=== PATIENT | male | born 1960 | race Hispanic/Latino ===

== ENCOUNTER 2016-07-12 05:08 | Observation (INO) | payer MEDICARE ==
[2016-07-12 05:09] VITALS: BMI 31.3
--- NOTE | 2016-07-12 05:17 | ED PDOC ---
Arrival/HPI - General Historian: Patient - History of Present Illness Time/Duration: Other (tonight) Symptom Onset: Gradual Symptom Course: Unchanged Activities at Onset: Rest, Light Context: Home <Terry Barrientos - Last Filed: 07/12/16 05:24> <Quan Quezada - Last Filed: 07/12/16 08:01> - General Chief Complaint: GI Problem Time Seen by Provider: 07/12/16 05:17 - History of Present Illness Narrative History of Present Illness (Text): 07/12/16 05:17 Marco A Fuentes is a 55 year old male, whose past medical history includes multiple episodes of diverticulitis, cholecystectomy, hypertension, hyperlipidemia, CABG, diabetes, peripheral vascular disease, and CAD, who presents to the emergency department complaining of generalized abdominal pain. Patient reports associated nausea, vomiting, and diarrhea. Patient notes decreased PO intake secondary to vomiting. Patient denies any fever, chills, chest pain, shortness of breath, urinary symptoms, back pain, neck pain, headache, dizziness, or any other complaints. (Terry Barrientos) Past Medical History - Provider Review Nursing Documentation Reviewed: Yes - Infectious Disease Hx of Infectious Diseases: None - Tetanus Immunization Tetanus Immunization: Unknown - Cardiac Hx Hypertension: Yes Hx Peripheral Vascular Disease: Yes Other/Comment: CABG CAD [place] - Pulmonary Hx Bronchitis: Yes Hx Pneumonia: Yes - Neurological Hx Neurological Disorder: No - HEENT Hx HEENT Disorder: No - Renal Hx Renal Disorder: No - Endocrine/Metabolic Hx Diabetes Mellitus Type 2: Yes - Hematological/Oncological Hx Blood Disorders: No - Integumentary Hx Dermatological Disorder: No - Musculoskeletal/Rheumatological Hx Falls: Yes Hx Unsteady Gait: Yes - Gastrointestinal Hx Gall Bladder Disease: Yes Hx Gastroesophageal Reflux: Yes - Genitourinary/Gynecological Hx Genitourinary Disorders: No - Psychiatric Hx Depression: No Hx Emotional Abuse: No Hx Physical Abuse: No Hx Substance Use: Yes - Past Surgical History Past Surgical History: Non-Contributing - Surgical History Hx Cardiac Catheterization: Yes Hx Cholecystectomy: Yes Hx Open Heart Surgery: Yes - Anesthesia Hx Anesthesia: Yes - Suicidal Assessment Feels Threatened In Home Enviroment: No <Terry Barrientos - Last Filed: 07/12/16 05:24> Family/Social History - Physician Review Nursing Documentation Reviewed: Yes Family/Social History: No Known Family HX Smoking Status: Heavy Smoker > 10 Cigarettes Daily Hx Alcohol Use: No (denies) Hx Substance Use: Yes Substance used: Percocet; Oxycontin -- off the street Hx Substance Use Treatment: No <CarrieelsyTerry - Last Filed: 07/12/16 05:24> Allergies/Home Meds <IlianaTerry - Last Filed: 07/12/16 05:24> <Quan Quezada - Last Filed: 07/12/16 08:01> Allergies/Adverse Reactions: Allergies levofloxacin [From Levaquin] Allergy (Verified 07/12/16 05:10) URTICARIA Penicillins Allergy (Verified 07/12/16 05:10) RASH Home Medications: Home Meds Medication Instructions Recorded Confirmed Aspirin [[facility]] 81 mg PO DAILY 08/06/12 07/12/16 Clopidogrel Bisulfate [Clopidogrel] 75 mg PO DAILY 08/06/12 07/12/16 Metoprolol Succinate 50 mg PO DAILY 08/06/12 07/12/16 Furosemide [Lasix] 20 mg PO DAILY 09/06/13 07/12/16 Atorvastatin Calcium 40 mg PO DAILY 04/30/16 07/12/16 Glipizide [Glipizide Xl] 10 mg PO DAILY 04/30/16 07/12/16 Lactobacillus Combo No.6 1 each PO DAILY 04/30/16 07/12/16 [Probiotic Complex] Warfarin [Coumadin] 4 mg PO DAILY 04/30/16 07/12/16 Cyclobenzaprine [Flexeril] 1 tab PO Q8H PRN 06/23/16 07/12/16 Review of Systems - Physician Review All systems were reviewed & negative as marked: Yes - Review of Systems Constitutional: Normal. absent: Fevers Eyes: Normal ENT: Normal Respiratory: Normal. absent: SOB, Cough Cardiovascular: Normal. absent: Chest Pain Gastrointestinal: Abdominal Pain, Diarrhea, Nausea. absent: Vomiting, Other Genitourinary Male: Normal. absent: Dysuria, Frequency, Hematuria, Urinary Output Changes Musculoskeletal: Normal. absent: Back Pain, Neck Pain Skin: Normal. absent: Rash Neurological: Normal. absent: Headache, Dizziness Endocrine: Normal Hemo/Lymphatic: Normal Psychiatric: Normal <IlianaTerry - Last Filed: 07/12/16 05:24> Physical Exam Vital Signs Reviewed: Yes Temperature: Afebrile Blood Pressure: Normal Pulse: Regular Respiratory Rate: Normal Appearance: Positive for: Well-Appearing, Non-Toxic, Comfortable Pain Distress: None Mental Status: Positive for: Alert and Oriented X 3 - Systems Exam Head: Present: Atraumatic, Normocephalic Pupils: Present: PERRL Extroacular Muscles: Present: EOMI Conjunctiva: Present: Normal Mouth: Present: Moist Mucous Membranes Neck: Present: Normal Range of Motion Respiratory/Chest: Present: Clear to Auscultation, Good Air Exchange. No: Respiratory Distress, Accessory Muscle Use Cardiovascular: Present: Regular Rate and Rhythm, Normal S1, S2. No: Murmurs Abdomen: Present: Normal Bowel Sounds. No: Tenderness, Distention, Peritoneal Signs Back: Present: Normal Inspection Upper Extremity: Present: Normal Inspection. No: Cyanosis, Edema Lower Extremity: Present: Normal Inspection. No: Edema Neurological: Present: GCS=15, CN II-XII Intact, Speech Normal Skin: Present: Warm, Dry, Normal Color. No: Rashes Psychiatric: Present: Alert, Oriented x 3, Normal Insight, Normal Concentration <Terry Barrientos - Last Filed: 07/12/16 05:24> Vital Signs Temp Pulse Resp BP Pulse Ox 07/12/16 06:40 94 H 18 130/89 95 07/12/16 05:18 98.2 F 77 16 175/102 H 97 Medical Decision Making - Lab Interpretations I have reviewed the lab results: Yes <Terry Barrientos - Last Filed: 07/12/16 05:24> - RAD Interpretation Miner: Radiologist <Quan Quezada - Last Filed: 07/12/16 08:01> ED Course and Treatment: 07/12/16 05:17 Impression: 55 year old male complaining of generalized abdominal pain, nausea, vomiting, and diarrhea tonight. Plan: -- Labs, lipase -- Urinalysis -- IV fluids -- Zofran -- Ativan -- Reassess and disposition Progress Notes: (Terry Barrientos) 07/12/16 07:48 pt endorsed to me pending ct abd pelvis. ct shows colitis, antibiotic ordered. vrad also reports possible concern for developing sbo. case discussed with dr carlin, accepted (Quan Quezada) - Lab Interpretations Lab Results: 07/12/16 05:25 07/12/16 05:25 Lab Results 07/12/16 05:25: WBC 13.2 H D, RBC 6.00, Hgb 17.5, Hct 50.2, MCV 83.7, MCH 29.2, MCHC 34.9, RDW 13.5, Plt Count 233, MPV 9.9, Gran % 86.9 H, Lymph % (Auto) 9.2 L , [place] % (Auto) 3.7, Eos % (Auto) 0.1 L, Baso % (Auto) 0.1, Gran # 11.47 H, Lymph # 1.2, [place] # 0.5, Eos # 0.0, Baso # 0.01, PT 18.9 H, INR 1.75 H, APTT 31.5 H, Sodium 137, Potassium 3.6, Chloride 98, Carbon Dioxide 25, Anion Gap 18 , BUN 28 H, Creatinine 1.2, Est GFR ( Amer) > 60, Est GFR (Non-Af Amer) > 60, Random Glucose 298 H, Calcium 9.6, Total Bilirubin 1.0, AST 44, ALT 53, Alkaline Phosphatase 145 H, Total Protein 7.6, Albumin 4.2, Globulin 3.3, Albumin/Globulin Ratio 1.3, Lipase 78 - RAD Interpretation Narrative RAD Interpretations (Text): EXAM: CT Abdomen and Pelvis Without Intravenous Contrast FINDINGS: Lower thorax: No acute findings. ABDOMEN: Liver: No acute findings. Gallbladder and bile ducts: Cholecystectomy. No ductal dilation. Pancreas: No acute findings. No ductal dilation. Spleen: No acute findings. No splenomegaly. Adrenals: There is left adrenal gland thickening. Kidneys and ureters: No acute findings. No obstructing stones. No hydronephrosis. Stomach and bowel: There is mild fluid and gaseous distention portions of small bowel in left abdomen. There is liquid stool in portions of the colon. Appendix: No findings to suggest acute appendicitis. PELVIS: Bladder: No acute findings. No stones. Reproductive: No acute findings. ABDOMEN and PELVIS: Intraperitoneal space: No acute findings. No free air. No significant fluid collection. Bones/joints: No acute fracture. No dislocation. Soft tissues: No acute findings. Vasculature: No acute findings. No abdominal aortic aneurysm. Lymph nodes: There is mild nonspecific prominence of the mesenteric lymph node. IMPRESSION: There is mild fluid and gaseous distention portions of small bowel in left abdomen. There is liquid stool in portions of the colon. Consider a degree of enterocolitis. Followup imaging may be of assistance if there is concern for developing small bowel obstruction. (Quan Quezada) Radiology Orders: 07/12/16 06:31 ABD & PELVIS W/O PO OR IV CONT [CT] Stat - Medication Orders Current Medication Orders: Sodium Chloride (Sodium Chloride 0.9%) 1,000 mls @ 80 mls/hr IV .[id number] NINO Last Admin: 07/12/16 05:35 Dose: 80 MLS/HR eMAR Start Stop Document 07/12/16 05:35 SB (Rec: 07/12/16 05:35 SB [id number]) Intravenous Solution Start Date 07/12/16 Start Time 05:35 End Date 07/12/16 Aztreonam (Azactam 1 Gm) 100 mls @ 100 mls/hr IVPB STAT STA PRN Reason: Protocol Stop: 07/12/16 08:41 Metronidazole (Flagyl) 100 mls @ 100 mls/hr IVPB STAT STA PRN Reason: Protocol Stop: 07/12/16 08:41 Discontinued Medications Ketorolac Tromethamine (Toradol) 30 mg IVP STAT STA Stop: 07/12/16 07:38 Lorazepam (Ativan) 1 mg IVP ONCE ONE PRN Reason: Protocol Stop: 07/12/16 05:23 Last Admin: 07/12/16 05:35 Dose: 1 MG Behavioural Document 07/12/16 05:35 SB (Rec: 07/12/16 05:35 SB [id number]) Maintenance Maintenance Dose No Nonmedicinal Nonmedicinal Interventions Redirect Therapeutic Communication Behavior Behavior for Medication: Anxiety IVP Administration Document 07/12/16 05:35 SB (Rec: 07/12/16 05:35 SB [id number]) Charges for Administration # of IVP Administrations 1 Ondansetron HCl (Zofran Inj) 4 mg IVP STAT STA Stop: 07/12/16 05:18 Last Admin: 07/12/16 05:35 Dose: 4 MG IVP Administration Document 07/12/16 05:35 SB (Rec: 07/12/16 05:35 SB [id number]) Charges for Administration # of IVP Administrations 1 - Scribe Statement The provider has reviewed the documentation as recorded by the Scribe <Terry Barrientos - Last Filed: 07/12/16 05:24> <Quan Quezada - Last Filed: 07/12/16 08:01> - Scribe Statement Keiry Steel All medical record entries made by the Scribe were at my direction and personally dictated by me. I have reviewed the chart and agree that the record accurately reflects my personal performance of the history, physical exam, medical decision making, and the department course for this patient. I have also personally directed, reviewed, and agree with the discharge instructions and disposition. (Terry Barrientos) Disposition/Present on Arrival - Present on Arrival History of DVT/PE: No History of Uncontrolled Diabetes: No Urinary Catheter: No History of Decub. Ulcer: No History Surgical Site Infection Following: None <Terry Barrientos - Last Filed: 07/12/16 05:24> - Present on Arrival Any Indicators Present on Arrival: No - Disposition Have Diagnosis and Disposition been Completed?: Yes Disposition Time: 08:00 <Quan Quezada - Last Filed: 07/12/16 08:01> - Disposition Diagnosis: Colitis Disposition: HOSPITALIZED Patient Problems: Current Active Problems Problem Status Diagnosed Colitis Acute Condition: STABLE
[2016-07-12] MEDS ORDERED: Sodium Chloride 0.9% 1,000 ML IV SCH ×2 (05:30→08:30)
[2016-07-12 05:50] LABS: ADD MANUAL DIFF? NO
[2016-07-12 05:57] LABS: BASO # 0.01 K/mm3 (0.0-2.0); BASO % 0.1 % (0.0-3.0); EOS % 0.1 % (1.5-5.0); GRAN # 11.47 (1.4-6.5); GRAN % 86.9 % (50.0-68.0); HEMATOCRIT 50.2 % (42.0-52.0); LYMPH # 1.2 (1.2-3.4); LYMPH % 9.2 % (22.0-35.0); MEAN CELL VOLUME 83.7 fL (80.0-105.0); MEAN CORPUSCULAR HEMOGLOBIN 29.2 pg (25.0-35.0); MEAN CORPUSCULAR HGB CONC 34.9 g/dl (31.0-37.0); MEAN PLATELET VOLUME 9.9 fl (7.0-11.0); MONO # 0.5 (0.1-0.6); MONO % 3.7 % (1.0-6.0); PLATELET COUNT 233 10^3/uL (120.0-450.0); RED CELL DISTRIBUTION WIDTH 13.5 % (11.5-14.5); WHITE BLOOD COUNT 13.2 10^3/ul (4.5-11.0)
[2016-07-12 06:03] LABS: ALB/GLOB RATIO 1.3 (1.1-1.8); ALKALINE PHOSPHATASE 145 U/L (38-133); ALT/SGPT 53 U/L (7-56); AST/SGOT 44 U/L (15-59); BLOOD UREA NITROGEN 28 mg/dL (7-21); CALCIUM 9.6 mg/dL (8.4-10.5); CARBON DIOXIDE 25 mmol/L (21-33); CHLORIDE 98 mmol/L (98-107); GFR AFRICAN-AMERICAN > 60; GLUCOSE,RANDOM 298 mg/dL (70-110); INR 1.75 (0.93-1.08); LIPASE 78 U/L (23-300); PARTIAL THROMBOPLASTIN TIME 31.5 Seconds (23.7-30.8); POTASSIUM 3.6 mmol/L (3.6-5.0); SODIUM 137 mmol/L (132-148); TOTAL PROTEIN 7.6 g/dL (5.8-8.3)
[2016-07-12 06:40] VITALS: RESP 18
[2016-07-12] MEDS ORDERED: Aztreonam 1 Gm in NS 100mL 100 ML IVPB STA (07:42)
[2016-07-12] MEDS ORDERED: metroNIDAZOLE IV 500 mg/100 ml 100 ML IVPB STA (07:42)
[2016-07-12 09:23] VITALS: BP 179/102; PULSE 81; O2SAT 98
[2016-07-12] MEDS ORDERED: Non Formulary Medication (Warfarin [Coumadin] 4 MG) PO SCH (10:00)
[2016-07-12] MEDS ORDERED: Metoprolol Succinate 50 mg XL Tab PO SCH (10:00)
--- NOTE | 2016-07-12 10:00 | CT ---
PROCEDURE: CT Abdomen and Pelvis without intravenous contrast HISTORY: abd pain COMPARISON: 06/22/2016. TECHNIQUE: Technique. Contrast Dose: This CT exam was performed using one or more of the following dose reduction techniques: Automated exposure control, adjustment of the mA and/or kV according to patient size, and/or use of iterative reconstruction technique. Helical scan is obtained from the diaphragm dome to the pubic symphysis without intravenous contrast. Sagittal and coronal reconstructions were obtained. Radiation dose: Total exam DLP = 834 mGy-cm. FINDINGS: LOWER THORAX: Unremarkable. LIVER: Unremarkable. No gross lesion or ductal dilatation. GALLBLADDER AND BILE DUCTS: Cholecystectomy. PANCREAS: Unremarkable. No gross lesion or ductal dilatation. SPLEEN: Unremarkable. ADRENALS: Left adrenal gland thickening. KIDNEYS AND URETERS: 2 cm right renal cyst.. No hydronephrosis. No solid mass. VASCULATURE: Unremarkable. No aortic aneurysm. BOWEL: Unremarkable. No obstruction. No gross mural thickening. APPENDIX: Unremarkable. Normal appendix. PERITONEUM: Unremarkable. No free fluid. No free air. LYMPH NODES: Unremarkable. No enlarged lymph nodes. BLADDER: Unremarkable. REPRODUCTIVE: Unremarkable. BONES: No acute fracture. OTHER FINDINGS: None. IMPRESSION: No acute pathology.
[2016-07-12 11:50] VITALS: TEMP 98
[2016-07-12] MEDS: Insulin Lispro (humaLOG) LOW Coverage SC SCH ×2 (11:57→17:40)
--- NOTE | 2016-07-12 15:38 | CON ---
DATE: 07/12/2016 REQUESTING PHYSICIAN: Dr. Garcia REASON FOR CONSULTATION: I have been asked to see this 55-year-old male with chronic abdominal pain, opiate addiction, frequent [facility] hospitalizations for abdominal pain, diverticuliti s, colitis, coronary artery disease, diabetes mellitus, peripheral vascular disease, who comes to the hospital with generalized abdominal pain, nausea, vomiting and diarrhea. The patient is lying in be d, complaining of abdominal pain, stating that no one will give him "pain medications". The patient states that he has been buying opiates "on the street" because he cannot find a physician to give him pain medications. CT scan of the abdomen and pelvis performed in the Emergency Room shows no acute findings. There is a moderate amount of stool in the rectum. The patient was last hospitalized abou a week ago. He also had a colonoscopy several weeks ago, which revealed benign polyps and divertic ulosis. SOCIAL HISTORY: The patient smokes up to a half pack of cigarettes per day. He denies alcohol use. The patient is addicted to opiates including Percocet, OxyContin, which he buys "on the street". REVIEW OF SYSTEMS: A 14-point is positive for nausea, vomiting, diarrhea, abdominal pain. PHYSICAL EXAMINATION: GENERAL: Well-developed male, lying in bed, complaining of abdominal pain. VITAL SIGNS: Reveal temperature of 98.2, blood pressure 179/102, heart rate of 81. HEENT: Reveal sclerae to be white, conjunctivae pink. NECK: Supple. CHEST: Reveals lungs to be clear. HEART: Reveals a regular rate and rhythm. ABDOMEN: Soft, mild diffuse tenderness. There is no guarding. There is no rebound. EXTREMITIES: Show no edema. LABORATORY DATA: Reveal hemoglobin 17.5, white blood cell count 13.2. Chemistries reveal BUN 28, cr eatinine 1.2. IMPRESSION: A 55-year-old male with multiple complaints of nausea, vomiting, abdominal pain, diarrhe a with frequent [facility] admissions with an opiate addiction. The patient is asking fo r pain meds and is very angry that he is not receiving opiate pain medications in the hospital. He i s receiving Toradol. Some of patient's symptoms may be related to opiate withdrawal. RECOMMENDATIONS: 1. Continue IV fluid hydration. 2. Check stool for culture and sensitivity, ova and parasite, Clostridium difficile. 3. Continue antiemetics. 4. Continue PPI for stress ulcer prophylaxis. Terry Coates MD cc: [phone] TT: 07/12/2016 15:37:17 Confirmation # [id number] Dictation # [id number]
--- NOTE | 2016-07-12 17:13 | CP.PCM.HP ---
<Vlad Gallardo - Last Filed: 07/12/16 17:07> History of Present Illness - History of Present Illness History of Present Illness: 55 y/o M with PMH of CAD s/p CABG, paroxysmal a-fib, HLD, DM, lumbosacral radiculopathy, and chronic opioid dependence presents with lower abdominal pain over the last several days. Pt states he has chronically had abdominal pain for the past few months. Pt normally treats his pain with Percocet and oxycontin which he gets on the street. Today, pt states he has run out of pain meds and has not been able to tolerate the pain so he came to the ED. Pain is located in the lower quadrants and is nonradiating. Pain is described as cramping. Pt states pain is constant and is a 10/10. Pt states he has had several episodes of vomiting at home, nonbloody and nonbilious. Pt denies diarrhea at this time. Pt was admitted for a similar episode 3 weeks ago and left AMA. Pt denies CP, SOB, fever, dysuria, headaches, diarrhea, recent sick contacts. PMH: As above Surgical Hx: Cholecystectomy, Right inguinal hernia repair, CABG, Cardiac stent placement Social Hx: Tobacco 1 ppd x 30 years. Alcohol socially, abuses pain medication Allergies: Levofloxacin, penicillin Medication: See MAR Present on Admission - Present on Admission Any Indicators Present on Admission: No Review of Systems - Constitutional Constitutional: Fatigue. absent: Increased Appetite, Lethargy - EENT Eyes: absent: Blurred Vision, Change in Vision - Cardiovascular Cardiovascular: absent: Chest Pain, Irregular Heart Rhythm - Respiratory Respiratory: absent: Cough, Dyspnea - Gastrointestinal Gastrointestinal: Abdominal Pain, Vomiting. absent: Diarrhea - Genitourinary Genitourinary: absent: Dysuria, Hematuria - Musculoskeletal Musculoskeletal: Back Pain. absent: Muscle Weakness - Integumentary Integumentary: absent: New Lesions, Rash - Neurological Neurological: absent: Syncope, Tingling, Tremor - Psychiatric Psychiatric: absent: Anxiety, Depression Past Patient History - Infectious Disease Hx of Infectious Diseases: None - Tetanus Immunizations Tetanus Immunization: Unknown - Past Social History Smoking Status: Heavy Smoker > 10 Cigarettes Daily - CARDIAC Hx Hypertension: Yes Hx Peripheral Vascular Disease: Yes Other/Comment: CABG CAD [place] - PULMONARY Hx Bronchitis: Yes Hx Pneumonia: Yes - NEUROLOGICAL Hx Neurological Disorder: No - HEENT Hx HEENT Problems: No - RENAL Hx Chronic Kidney Disease: No - ENDOCRINE/METABOLIC Hx Diabetes Mellitus Type 2: Yes - HEMATOLOGICAL/ONCOLOGICAL Hx Blood Disorders: No - INTEGUMENTARY Hx Dermatological Problems: No - MUSCULOSKELETAL/RHEUMATOLOGICAL Hx Falls: Yes - GASTROINTESTINAL Hx Gall Bladder Disease: Yes Hx Gastroesophageal Reflux: Yes - GENITOURINARY/GYNECOLOGICAL Hx Genitourinary Disorders: No - PSYCHIATRIC Hx Depression: No Hx Emotional Abuse: No Hx Physical Abuse: No - SURGICAL HISTORY Hx Cardiac Catheterization: Yes Hx Cholecystectomy: Yes Hx Open Heart Surgery: Yes - ANESTHESIA Hx Anesthesia: Yes Meds Allergies/Adverse Reactions: Allergies Allergy/AdvReac Type Severity Reaction Status Date / Time levofloxacin [From Levaquin] Allergy URTICARIA Verified 07/12/16 05:10 Penicillins Allergy RASH Verified 07/12/16 05:10 Physical Exam - Constitutional Appears: Non-toxic, No Acute Distress - Head Exam Head Exam: ATRAUMATIC, NORMAL INSPECTION, NORMOCEPHALIC - Eye Exam Eye Exam: EOMI, Normal appearance, PERRL - ENT Exam ENT Exam: Mucous Membranes Moist, Normal Exam - Neck Exam Neck exam: Positive for: Normal Inspection. Negative for: Lymphadenopathy - Respiratory Exam Respiratory Exam: Clear to Auscultation Bilateral, NORMAL BREATHING PATTERN. absent: Rhonchi, Wheezes - Cardiovascular Exam Cardiovascular Exam: RRR, +S1, +S2 - GI/Abdominal Exam GI & Abdominal Exam: Normal Bowel Sounds, Soft, Tenderness (tenderness to palpation along lower abdominal quadrants). absent: Distended, Firm, Guarding - Extremities Exam Extremities exam: Positive for: normal inspection. Negative for: calf tenderness, pedal edema - Neurological Exam Neurological exam: Alert, CN II-XII Intact, Oriented x3 - Psychiatric Exam Psychiatric exam: Normal Affect, Normal Mood - Skin Skin Exam: Intact, Normal Color, Warm Results - Vital Signs Recent Vital Signs: Last Vital Signs Temp 98 F 07/12/16 11:46 Pulse 81 07/12/16 11:46 Resp 18 07/12/16 11:46 BP 179/102 H 07/12/16 11:46 Pulse Ox 98 07/12/16 09:16 - Labs Result Diagrams: 07/12/16 05:25 07/12/16 05:25 Labs: Laboratory Results - last 24 hr 07/12/16 11:50 Troponin I < 0.01 Assessment & Plan - Assessment and Plan (Free Text) Plan: 55 y/o M with PMH of CAD s/p CABG, paroxysmal a-fib, HLD, DM, lumbosacral radiculopathy, and chronic opioid dependence presents with lower abdominal pain. Pt received CT scan of ab/pelvis which showed no acute pathology. Pt was seen by Dr. Coates GI, who recommends IV hydration and IV GI prophylaxis. Pt will have abx stopped at this time. Pt will continue with IV hydration and have diet advanced as tolerated. 1. Abdominal pain - Tordol for pain - IVF - Zofran for nausea - No abx at this time - GI recommends conservative therapy 2. Hx of CABG - Continue ASA, lipitor, plavix, metoprolol. - Monitor for chest pain 3. Hx of a-fib - Continue warfarin 4. PPX - Zofran - Protonix Seen, reviewed, and discussed with attending. Sami, PGY-1 <Robin Garcia - Last Filed: 07/14/16 13:23> Results - Vital Signs Recent Vital Signs: Last Vital Signs Temp 98 F 07/12/16 11:46 Pulse 81 07/12/16 11:46 Resp 18 07/12/16 11:46 BP 179/102 H 07/12/16 11:46 Pulse Ox 98 07/12/16 09:16 - Labs Result Diagrams: 07/12/16 05:25 07/12/16 05:25 Attending/Attestation - Attestation I have personally seen and examined this patient.: Yes I have fully participated in the care of the patient.: Yes I have reviewed all pertinent clinical information: Yes Notes (Text): 07/12/16 55 year old male with past medical history of CAD s/p CABG, paroxysmal afib, diabetes, dyslipidemia and chronic opioid dependence who presented with lower abdominal pain with intractable nausea and vomiting. CT abd/pelvis was negative. Labs were unremarkable. He was seen by GI who recommended iv fluids hydration and diet advancement as tolerated. Later in the evening patient reported his symptoms were better. He was seen by the resident who explained to him the risks of signing out against medical advice. Patient signed out AMA. Robin Garcia MD Hospitalist.
== END 2016-07-12 17:55 | disposition left against medical advice (07) ==
LOC: ED 05:08 → ERH 07:51 → 5RNO 09:53
PROVIDERS: ADMIT Internal Medicine; ATTEND Internal Medicine
DX: K52.9 Noninfective gastroenteritis and colitis, unspecified (principal); I48.0 Paroxysmal atrial fibrillation; M54.17 Radiculopathy, lumbosacral region; I25.10 Atherosclerotic heart disease of native coronary artery without angina pectoris; E78.5 Hyperlipidemia, unspecified; E11.51 Type 2 diabetes mellitus with diabetic peripheral angiopathy without gangrene; F17.210 Nicotine dependence, cigarettes, uncomplicated; F11.20 Opioid dependence, uncomplicated; R10.30 Lower abdominal pain, unspecified; R11.2 Nausea with vomiting, unspecified; Z79.82 Long term (current) use of aspirin; Z95.5 Presence of coronary angioplasty implant and graft; Z79.84 Long term (current) use of oral hypoglycemic drugs; Z95.1 Presence of aortocoronary bypass graft; Z88.0 Allergy status to penicillin
CPT/HCPCS: 74176; 80053; 83690; 84484; 85025; 85610; 85730; 87040; 96374; 96375; 96376; 99284; C9113; G0378; J1885; J2060; J2405; J7040

== ENCOUNTER 2016-09-17 06:48 | Day surgery (SDC) | payer MEDICARE ==
[2016-09-11 08:36] VITALS: BMI 31.3
[2016-09-17] MEDS ORDERED: Lidocaine 1% Inj (20ml) ONE (07:12)
[2016-09-17] MEDS ORDERED: Bupivacaine 0.5% Inj(30mL) ONE ×2 (07:12→08:18)
[2016-09-17 07:23] LABS: ADD MANUAL DIFF? NO
[2016-09-17 07:25] LABS: BASO # 0.02 K/mm3 (0.0-2.0); BASO % 0.2 % (0.0-3.0); EOS # 0.1 (0.0-0.7); EOS % 1.1 % (1.5-5.0); GRAN # 6.45 (1.4-6.5); GRAN % 73.7 % (50.0-68.0); LYMPH # 1.5 (1.2-3.4); LYMPH % 16.6 % (22.0-35.0); MEAN CELL VOLUME 83.5 fL (80.0-105.0); MEAN CORPUSCULAR HEMOGLOBIN 27.5 pg (25.0-35.0); MEAN CORPUSCULAR HGB CONC 32.9 g/dl (31.0-37.0); MEAN PLATELET VOLUME 9.7 fl (7.0-11.0); MONO # 0.7 (0.1-0.6); MONO % 8.4 % (1.0-6.0); PLATELET COUNT 189 10^3/uL (120.0-450.0); RED CELL DISTRIBUTION WIDTH 14.5 % (11.5-14.5); WHITE BLOOD COUNT 8.8 10^3/ul (4.5-11.0)
[2016-09-17 07:33] LABS: BLOOD UREA NITROGEN 25 mg/dL (7-21); CALCIUM 9.2 mg/dL (8.4-10.5); CARBON DIOXIDE 27 mmol/L (21-33); CHLORIDE 107 mmol/L (98-107); GFR AFRICAN-AMERICAN > 60; GLUCOSE,RANDOM 141 mg/dL (70-110); POTASSIUM 4.2 mmol/L (3.6-5.0); SODIUM 139 mmol/L (132-148)
[2016-09-17 07:36] LABS: INR 0.98 (0.93-1.08); PARTIAL THROMBOPLASTIN TIME 29.9 Seconds (23.7-30.8)
[2016-09-17] MEDS ORDERED: Midazolam 2 MG/2 ML VIAL ONE (07:48)
[2016-09-17] MEDS ORDERED: Propofol 10 mg/ml Inj (20 ML) ONE (07:48)
[2016-09-17] MEDS ORDERED: Rocuronium 10 mg/ml (5 ml) ONE (07:49)
[2016-09-17] MEDS ORDERED: Phenylephrine 10 mg/ml Inj ONE (07:49)
[2016-09-17] MEDS ORDERED: ePHEDrine 50 mg/ml Inj ONE (07:49)
[2016-09-17] MEDS ORDERED: Ciprofloxacin 400mg/200ml D5W 0 MG/0 ML BAG IVPB ONE (07:54)
[2016-09-17] MEDS ORDERED: Desflurane Inhalation Anesthetic Liq (240 ml) ONE (08:08)
[2016-09-17] MEDS ORDERED: Labetalol 5 mg/ml Inj 20ML ONE (08:12)
[2016-09-17] MEDS ORDERED: Vancomycin 1 g Inj ONE (08:15)
[2016-09-17] MEDS ORDERED: Morphine 4 mg/ml ISec ONE (08:20)
[2016-09-17] MEDS ORDERED: HYDROmorphone 0.5 mg/0.5 ml ISec IVP PRN (09:42)
[2016-09-17] MEDS ORDERED: Neostigmine Methylsulfate 3mg/3ml Syringe IV ONE (09:50)
--- NOTE | 2016-09-17 09:55 | PCM.SURG1 ---
Surgeon's Initial Post Op Note - Surgeon's Notes Surgeon: Dr. Santa [employer] Incident Handler: Radha Ye PGY1 Pre-Operative Diagnosis: Left inguinal hernia Operative Findings: Left indirect inguinal hernia Post-Operative Diagnosis: Left indirect inguinal hernia Operation Performed: Left inguinal hernia repair with mesh Specimen/Specimens Removed: hernia sac Estimated Blood Loss: EBL {In ML}: 5 Date of Surgery/Procedure: 09/17/16 Time of Surgery/Procedure: 08:00
--- NOTE | 2016-09-17 10:51 | OP ---
PROCEDURE DATE: 09/17/2016 PREOPERATIVE DIAGNOSIS: Left inguinal hernia. POSTOPERATIVE DIAGNOSIS: Left inguinal hernia. PROCEDURE PERFORMED: Left inguinal hernia repair with PHS hernia patch. SURGEON: Dr. Santa. DITCH DIGGER: Dr. Ye. ANESTHESIOLOGIST: Dr. Krishna. ANESTHESIA: General endotracheal anesthesia. ESTIMATED BLOOD LOSS: Minimal. SPECIMEN: Hernia sac and cord lipoma. INDICATION: The patient is a 56-year-old male with history of right inguinal hernia repair in the [facility] who currently developed left inguinal hernia, was complaining of pain and discomfort and was sched uled for the repair of left inguinal hernia. A standard timeout procedure took place with everybody in the room agreed as to patient's identity, d iagnosis and procedure to be performed. DESCRIPTION OF PROCEDURE: The patient was brought to the operating room and placed on the operating table in supine position. The patient was connected to EKG, blood pressure and pulse oximeter monito rs. The patient then underwent general endotracheal anesthesia, was prepped and draped in usual ster ile fashion. Using lidocaine mixed with Marcaine, the line of incision was infiltrated and an incision was made us ing #15 blade. Carefully, the incision was carried through subcutaneous fat and the fascia, down to the external oblique aponeurosis. This was incised along its fibers and elevated and from the underlying tissues. The spermatic cord was then carefully dissected out and elevated on a Penros e drain. The ilioinguinal nerve, which was identified prior to that, was pushed aside in order to av oid injury. Once the cord was skeletonized, the hernia sac was identified and pulled up and ligated at its base and amputated and so was the cord lipoma. The preperitoneal space was now carefully acce ssed through the internal ring of the inguinal canal and the double layer mesh was used where the pos terior layer was placed into the preperitoneal space which was earlier created and then the external portion had a keyhole cut out for the cord exit site and was placed flatly on the floor of the inguin al canal, going around the exit site of the spermatic cord. This was sutured to the edges of the tra nsversalis fascia and inguinal ligament. A 0 Vicryl stitch was used. The cord was now placed back i n its original position and so was the ilioinguinal nerve and external oblique aponeurosis was suture d on top of it. The area was infiltrated with lidocaine mixed with Marcaine and Toradol. The wound was then copiously irrigated. There was excellent hemostasis. The irrigation was suctioned out and the Myla's fascia and subcutaneous tissues were closed using 3-0 Vicryl. Skin was closed using 4-0 Monocryl. Thomas Santa MD cc: [id number] TT: 09/17/2016 10:50:31 quintin
[2016-09-17 10:58] VITALS: RESP 18; TEMP 97.3; O2SAT 99
[2016-09-17 12:11] VITALS: BP 164/90; PULSE 84
== END 2016-09-17 12:25 | disposition home or self-care (01) ==
LOC: SDS 06:48
PROVIDERS: ATTEND General Practice
DX: I10 Essential (primary) hypertension (principal); I25.10 Atherosclerotic heart disease of native coronary artery without angina pectoris; I25.2 Old myocardial infarction; E11.8 Type 2 diabetes mellitus with unspecified complications; Z79.84 Long term (current) use of oral hypoglycemic drugs; K40.90 Unilateral inguinal hernia, without obstruction or gangrene, not specified as recurrent
CPT/HCPCS: 36415; 49505; 80048; 82948; 85025; 85610; 85730; 88302; C1781; J1170; J1885 ×2; J2250; J2270; J2370; J2405; J2704; J2710; J2765; J3010; J7120

== ENCOUNTER 2016-10-28 06:57 | Day surgery (SDC) | payer MEDICARE ==
[2016-09-11 08:36] VITALS: BMI 31.3
[2016-10-28 07:59] LABS: BASO # 0.02 K/mm3 (0.0-2.0); BASO % 0.2 % (0.0-3.0); EOS # 0.2 (0.0-0.7); EOS % 1.5 % (1.5-5.0); GRAN # 7.58 (1.4-6.5); GRAN % 75.1 % (50.0-68.0); HEMOGLOBIN 13.7 gm/dL (14.0-18.0); LYMPH # 1.6 (1.2-3.4); LYMPH % 15.9 % (22.0-35.0); MEAN CORPUSCULAR HEMOGLOBIN 26.2 pg (25.0-35.0); MEAN CORPUSCULAR HGB CONC 31.6 g/dl (31.0-37.0); MEAN PLATELET VOLUME 10.1 fl (7.0-11.0); MONO # 0.7 (0.1-0.6); MONO % 7.3 % (1.0-6.0); PLATELET COUNT 260 10^3/uL (120.0-450.0); RBC 5.22 10^6/uL (3.5-6.1); RED CELL DISTRIBUTION WIDTH 14.8 % (11.5-14.5); WHITE BLOOD COUNT 10.1 10^3/ul (4.5-11.0)
[2016-10-28 08:11] LABS: INR 1.02 (0.93-1.08); PARTIAL THROMBOPLASTIN TIME 29.4 Seconds (23.7-30.8)
[2016-10-28 08:13] LABS: BLOOD UREA NITROGEN 26 mg/dL (7-21); CALCIUM 9.2 mg/dL (8.4-10.5); GFR AFRICAN-AMERICAN > 60; GFR NON-AFRICAN AMERICAN 57
[2016-10-28] MEDS ORDERED: Bupivacaine 0.5% Inj(30mL) ONE (09:28)
[2016-10-28] MEDS ORDERED: Lidocaine 1% Inj (20ml) ONE (09:28)
[2016-10-28] MEDS ORDERED: Propofol 10 mg/ml Inj (20 ML) ONE ×2 (09:54→10:09)
[2016-10-28] MEDS ORDERED: Midazolam 2 MG/2 ML VIAL ONE (09:54)
[2016-10-28] MEDS ORDERED: Lactated Ringer's 1,000 ML IV SCH (10:48)
--- NOTE | 2016-10-28 10:51 | PCM.SURG1 ---
Surgeon's Initial Post Op Note - Surgeon's Notes Surgeon: Dr. Santa Unit Educator: Dr. Estrada PGY1, Mikal Neville OMS3 Type of Anesthesia: IV Sedation, Local Pre-Operative Diagnosis: Posterior Neck Mass Operative Findings: 4.2 x 2 cm fibrous neck mass Post-Operative Diagnosis: same Operation Performed: excision of fibrous neck mass Specimen/Specimens Removed: 4.2 x 2cm neck mass Estimated Blood Loss: EBL {In ML}: 5 Drains Used: No Drains Date of Surgery/Procedure: 10/28/16 Time of Surgery/Procedure: 10:30
[2016-10-28 11:15] VITALS: O2SAT 99
[2016-10-28 11:58] VITALS: BP 131/80; PULSE 65; RESP 20; TEMP 97.7
--- NOTE | 2016-10-28 23:25 | OP ---
PROCEDURE DATE: 10/28/2016 PREOPERATIVE DIAGNOSIS: Posterior neck mass. POSTOPERATIVE DIAGNOSIS: Posterior neck mass. PROCEDURE: Excision of a 4.2 x 2 cm posterior neck intramuscular mass. SURGEON: Dr. Santa. CORRECTIONS CASEWORKER: Dr. Scott. TYPE OF ANESTHESIA: MAC and local anesthesia. ANESTHESIOLOGIST: Dr. Shaw. ESTIMATED BLOOD LOSS: Minimal. SPECIMEN: Posterior neck intramuscular mass. INDICATIONS: The patient is a 56-year-old male who is complaining of painful mass in the posterior neck associated with tenderness and discomfort to touch. The patient was seen in the office and was scheduled for excision of this mass. DESCRIPTION OF PROCEDURE: The patient was brought to the operating room and placed on the operating table in a prone position. The patient was connected to the EKG, blood pressure, and pulse oximetry monitor. The patient then underwent MAC anesthesia. First a standard time-out procedure took place, when everybody in the room agreed as to the patient's identify, diagnoses, and procedure to be performed. Using lidocaine with some Marcaine, the area of the incision was infiltrated and the incision was made through skin into the subcutaneous fat. Careful palpation revealed *------* mass which was slightly above the muscle fascia and appeared to be a rubbery hard nodule. This appeared to be piercing through the muscle fascia and into the underlying neck muscle. The mass itself was carefully dissected out of the edges of the fascia and the subfascial extension of this mass into the muscle was also carefully dissected out and removed. The wound was then copiously irrigated. All of the bleeding points were cauterized and the wound was closed in layers using 3-0 Vicryl for the fascia, 3-0 Vicryl for the deep dermal layer and 4-0 Monocryl for the skin. A sterile Dermabond dressing was applied to the wound. The patient was awaken and transferred to the recovery room for further observation. Thomas Santa MD
== END 2016-10-28 12:35 | disposition home or self-care (01) ==
LOC: SDS 06:57
PROVIDERS: ATTEND General Practice
DX: D17.9 Benign lipomatous neoplasm, unspecified (principal); I10 Essential (primary) hypertension; I25.10 Atherosclerotic heart disease of native coronary artery without angina pectoris; E11.9 Type 2 diabetes mellitus without complications; E66.9 Obesity, unspecified; Z68.31 Body mass index [BMI] 31.0-31.9, adult; Z79.84 Long term (current) use of oral hypoglycemic drugs; Z95.1 Presence of aortocoronary bypass graft
CPT/HCPCS: 21552; 36415; 80048; 85025; 85610; 85730; 88307; J2250; J2405; J2704; J7120 ×2

== ENCOUNTER 2017-01-17 11:20 | Inpatient (IN) | payer MEDICARE ==
[2017-01-17 11:32] VITALS: BMI 29.5
[2017-01-17] MEDS ORDERED: Aspirin 325 mg EC Tablets PO STA (11:37)
--- NOTE | 2017-01-17 11:48 | ED PDOC ---
Arrival/HPI - General Chief Complaint: Chest Pain Time Seen by Provider: 01/17/17 11:30 Historian: Patient - Critical Care Critical Care Minutes: 30 minutes - History of Present Illness Narrative History of Present Illness (Text): 01/17/17 11:46 A 56 year old male heavy smoker, whose past medical history includes renal failure and an inguinal hernia, presents to the emergency department for chronic chest pain and shortness of breath, which began 2 days ago. The patient reports he was seeking pain management for his chronic chest pain, but was dismissed. The patient admits to buying oxycodone off the streets, but states he no longer has enough money to buy them and he feels as if he is going through withdrawal. The patient denies any fever, abdominal pain, nausea, or any other complaints at this time. Time/Duration: < week (x2 days) Symptom Onset: Gradual Symptom Course: Unchanged Activities at Onset: Light Context: Home Associated Symptoms (Text): 01/17/17 12:30 2 day history of chest pain and shortness of breath. Patient reports that he has chronic chest pain. This pain began 2 days ago when he ran out of his narcotic pain medication. He had been seeing a ship painter helper but has been dismissed. He has been buying his OxyContin and oxycodone from the street. He does not have enough money to buy them any longer and has not taken them in 3 days. He believes that this pain is because he is no longer on his narcotic pain medication. He feels as if he is going through withdrawal. Past Medical History - Provider Review Nursing Documentation Reviewed: Yes - Infectious Disease Hx of Infectious Diseases: None - Tetanus Immunization Tetanus Immunization: Unknown - Cardiac Hx Pacemaker: No Other/Comment: CABG and Cardiac Stent - Pulmonary Hx Chronic Obstructive Pulmonary Disease (COPD): Yes - Neurological Hx Paralysis: No - HEENT Hx HEENT Disorder: No - Renal Hx Renal Disorder: No - Endocrine/Metabolic Hx Diabetes Mellitus Type 2: Yes - Hematological/Oncological Hx Blood Transfusions: No Hx Blood Transfusion Reaction: No - Integumentary Hx Dermatological Disorder: No - Musculoskeletal/Rheumatological Hx Musculoskeletal Disorders: No - Gastrointestinal Hx Gall Bladder Disease: Yes Hx Gastroesophageal Reflux: Yes - Genitourinary/Gynecological Hx Genitourinary Disorders: No - Psychiatric Hx Emotional Abuse: No Hx Physical Abuse: No Hx Substance Use: Yes (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") - Past Surgical History Past Surgical History: Non-Contributing - Surgical History Hx Coronary Artery Bypass Graft: Yes (quadruple) - Anesthesia Hx Anesthesia Reactions: Yes (WAKES UP ANGRY) Hx Malignant Hyperthermia: No - Suicidal Assessment Feels Threatened In Home Enviroment: No Family/Social History - Physician Review Nursing Documentation Reviewed: Yes Family/Social History: Unknown Family HX Smoking Status: Heavy Smoker > 10 Cigarettes Daily Hx Alcohol Use: No Hx Substance Use: Yes (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") Substance used: Percocet; Oxycontin -- off the street Hx Substance Use Treatment: No Allergies/Home Meds Allergies/Adverse Reactions: Allergies levofloxacin [From Levaquin] Allergy (Severe, Verified 09/11/16 08:36) URTICARIA Penicillins Allergy (Severe, Verified 09/11/16 08:36) RASH Home Medications: Home Meds Medication Instructions Recorded Confirmed Aspirin [[facility]] 81 mg PO DAILY 08/06/12 01/17/17 Clopidogrel Bisulfate [Clopidogrel] 75 mg PO DAILY 08/06/12 01/17/17 Metoprolol Succinate 50 mg PO DAILY 08/06/12 01/17/17 Furosemide [Lasix] 20 mg PO DAILY 09/06/13 01/17/17 Atorvastatin Calcium 40 mg PO DAILY 04/30/16 01/17/17 Glipizide [Glipizide Xl] 10 mg PO DAILY 04/30/16 01/17/17 Lactobacillus Combo No.6 1 each PO DAILY 04/30/16 01/17/17 [Probiotic Complex] Warfarin [Coumadin] 4 mg PO DAILY 04/30/16 01/17/17 Review of Systems - Physician Review All systems were reviewed & negative as marked: Yes - Review of Systems Constitutional: Fatigue. absent: Fevers Respiratory: SOB. absent: Cough Cardiovascular: Chest Pain. absent: Palpitations, Syncope Gastrointestinal: absent: Abdominal Pain, Nausea, Vomiting Neurological: Dizziness. absent: Headache, Focal Weakness, Gait Changes Physical Exam Vital Signs Reviewed: Yes Vital Signs Temp Pulse Resp BP Pulse Ox 01/17/17 12:48 98.8 F 86 18 98/58 L 100 01/17/17 11:42 98.5 F 95 H 18 123/63 100 01/17/17 11:23 99 H 20 123/63 100 Temperature: Afebrile Blood Pressure: Normal Pulse: Regular Respiratory Rate: Normal Appearance: Positive for: Non-Toxic, Uncomfortable, Other (Pale) Pain Distress: None Mental Status: Positive for: Alert and Oriented X 3 - Systems Exam Head: Present: Atraumatic, Normocephalic Pupils: Present: PERRL Extroacular Muscles: Present: EOMI Conjunctiva: Present: Normal Mouth: Present: Moist Mucous Membranes Pharnyx: No: ERYTHEMA, EXUDATE, TONSILS ENLARGED Neck: Present: Normal Range of Motion Respiratory/Chest: Present: Decreased Breath Sounds (diminished breath sounds), Tender to Palpation (chest is tender to palpation) Cardiovascular: Present: Regular Rate and Rhythm, Normal S1, S2. No: Murmurs Abdomen: Present: Normal Bowel Sounds. No: Tenderness, Distention, Peritoneal Signs Upper Extremity: Present: Normal Inspection. No: Cyanosis, Edema Lower Extremity: Present: Normal Inspection. No: Edema Neurological: Present: GCS=15, CN II-XII Intact, Speech Normal, Motor Func Grossly Intact Skin: Present: Warm, Dry, Normal Color. No: Rashes Psychiatric: Present: Alert, Oriented x 3, Normal Insight, Normal Concentration Medical Decision Making ED Course and Treatment: 01/17/17 11:49 Impression: A 56 year old male with chest pain. Differential Diagnosis included but are not limited to: Plan: -- EKG -- Chest X-ray -- Labs -- Aspirin, Nitroglycerin -- Reassess and disposition Prior Visits: Progress Notes: 01/17/17 12:32 CABG and stents in the past. His last cardiac catheterization was 06/06/2012. He had an ejection fraction of 50% at that time and no disease. 01/17/17 12:33 EKG shows normal sinus rhythm rate approximately 95 with Q waves inferiorly and no acute ST or T-wave changes 01/17/17 12:38 After the patient's hemoglobin returned 4.8, I went back and did a rectal exam on the patient. His rectal exam is black guaiac positive. Packed red blood cells have been ordered. Consultation was obtained with PMD Dr.A Busch and patient will be admitted. Consultation with the tufter hand for ICU admission. Consultation with Dr. Molina and Dr Coates have been called. 01/17/17 13:[address] Coates. - Lab Interpretations Lab Results: 01/17/17 11:50 01/17/17 11:50 Lab Results 01/17/17 12:21: Blood Type Pending, Antibody Screen Pending, Crossmatch See Detail, BBK History Checked Patient has bt 01/17/17 11:50: Sodium 139, Potassium 3.8, Chloride 104, Carbon Dioxide 23, Anion Gap 16, BUN 24 H, Creatinine 1.4, Est GFR ( Amer) > 60, Est GFR ( Non-Af Amer) 52, Random Glucose 283 H, Calcium 8.0 L, Total Bilirubin 0.3, AST 22, ALT 46, Alkaline Phosphatase 95, Lactate Dehydrogenase 316 L, Total Creatine Kinase 43, Troponin I < 0.01, NT-Pro-B Natriuret Pep 1070 H, Total Protein 5.2 L, Albumin 2.9 L, Globulin 2.2, Albumin/Globulin Ratio 1.3 01/17/17 11:50: PT 29.1 H, INR 2.69 H, APTT 38.3 H, D-Dimer, Quantitative 0.19 01/17/17 11:50: WBC 12.6 H D, RBC 1.92 L, Hgb 4.8 L*, Hct 15.6 L*, MCV 81.3, MCH 25.0, MCHC 30.8 L, RDW 17.1 H, Plt Count 223, MPV 9.0, Gran % 86.2 H, Lymph % (Auto) 7.0 L, Trego % (Auto) 6.5 H, Eos % (Auto) 0.2 L, Baso % (Auto) 0.1, Gran # 10.83 H, Lymph # 0.9 L, Trego # 0.8 H, Eos # 0.0, Baso # 0.01 - RAD Interpretation Radiology Orders: 01/17/17 11:37 CHEST PORTABLE [RAD] Stat - Medication Orders Current Medication Orders: Discontinued Medications Aspirin (Ecotrin) 325 mg PO STAT STA Stop: 01/17/17 11:38 Last Admin: 01/17/17 12:11 Dose: 325 mg Nitroglycerin (Nitrostat Sl Tab) 0.4 mg SL STAT STA Stop: 01/17/17 11:38 Last Admin: 01/17/17 12:11 Dose: 0.4 mg Phytonadione (Vitamin K Tab) 10 mg PO ONCE ONE Stop: 01/17/17 12:29 Last Admin: 01/17/17 12:39 Dose: 10 mg - Scribe Statement The provider has reviewed the documentation as recorded by the Rena Batres Provider Scribe Attestation: All medical record entries made by the Gustaboibe were at my direction and personally dictated by me. I have reviewed the chart and agree that the record accurately reflects my personal performance of the history, physical exam, medical decision making, and the department course for this patient. I have also personally directed, reviewed, and agree with the discharge instructions and disposition. Disposition/Present on Arrival - Present on Arrival Any Indicators Present on Arrival: No History of DVT/PE: No History of Uncontrolled Diabetes: No Urinary Catheter: No History of Decub. Ulcer: No History Surgical Site Infection Following: None - Disposition Have Diagnosis and Disposition been Completed?: Yes Diagnosis: Gastrointestinal hemorrhage, Anemia, Chest pain, Dyspnea Disposition: HOSPITALIZED Disposition Time: 12:41 Patient Plan: ICU Patient Problems: Current Active Problems Problem Status Onset Anemia Acute Chest pain Acute Dyspnea Acute Gastrointestinal hemorrhage Acute Condition: CRITICAL
[2017-01-17 12:01] LABS: BASO # 0.01 K/mm3 (0.0-2.0); BASO % 0.1 % (0.0-3.0); EOS % 0.2 % (1.5-5.0); GRAN # 10.83 (1.4-6.5); GRAN % 86.2 % (50.0-68.0); LYMPH # 0.9 (1.2-3.4); MEAN CELL VOLUME 81.3 fl (80.0-105.0); MEAN CORPUSCULAR HGB CONC 30.8 g/dl (31.0-37.0); MONO # 0.8 (0.1-0.6); MONO % 6.5 % (1.0-6.0); RED CELL DISTRIBUTION WIDTH 17.1 % (11.5-14.5); WHITE BLOOD COUNT 12.6 10^3/ul (4.5-11.0)
[2017-01-17 12:10] LABS: ALB/GLOB RATIO 1.3 (1.1-1.8); ALKALINE PHOSPHATASE 95 U/L (38-126); ALT/SGPT 46 U/L (7-56); AST/SGOT 22 U/L (17-59); BILIRUBIN,TOTAL 0.3 mg/dL (0.2-1.3); BLOOD UREA NITROGEN 24 mg/dL (7-21); CARBON DIOXIDE 23 mmol/L (21-33); CHLORIDE 104 mmol/L (98-107); GFR AFRICAN-AMERICAN > 60; GLUCOSE,RANDOM 283 mg/dL (70-110); HEMATOCRIT 15.6 % (42.0-52.0); POTASSIUM 3.8 mmol/L (3.6-5.0); SODIUM 139 mmol/L (132-148); TOTAL PROTEIN 5.2 g/dL (5.8-8.3)
[2017-01-17 12:19] LABS: D DIMER 0.19 mg/L FEU (0-0.50); INR 2.69 (0.93-1.08); PARTIAL THROMBOPLASTIN TIME 38.3 Seconds (23.7-30.8)
[2017-01-17 12:26] LABS: TROPONIN I < 0.01 ng/mL
--- NOTE | 2017-01-17 12:31 | RAD ---
HISTORY: Chest pain. Technique: Single view portable semi erect @ 12:06. COMPARISON: 05/25/2016 FINDINGS: LUNGS: No active pulmonary disease. PLEURA: No significant pleural effusion identified, no pneumothorax apparent. CARDIOVASCULAR: No radiographic findings to suggest acute or significant cardiovascular disease. Incidental Finding(s): Postoperative changes related to sternotomy. OSSEOUS STRUCTURES: No significant abnormalities. VISUALIZED UPPER ABDOMEN: Normal. OTHER FINDINGS: None. IMPRESSION: No active disease. No significant interval change compared to the prior examination(s). Please note: No preliminary report/ innterpretation of this examination provided by emergency department personnel.
[2017-01-17] MEDS: Insulin Lispro (humaLOG) LOW Coverage SC SCH ×2 (17:30→22:18)
[2017-01-17] MEDS: Oxycodone/Acetaminophen 5/325 mg Tab PO PRN (17:55)
--- NOTE | 2017-01-17 19:23 | CARD ---
APPROVED REPORT EKG Measurement Heart [id number] CO 130P13 [id number] <Conclusion> Normal sinus rhythm Inferior infarct, age undetermined Prolonged QT Abnormal ECG
[2017-01-17] MEDS ORDERED: Morphine 2 mg/ml ISec IVP ONE (20:50)
[2017-01-17] MEDS ORDERED: Morphine 4 mg/ml ISec IVP STA (21:03)
[2017-01-17 21:24] LABS: BASO # 0.01 K/mm3 (0.0-2.0); BASO % 0.1 % (0.0-3.0); EOS % 0.2 % (1.5-5.0); GRAN # 14.43 (1.4-6.5); GRAN % 87.6 % (50.0-68.0); HEMATOCRIT 25.4 % (42.0-52.0); LYMPH # 1.1 (1.2-3.4); LYMPH % 6.8 % (22.0-35.0); MEAN CELL VOLUME 81.7 fl (80.0-105.0); MEAN CORPUSCULAR HEMOGLOBIN 26.7 pg (25.0-35.0); MEAN CORPUSCULAR HGB CONC 32.7 g/dl (31.0-37.0); MEAN PLATELET VOLUME 9.3 fl (7.0-11.0); MONO # 0.9 (0.1-0.6); MONO % 5.3 % (1.0-6.0); RED CELL DISTRIBUTION WIDTH 16.1 % (11.5-14.5); WHITE BLOOD COUNT 16.5 10^3/ul (4.5-11.0)
--- NOTE | 2017-01-17 22:56 | CP.PCM.PN ---
Subjective - Date & Time of Evaluation Date of Evaluation: 01/17/17 Time of Evaluation: 22:55 - Subjective Subjective: Nurse called and told that he had vomited about 100 ml bilious secretion. Had no other complaints. Had received morphine 2 mg IV for pain. Medical record was reviewed. This 56 year old white male was admitted with chronic chest pain, sob,GI hemorrhage, severe anemia, elevated BNP, leukocytosis. Has PMH of CAD, DM II, GERD, COPD, atrial fibrillation, renal failure, inguinal hernia , CABG, cholecystectomy, coronary stent placement,heavy smoker, opioid dependent. Objective - Vital Signs/Intake and Output Vital Signs (last 24 hours): Temp Pulse Resp BP Pulse Ox 99.1 F 74 19 119/65 97 01/17/17 19:52 01/17/17 19:52 01/17/17 19:52 01/17/17 21:00 01/17/17 21:00 Intake and Output: 01/17/17 01/18/17 18:59 06:59 Intake Total 1675 325 Output Total 1250 Balance 425 325 - Medications Medications: Current Medications Acetaminophen (Tylenol 325mg Tab) 650 mg PO Q4H PRN PRN Reason: Fever >100.4 F Atorvastatin Calcium (Lipitor) 40 mg PO DAILY [facility] Insulin Human Lispro (Humalog Low) 0 units SC ACHS [facility] PRN Reason: Protocol Last Admin: 01/17/17 22:18 Dose: Not Given Oxycodone/Acetaminophen (Percocet 5/325 Mg Tab) 1 tab PO BID PRN PRN Reason: Pain, severe (8-10) Stop: 01/20/17 15:28 Last Admin: 01/17/17 17:55 Dose: 1 tab Pantoprazole Sodium (Protonix Inj) 40 mg IVP Q12 NINO - Labs Labs: 01/17/17 21:00 PT 29.1 Seconds (9.9-11.8) H 01/17/17 11:50 INR 2.69 (0.93-1.08) H 01/17/17 11:50 APTT 38.3 Seconds (23.7-30.8) H 01/17/17 11:50 - Constitutional Appears: Well, No Acute Distress - Head Exam Head Exam: ATRAUMATIC, NORMAL INSPECTION, NORMOCEPHALIC - Eye Exam Additional comments: Pale. - ENT Exam ENT Exam: Normal External Ear Exam - Neck Exam Neck Exam: Normal Inspection - Respiratory Exam Respiratory Exam: NORMAL BREATHING PATTERN - GI/Abdominal Exam GI & Abdominal Exam: absent: Distended - Rectal Exam Rectal Exam: Deferred - Exam Additional comments: Deferred. - Extremities Exam Extremities Exam: Normal Inspection - Back Exam Back Exam: NORMAL INSPECTION - Neurological Exam Neurological Exam: Alert, Awake - Psychiatric Exam Psychiatric exam: Agitated - Skin Skin Exam: Normal Color Assessment and Plan - Assessment and Plan (Free Text) Assessment: Vomited 2* to morphine? Agitation . Chest pain. Dyspnea. GI hemorrhage. CAD. HTN. DM II. COPD. S/P CABG. Anemia. Plan: Zofran 4 mg IV x 1. Continue present management.
[2017-01-18] MEDS: Oxycodone/Acetaminophen 5/325 mg Tab PO PRN (02:29)
[2017-01-18 06:16] LABS: INR 1.64 (0.93-1.08); PARTIAL THROMBOPLASTIN TIME 34.4 Seconds (23.7-30.8)
[2017-01-18 06:22] LABS: BASO # 0.01 K/mm3 (0.0-2.0); BASO % 0.1 % (0.0-3.0); GRAN # 15.08 (1.4-6.5); GRAN % 86.2 % (50.0-68.0); LYMPH % 5.4 % (22.0-35.0); MEAN CELL VOLUME 80.8 fl (80.0-105.0); MEAN CORPUSCULAR HEMOGLOBIN 26.6 pg (25.0-35.0); MEAN CORPUSCULAR HGB CONC 32.9 g/dl (31.0-37.0); MEAN PLATELET VOLUME 9.4 fl (7.0-11.0); MONO # 1.5 (0.1-0.6); MONO % 8.3 % (1.0-6.0); WHITE BLOOD COUNT 17.5 10^3/ul (4.5-11.0)
[2017-01-18 06:41] LABS: ALB/GLOB RATIO 1.2 (1.1-1.8); BILIRUBIN,TOTAL 0.7 mg/dL (0.2-1.3); CALCIUM 8.1 mg/dL (8.4-10.5); MAGNESIUM 1.7 mg/dL (1.7-2.2); PHOSPHOROUS 4.5 mg/dL (2.5-4.5); POTASSIUM 3.7 mmol/L (3.6-5.0); TOTAL PROTEIN 5.1 g/dL (5.8-8.3)
--- NOTE | 2017-01-18 07:50 | CP.PCM.PCO ---
Physician Communication Note - Physician Communication Note Physician Communication Note: Stable vitals; Approp response to transfusion; Thus, will transfer to tele
--- NOTE | 2017-01-18 08:22 | CON ---
DATE: 01/17/2017 SYSTEMS DEVELOPER NOTE REQUESTING PHYSICIAN: Dr. Busch. CHIEF COMPLAINT: The patient presented with chronic chest pain and shortness of breath on exertion. HISTORY OF PRESENT ILLNESS: Mr. Beckford is a 56-year-old male with a history of diabetes, COPD, CABG, coronary artery disease with stent. He is an abuser of OxyContin and Percocet. He is a drug abuser and has chronic pleuritic chest pain. The patient states that he has had black stools for sometimes with no bright red blood and presents with shortness of breath on exertion and chest discomfort. It is noted in the ER that his hemoglobin is 4.8. The patient has GI bleed. He has a history of inguinal hernia repair. PAST MEDICAL HISTORY: Noted as above. ALLERGIES: HE HAS ALLERGIES TO LEVAQUIN. FAMILY HISTORY: Noncontributory. SOCIAL HISTORY: He is drug abuser with OxyContin and Percocet. Says that he buys them on the street and he is a smoker, but no alcohol abuse. REVIEW OF SYSTEMS: CONSTITUTIONAL: The patient does have some fatigue, but no fever or chills. HEENT: Within normal limits. RESPIRATORY: Has shortness of breath with exertion. CARDIOVASCULAR: Complains of chest pain, but it is pleuritic in nature. GASTROINTESTINAL: No abdominal pain, no nausea or vomiting, but he does have black tarry stools. NEUROPSYCHIATRIC: Does complain of dizziness at times. ENDOCRINOLOGY: All negative. HEMATOLOGICAL: All negative. IMMUNOLOGICAL: All negative. INTEGUMENTARY: All negative. PHYSICAL EXAMINATION: VITAL SIGNS: His temperature is 98.8, his pulse is 85, respirations 18, blood pressure 126/63, and O2 saturation is 100%. HEENT: Head is atraumatic and normocephalic. Eyes, reactive to light. Ears, nose, and throat seemed to be within normal limits. NECK: Supple. No JVD. No thyroid enlargement. No lymph nodes. HEART: Regular rate and rhythm. Normal S1 and S2. LUNGS: Reveal good breath sounds bilaterally. ABDOMEN: Soft and nontender. Decreased bowel sounds. GENITALIA: Deferred. RECTAL: Deferred. MUSCULOSKELETAL: No joint deformities. EXTREMITIES: Reveal trace lower extremity edema. NEUROLOGIC: He seems to be grossly intact. LABORATORY DATA: As far as his laboratories are concerned, his white count is 12.6, hemoglobin is 4.8, hematocrit 15.6 with platelets of 223,000. His sodium is 139, potassium is 3.8, chloride 104, CO2 of 23 with a BUN of 24, creatinine of 1.4, and glucose of 283. IMPRESSION: This patient has acute gastrointestinal bleed and symptomatic anemia. He has pleuritic chest pain, history of chronic obstructive pulmonary disease, diabetes, coronary artery bypass grafting, as well as coronary artery disease and stents. PLAN: We will hold all anticoagulants and the patient will get Xanax, as well as, we will get some mild pain medications for his pleuritic chest pain. He will get Lipitor and we will follow his blood sugars and correct as needed. The patient will get transfused packed red blood cells and we will follow his hemoglobin and asked him scheduled to get Lasix for appropriate diuresis. We will monitor closely and treat aggressively along with the other consultants and the primary care doctor. Prakash Bennett MD
[2017-01-18] MEDS: Insulin Lispro (humaLOG) LOW Coverage SC SCH ×4 (08:39→21:33)
--- NOTE | 2017-01-18 09:45 | CON ---
DATE: REASON FOR CONSULTATION: Chest pain. HISTORY OF PRESENT ILLNESS: The patient is a 66 years old male, who has history of coronary artery disease, status post coronary artery bypass surgery few years ago at [facility]. The patient is on opiates, a pain killer which he was given in the street. He presented because of what he describes as chest pain, sharp in nature, and he had been out of his Percocet. The patient did report black stool a few days ago. The patient has no prior history of anemia, never required blood transfusion in the past. MEDICATIONS: The home medications include aspirin 81 mg once daily, Lopressor 50 mg once daily, Plavix 75 mg once daily, Coumadin 4 mg once a day, Lasix 20 mg once a day, Lipitor 40 mg once a day, glipizide 10 mg once a day. REVIEW OF SYSTEMS: No hematemesis. No fever or chills. No productive cough. PHYSICAL EXAMINATION GENERAL: The patient is a middle-aged male who does not appear to be in acute distress. VITAL SIGNS: Blood pressure 104/55, heart rate 88, temperature 98.8, respirations 17. HEENT: Pale conjunctivae. CHEST: Clear. HEART: S1 and S2 regular. ABDOMEN: Soft. EXTREMITIES: No edema. LABORATORY DATA: Hemoglobin and hematocrit 4.8 and 15.6, white count 12.6, platelet count 233,000. SMA-7: Sodium 139, potassium 3.8, chloride 104, CO2 of 23, glucose 283, BUN 24, creatinine 1.5, pro-BNP is 1070. INR is 2.69 and PTT is 38.3. D-dimer was within normal limits. EKG revealed normal sinus rhythm. Chest x-ray was unremarkable. Echocardiography study performed in August of this year revealed LVH with good LV systolic function, dilated left atrium and right atrium, no pulmonary hypertension. SPECT Myoview study in August of this year was reported as probably normal study. ASSESSMENT: 1. Severe anemia most likely secondary to gastrointestinal bleeding. 2. Atypical chest pain. 3. Coronary artery disease, status post coronary artery bypass surgery few years ago at [facility]. 4. Opiate abuse. RECOMMENDATIONS: The patient has already received vitamin K 10 mg orally as a single dose as well as sublingual nitroglycerin 1 tablet. The patient will be typed and cross matched and transfused with packed RBC transfusion. Monitor for signs of volume overload and administer Lasix 40 mg IV push after 8 units of packed RBC transfusion. Obtain urine for drug screen and I recommend subcutaneous vitamin K in addition to oral vitamin K. No place for either antiplatelet or anticoagulation therapy at this time. Colton Hdz MD
[2017-01-18] MEDS: Pantoprazole 40mg/100ml IVPB 40 MG/100 ML BAG IVPB SCH ×3 (10:03→19:45)
[2017-01-18] MEDS: Morphine 2 mg/ml ISec IVP PRN ×3 (10:03→21:28)
--- NOTE | 2017-01-18 10:41 | HP ---
HISTORY OF PRESENT ILLNESS: The patient is a 56-year-old man with a past medical history of CAD s/p PCI with stent placement s/p CABG, paroxysmal atrial fibrillation, hyperlipidemia, type 2 diabetes mellitus, lumbosacral radiculopathy and chronic opioid dependence who presented to [facility] ED with a several day history of fatigue, malaise and decreased exercise tolerance and who was initially admitted to the ICU for management of severe symptomatic anemia with a hemoglobin of 4.8. The patient reports that for the past couple of weeks he has noted dark tarry stools. The patient subsequently developed dyspnea with exertion associated with significant fatigue. Given the increasing severity of the symptoms he opted for evaluation in the ED. Upon arrival to the ED he was noted to be afebrile and mildly hypotensive with a blood pressure of 98/58. Physical examination was largely unremarkable with the exception of a rectal exam which was noted to be positive for occult blood. The patient's laboratory studies confirmed profound anemia with a hemoglobin of 4.8 and he was evaluated by the ICU team before being admitted to the ICU for continued management of profound symptomatic anemia. Upon being admitted to the ICU the patient was transfused 3 units of PRBCs with subsequent improvement in his hemoglobin to 7.9. The patient was subsequently transferred to the telemetry santizo for continued management of presumed upper GI bleed and symptomatic anemia. PAST MEDICAL HISTORY: As per HPI. PAST SURGICAL HISTORY: As per HPI. ALLERGIES: LEVAQUIN AND PENICILLIN. MEDICATIONS: Plavix 75 mg p.o. daily, aspirin 81 mg p.o. daily, Coumadin 4 mg p.o. daily, Lipitor 40 mg p.o. daily, Toprol XL 50 mg p.o. daily, glipizide 10 mg p.o. daily, Pepcid 20 mg p.o. daily, and oxycodone 20 mg p.o. b.i.d. FAMILY HISTORY: Noncontributory. SOCIAL HISTORY: The patient reports an active 35 pack year smoking history and social alcohol use. He also reports active illicit drug abuse stating he obtains opioid medications from the streets. The patient also has a former history of crack cocaine and heroine abuse. REVIEW OF SYSTEMS: The 14-point review of systems is negative except as per HPI. PHYSICAL EXAMINATION: VITAL SIGNS: Temperature 98.1, pulse 86, blood pressure 118/75, respiratory rate 20, oxygen saturation 99% on room air. GENERAL: No apparent distress. HEENT: PERRL. EOMI. No scleral icterus. Mild conjunctival pallor is noted. NECK: No JVD. No bruits. LUNGS: Clear to auscultation. CARDIOVASCULAR: Regular rate and rhythm. Normal S1 and S2. Midline sternotomy scar is noted. ABDOMEN: Normoactive bowel sounds. Soft. Mild tenderness to palpation to epigastrium and voluntary guarding. No rigidity, no tympany. EXTREMITIES: No edema. NEUROLOGIC: Awake, alert and oriented x3. No focal motor deficit. LABORATORY DATA: WBC 17.5 with 86% neutrophils, hemoglobin 7.9, hematocrit 24 and platelets 240. Sodium 140, potassium 3.7, chloride 104, bicarb 26, BUN 27, creatinine 1.6, glucose 200, INR 1.6. IMAGING STUDIES: Chest x-ray demonstrates no active disease. ASSESSMENT: The patient is a 56-year-old man with multiple medical comorbidities including CAD s/p CABG, paroxysmal AFib, T2DM, hyperlipidemia and lumbosacral radiculopathy with chronic opioid dependence who presented for evaluation of a several day history of fatigue and malaise and who was initially admitted to the ICU for management of severe symptomatic anemia with a hemoglobin of 4.8 presumed secondary to an upper GI bleed who is now status post transfer to the telemetry santizo. PLAN: 1. Severe symptomatic anemia, etiology unclear but consider secondary upper GI bleed. The patient is status post transfusion of 3 units of packed red blood cells with an appropriate response in hemoglobin. Morning labs demonstrated an hemoglobin of 7.9. The patient remains on Protonix 40 mg IV q. 12 hours. However, in the setting of presumed upper GI bleed, we will start the patient on Protonix strip pending GI evaluation. We will hold aspirin, Plavix, and Coumadin in the setting of a presumed upper GI bleed. Evaluation from Dr. Coates is ordered and pending. We will monitor CBC daily. 2. CAD s/p CABG. As above, we will hold aspirin and Plavix. We will resume Lipitor 40 mg p.o. daily. We will hold the patient's Toprol given his tenuous hemodynamics in the setting of an upper GI bleed. 3. Paroxysmal atrial fibrillation, the patient presently remains rate controlled. As above we will hold aspirin, Plavix, and Coumadin. 4. Type 2 diabetes mellitus. Continue with medium dose insulin sliding scale. We will hold oral glycemic agents as the patient is n.p.o. pending GI evaluation. 5. Hyperlipidemia. Continue with Lipitor 40 mg p.o. daily. 6. Lumbosacral radiculopathy. Continue with morphine 2 mg IV q. 6 hours p.r.n. pain. 7. Opioid dependence. The patient was extensively counseled regarding the adverse health effects of his chronic opioid use. The patient reports that multiple times in the past he has tried to seek help for his opioid addiction and is seeking a pain specialist for management of his chronic pain. He was advised that in the interim we will place him on morphine for pain control and so as to avoid the possibility of opioid withdrawal symptoms. 7. Prophylaxis. Continue Protonix. Deep venous thrombosis prophylaxis is not indicated as the patient is ambulatory and furthermore, we will defer anticoagulation in the setting of presumed upper GI bleed. Code Status: Full Code. Hany Busch MD [facility]ECHARIA[facility]
[2017-01-18] MEDS ORDERED: Etomidate 20 mg/10ml Inj IV ONE (11:13)
[2017-01-18] MEDS ORDERED: Lidocaine 2% Inj (20ml) ONE (11:13)
[2017-01-18] MEDS ORDERED: Propofol 10 mg/ml Inj (20 ML) ONE ×3 (11:13→11:35)
--- NOTE | 2017-01-18 12:13 | CON ---
CARDIOLOGY CONSULTATION DATE: 01/18/2017 HISTORY The patient is a 55-year-old male, who presents with malaise as well as a marked anemia. He was found to have a lower GI bleed. PAST MEDICAL HISTORY: The patient's past medical history includes history of coronary bypass surgery. A stress test performed earlier this year revealed no ischemia with an ejection fraction of 50%. Past medical history also includes GI workup in the past. He suffers from hypercholesterolemia and diabetes mellitus and hypertension. MEDICATIONS: He is currently taking oxycodone for chronic pain and he is complaining of withdrawal symptoms from been off oxycodone. SOCIAL HISTORY Denies smoking. REVIEW OF SYSTEMS: A 14-point review of systems reviewed in detail. No cardiac symptomatology is noted. PHYSICAL EXAMINATION: VITAL SIGNS: The heart rate is in the 80s. Blood pressure 118/75. NECK: Negative JVD. LUNGS: Without rales. HEART: With S1, S2. EXTREMITIES: Without edema. DIAGNOSTIC DATA: EKG shows no acute changes, in normal sinus rhythm, BUN and creatinine 27 and 1.6. his hemoglobin is going to from 4.8 to 7.9 after transfusions. IMPRESSION 1. Lower gastrointestinal bleed. 2. Stable angina. 3. Coronary artery disease. 4. History of coronary bypass surgery. 5. Marked anemia. 6. Diabetes mellitus. 7. Hypercholesterolemia. PLAN: Given these findings, given these findings, we will need to hold his Coumadin and Plavix. Awaiting GI input. Will follow up hemoglobin. Sky Molina MD
[2017-01-18 12:41] VITALS: O2SAT 98
[2017-01-18] MEDS: Sodium Chloride 0.9% 1,000 ML IV SCH ×2 (14:34→21:35)
[2017-01-18] MEDS: Sucralfate 1 gm/10 ml Oral Susp UD PO SCH ×2 (18:04→21:28)
--- NOTE | 2017-01-18 18:09 | CON ---
DATE OF CONSULTATION: 01/18/2017 REQUESTING PHYSICIAN: Dr. Hany Busch. REASON FOR CONSULTATION/HISTORY OF PRESENT ILLNESS: I have been asked to see this 56-year-old male with multiple medical problems including coronary artery disease, status post PCI with stent placement, paroxysmal atrial fibrillation, type 2 diabetes mellitus, chronic low back pain, chronic opioid dependence, chronic abdominal pain with history of diverticulitis, who comes to the hospital with 2 months of intermittent dark tarry stools. He denies any abdominal pain, nausea, or vomiting. Over the last several weeks, the patient developed increasing shortness of breath with minimal exertion and severe fatigue. He came to the emergency room for further evaluation. In the emergency room, his hemoglobin was noted to be 4.8. The patient was transfused 3 units of packed red blood cells and this morning, his hemoglobin was 8.3. The patient was on Coumadin for his paroxysmal atrial fibrillation. PAST MEDICAL HISTORY: As above. Again, he has a history of coronary artery disease, status post coronary artery stent placement, paroxysmal atrial fibrillation, on warfarin, diabetes mellitus type 2, chronic low back pain, chronic abdominal pain, diverticulitis, colitis. PAST SURGICAL HISTORY: Notable for coronary artery bypass surgery as well as left colon resection. SOCIAL HISTORY: The patient has smoked between 1 and 2 packs of cigarettes for over 30 years. He consumes alcohol on a social basis. He uses opiate medications on a chronic basis and has purchased these opioid medications off the streets. He also has a history of crack cocaine and heroin use. FAMILY HISTORY: Noncontributory. REVIEW OF SYSTEMS: Fourteen-point review of systems is positive for melena, weakness, and shortness of breath. No chest pain or palpitations. PHYSICAL EXAMINATION: GENERAL: Well-developed male, appearing pale, lying on the stretcher, in no acute distress. VITAL SIGNS: Reveal temperature of 98.5, blood pressure 130/78, heart rate of 70. HEENT: Reveals sclerae to be white. Conjunctivae pale. NECK: Supple. CHEST: Reveals lungs to be clear. HEART: Exam reveals an irregular rate. ABDOMEN: Soft, nontender. No mass. EXTREMITIES: Show no edema. MEDICATIONS: His medications at home include Lasix, Plavix, aspirin, metoprolol, lactobacillus, atorvastatin, glipizide, warfarin, and ibuprofen. LABORATORY DATA: Reveals BUN 27, creatinine 1.6, blood sugar 200. Coags reveal PT of 17.7, PTT of 34.4, INR of 1.6. CBC reveals hemoglobin down to 7.9 after being increased to 8.3 with 3 units of packed red blood cells, white blood cell count 17.5, platelet count 240,000. IMPRESSION: This is a 56-year-old male with multiple comorbidities including coronary artery disease, paroxysmal atrial fibrillation, on warfarin, aspirin, and nonsteroidal's with melena for 2 months and severe anemia. RECOMMENDATIONS: 1. Continue Protonix drip. 2. I will schedule the patient for an upper endoscopy. Terry Coates MD
[2017-01-19] MEDS: Pantoprazole 40mg/100ml IVPB 40 MG/100 ML BAG IVPB SCH ×3 (01:26→17:40)
[2017-01-19] MEDS: Morphine 2 mg/ml ISec IVP PRN ×4 (03:24→21:59)
[2017-01-19 07:48] LABS: BASO # 0.01 K/mm3 (0.0-2.0); BASO % 0.1 % (0.0-3.0); EOS # 0.1 (0.0-0.7); EOS % 0.6 % (1.5-5.0); GRAN # 8.7 (1.4-6.5); GRAN % 78.8 % (50.0-68.0); HEMATOCRIT 25.1 % (42.0-52.0); LYMPH # 1.5 (1.2-3.4); LYMPH % 13.4 % (22.0-35.0); MEAN CELL VOLUME 81.2 fl (80.0-105.0); MEAN CORPUSCULAR HEMOGLOBIN 25.9 pg (25.0-35.0); MEAN CORPUSCULAR HGB CONC 31.9 g/dl (31.0-37.0); MEAN PLATELET VOLUME 9.6 fl (7.0-11.0); MONO # 0.8 (0.1-0.6); MONO % 7.1 % (1.0-6.0); RED CELL DISTRIBUTION WIDTH 16.2 % (11.5-14.5)
[2017-01-19 07:54] LABS: INR 1.19 (0.93-1.08); PARTIAL THROMBOPLASTIN TIME 32.4 Seconds (23.7-30.8)
[2017-01-19 07:56] LABS: ALB/GLOB RATIO 1.3 (1.1-1.8); ALKALINE PHOSPHATASE 93 U/L (38-126); ALT/SGPT 46 U/L (7-56); AST/SGOT 27 U/L (17-59); BILIRUBIN,TOTAL 0.8 mg/dL (0.2-1.3); BLOOD UREA NITROGEN 30 mg/dL (7-21); CALCIUM 8.5 mg/dL (8.4-10.5); CARBON DIOXIDE 25 mmol/L (21-33); CHLORIDE 106 mmol/L (95-110); GFR AFRICAN-AMERICAN > 60; GLUCOSE,RANDOM 124 mg/dL (70-110); POTASSIUM 3.5 mmol/L (3.6-5.0); SODIUM 142 mmol/L (132-148); TOTAL PROTEIN 5.2 g/dL (5.8-8.3)
[2017-01-19] MEDS: Sucralfate 1 gm/10 ml Oral Susp UD PO SCH ×4 (08:00→21:10)
[2017-01-19] MEDS: Insulin Lispro (humaLOG) LOW Coverage SC SCH ×4 (08:00→21:55)
--- NOTE | 2017-01-19 09:39 | PN ---
SUBJECTIVE: The patient was seen and examined at bedside on the telemetry santizo. No acute events overnight. He remains afebrile and hemodynamically stable. The patient is s/p EGD with Dr. Coates which demonstrated a bleeding duodenal ulcer. The patient is s/p placement of endoscopic clip secondary to the bleeding duodenal ulcer. Given his EGD finding he must refrain from NSAIDS and antiplatelet or anticoagulation therapy for 2 weeks. This morning the patient states he feels okay and denies any further blood per rectum and his sole complaint is that of being hungry. OBJECTIVE: VITAL SIGNS: Temperature 98.8, pulse 72, blood pressure 144/76, respiratory rate 20, and oxygen saturation 99% on room air. GENERAL: No apparent distress. HEENT: PERRL. EOMI. No scleral icterus. Mild conjunctival pallor is noted. NECK: No JVD. No bruits. LUNGS: Clear to auscultation. CARDIOVASCULAR: Regular rate and rhythm. Normal S1 and S2. Midline sternotomy scar is noted. ABDOMEN: Normoactive bowel sounds. Soft. Mild tenderness to palpation to epigastrium with voluntary guarding. No rigidity. No tympany. EXTREMITIES: No edema. NEUROLOGIC: Awake, alert, and oriented x3. No focal motor deficits. LABORATORY DATA: WBC 11 with 79% neutrophils, hemoglobin 8, hematocrit 25, and platelets 252. Chemistry pending. ASSESSMENT: The patient is a 56-year-old man with multiple medical comorbidities including CAD s/p CABG, paroxysmal AFib, T2DM, hyperlipidemia and lumbosacral radiculopathy with chronic opioid dependence who presented with a several day history of fatigue and malaise and was initially admitted to the ICU for management of severe symptomatic anemia with a hemoglobin of 4.8 who is now s/p EGD which demonstrated a bleeding duodenal ulcer s/p endoscopic placement of clip who is demonstrating slow clinical improvement. PLAN: 1. Severe symptomatic anemia secondary to upper GI bleed s/p multiple transfusion of PRBCs s/p EGD with clip placement. Input from Dr. Coates noted and appreciated. The patient remains on a Protonix drip. Continue with Carafate. Advance diet as per Dr. Coates. The patient must refarin from NSAIDs and antiplatelet/anticoagulation therapy for at least 2 weeks. 2. CAD s/p CABG. Continue with Lipitor 40 mg p.o. daily. As above, we will hold the patient's aspirin and Plavix given his recent GI bleed. 3. Paroxysmal AFib. The patient remains rate controlled. As above, we will hold aspirin, Plavix, and Coumadin given his recent upper GI bleed. 4. Type 2 diabetes mellitus. Continue with medium dose insulin sliding scale. We will hold oral glycemic agents as the patient remains n.p.o. We will advance diet as per Dr. Coates. 5. Hyperlipidemia. Continue with Lipitor 40 mg p.o. daily. 6. Lumbosacral radiculopathy. Continue morphine 2 mg IV q.6 hours p.r.n. pain. 7. Opioid dependence. The patient remains on morphine for his underlying lumbosacral radiculopathy and this will mitigate withdrawal symptoms. He was again encouraged to seek outpatient pain management and help for his opioid addiction. 8. Prophylaxis: The patient remains on Protonix for his underlying upper GI bleed. DVT prophylaxis not indicated as the patient is ambulatory and further more contraindicated given his recent upper GI bleed. CODE STATUS: Full code. Hany Busch MD MTDD
--- NOTE | 2017-01-19 11:20 | PN ---
CARDIOLOGY FOLLOWUP DATE: 01/19/2017 SUBJECTIVE: The patient is chest pain free. PHYSICAL EXAMINATION: VITAL SIGNS: Blood pressure 155/73, heart rate in the 70s. NECK: Negative JVD. LUNGS: Without rales. HEART: Reveals S1 and S2. EXTREMITIES: Without edema. LABORATORY DATA: The hemoglobin is 8. Chemistries; BUN and creatinine is 30 and 1.3. IMPRESSION: 1. Status post gastrointestinal bleed. 2. Documented bleeding ulcer, on endoscopy. 3. Stable angina. 4. Coronary artery disease. 5. History of coronary artery bypass surgery. 6. Opiate dependency. PLAN: Given these findings, we will follow the hemoglobin. We will maintain on telemetry for 24 hours. Sky Molina MD
--- NOTE | 2017-01-19 13:43 | PN ---
DATE: 01/19/2017 SUBJECTIVE: The patient is lying in bed. He had an episode of melena at this morning. He denies any abdominal pain, nausea, or vomiting. PHYSICAL EXAMINATION: VITAL SIGNS: Reveal temperature of 98.7, blood pressure 144/82, heart rate 76. HEENT: Reveal sclerae to be white. Conjunctivae pale. NECK: Supple. CHEST: Reveal lungs to be clear. HEART: Reveals regular rate and rhythm. ABDOMEN: Soft. There is a well-healed left-sided abdominal scar. There is no rebound and no guarding. EXTREMITIES: Show no edema. LABORATORY DATA: Reveal white blood cell count of 11, hemoglobin 8.0, platelet count 252,000. BUN 30, creatinine 1.3, blood sugar 124, potassium 3.5. IMPRESSION: This is a 48-year-old male with multiple comorbidities, including coronary artery disease status post coronary artery stent placement many years ago. History of atrial fibrillation, on warfarin with severe anemia secondary to upper gastrointestinal bleed from a large bleeding duodenal ulcer. The patient underwent an upper endoscopy with placement of two hemoclips yesterday. Despite multiple transfusions, his blood count remains low with hemoglobin of 8. RECOMMENDATIONS: 1. We will transfuse 2 more units of packed red blood cells. 2. Continue Protonix drip. 3. Continue Carafate suspension. 4. Clear liquid diet with slow diet advancement as long as the patient is not clinically bleeding. Terry Coates MD
[2017-01-19] MEDS: Benzocaine/Menthol (Cepacol) Lozenge MT PRN (21:58)
[2017-01-20] MEDS: Benzocaine/Menthol (Cepacol) Lozenge MT PRN (00:24)
[2017-01-20] MEDS: Sodium Chloride 0.9% 1,000 ML IV SCH ×2 (00:58→05:00)
[2017-01-20] MEDS: Pantoprazole 40mg/100ml IVPB 40 MG/100 ML BAG IVPB SCH ×3 (00:59→11:10)
[2017-01-20] MEDS: Morphine 2 mg/ml ISec IVP PRN ×2 (04:00→11:05)
[2017-01-20 06:38] LABS: BASO # 0.01 K/mm3 (0.0-2.0); BASO % 0.1 % (0.0-3.0); EOS # 0.1 (0.0-0.7); EOS % 1.1 % (1.5-5.0); GRAN # 7.35 (1.4-6.5); GRAN % 77.3 % (50.0-68.0); HEMATOCRIT 28.4 % (42.0-52.0); LYMPH # 1.4 (1.2-3.4); LYMPH % 14.4 % (22.0-35.0); MEAN CELL VOLUME 81.4 fl (80.0-105.0); MEAN CORPUSCULAR HEMOGLOBIN 26.6 pg (25.0-35.0); MEAN CORPUSCULAR HGB CONC 32.7 g/dl (31.0-37.0); MEAN PLATELET VOLUME 9.4 fl (7.0-11.0); MONO # 0.7 (0.1-0.6); MONO % 7.1 % (1.0-6.0); RED CELL DISTRIBUTION WIDTH 15.8 % (11.5-14.5); WHITE BLOOD COUNT 9.5 10^3/ul (4.5-11.0)
[2017-01-20 06:43] LABS: INR 1.19 (0.93-1.08); PARTIAL THROMBOPLASTIN TIME 29.2 Seconds (23.7-30.8)
[2017-01-20 06:45] LABS: ALB/GLOB RATIO 1.2 (1.1-1.8); ALKALINE PHOSPHATASE 86 U/L (38-126); ALT/SGPT 33 U/L (7-56); AST/SGOT 20 U/L (17-59); BLOOD UREA NITROGEN 15 mg/dL (7-21); CALCIUM 8.3 mg/dL (8.4-10.5); CARBON DIOXIDE 24 mmol/L (21-33); CHLORIDE 109 mmol/L (98-107); GFR AFRICAN-AMERICAN > 60; GLUCOSE,RANDOM 111 mg/dL (70-110); POTASSIUM 3.5 mmol/L (3.6-5.0); SODIUM 141 mmol/L (132-148)
[2017-01-20] MEDS: Insulin Lispro (humaLOG) LOW Coverage SC SCH ×2 (08:32→12:22)
[2017-01-20] MEDS: Sucralfate 1 gm/10 ml Oral Susp UD PO SCH ×2 (08:35→12:21)
--- NOTE | 2017-01-20 08:51 | PN ---
CARDIOLOGY FOLLOWUP DATE: 01/20/2017 SUBJECTIVE: The patient is comfortable without issues. PHYSICAL EXAMINATION: VITAL SIGNS: Blood pressure 143/83, the heart rate in the 70s. NECK: Negative JVD. LUNGS: Without rales. HEART: S1, S2. EXTREMITIES: Without edema. LABORATORY DATA: Hemoglobin is 9.3. Chemistries essentially unchanged. IMPRESSION: 1. Status post gastrointestinal bleed. 2. Coronary artery disease. 3. History of coronary bypass surgery. 4. Stable angina. 5. Opiate dependency. Given these findings, we will keep the patient off his antiplatelet, anticoagulation until GI bleed resolved. The patient remains hemodynamically stable. We will discontinue telemetry today. Sky Molina MD
--- NOTE | 2017-01-20 10:11 | PN ---
SUBJECTIVE: The patient was seen and examined at bedside on the telemetry santizo. No acute events overnight. The patient is s/p transfusion of an additional 2 units of PRBCs for a hemoglobin of 8 on yesterday's labs. The patient denies any further melena or dark tarry stools. This morning he states he feels stronger and his sole complaint is that of being hungry and he is requesting his diet be advanced. OBJECTIVE: VITAL SIGNS: Temperature 98.9, pulse 73, blood pressure 143/83, respiratory rate 20, and oxygen saturation 98% on room air. GENERAL: No apparent distress. HEENT: PERRL. EOMI. No scleral icterus. Mild conjunctival pallor is noted. NECK: No JVD. No bruits. LUNGS: Clear to auscultation. CARDIOVASCULAR: Regular rate and rhythm. Normal S1 and S2. Midline sternotomy scar is noted. ABDOMEN: Normoactive bowel sounds. Soft. Mild tenderness to palpation to epigastrium with voluntary guarding. No rigidity. No tympany. EXTREMITIES: No edema. NEUROLOGIC: Awake, alert, and oriented x3. No focal motor deficits. LABORATORY DATA: WBC 9.5 with 77% neutrophils, hemoglobin 9.3, hematocrit 28, platelets 253. Chemistry noted ASSESSMENT: The patient is a 56-year-old man with multiple medical comorbidities including CAD s/p CABG, paroxysmal AFib, T2DM, hyperlipidemia and lumbosacral radiculopathy with chronic opioid dependence who presented with a several day history of fatigue and malaise and was initially admitted to the ICU for management of severe symptomatic anemia with a hemoglobin of 4.8 who is now s/p EGD which demonstrated a bleeding duodenal ulcer s/p endoscopic placement of hemoclips and who is demonstrating slow clinical improvement. PLAN: 1. Severe symptomatic anemia secondary to upper GI bleed s/p multiple transfusions of PRBC's s/p EGD with placement of hemoclip. Input from Dr. Coates noted and greatly appreciated. The patient remains on a Protonix drip and Carafate. Advance diet as per Dr. Coates. Continue to monitor CBC daily. The patient must refrain from NSAIDs and antiplatelet/anticoagulation therapy for at least 2 weeks. 2. CAD s/p CABG. Continue with Lipitor 40 mg p.o. daily. As above, we will hold the patient's aspirin and Plavix given his recent GI bleed. 3. Paroxysmal AFib. The patient remains rate controlled. Hold aspirin, Plavix , and Coumadin given his recent upper GI bleed. 4. Type 2 diabetes mellitus. Continue with medium dose ISS. We will resume oral glycemic agents as needed while diet advances 5. Hyperlipidemia. Continue with Lipitor 40 mg p.o. daily. 6. Lumbosacral radiculopathy. Continue morphine 2 mg IV q.6 hours p.r.n. pain. 7. Opioid dependence. The patient remains on morphine for his underlying lumbosacral radiculopathy and this will mitigate withdrawal symptoms. He was advised to seek outpatient pain management and help for his chronic opioid use. 8. Prophylaxis. The patient remains on Protonix for his underlying upper GI bleed. DVT prophylaxis contraindicated given his recent upper GI bleed. CODE STATUS: Full Code. Hany Busch MD MTDD
[2017-01-20 12:33] VITALS: BP 169/93; PULSE 57; RESP 19; TEMP 98.7
[2017-01-20] MEDS ORDERED: Influenza Vaccine 60 mcg/0.5 mL SYR (4YR UP) IM ONE (13:27)
--- NOTE | 2017-01-20 13:49 | PN ---
DATE: 01/20/2017 SUBJECTIVE: The patient is sitting in chair. He states he is hungry and would like to have some solid food and wants to go home. He states that his stools are getting therapeutic recreation specialist in [place]. He denies any diarrhea, chest pain, shortness of breath, or abdominal pain. OBJECTIVE: VITAL SIGNS: Reveal temperature of 98.9, blood pressure 143/83, and heart rate 73. HEENT: Reveal sclerae to be white. Conjunctivae pale. NECK: Supple. CHEST: Reveal lungs to be clear. HEART: Reveals a regular rate and rhythm. ABDOMEN: Soft and nontender with well-healed left-sided abdominal scar. EXTREMITIES: Show no edema. LABORATORY DATA: Reveal hemoglobin up to 9.3 after transfusion of 2 units of packed red blood cells. Chemistries reveal potassium 3.5. AST, ALT, and alk phos were all normal. White blood cell count 9.5 and platelet count 253,000. IMPRESSION: A 56-year-old male with a history of atrial fibrillation and coronary artery disease, on warfarin and aspirin, admitted to the hospital with melena for several weeks associated with profound anemia with a hemoglobin of 4 g range. Upper endoscopy was performed and showed a large bleeding duodenal ulcer. Two hemoclips were placed across bleeding points. The patient appears to have stopped bleeding. He has received multiple units of packed red blood cells with his last hemoglobin being acceptable at 9.3. RECOMMENDATIONS: 1. We will advance to a soft diet. 2. If tolerated, he can be discharged home on pantoprazole 40 mg twice a day and Carafate suspension 1 g 4 times a day. He will need to hold his aspirin and Coumadin for at least 4 weeks to allow the ulcer to completely healed. There is a risk for a cardiovascular event including stroke; however, the risk of bleeding outweighs these other cardiovascular risks. Terry Coates MD
== END 2017-01-20 13:52 | disposition home or self-care (01) | DRG 378 ==
LOC: ED 11:20 → ERH 12:40 → CCU 14:03 → 2RNO 01-18 00:49
PROVIDERS: ADMIT Student in an Organized Health Care Education/Training Program; ATTEND Student in an Organized Health Care Education/Training Program
PROC: 30233N1 Transfusion of Nonautologous Red Blood Cells into Peripheral Vein, Percutaneous Approach (ICD-10-PCS; 2017-01-17)
PROC: 0W3P8ZZ Control Bleeding in Gastrointestinal Tract, Via Natural or Artificial Opening Endoscopic (ICD-10-PCS; principal; 2017-01-18 10:00)
PROC: 0DB68ZX Excision of Stomach, Via Natural or Artificial Opening Endoscopic, Diagnostic (ICD-10-PCS; 2017-01-18 10:00)
PROC: 3E0G8GC Introduction of Other Therapeutic Substance into Upper GI, Via Natural or Artificial Opening Endoscopic (ICD-10-PCS; 2017-01-18 10:00)
DX: K26.4 Chronic or unspecified duodenal ulcer with hemorrhage (principal); D62 Acute posthemorrhagic anemia; F11.20 Opioid dependence, uncomplicated; I10 Essential (primary) hypertension; I48.0 Paroxysmal atrial fibrillation; M54.17 Radiculopathy, lumbosacral region; I25.118 Atherosclerotic heart disease of native coronary artery with other forms of angina pectoris; E11.9 Type 2 diabetes mellitus without complications; J44.9 Chronic obstructive pulmonary disease, unspecified; F14.90 Cocaine use, unspecified, uncomplicated; E78.00 Pure hypercholesterolemia, unspecified; F17.200 Nicotine dependence, unspecified, uncomplicated; K21.9 Gastro-esophageal reflux disease without esophagitis; Z79.01 Long term (current) use of anticoagulants; Z79.84 Long term (current) use of oral hypoglycemic drugs; Z95.1 Presence of aortocoronary bypass graft; Z95.5 Presence of coronary angioplasty implant and graft

== ENCOUNTER 2017-04-01 00:19 | Emergency (ER) | payer MEDICARE ==
[2017-04-01 00:31] VITALS: BMI 31.3
[2017-04-01 00:44] VITALS: TEMP 98.6
[2017-04-01] MEDS ORDERED: Sodium Chloride 0.9% 1,000 ML IV STA (00:49)
[2017-04-01] MEDS ORDERED: Morphine 4 mg/ml ISec IVP STA (00:49)
--- NOTE | 2017-04-01 00:55 | ED PDOC ---
Arrival/HPI - General Chief Complaint: GI Problem Time Seen by Provider: 04/01/17 00:49 - History of Present Illness Narrative History of Present Illness (Text): 04/01/17 00:45 Marco A Fuentes is a 56 year old male, whose past medical history includes multiple episodes of diverticulitis, cholecystectomy, hypertension, hyperlipidemia, CABG, diabetes, peripheral vascular disease, and CAD, who presents to the emergency department complaining of LLQ abdominal pain for the past few days. Patient states he is currently being treated outpatient for diverticulitis by his PMD. Patient denies any fever, chills, chest pain, shortness of breath, nausea, vomiting, diarrhea, urinary symptoms, back pain, neck pain, headache, dizziness, or any other complaints. PMD: Dr. Busch Time/Duration: < week (few days) Symptom Onset: Gradual Symptom Course: Unchanged Activities at Onset: Light Context: Home Past Medical History - Provider Review Nursing Documentation Reviewed: Yes - Infectious Disease Hx of Infectious Diseases: None - Tetanus Immunization Tetanus Immunization: Unknown - Cardiac Hx Pacemaker: No Other/Comment: CABG and Cardiac Stent - Pulmonary Hx Chronic Obstructive Pulmonary Disease (COPD): Yes - Neurological Hx Neurological Disorder: No - HEENT Hx HEENT Disorder: No - Renal Hx Renal Disorder: No - Endocrine/Metabolic Hx Diabetes Mellitus Type 2: Yes - Hematological/Oncological Hx Blood Transfusions: No (01/17/17) Hx Blood Transfusion Reaction: No - Integumentary Hx Dermatological Disorder: No - Musculoskeletal/Rheumatological Hx Falls: No - Gastrointestinal Hx Gall Bladder Disease: Yes Hx Gastroesophageal Reflux: Yes - Genitourinary/Gynecological Hx Genitourinary Disorders: No - Psychiatric Hx Emotional Abuse: No Hx Physical Abuse: No Hx Substance Use: Yes (opiate dependent) - Past Surgical History Past Surgical History: Non-Contributing - Surgical History Hx Coronary Artery Bypass Graft: Yes (quadruple) - Anesthesia Hx Anesthesia Reactions: Yes (WAKES UP ANGRY) Hx Malignant Hyperthermia: No - Suicidal Assessment Feels Threatened In Home Enviroment: No Family/Social History - Physician Review Nursing Documentation Reviewed: Yes Family/Social History: Unknown Family HX Smoking Status: Heavy Smoker > 10 Cigarettes Daily Hx Alcohol Use: No Hx Substance Use: Yes (opiate dependent) Substance used: Percocet; Oxycontin -- off the street Hx Substance Use Treatment: No Allergies/Home Meds Allergies/Adverse Reactions: Allergies levofloxacin [From Levaquin] Allergy (Severe, Verified 09/11/16 08:36) URTICARIA Penicillins Allergy (Severe, Verified 09/11/16 08:36) RASH Home Medications: Home Meds Medication Instructions Recorded Confirmed Aspirin [[facility]] 81 mg PO DAILY 08/06/12 04/01/17 Clopidogrel Bisulfate [Clopidogrel] 75 mg PO DAILY 08/06/12 04/01/17 Metoprolol Succinate 50 mg PO DAILY 08/06/12 04/01/17 Furosemide [Lasix] 20 mg PO DAILY 09/06/13 04/01/17 Atorvastatin Calcium 40 mg PO DAILY 04/30/16 04/01/17 Glipizide [Glipizide Xl] 10 mg PO DAILY 04/30/16 04/01/17 Lactobacillus Combo No.6 1 each PO DAILY 04/30/16 04/01/17 [Probiotic Complex] Warfarin [Coumadin] 4 mg PO DAILY 04/30/16 04/01/17 Ciprofloxacin 500 mg PO BID 04/01/17 04/01/17 Ondansetron [Zofran Tab] 4 mg PO QID 04/01/17 04/01/17 metroNIDAZOLE [Flagyl] 500 mg PO DAILY 04/01/17 04/01/17 Review of Systems - Physician Review All systems were reviewed & negative as marked: Yes - Review of Systems Constitutional: Normal. absent: Fevers Eyes: Normal ENT: Normal Respiratory: Normal. absent: SOB, Cough Cardiovascular: Normal. absent: Chest Pain Gastrointestinal: Abdominal Pain. absent: Diarrhea, Nausea, Vomiting Genitourinary Male: Normal. absent: Dysuria, Frequency, Hematuria, Urinary Output Changes Musculoskeletal: Normal. absent: Back Pain, Neck Pain Skin: Normal Neurological: Normal Endocrine: Normal Hemo/Lymphatic: Normal Psychiatric: Normal Physical Exam Vital Signs Reviewed: Yes Vital Signs Temp Pulse Resp BP Pulse Ox 04/01/17 06:20 95 H 18 152/77 H 100 04/01/17 00:41 98.6 F 69 16 158/88 H 97 04/01/17 00:40 98.2 F 96 H 12 99 Temperature: Afebrile Blood Pressure: Normal Pulse: Regular Respiratory Rate: Normal Appearance: Positive for: Well-Appearing, Non-Toxic, Comfortable Pain Distress: None Mental Status: Positive for: Alert and Oriented X 3 - Systems Exam Head: Present: Atraumatic, Normocephalic Pupils: Present: PERRL Extroacular Muscles: Present: EOMI Conjunctiva: Present: Normal Mouth: Present: Moist Mucous Membranes Neck: Present: Normal Range of Motion Respiratory/Chest: Present: Clear to Auscultation, Good Air Exchange. No: Respiratory Distress, Accessory Muscle Use Cardiovascular: Present: Regular Rate and Rhythm, Normal S1, S2. No: Murmurs Abdomen: Present: Tenderness (LLQ tenderness), Normal Bowel Sounds. No: Distention, Peritoneal Signs Back: Present: Normal Inspection Upper Extremity: Present: Normal Inspection. No: Cyanosis, Edema Lower Extremity: Present: Normal Inspection. No: Edema Neurological: Present: GCS=15, CN II-XII Intact, Speech Normal Skin: Present: Warm, Dry, Normal Color. No: Rashes Psychiatric: Present: Alert, Oriented x 3, Normal Insight, Normal Concentration Medical Decision Making ED Course and Treatment: 04/01/17 00:45 Impression: 56 year old male complaining of LLQ abdominal pain for past few days. Differential Diagnosis included but are not limited to: diverticular disease vs. colitis vs. enteritis Plan: -- CT Abdomen and Pelvis w/o contrast -- EKG -- Labs, cardiac enzymes, amylase, lipase, blood cultures -- Urinalysis -- IV fluids -- Zofran -- Morphine -- Reassess and disposition Progress Notes: 04/01/17 03:14 Reviewed radiology, CT Abdomen and Pelvis shows: Lower thorax: There is minimal bibasilar atelectasis. ABDOMEN: Liver: There is a small cyst near the right dome of the liver. Gallbladder and bile ducts: There has been a cholecystectomy. No ductal dilation. Pancreas: Pancreas is slightly atrophic and slightly fatty replaced. No ductal dilation. Spleen: Spleen is enlarged measuring 14.3 CM anteroposterior. Adrenals: There is nonspecific thickening of both adrenals. This may represent hyperplasia. There is a left adrenal adenoma measuring 1.6 CM. Kidneys and ureters: There is a 1.1 CM cyst of the right renal upper pole. 2.3 CM cyst of the left renal upper pole. There is no evidence of hydronephrosis. Stomach and bowel: There are diffuse, fluid-filled loops of small bowel which are top normal in caliber. This is most compatible with ileus/enteritis. No convincing evidence for small bowel obstruction. The stomach is normal. Mild diverticulosis is present in the sigmoid and descending colon. There is no evidence of diverticulitis. Appendix: No findings to suggest acute appendicitis. PELVIS: Bladder: Bladder is predominantly decompressed. No stones. Reproductive: The prostate gland and seminal vesicles are normal. ABDOMEN and PELVIS: Intraperitoneal space: There is no evidence of free intraperitoneal fluid. There is no free intraperitoneal air. Bones/joints: There are sternal wires consistent with previous sternotomy incision. There are mildto-moderate degenerative spine changes. There is mild diffuse osteopenia. No acute fracture. No dislocation. Soft tissues: There are changes of prior right inguinal hernia repair. There is small bilateral fat containing inguinal hernias. Vasculature: The aorta demonstrates moderate atherosclerotic calcification. No abdominal aortic aneurysm. Lymph nodes: There are some borderline retroperitoneal nodes without andi adenopathy. IMPRESSION: 1. There are diffuse, fluid-filled loops of small bowel which are top normal in caliber. This is most compatible with ileus/enteritis. No convincing evidence for small bowel obstruction. 2. Additional incidental and/or chronic findings as described. 04/01/17 06:14 On re-evaluation, patient feels better and is in no acute distress. I have discussed the results and plan with the patient, who expresses understanding. Patient in agreement with plan to be discharged home. Patient is stable for discharge. Patient was instructed to follow up with physician or return if symptoms worsen or new concerning symptoms arise. Reassessment Condition: Re-examined, Improved - Lab Interpretations Microbiology Results: Microbiology Results 04/01/17 01:20 Blood-Venous Blood Culture - Preliminary NO GROWTH AFTER 3 DAYS 04/01/17 00:50 Blood-Venous Blood Culture - Preliminary NO GROWTH AFTER 3 DAYS Lab Results: 04/01/17 00:50 04/01/17 00:50 Lab Results 04/01/17 00:50: Sodium 137, Potassium 3.1 L, Chloride 92 L, Carbon Dioxide 34 H , Anion Gap 15, BUN 29 H, Creatinine 1.3, Est GFR ( Amer) > 60, Est GFR ( Non-Af Amer) 57, Random Glucose 255 H, Calcium 8.8, Total Bilirubin 0.5, AST 61 H D, ALT 123 H, Alkaline Phosphatase 289 H D, Lactate Dehydrogenase 513, Total Creatine Kinase 61, Troponin I < 0.01, Total Protein 6.3, Albumin 3.6, Globulin 2.8, Albumin/Globulin Ratio 1.3, Amylase 61, Lipase 48 04/01/17 00:50: PT 43.6 H, INR 3.89 H*, APTT 42.0 H 04/01/17 00:50: WBC 9.0, RBC 6.22 H, Hgb 12.9 L D, Hct 42.6, MCV 68.5 L D, MCH 20.7 L, MCHC 30.3 L, RDW 18.1 H, Plt Count 262, MPV 9.7, Gran % 79.7 H, Lymph % (Auto) 9.9 L, Davie % (Auto) 10.3 H, Eos % (Auto) 0.0 L, Baso % (Auto) 0.1, Gran # 7.13 H, Lymph # 0.9 L, Davie # 0.9 H, Eos # 0.0, Baso # 0.01 I have reviewed the lab results: Yes - RAD Interpretation Radiology Orders: 04/01/17 00:49 ABD & PELVIS W/O PO OR IV CONT [CT] Stat Slot Machine Key Person: Radiologist - Medication Orders Current Medication Orders: Discontinued Medications Belladonna/Phenobarbital ( Elixir) 5 ml PO STAT STA Stop: 04/01/17 04:17 Last Admin: 04/01/17 04:30 Dose: 5 ml Sodium Chloride (Sodium Chloride 0.9%) 1,000 mls @ 100 mls/hr IV .Q10H STA Stop: 04/01/17 10:48 Last Admin: 04/01/17 01:03 Dose: 100 mls/hr eMAR Start Stop Document 04/01/17 01:03 RD (Rec: 04/01/17 01:03 RD [id number]) Intravenous Solution Start Date 04/01/17 Start Time 01:03 Potassium Chloride (Potassium Chloride 10 Meq/100 Ml) 10 meq in 100 mls @ 50 mls/hr IVPB Q2H NINO Stop: 04/01/17 05:29 Last Admin: 04/01/17 04:30 Dose: 50 mls/hr eMAR Start Stop Document 04/01/17 04:30 AD (Rec: 04/01/17 04:59 AD [id number]) Intravenous Solution Start Date 04/01/17 Start Time 04:30 Morphine Sulfate (Morphine) 4 mg IVP STAT STA Stop: 04/01/17 00:50 Last Admin: 04/01/17 01:06 Dose: 4 mg MAR Pain Assessment Document 04/01/17 01:06 RD (Rec: 04/01/17 01:06 RD [id number]) Pain Reassessment Is this a pain reassessment? No Sleep Is patient sleeping during reassessment? No Presence of Pain Presence of Pain Yes IVP Administration Document 04/01/17 01:06 RD (Rec: 04/01/17 01:06 RD [id number]) Charges for Administration # of IVP Administrations 1 Morphine Sulfate (Morphine) 2 mg IVP STAT STA Stop: 04/01/17 02:29 Last Admin: 04/01/17 02:52 Dose: 2 mg MAR Pain Assessment Document 04/01/17 02:52 RD (Rec: 04/01/17 02:52 RD [id number]) Pain Reassessment Is this a pain reassessment? Yes Sleep Is patient sleeping during reassessment? No Presence of Pain Presence of Pain Yes IVP Administration Document 04/01/17 02:52 RD (Rec: 04/01/17 02:52 RD [id number]) Charges for Administration # of IVP Administrations 1 Ondansetron HCl (Zofran Inj) 4 mg IVP STAT STA Stop: 04/01/17 00:50 Last Admin: 04/01/17 01:03 Dose: 4 mg IVP Administration Document 04/01/17 01:03 RD (Rec: 04/01/17 01:03 RD [id number]) Charges for Administration # of IVP Administrations 1 - Scribe Statement Keiry Steel Provider Scribe Attestation: All medical record entries made by the Scribe were at my direction and personally dictated by me. I have reviewed the chart and agree that the record accurately reflects my personal performance of the history, physical exam, medical decision making, and the department course for this patient. I have also personally directed, reviewed, and agree with the discharge instructions and disposition. Disposition/Present on Arrival - Present on Arrival Any Indicators Present on Arrival: No History of DVT/PE: No History of Uncontrolled Diabetes: No Urinary Catheter: No History of Decub. Ulcer: No History Surgical Site Infection Following: None - Disposition Have Diagnosis and Disposition been Completed?: Yes Diagnosis: Enteritis Disposition: HOME/ ROUTINE Disposition Time: 06:14 Condition: IMPROVED Discharge Instructions (ExitCare): Enteritis (ED) Additional Instructions: continue current medication drink plenty of fluids Referrals: Narayan MARTIN,Hany Baltazar MD [Primary Care Provider] - Follow up with primary Forms: [employer] (Yak[employer])
[2017-04-01 01:19] LABS: BASO # 0.01 K/mm3 (0.0-2.0); BASO % 0.1 % (0.0-3.0); GRAN # 7.13 (1.4-6.5); GRAN % 79.7 % (50.0-68.0); HEMATOCRIT 42.6 % (42.0-52.0); LYMPH # 0.9 (1.2-3.4); LYMPH % 9.9 % (22.0-35.0); MEAN CORPUSCULAR HEMOGLOBIN 20.7 pg (25.0-35.0); MEAN CORPUSCULAR HGB CONC 30.3 g/dl (31.0-37.0); MEAN PLATELET VOLUME 9.7 fl (7.0-11.0); MONO # 0.9 (0.1-0.6); MONO % 10.3 % (1.0-6.0); RED CELL DISTRIBUTION WIDTH 18.1 % (11.5-14.5)
[2017-04-01 01:21] LABS: ALB/GLOB RATIO 1.3 (1.1-1.8); ALKALINE PHOSPHATASE 289 U/L (38-126); ALT/SGPT 123 U/L (7-56); AMYLASE 61 U/L (35-125); AST/SGOT 61 U/L (17-59); BILIRUBIN,TOTAL 0.5 mg/dL (0.2-1.3); BLOOD UREA NITROGEN 29 mg/dL (7-21); CALCIUM 8.8 mg/dL (8.4-10.5); CARBON DIOXIDE 34 mmol/L (21-33); CHLORIDE 92 mmol/L (98-107); GFR AFRICAN-AMERICAN > 60; GLUCOSE,RANDOM 255 mg/dL (70-110); LIPASE 48 U/L (23-300); POTASSIUM 3.1 mmol/L (3.6-5.0); SODIUM 137 mmol/L (132-148); TOTAL PROTEIN 6.3 g/dL (5.8-8.3)
[2017-04-01 01:31] LABS: INR 3.89 (0.93-1.08)
[2017-04-01 01:32] LABS: TROPONIN I < 0.01 ng/mL
[2017-04-01 02:02] LABS: MEAN CELL VOLUME 68.5 fl (80.0-105.0)
[2017-04-01] MEDS ORDERED: Morphine 2 mg/ml ISec IVP STA (02:28)
--- NOTE | 2017-04-01 03:07 | CT ---
EXAM: CT Abdomen and Pelvis Without Intravenous Contrast CLINICAL HISTORY: 56 years old, male; Pain; Abdominal pain; Generalized; Additional info: Abd pain TECHNIQUE: Axial computed tomography images of the abdomen and pelvis without intravenous contrast. All CT scans at this facility use one or more dose reduction techniques, viz.: automated exposure control; ma/kV adjustment per patient size (including targeted exams where dose is matched to indication; i.e. head); or iterative reconstruction technique. Coronal and sagittal reformatted images were created and reviewed. COMPARISON: CT - ABD PELVIS W/O PO OR IV CONT 2016-07-12 06:56 FINDINGS: Lower thorax: There is minimal bibasilar atelectasis. ABDOMEN: Liver: There is a small cyst near the right dome of the liver. Gallbladder and bile ducts: There has been a cholecystectomy. No ductal dilation. Pancreas: Pancreas is slightly atrophic and slightly fatty replaced. No ductal dilation. Spleen: Spleen is enlarged measuring 14.3 CM anteroposterior. Adrenals: There is nonspecific thickening of both adrenals. This may represent hyperplasia. There is a left adrenal adenoma measuring 1.6 CM. Kidneys and ureters: There is a 1.1 CM cyst of the right renal upper pole. 2.3 CM cyst of the left renal upper pole. There is no evidence of hydronephrosis. Stomach and bowel: There are diffuse, fluid-filled loops of small bowel which are top normal in caliber. This is most compatible with ileus/enteritis. No convincing evidence for small bowel obstruction. The stomach is normal. Mild diverticulosis is present in the sigmoid and descending colon. There is no evidence of diverticulitis. Appendix: No findings to suggest acute appendicitis. PELVIS: Bladder: Bladder is predominantly decompressed. No stones. Reproductive: The prostate gland and seminal vesicles are normal. ABDOMEN and PELVIS: Intraperitoneal space: There is no evidence of free intraperitoneal fluid. There is no free intraperitoneal air. Bones/joints: There are sternal wires consistent with previous sternotomy incision. There are [id number] degenerative spine changes. There is mild diffuse osteopenia. No acute fracture. No dislocation. Soft tissues: There are changes of prior right inguinal hernia repair. There is small bilateral fat containing inguinal hernias. Vasculature: The aorta demonstrates moderate atherosclerotic calcification. No abdominal aortic aneurysm. Lymph nodes: There are some borderline retroperitoneal nodes without andi adenopathy. IMPRESSION: 1. There are diffuse, fluid-filled loops of small bowel which are top normal in caliber. This is most compatible with ileus/enteritis. No convincing evidence for small bowel obstruction. 2. Additional incidental and/or chronic findings as described.
[2017-04-01] MEDS ORDERED: Atrop/Hyosc/Scopal/PB Elixir (120 ml) PO STA (04:16)
[2017-04-01 06:55] VITALS: BP 152/77; PULSE 95; RESP 18; O2SAT 100
--- NOTE | 2017-04-02 09:29 | CARD ---
APPROVED REPORT EKG Measurement Heart [id number] ME 118P19 [id number] <Conclusion> Normal sinus rhythm Possible Left atrial enlargement Inferior infarct, age undetermined STTW changes V 4 obscured by artifact.
== END 2017-04-01 06:57 | disposition home or self-care (01) ==
LOC: ED 00:19
DX: K52.9 Noninfective gastroenteritis and colitis, unspecified (principal); I10 Essential (primary) hypertension; E11.9 Type 2 diabetes mellitus without complications; E78.5 Hyperlipidemia, unspecified; J44.9 Chronic obstructive pulmonary disease, unspecified; I25.10 Atherosclerotic heart disease of native coronary artery without angina pectoris; F17.210 Nicotine dependence, cigarettes, uncomplicated
CPT/HCPCS: 74176; 80053; 82150; 82550; 83615; 83690; 84484; 85025; 85610; 85730; 87040; 93005; 96374; 96375; 96376; 99284; J2270; J2405; J3480; J7040

== ENCOUNTER 2017-04-01 16:45 | Inpatient (IN) | payer MEDICARE ==
[2017-04-01 16:45] VITALS: BMI 31.3
[2017-04-01] MEDS ORDERED: Morphine 4 mg/ml ISec IVP STA ×2 (17:00→22:32)
[2017-04-01] MEDS ORDERED: Pantoprazole 40 MG in Sodium Chloride 0.9% 100 ML IV STA (17:00)
--- NOTE | 2017-04-01 17:22 | ED PDOC ---
Arrival/HPI - General Chief Complaint: Abdominal Pain Time Seen by Provider: 04/01/17 16:52 Historian: Patient - History of Present Illness Narrative History of Present Illness (Text): 04/01/17 17:39 A 56 year old male, whose past medical history includes diverticulitis, cholecystectomy, hypertension, hyperlipidemia, s/p CABG, diabetes and peripheral vascular disease, presents to the emergency department complaining of left lower abdominal pain for the past several days. Patient was placed on antibiotics by PMD and reported to the emergency department last night for similar pain. Patient was seen last night and had CAT scan, which was consistent with ileus enteritis, no evidence of small bowel obstruction; diverticulosis seen at that time, but no diverticulitis. Patient was discharged on antibiotics. Patient states his pain is worsening and "i want to be admitted ". Denies any other complaints at this time. PMD: Dr. Busch Time/Duration: > week Symptom Onset: Sudden Symptom Course: Unchanged Activities at Onset: Rest Context: Home Past Medical History - Provider Review Nursing Documentation Reviewed: Yes - Infectious Disease Hx of Infectious Diseases: None - Tetanus Immunization Tetanus Immunization: Unknown - Cardiac Hx Pacemaker: No Other/Comment: CABG and Cardiac Stent - Pulmonary Hx Chronic Obstructive Pulmonary Disease (COPD): Yes - Neurological Hx Neurological Disorder: No - HEENT Hx HEENT Disorder: No - Renal Hx Renal Disorder: No - Endocrine/Metabolic Hx Diabetes Mellitus Type 2: Yes - Hematological/Oncological Hx Blood Transfusions: No (01/17/17) Hx Blood Transfusion Reaction: No - Integumentary Hx Dermatological Disorder: No - Musculoskeletal/Rheumatological Hx Falls: No - Gastrointestinal Hx Gall Bladder Disease: Yes Hx Gastroesophageal Reflux: Yes - Genitourinary/Gynecological Hx Genitourinary Disorders: No - Psychiatric Hx Emotional Abuse: No Hx Physical Abuse: No Hx Substance Use: Yes (opiate dependent) - Past Surgical History Past Surgical History: Non-Contributing - Surgical History Hx Coronary Artery Bypass Graft: Yes (quadruple) - Anesthesia Hx Anesthesia Reactions: Yes (WAKES UP ANGRY) Hx Malignant Hyperthermia: No - Suicidal Assessment Feels Threatened In Home Enviroment: No Family/Social History - Physician Review Nursing Documentation Reviewed: Yes Family/Social History: No Known Family HX Smoking Status: Heavy Smoker > 10 Cigarettes Daily Hx Alcohol Use: No Hx Substance Use: Yes (opiate dependent) Substance used: Percocet; Oxycontin -- off the street Hx Substance Use Treatment: No Allergies/Home Meds Allergies/Adverse Reactions: Allergies levofloxacin [From Levaquin] Allergy (Severe, Verified 09/11/16 08:36) URTICARIA Penicillins Allergy (Severe, Verified 09/11/16 08:36) RASH Home Medications: Home Meds Medication Instructions Recorded Confirmed Aspirin [[facility]] 81 mg PO DAILY 08/06/12 04/01/17 Clopidogrel Bisulfate [Clopidogrel] 75 mg PO DAILY 08/06/12 04/01/17 Metoprolol Succinate 50 mg PO DAILY 08/06/12 04/01/17 Furosemide [Lasix] 20 mg PO DAILY 09/06/13 04/01/17 Atorvastatin Calcium 40 mg PO DAILY 04/30/16 04/01/17 Glipizide [Glipizide Xl] 10 mg PO DAILY 04/30/16 04/01/17 Lactobacillus Combo No.6 1 each PO DAILY 04/30/16 04/01/17 [Probiotic Complex] Warfarin [Coumadin] 4 mg PO DAILY 04/30/16 04/01/17 Ciprofloxacin 500 mg PO BID 04/01/17 04/01/17 Ondansetron [Zofran Tab] 4 mg PO QID 04/01/17 04/01/17 metroNIDAZOLE [Flagyl] 500 mg PO DAILY 04/01/17 04/01/17 Review of Systems - Physician Review All systems were reviewed & negative as marked: Yes - Review of Systems Constitutional: absent: Fevers Gastrointestinal: Abdominal Pain (LLQ) Physical Exam Vital Signs Reviewed: Yes Vital Signs Temp Pulse Resp BP Pulse Ox 04/01/17 17:11 98.2 F 77 18 155/75 H 99 Temperature: Afebrile Blood Pressure: Hypertensive Pulse: Regular Respiratory Rate: Normal Appearance: Positive for: Comfortable, Other (poor general hygiene) Pain Distress: Other (complaining of diffuse abdominal pain) Mental Status: Positive for: Alert and Oriented X 3 - Systems Exam Head: Present: Atraumatic, Normocephalic Pupils: Present: PERRL Extroacular Muscles: Present: EOMI Conjunctiva: Present: Normal Mouth: Present: Moist Mucous Membranes Neck: Present: Normal Range of Motion Respiratory/Chest: Present: Clear to Auscultation, Good Air Exchange, Other ( cough and clutches chest with each cough; mediasternotomy scar; sternum mobile when cough, "wires broken"). No: Respiratory Distress, Accessory Muscle Use Cardiovascular: Present: Regular Rate and Rhythm, Normal S1, S2. No: Murmurs Abdomen: Present: Tenderness (diffuse in lower quadrant, worse on left than right), Normal Bowel Sounds, Guarding (LLQ). No: Distention, Peritoneal Signs, Rebound Back: Present: Normal Inspection Upper Extremity: Present: Normal Inspection. No: Cyanosis, Edema Lower Extremity: Present: Normal Inspection. No: Edema Neurological: Present: GCS=15, CN II-XII Intact, Speech Normal Skin: Present: Warm, Dry, Normal Color. No: Rashes Psychiatric: Present: Alert, Oriented x 3, Normal Insight, Normal Concentration Medical Decision Making ED Course and Treatment: 04/01/17 17:30 Impression: A 56 year old male with left lower quadrant abdominal pain. Differential Diagnosis included but are not limited to: abdominal pain r/o diverticulitis r/o obstruction Plan: -- EKG -- chest xray -- labs -- Urinalysis -- Morphine, IV fluids, Protonix -- Reassess and disposition Prior Visits: Notes and results from previous visits were reviewed. Patient was last seen in the emergency department on 04/01/17 for evaluation of left lower abdominal pain. Progress Notes: If lab work numbers worsen from yesterday, will repeat imaging. - Lab Interpretations Lab Results: 04/01/17 17:23 04/01/17 17:23 Lab Results 04/01/17 17:23: Sodium 139, Potassium 3.0 L, Chloride 99, Carbon Dioxide 31, Anion Gap 12, BUN 25 H, Creatinine 1.2, Est GFR ( Amer) > 60, Est GFR ( Non-Af Amer) > 60, Random Glucose 120 H, Calcium 8.4, Total Bilirubin 0.3, AST 38, ALT 83 H, Alkaline Phosphatase 202 H D, Lactate Dehydrogenase 470, Total Creatine Kinase 67, Troponin I 0.02 D, Total Protein 5.8, Albumin 3.2, Globulin 2.6, Albumin/Globulin Ratio 1.2, Amylase 53, Lipase 57 04/01/17 17:23: PT 55.6 H, INR 4.94 H*, APTT 43.5 H 04/01/17 17:23: WBC 10.3, RBC 5.97, Hgb 12.1 L, Hct 41.0 L, MCV 68.7 L, MCH 20.3 L, MCHC 29.5 L, RDW 18.0 H, Plt Count 268, MPV 9.7, Gran % 81.1 H, Lymph % (Auto) 8.7 L, Mcnairy % (Auto) 10.1 H, Eos % (Auto) 0.0 L, Baso % (Auto) 0.1, Gran # 8.34 H, Lymph # 0.9 L, Mcnairy # 1.0 H, Eos # 0.0, Baso # 0.01 I have reviewed the lab results: Yes - RAD Interpretation Radiology Orders: 04/01/17 17:01 CHEST PORTABLE [RAD] Stat - EKG Interpretation Interpreted by ED Physician: Yes Type: 12 lead EKG - Medication Orders Current Medication Orders: Discontinued Medications Sodium Chloride 1,000 ml/ IV (SUPPLIES) 1,000 mls @ 5,443.08 mls/hr IV ONCE ONE PRN Reason: 60 ML/KG/HR Stop: 04/01/17 17:03 Last Admin: 04/01/17 17:41 Dose: 5,443.08 mls/hr eMAR Start Stop Document 04/01/17 17:41 OCS (Rec: 04/01/17 17:41 OCS [id number]) Intravenous Solution Start Date 04/01/17 Start Time 17:41 End Date 04/01/17 End time 18:11 Total Infusion Time 30 Morphine Sulfate (Morphine) 4 mg IVP STAT STA Stop: 04/01/17 17:01 Last Admin: 04/01/17 17:40 Dose: 4 mg MAR Pain Assessment Document 04/01/17 17:40 OCS (Rec: 04/01/17 17:41 OCS [id number]) Pain Reassessment Is this a pain reassessment? Yes Sleep Is patient sleeping during reassessment? No Presence of Pain Presence of Pain Yes Pain Scale Used Pain Scale Used Numeric Location Upper or Lower Lower Pain Location Body Site Abdomen Description Description Constant Intensity of Pain at present 10 Pain Behavior Moaning Irritability Aggravating Factors ADL's IVP Administration Document 04/01/17 17:40 OCS (Rec: 04/01/17 17:41 OCS [id number]) Charges for Administration # of IVP Administrations 1 Pantoprazole Sodium (Protonix Inj) 40 mg IVP STAT STA Stop: 04/01/17 17:06 Last Admin: 04/01/17 17:41 Dose: 40 mg IVP Administration Document 04/01/17 17:41 OCS (Rec: 04/01/17 17:42 OCS [id number]) Charges for Administration # of IVP Administrations 1 - Scribe Statement The provider has reviewed the documentation as recorded by the Rena Villanueva Provider Scribe Attestation: All medical record entries made by the Gustaboibnoy were at my direction and personally dictated by me. I have reviewed the chart and agree that the record accurately reflects my personal performance of the history, physical exam, medical decision making, and the department course for this patient. I have also personally directed, reviewed, and agree with the discharge instructions and disposition. Disposition/Present on Arrival - Present on Arrival Any Indicators Present on Arrival: No History of DVT/PE: No History of Uncontrolled Diabetes: No Urinary Catheter: No History of Decub. Ulcer: No History Surgical Site Infection Following: None - Disposition Have Diagnosis and Disposition been Completed?: Yes Diagnosis: Abdominal pain Disposition: HOSPITALIZED Disposition Time: 18:57 Patient Plan: Admission Condition: FAIR
[2017-04-01 17:42] LABS: BASO # 0.01 K/mm3 (0.0-2.0); BASO % 0.1 % (0.0-3.0); GRAN # 8.34 (1.4-6.5); GRAN % 81.1 % (50.0-68.0); LYMPH # 0.9 (1.2-3.4); LYMPH % 8.7 % (22.0-35.0); MEAN CELL VOLUME 68.7 fl (80.0-105.0); MEAN CORPUSCULAR HEMOGLOBIN 20.3 pg (25.0-35.0); MEAN CORPUSCULAR HGB CONC 29.5 g/dl (31.0-37.0); MEAN PLATELET VOLUME 9.7 fl (7.0-11.0); MONO % 10.1 % (1.0-6.0); WHITE BLOOD COUNT 10.3 10^3/ul (4.5-11.0)
[2017-04-01 17:56] LABS: ALB/GLOB RATIO 1.2 (1.1-1.8); ALKALINE PHOSPHATASE 202 U/L (38-126); ALT/SGPT 83 U/L (7-56); AMYLASE 53 U/L (35-125); AST/SGOT 38 U/L (17-59); BILIRUBIN,TOTAL 0.3 mg/dL (0.2-1.3); BLOOD UREA NITROGEN 25 mg/dL (7-21); CALCIUM 8.4 mg/dL (8.4-10.5); CARBON DIOXIDE 31 mmol/L (21-33); CHLORIDE 99 mmol/L (98-107); GFR AFRICAN-AMERICAN > 60; GLUCOSE,RANDOM 120 mg/dL (70-110); LIPASE 57 U/L (23-300); SODIUM 139 mmol/L (132-148); TOTAL PROTEIN 5.8 g/dL (5.8-8.3)
[2017-04-01 18:00] LABS: TROPONIN I 0.02 ng/mL
[2017-04-01 18:01] LABS: PARTIAL THROMBOPLASTIN TIME 43.5 Seconds (25.1-36.5)
[2017-04-01 18:06] LABS: INR 4.94 (0.93-1.08)
[2017-04-01] MEDS ORDERED: HYDROmorphone 2 mg/ml ISec IVP STA (19:51)
[2017-04-01] MEDS ORDERED: Potassium Chloride 20 mEq ER Tab PO STA (20:35)
[2017-04-01] MEDS ORDERED: Phytonadione 10 MG in Sodium Chloride 0.9% 50 ML IV ONE (21:13)
[2017-04-01] MEDS ORDERED: Sodium Chloride 0.9% 1,000 ML IV SCH (21:15)
[2017-04-01] MEDS: metroNIDAZOLE IV 500 mg/100 ml 500 MG/100 ML BAG IVPB SCH (21:49)
[2017-04-01] MEDS ORDERED: Famotidine 20mg/50ml 20 MG/50 ML BAG IVPB SCH (22:00)
[2017-04-01] MEDS ORDERED: Morphine 30 mg SR Tab PO SCH (22:30)
--- NOTE | 2017-04-01 22:42 | CP.PCM.HP ---
<Maggie Arguelles - Last Filed: 04/02/17 03:32> History of Present Illness - History of Present Illness History of Present Illness: 56 year old male with a past medical history of CAD s/p PCI with stent placement s/p CABG, atrial fibrillation, DM II, dyslipidemia, and s/p bleeding duodenal ulcer treated with hemoclip (01/2017) placement who presents with 3.5 days on nausea, vomiting, diarrhea, and diffuse abdominal pain. He saw his PMD who prescribed him empiric antibiotics for a diverticulitis flair and antiemetics. His symptoms persisted and now he [place] [facility] [place] further evaluation and management along with an additional complaint of his stools being black in color for the past two days. Important to note, the patient has resumed his aspirin, plavix, and Coumadin. His INR was supratherapeutic on admission. He was also considerably dehydrated on admission. PMD: Yaya PMH: CABG, atrial fibrillation, DM II, duodenal ulcer bleed, alcoholism, opiod depedence. PSH: coronary stents, CABG Allergies: Levofloxacin, Penicillin Social: Retired, 40 pack year history of smoking, denies recent alcohol use, admits to smoking marijuana Present on Admission - Present on Admission Any Indicators Present on Admission: No Review of Systems - Constitutional Constitutional: absent: Chills, Headache, Sleep Apnea - EENT Eyes: absent: Blurred Vision, Diplopia, Itchy Eyes Ears: absent: Decreased Hearing, Ear Discharge, Disequilibrium Nose/Mouth/Throat: absent: Nose Pain, Halitosis - Cardiovascular Cardiovascular: Chest Pain. absent: Acrocyanosis, Chest Pain at Rest, Dyspnea - Respiratory Respiratory: absent: Dyspnea, Dyspnea on Exertion, Chest Congestion - Gastrointestinal Gastrointestinal: Diarrhea, Melena, Nausea, Vomiting - Genitourinary Genitourinary: absent: Change in Urinary Stream, Difficulty Urinating - Musculoskeletal Musculoskeletal: absent: Abnormal Gait, Joint Swelling, Muscle Weakness - Integumentary Integumentary: absent: Alopecia, Change in Pigmentation, Hirsutism - Neurological Neurological: absent: Abnormal Hearing, Burning Sensations, Lack of Coordination - Psychiatric Psychiatric: absent: Change in Libido, Hopelessness, Panic Attacks - Endocrine Endocrine: absent: Deepening of Voice, Excessive Sweating, Increase in Ring/Shoe /Hat Size Past Patient History - Infectious Disease Hx of Infectious Diseases: None - Tetanus Immunizations Tetanus Immunization: Unknown - Past Social History Smoking Status: Heavy Smoker > 10 Cigarettes Daily - CARDIAC Hx Pacemaker: No Other/Comment: CABG and Cardiac Stent - PULMONARY Hx Chronic Obstructive Pulmonary Disease (COPD): Yes - NEUROLOGICAL Hx Neurological Disorder: No - HEENT Hx HEENT Problems: No - RENAL Hx Chronic Kidney Disease: No - ENDOCRINE/METABOLIC Hx Diabetes Mellitus Type 2: Yes - HEMATOLOGICAL/ONCOLOGICAL Hx Blood Transfusions: No (01/17/17) Hx Blood Transfusion Reaction: No - INTEGUMENTARY Hx Dermatological Problems: No - MUSCULOSKELETAL/RHEUMATOLOGICAL Hx Falls: No - GASTROINTESTINAL Hx Gall Bladder Disease: Yes Hx Gastroesophageal Reflux: Yes - GENITOURINARY/GYNECOLOGICAL Hx Genitourinary Disorders: No - PSYCHIATRIC Hx Emotional Abuse: No Hx Physical Abuse: No Hx Substance Use: Yes (opiate dependent) - SURGICAL HISTORY Hx Coronary Artery Bypass Graft: Yes (quadruple) - ANESTHESIA Hx Anesthesia Reactions: Yes (WAKES UP ANGRY) Hx Malignant Hyperthermia: No Meds Allergies/Adverse Reactions: Allergies Allergy/AdvReac Type Severity Reaction Status Date / Time levofloxacin [From Levaquin] Allergy Severe URTICARIA Verified 09/11/16 08:36 Penicillins Allergy Severe RASH Verified 09/11/16 08:36 Physical Exam - Constitutional Appears: Well, Non-toxic - Head Exam Head Exam: ATRAUMATIC, NORMOCEPHALIC - Eye Exam Eye Exam: EOMI, Normal appearance Pupil Exam: NORMAL ACCOMODATION - ENT Exam ENT Exam: Mucous Membranes Dry, Normal Oropharynx - Neck Exam Neck exam: Positive for: Normal Inspection - Respiratory Exam Respiratory Exam: Clear to Auscultation Bilateral. absent: Rales, Wheezes - Cardiovascular Exam Cardiovascular Exam: RRR, +S1, +S2 - GI/Abdominal Exam GI & Abdominal Exam: Hyperactive Bowel Sounds, Tenderness (diffusely, not severe though). absent: Guarding, Rebound - Extremities Exam Extremities exam: Positive for: calf tenderness, normal inspection - Back Exam Back exam: NORMAL INSPECTION. absent: CVA tenderness (L), CVA tenderness (R) - Neurological Exam Neurological exam: Alert, CN II-XII Intact, Normal Gait, Oriented x3 - Psychiatric Exam Psychiatric exam: Normal Affect, Normal Mood - Skin Skin Exam: Dry, Intact, Normal Color, Warm Results - Vital Signs Recent Vital Signs: Last Vital Signs Temp 98.0 F 04/01/17 20:25 Pulse 78 04/01/17 20:25 Resp 17 04/01/17 20:25 BP 125/71 04/01/17 20:25 Pulse Ox 98 04/01/17 20:25 - Labs Result Diagrams: 04/01/17 17:23 04/01/17 17:23 - EKG Data EKG Interpreted by: Myself - EKG Data When Compared to Previous EKG: No Significant Change Assessment & Plan - Assessment and Plan (Free Text) Assessment: 56 year old male with CABG, right popliteal-femoral stent, DM II, atrial fibrillation on anticoagulation, antiplatelet who presents with enteritis, supratherapeutic INR. 1) Abdominal pain secondary to enteritis - CT of the abdomen and pelvis reads as "There are diffuse, fluid-filled loops of small bowel which are top normal in caliber. This is most compatible with ileus/enteritis. No convincing evidence for small bowel obstruction." - GI consulted - Liquid diet - Flagyl empirically - Consider adding another antibiotic such as Ceftriaxone, but do consider that patient is allergic to penicillin 2) Possible UGI bleed given reported dark color stools - Held plavix, warfarin, and aspirin 3) Chest pain, r/o ACS - EKG showed no acute ST-T wave changes, repeat EKG ordered - Initial troponin, follow up in AM 4) DM II - Humulin ISS (low) 5) Dyslipidemia - Lipitor 5) GI/DVT prophylaxis - protonix 40 IVP q12h - SCD - Date & Time Date: 04/02/17 Time: 03:24 <Quinton Ruiz - Last Filed: 04/02/17 03:42> Results - Vital Signs Recent Vital Signs: Last Vital Signs Temp 98.7 F 04/01/17 23:49 Pulse 72 04/01/17 23:49 Resp 20 04/01/17 23:49 BP 157/100 H 04/01/17 23:49 Pulse Ox 98 04/01/17 20:25 - Labs Result Diagrams: 04/01/17 17:23 04/01/17 17:23 Attending/Attestation - Attestation I have personally seen and examined this patient.: Yes I have fully participated in the care of the patient.: Yes I have reviewed all pertinent clinical information: Yes Notes (Text): 04/02/17 03:41 Patient was seen when he was in ER. Agree with history , physical examination, assessment and plan.
[2017-04-01] MEDS ORDERED: Potassium Chloride 20 mEq ER Tab PO ONE (23:59)
[2017-04-02 01:49] VITALS: RESP 20
[2017-04-02] MEDS ORDERED: Pneumococcal 23-Valent Vaccine IM ONE (02:05)
[2017-04-02] MEDS ORDERED: Influenza Vaccine 60 mcg/0.5 mL SYR (4YR UP) IM ONE (02:05)
[2017-04-02] MEDS ORDERED: Benzocaine/Menthol (Cepacol) Lozenge MT ONE (02:07)
[2017-04-02] MEDS ORDERED: Morphine 4 mg/ml ISec IVP ONE (02:07)
[2017-04-02] MEDS: metroNIDAZOLE IV 500 mg/100 ml 500 MG/100 ML BAG IVPB SCH ×2 (05:17→15:05)
[2017-04-02] MEDS: Albuterol-Ipratrop 3 mg / 0.5 (3 ml) UD IH PRN ×2 (06:52→13:12)
[2017-04-02 07:20] LABS: TROPONIN I 0.02 ng/mL
[2017-04-02 07:26] LABS: INR 5.2 (0.93-1.08)
[2017-04-02 07:43] LABS: ALB/GLOB RATIO 1.1 (1.1-1.8); ALKALINE PHOSPHATASE 146 U/L (38-126); ALT/SGPT 69 U/L (7-56); AST/SGOT 35 U/L (17-59); BILIRUBIN,TOTAL 0.2 mg/dL (0.2-1.3); BLOOD UREA NITROGEN 17 mg/dL (7-21); CALCIUM 8.2 mg/dL (8.4-10.5); CARBON DIOXIDE 27 mmol/L (21-33); CHLORIDE 105 mmol/L (98-107); GFR AFRICAN-AMERICAN > 60; GLUCOSE,RANDOM 70 mg/dL (70-110); POTASSIUM 3.2 mmol/L (3.6-5.0); SODIUM 140 mmol/L (132-148); TOTAL PROTEIN 4.9 g/dL (5.8-8.3)
[2017-04-02] MEDS ORDERED: Morphine 2 mg/ml ISec IVP STA (07:46)
[2017-04-02 08:14] LABS: BASO # 0.01 K/mm3 (0.0-2.0); BASO % 0.1 % (0.0-3.0); EOS % 0.1 % (1.5-5.0); GRAN # 7.62 (1.4-6.5); GRAN % 80.9 % (50.0-68.0); HEMATOCRIT 35.3 % (42.0-52.0); LYMPH # 1.2 (1.2-3.4); LYMPH % 12.2 % (22.0-35.0); MEAN CELL VOLUME 68.9 fl (80.0-105.0); MEAN CORPUSCULAR HEMOGLOBIN 20.5 pg (25.0-35.0); MEAN CORPUSCULAR HGB CONC 29.7 g/dl (31.0-37.0); MONO # 0.6 (0.1-0.6); MONO % 6.7 % (1.0-6.0); RED CELL DISTRIBUTION WIDTH 17.7 % (11.5-14.5); WHITE BLOOD COUNT 9.4 10^3/ul (4.5-11.0)
[2017-04-02] MEDS: Insulin Reg-LOW-Coverage SC SCH ×3 (08:42→17:20)
--- NOTE | 2017-04-02 09:21 | RAD ---
HISTORY: chest pain COMPARISON: Chest radiograph dated 01/17/2017 FINDINGS: LUNGS: No active pulmonary disease. PLEURA: No significant pleural effusion identified, no pneumothorax apparent. CARDIOVASCULAR: Postoperative changes related to prior sternotomy redemonstrated. Cardiomediastinal silhouette stably enlarged. OSSEOUS STRUCTURES: Unchanged. VISUALIZED UPPER ABDOMEN: Normal. OTHER FINDINGS: None. IMPRESSION: No active disease.
[2017-04-02] MEDS ORDERED: Potassium Chloride 20 mEq ER Tab PO STA (09:36)
[2017-04-02] MEDS ORDERED: LACTOBACILLUS COMBO NO 6 PO SCH (10:00)
[2017-04-02] MEDS ORDERED: Metoprolol Succinate 50 mg XL Tab PO SCH (10:00)
--- NOTE | 2017-04-02 10:17 | CARD ---
APPROVED REPORT EKG Measurement Heart [id number] IA 122P7 [id number] <Conclusion> Normal sinus rhythm Possible Left atrial enlargement Inferior infarct, age undetermined T wave abnormality, consider lateral ischemia
[2017-04-02 10:44] VITALS: BP 153/82; PULSE 63; TEMP 99; O2SAT 100
[2017-04-02] MEDS ORDERED: Morphine 2 mg/ml ISec IVP ONE (13:27)
[2017-04-02] MEDS ORDERED: Sodium Chloride 0.9% 1,000 ML IV SCH (13:45)
--- NOTE | 2017-04-02 15:25 | CP.PCM.PN ---
Subjective - Date & Time of Evaluation Date of Evaluation: 04/02/17 Time of Evaluation: 15:21 - Subjective Subjective: Medicine Progress Note Patient seen and examined at bedside. No acute overnight events. Pt states that lower abdominal pain is somewhat improved. But is able to tolerate some food now. Pt denied CP, SOB, fever, chills, WATTS, or fatigue. Objective - Vital Signs/Intake and Output Vital Signs (last 24 hours): Temp Pulse Resp BP Pulse Ox 99 F 63 20 153/82 H 100 04/02/17 10:44 04/02/17 10:44 04/02/17 10:44 04/02/17 10:44 04/02/17 10:44 Intake and Output: 04/02/17 04/02/17 06:59 18:59 Intake Total 240 Balance 240 - Medications Medications: Current Medications Albuterol/Ipratropium (Duoneb 3 Mg/0.5 Mg (3 Ml) Ud) 3 ml IH [id number] PRN PRN Reason: Shortness of Breath Last Admin: 04/02/17 13:12 Dose: 3 ml Atorvastatin Calcium (Lipitor) 40 mg PO DAILY NINO Last Admin: 04/02/17 09:48 Dose: 40 mg Furosemide (Lasix) 20 mg PO DAILY NINO Last Admin: 04/02/17 09:51 Dose: 20 mg Metronidazole (Flagyl) 500 mg in 100 mls @ 100 mls/hr IVPB Q8 NINO PRN Reason: Protocol Last Admin: 04/02/17 15:05 Dose: 100 mls/hr Sodium Chloride (Sodium Chloride 0.9%) 1,000 mls @ 40 mls/hr IV .Q24H NINO Stop: 04/03/17 00:01 Last Admin: 04/02/17 15:06 Dose: 40 mls/hr Insulin Human Regular (Humulin R Low) 0 units SC ACHS NINO PRN Reason: Protocol Last Admin: 04/02/17 13:01 Dose: Not Given Metoclopramide HCl (Reglan) 10 mg IVP ACHS NINO Last Admin: 04/02/17 13:01 Dose: 10 mg Metoprolol Succinate (Toprol Xl) 50 mg PO DAILY NINO Last Admin: 04/02/17 09:51 Dose: 50 mg Non-Formulary Medication (Lactobacillus Combo No.6 [Probiotic Complex]) 1 each PO DAILY NINO Last Admin: 12/22/17 11:00 Dose: Not Given Ondansetron HCl (Zofran Inj) 4 mg IVP Q4H PRN PRN Reason: Nausea/Vomiting Pantoprazole Sodium (Protonix Inj) 40 mg IVP Q12 [facility] Last Admin: 04/02/17 09:49 Dose: 40 mg - Labs Labs: 04/02/17 06:20 04/02/17 06:20 PT 59.2 SECONDS (9.4-12.5) H 04/02/17 06:20 INR 5.20 (0.93-1.08) H* 04/02/17 06:20 APTT 43.5 Seconds (25.1-36.5) H 04/01/17 17:23 - Constitutional Appears: No Acute Distress - Head Exam Head Exam: NORMAL INSPECTION - Eye Exam Eye Exam: Normal appearance - ENT Exam ENT Exam: Normal Exam - Neck Exam Neck Exam: Normal Inspection - Respiratory Exam Respiratory Exam: Clear to Ausculation Bilateral. absent: Rales, Rhonchi, Wheezes - Cardiovascular Exam Cardiovascular Exam: RRR, +S1, +S2. absent: Gallop, Rubs, Murmur - GI/Abdominal Exam GI & Abdominal Exam: Guarding, Soft, Tenderness (lower abdomen). absent: Distended, Rebound - Extremities Exam Extremities Exam: Normal Inspection - Neurological Exam Neurological Exam: Alert, Awake, Oriented x3 - Psychiatric Exam Psychiatric exam: Normal Affect, Normal Mood - Skin Skin Exam: Dry, Intact, Normal Color, Warm Assessment and Plan - Assessment and Plan (Free Text) Assessment: 56 year old male with PMH of CABG, right fem-pop stent, DM II, atrial fibrillation on anticoagulation, antiplatelet admitted for intractable nausea vomiting 2/2 enteritis and supratherapeutic INR. Plan: 1. Abdominal pain 2/2 enteritis - CT abdomen/pelvis showed diffuse, fluid-filled loops of small bowel which are top normal in caliber. This is most compatible with ileus/enteritis. No convincing evidence for small bowel obstruction. - GI consulted - Advanced diet to soft - Cont flagyl, protonix, reglan - F/u stool culture, c. diff, and ova/parasite 2. Possible UGIB - H/o of UGIB treated with hemoclip presents with melena - H/H stable, active UGIB unlikely - Held plavix, warfarin, and aspirin Would advise patient to be on only 2 of the above 3. Chest pain, ACS ruled out - EKG showed no acute ST-T wave changes - Troponin negative x3 4. Supratherapeutic INR - INR 5.2 - Hold coumadin 4. DM II - Humulin ISS (low) 5. Dyslipidemia - Lipitor GI/DVT prophylaxis - Protonix - SCD Pt seen and discussed in detail with Dr. Walker. Duglas Roman, PGY1
== END 2017-04-02 18:43 | disposition left against medical advice (07) | DRG 392 ==
LOC: ED 16:45 → ERH 18:28 → 5RNO 20:48
PROVIDERS: ADMIT Internal Medicine; ATTEND Internal Medicine
DX: K52.9 Noninfective gastroenteritis and colitis, unspecified (principal); E86.0 Dehydration; E11.51 Type 2 diabetes mellitus with diabetic peripheral angiopathy without gangrene; I48.91 Unspecified atrial fibrillation; I25.10 Atherosclerotic heart disease of native coronary artery without angina pectoris; E78.5 Hyperlipidemia, unspecified; R11.2 Nausea with vomiting, unspecified; Z95.1 Presence of aortocoronary bypass graft; Z87.11 Personal history of peptic ulcer disease; Z95.5 Presence of coronary angioplasty implant and graft; Z88.0 Allergy status to penicillin; Z79.82 Long term (current) use of aspirin; Z79.01 Long term (current) use of anticoagulants; Z79.84 Long term (current) use of oral hypoglycemic drugs; Z87.891 Personal history of nicotine dependence

== ENCOUNTER 2017-06-24 18:47 | Inpatient (IN) | payer MEDICARE ==
[2017-06-24 18:47] VITALS: BMI 31.3
[2017-06-24] MEDS ORDERED: Sodium Chloride 0.9% 1,000 ML IV STA ×2 (19:22→20:47)
--- NOTE | 2017-06-24 19:46 | ED PDOC ---
Arrival/HPI - General Chief Complaint: GI Problem Time Seen by Provider: 06/24/17 19:13 Historian: Patient - History of Present Illness Narrative History of Present Illness (Text): 06/24/17 19:40 A 56 year old male presents to the emergency department complaining of abdominal pain with nausea, non-bilious non-bloody vomiting and diarrhea for 3- 4 days. Patient notes feeling near-syncopal, which caused his to call EMS. Patient reports a history of a bleeding abdominal ulcer 4 months ago, where he was hospitalized and under went multiple surgeries. Patient denies any fever, chills, urinary symptoms, rectal bleeding, chest pain, shortness of breath or any other complaints. 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 Patient reports he was recently seen by pain management doctor, who increased his fentanyl patch and placed him on oxycotone pills. Time/Duration: Other (3-4 days) Symptom Course: Unchanged Quality: Other Context: Home Past Medical History - Provider Review Nursing Documentation Reviewed: Yes - Infectious Disease Hx of Infectious Diseases: None - Tetanus Immunization Tetanus Immunization: Unknown - Cardiac Hx Cardiac Disorders: Yes Hx Hypertension: Yes Hx Pacemaker: No Other/Comment: CABG and Cardiac Stent - Pulmonary Hx Respiratory Disorders: Yes Hx Chronic Obstructive Pulmonary Disease (COPD): Yes - Neurological Hx Neurological Disorder: No - HEENT Hx HEENT Disorder: No - Renal Hx Renal Disorder: No - Endocrine/Metabolic Hx Endocrine Disorders: Yes Hx Diabetes Mellitus Type 2: Yes - Hematological/Oncological Hx Blood Transfusions: No (01/17/17) Hx Blood Transfusion Reaction: No - Integumentary Hx Dermatological Disorder: No - Musculoskeletal/Rheumatological Hx Falls: No - Gastrointestinal Hx Gall Bladder Disease: Yes Hx Gastroesophageal Reflux: Yes Hx Gastrointestinal Ulcer: Yes - Genitourinary/Gynecological Hx Genitourinary Disorders: No - Psychiatric Hx Emotional Abuse: No Hx Physical Abuse: No Hx Substance Use: Yes (opiate dependent) - Past Surgical History Past Surgical History: Non-Contributing - Surgical History Hx Cardiac Catheterization: Yes Hx Coronary Artery Bypass Graft: Yes (quadruple) Hx Coronary Stent: Yes - Anesthesia Hx Anesthesia Reactions: Yes (WAKES UP ANGRY) Hx Malignant Hyperthermia: No - Suicidal Assessment Feels Threatened In Home Enviroment: No Family/Social History - Physician Review Nursing Documentation Reviewed: Yes Family/Social History: No Known Family HX Smoking Status: Heavy Smoker > 10 Cigarettes Daily Hx Alcohol Use: No Hx Substance Use: Yes (opiate dependent) Substance used: Percocet; Oxycontin -- off the street Hx Substance Use Treatment: No Allergies/Home Meds Allergies/Adverse Reactions: Allergies levofloxacin [From Levaquin] Allergy (Severe, Verified 06/24/17 19:11) URTICARIA Penicillins Allergy (Severe, Verified 06/24/17 19:11) RASH Home Medications: Home Meds Medication Instructions Recorded Confirmed Aspirin [[facility]] 81 mg PO DAILY 08/06/12 04/01/17 Clopidogrel Bisulfate [Clopidogrel] 75 mg PO DAILY 08/06/12 04/01/17 Metoprolol Succinate 50 mg PO DAILY 08/06/12 04/01/17 Furosemide [Lasix] 20 mg PO DAILY 09/06/13 04/01/17 Atorvastatin Calcium 40 mg PO DAILY 04/30/16 04/01/17 Glipizide [Glipizide Xl] 10 mg PO DAILY 04/30/16 04/01/17 Lactobacillus Combo No.6 1 each PO DAILY 04/30/16 04/01/17 [Probiotic Complex] Warfarin [Coumadin] 4 mg PO DAILY 04/30/16 04/01/17 Ciprofloxacin 500 mg PO BID 04/01/17 04/01/17 Ondansetron [Zofran Tab] 4 mg PO QID 04/01/17 04/01/17 metroNIDAZOLE [Flagyl] 500 mg PO DAILY 04/01/17 04/01/17 Review of Systems - Physician Review All systems were reviewed & negative as marked: Yes - Review of Systems Constitutional: absent: Fevers, Night Sweats Respiratory: absent: SOB Cardiovascular: absent: Chest Pain Gastrointestinal: Abdominal Pain, Diarrhea, Nausea, Vomiting. absent: Hematochezia, Hematemesis Genitourinary Male: absent: Dysuria, Frequency, Hematuria Physical Exam Vital Signs Reviewed: Yes Vital Signs Temp 06/24/17 19:16 97.8 F Temperature: Afebrile Appearance: Positive for: Well-Appearing, Non-Toxic, Comfortable Pain Distress: None Mental Status: Positive for: Alert and Oriented X 3 - Systems Exam Head: Present: Atraumatic, Normocephalic Pupils: Present: PERRL Extroacular Muscles: Present: EOMI Conjunctiva: Present: Normal Mouth: Present: Dry Respiratory/Chest: Present: Clear to Auscultation, Good Air Exchange. No: Respiratory Distress, Accessory Muscle Use Cardiovascular: Present: Regular Rate and Rhythm, Normal S1, S2. No: Murmurs Abdomen: Present: Normal Bowel Sounds, Hernias (ventral hernias to abdominal wall). No: Tenderness, Distention, Peritoneal Signs Upper Extremity: Present: Normal Inspection. No: Cyanosis, Edema Lower Extremity: Present: Normal Inspection. No: Edema Neurological: Present: GCS=15, CN II-XII Intact, Speech Normal Skin: Present: Warm, Dry, Normal Color. No: Rashes Psychiatric: Present: Alert, Oriented x 3, Normal Insight, Normal Concentration Medical Decision Making ED Course and Treatment: 06/24/17 19:40 Impression: A 56 year old cheng with abdominal pain, nausea, vomiting and diarrhea Plan: -- Chest xray -- EKG -- Labs -- Pepcid, Zofran and IV fluids -- Reassess and disposition Progress Notes: EKG: Ordered, reviewed, and independently interpreted the EKG. Rate : 100 BPM Rhythm : NSR with short KS Comparison : Much improve since EKG on 04/01/17. T-wave inversions in lateral leads have now normalized. 06/24/17 22:09: Discussed case with Dr. Busch. He states that he has told the patient multiple times that he is no longer his physician and no longer wants to be involved in his care at all. - Lab Interpretations Lab Results: 06/24/17 20:06 Lab Results 06/24/17 21:45: pO2 59 H, VBG pH 7.37, VBG pCO2 54.0, VBG HCO3 31.2 H, VBG Total CO2 32.9 H, VBG O2 Sat (Calc) 93.4 H, VBG Base Excess 4.5 H, VBG Potassium 5.4 H, Glucose 303 H, Lactate 2.0, FiO2 21.0, Sodium 126.0 L, Chloride 95.0 L, Venous Blood Potassium 5.4 H 06/24/17 20:13: NT-Pro-B Natriuret Pep 765 H 06/24/17 20:06: Alcohol, Quantitative < 10 06/24/17 20:06: Sodium 130 L, Potassium 5.8 H* D, Chloride 88 L, Carbon Dioxide 30, Anion Gap 17, BUN 69 H, Creatinine 2.2 H, Est GFR ( Amer) 37, Est GFR (Non-Af Amer) 31, Random Glucose 335 H* D, Calcium 9.0, Total Bilirubin 0.4 , AST 23, ALT 32, Alkaline Phosphatase 126, Lactate Dehydrogenase 323 L, Total Creatine Kinase 44, Troponin I 0.04 D, Total Protein 5.8, Albumin 3.4, Globulin 2.4, Albumin/Globulin Ratio 1.4, Lipase 157 06/24/17 20:06: PT 59.6 H, INR 5.06 H* 06/24/17 20:06: WBC 17.6 H D, RBC 5.56, Hgb 11.2 L, Hct 37.8 L, MCV 68.0 L, MCH 20.1 L, MCHC 29.6 L, RDW 18.5 H, Plt Count 408, MPV 9.6, Gran % 82.0 H, Lymph % (Auto) 9.7 L, [place] % (Auto) 8.1 H, Eos % (Auto) 0.1 L, Baso % (Auto) 0.1, Gran # 14.39 H, Lymph # (Auto) 1.7, [place] # (Auto) 1.4 H, Eos # (Auto) 0.0, Baso # ( Auto) 0.02 I have reviewed the lab results: Yes - RAD Interpretation Radiology Orders: 06/24/17 19:21 CHEST PORTABLE [RAD] Stat - Medication Orders Current Medication Orders: Dextrose (Dextrose 50% Inj) 50 ml IVP STAT STA Stop: 06/24/17 23:01 Calcium Gluconate 1,000 mg/ (Sodium Chloride) 110 mls @ 110 mls/hr IVPB ONCE ONE Stop: 06/25/17 00:01 Insulin Human Regular (Humulin R) 10 units IV ONCE ONE Stop: 06/24/17 23:02 Sodium Bicarbonate (Sodium Bicarbonate 8.4% (50 Meq) Syringe) 50 meq IVP ONCE ONE Stop: 06/24/17 23:01 Discontinued Medications Famotidine (Pepcid) 20 mg IVP STAT STA Stop: 06/24/17 19:22 Last Admin: 06/24/17 20:22 Dose: 20 mg IVP Administration Document 06/24/17 20:22 SS (Rec: 06/24/17 20:22 SS [id number]) Charges for Administration # of IVP Administrations 1 Sodium Chloride (Sodium Chloride 0.9%) 1,000 mls @ 999 mls/hr IV .Q1H1M STA Stop: 06/24/17 20:22 Last Admin: 06/24/17 20:22 Dose: 999 mls/hr eMAR Start Stop Document 06/24/17 20:22 SS (Rec: 06/24/17 20:22 SS [id number]) Intravenous Solution Start Date 06/24/17 Start Time 20:22 End Date 06/24/17 End time 21:22 Total Infusion Time 60 Sodium Chloride (Sodium Chloride 0.9%) 1,000 mls @ 999 mls/hr IV .Q1H1M STA Stop: 06/24/17 21:47 Last Admin: 06/24/17 21:53 Dose: 999 mls/hr eMAR Start Stop Document 06/24/17 21:53 SS (Rec: 06/24/17 21:53 SS [id number]) Intravenous Solution Start Date 06/24/17 Start Time 21:53 Morphine Sulfate (Morphine) 4 mg IVP STAT STA Stop: 06/24/17 20:48 Last Admin: 06/24/17 21:52 Dose: 4 mg MAR Pain Assessment Document 06/24/17 21:52 SS (Rec: 06/24/17 21:53 SS [id number]) Pain Reassessment Is this a pain reassessment? Yes Sleep Is patient sleeping during reassessment? No Presence of Pain Presence of Pain Yes Pain Scale Used Pain Scale Used Numeric Location Pain Location Body Site Back Description Description Constant Intensity of Pain at present 10 IVP Administration Document 06/24/17 21:52 SS (Rec: 06/24/17 21:53 SS [id number]) Charges for Administration # of IVP Administrations 1 Ondansetron HCl (Zofran Inj) 8 mg IVP STAT STA Stop: 06/24/17 19:22 Last Admin: 06/24/17 20:22 Dose: 8 mg IVP Administration Document 06/24/17 20:22 SS (Rec: 06/24/17 20:22 SS [id number]) Charges for Administration # of IVP Administrations 1 - PA / MEDICAL SCRIBE / Resident Statement /DO has reviewed & agrees with the documentation as recorded. Disposition/Present on Arrival - Present on Arrival Any Indicators Present on Arrival: No History of DVT/PE: No History of Uncontrolled Diabetes: No Urinary Catheter: No History of Decub. Ulcer: No History Surgical Site Infection Following: None - Disposition Have Diagnosis and Disposition been Completed?: Yes Diagnosis: Dehydration, Acute kidney injury, Syncope, near, Hyperkalemia Disposition: HOSPITALIZED Disposition Time: 23:04 Patient Plan: Admission Condition: GOOD Referrals: Noah Busch MD [Primary Care Provider] - Follow up with primary Forms: [employer] [place] ([place])
[2017-06-24 20:18] LABS: BASO # 0.02 K/mm3 (0.0-2.0); BASO % 0.1 % (0.0-3.0); EOS % 0.1 % (1.5-5.0); GRAN # 14.39 (1.4-6.5); HEMOGLOBIN 11.2 g/dL (14.0-18.0); LYMPH # 1.7 (1.2-3.4); LYMPH % 9.7 % (22.0-35.0); MEAN CORPUSCULAR HEMOGLOBIN 20.1 pg (25.0-35.0); MEAN CORPUSCULAR HGB CONC 29.6 g/dl (31.0-37.0); MEAN PLATELET VOLUME 9.6 fl (7.0-11.0); MONO # 1.4 (0.1-0.6); MONO % 8.1 % (1.0-6.0); RBC 5.56 10^6/uL (3.5-6.1); RED CELL DISTRIBUTION WIDTH 18.5 % (11.5-14.5); WHITE BLOOD COUNT 17.6 10^3/ul (4.5-11.0)
[2017-06-24 20:33] LABS: PROTHROMBIN TIME 59.6 SECONDS (9.4-12.5)
[2017-06-24 20:35] LABS: INR 5.06 (0.93-1.08)
[2017-06-24 20:43] LABS: ALB/GLOB RATIO 1.4 (1.1-1.8); ALBUMIN 3.4 g/dL (3.0-4.8); TROPONIN I 0.04 ng/mL
[2017-06-24] MEDS ORDERED: Morphine 4 mg/ml ISec IVP STA (20:47)
[2017-06-24 21:58] LABS: VENOUS BLOOD GAS BASE EXCESS 4.5 mmol/L (0.0-2.0); VENOUS BLOOD GAS PO2 59 mm/Hg (30-55); VENOUS BLOOD PH 7.37 (7.32-7.43)
[2017-06-24] MEDS ORDERED: Dextrose 50% SYRINGE Inj (50 ml) IVP STA (23:00)
[2017-06-24] MEDS ORDERED: Sodium Bicarbonate (8.4%) 50 Meq Syringe IVP ONE (23:00)
[2017-06-24] MEDS ORDERED: Insulin Regular 1 UNITS/0.01 ML ML IV ONE (23:01)
[2017-06-24] MEDS ORDERED: Ciprofloxacin 400mg/200ml D5W 400 MG/200 ML BAG IVPB SCH (23:45)
[2017-06-24] MEDS ORDERED: Multivitamin (MVI) 10 ML, Thiamine 100 MG, Folic Acid 1 MG in Sodium Chloride 0.9% 1,00... IV ONE (23:52)
--- NOTE | 2017-06-25 00:13 | CP.PCM.HP ---
History of Present Illness - History of Present Illness History of Present Illness: Umer Carter PGY1 H&P Note for Hospitalist Service cc: nausea/vomiting and dark stools Mr. Fuentes is a 56 y/o M with PMH of bleeding duodenal ulcer s/p hemoclip w/ Dr. Coates (01/2017), CAD s/p CABG, PAD s/p R SFA stent, HLD, DM2, lumbosacral radiculopathy, tobacco use and chronic opioid dependence presents with non- bloody and non-bilious nausea/vomiting x3 days and 2 dark bowel movements earlier today. The patient also states that he was in the bathroom bearing down when had a syncopal episode for a few seconds but his caught him and he denies head trauma. He states that he has not been able to keep any food down, but yesterday felt improvement prior to feeling fevers/chills then having the melena and syncopal episodes today. He states that he recently started seeing a new pain doctor who increased his oxycontin dose. He also states that he still takes Coumadin, Plavix and ASA for his femoral stent. denies any other bleeding , new chest pain, abdominal pain, weakness, numbness/tingling, headaches or changes in vision/hearing. 12-point ROS was reviewed and is otherwise unremarkable. PMD: states Dr. Busch, however, ER contacted him and according to their note "He states that he has told the patient multiple times that he is no longer his physician and no longer wants to be involved in his care at all." Pain MD: Jessica Reyez Pharmacy: [email or web address] PMH: As above Surgical Hx: R SFA stent, cholecystectomy, Left inguinal hernia repair, CABG Social Hx: Tobacco 1 ppd x 40 years. Alcohol socially, dependent on pain medication, admits to marijuana use Allergies: Levofloxacin, penicillin Medication: See MAR, states he takes ASA, Plavix and Coumadin Present on Admission - Present on Admission Any Indicators Present on Admission: No Review of Systems - Review of Systems All systems: reviewed and no additional remarkable complaints except (as per HPI ) Past Patient History - Infectious Disease Hx of Infectious Diseases: None - Tetanus Immunizations Tetanus Immunization: Unknown - Past Social History Smoking Status: Heavy Smoker > 10 Cigarettes Daily Alcohol: None Drugs: Prescription medications Home Situation {Lives}: With Family - CARDIAC Hx Cardiac Disorders: Yes Hx Hypercholesterolemia: Yes Hx Hypertension: Yes Hx Pacemaker: No Other/Comment: CABG and Cardiac Stent - PULMONARY Hx Respiratory Disorders: Yes Hx Chronic Obstructive Pulmonary Disease (COPD): Yes - NEUROLOGICAL Hx Neurological Disorder: No - HEENT Hx HEENT Problems: No - RENAL Hx Chronic Kidney Disease: No - ENDOCRINE/METABOLIC Hx Endocrine Disorders: Yes Hx Diabetes Mellitus Type 2: Yes - HEMATOLOGICAL/ONCOLOGICAL Hx Blood Transfusions: Yes (01/17/17) Hx Blood Transfusion Reaction: No - INTEGUMENTARY Hx Dermatological Problems: No - MUSCULOSKELETAL/RHEUMATOLOGICAL Hx Falls: No - GASTROINTESTINAL Hx Gall Bladder Disease: Yes Hx Gastroesophageal Reflux: Yes Hx Ulcer: Yes - GENITOURINARY/GYNECOLOGICAL Hx Genitourinary Disorders: No - PSYCHIATRIC Hx Emotional Abuse: No Hx Physical Abuse: No Hx Substance Use: Yes (opiate dependent) - SURGICAL HISTORY Hx Cardiac Catheterization: Yes Hx Cholecystectomy: Yes Hx Coronary Artery Bypass Graft: Yes (quadruple) Hx Coronary Stent: Yes Hx Herniorrhaphy: Yes - ANESTHESIA Hx Anesthesia Reactions: Yes (WAKES UP ANGRY) Hx Malignant Hyperthermia: No Meds Allergies/Adverse Reactions: Allergies Allergy/AdvReac Type Severity Reaction Status Date / Time levofloxacin [From Levaquin] Allergy Severe URTICARIA Verified 06/24/17 19:11 Penicillins Allergy Severe RASH Verified 06/24/17 19:11 Physical Exam - Constitutional Appears: Well, Non-toxic, No Acute Distress - Head Exam Head Exam: ATRAUMATIC, NORMAL INSPECTION - Eye Exam Eye Exam: EOMI, Normal appearance - ENT Exam ENT Exam: Mucous Membranes Moist - Neck Exam Neck exam: Positive for: Normal Inspection - Respiratory Exam Respiratory Exam: NORMAL BREATHING PATTERN. absent: Rales, Rhonchi, Wheezes, Respiratory Distress - Cardiovascular Exam Cardiovascular Exam: RRR, +S1, +S2 - GI/Abdominal Exam GI & Abdominal Exam: Hyperactive Bowel Sounds, Soft. absent: Distended, Tenderness - Extremities Exam Extremities exam: Positive for: full ROM, normal inspection. Negative for: pedal edema - Back Exam Back exam: NORMAL INSPECTION - Neurological Exam Neurological exam: Alert, Oriented x3 - Psychiatric Exam Psychiatric exam: Normal Affect, Normal Mood - Skin Skin Exam: Normal Color, Warm Results - Vital Signs Recent Vital Signs: Last Vital Signs Temp 97.8 F 06/24/17 19:16 Pulse Resp BP Pulse Ox - Labs Result Diagrams: 06/24/17 20:06 06/24/17 20:06 Labs: Laboratory Results - last 24 hr 06/24/17 06/24/17 06/24/17 20:06 20:06 20:06 WBC 17.6 H D RBC 5.56 Hgb 11.2 L Hct 37.8 L MCV 68.0 L MCH 20.1 L MCHC 29.6 L RDW 18.5 H Plt Count 408 MPV 9.6 Gran % 82.0 H Lymph % (Auto) 9.7 L [place] % (Auto) 8.1 H Eos % (Auto) 0.1 L Baso % (Auto) 0.1 Gran # 14.39 H Lymph # (Auto) 1.7 [place] # (Auto) 1.4 H Eos # (Auto) 0.0 Baso # (Auto) 0.02 PT 59.6 H INR 5.06 H* pO2 VBG pH VBG pCO2 VBG HCO3 VBG Total CO2 VBG O2 Sat (Calc) VBG Base Excess VBG Potassium Glucose Lactate FiO2 Sodium 130 L Potassium 5.8 H* D Chloride 88 L Carbon Dioxide 30 Anion Gap 17 BUN 69 H Creatinine 2.2 H Est GFR ( Amer) 37 Est GFR (Non-Af Amer) 31 POC Glucose (mg/dL) Random Glucose 335 H* D Calcium 9.0 Total Bilirubin 0.4 AST 23 ALT 32 Alkaline Phosphatase 126 Lactate Dehydrogenase 323 L Total Creatine Kinase 44 Troponin I 0.04 D NT-Pro-B Natriuret Pep Total Protein 5.8 Albumin 3.4 Globulin 2.4 Albumin/Globulin Ratio 1.4 Lipase 157 Venous Blood Potassium Alcohol, Quantitative 06/24/17 06/24/17 06/24/17 20:06 20:13 21:45 WBC RBC Hgb Hct MCV MCH MCHC RDW Plt Count MPV Gran % Lymph % (Auto) [place] % (Auto) Eos % (Auto) Baso % (Auto) Gran # Lymph # (Auto) [place] # (Auto) Eos # (Auto) Baso # (Auto) PT INR pO2 59 H VBG pH 7.37 VBG pCO2 54.0 VBG HCO3 31.2 H VBG Total CO2 32.9 H VBG O2 Sat (Calc) 93.4 H VBG Base Excess 4.5 H VBG Potassium 5.4 H Glucose 303 H Lactate 2.0 FiO2 21.0 Sodium 126.0 L Potassium Chloride 95.0 L Carbon Dioxide Anion Gap BUN Creatinine Est GFR ( Amer) Est GFR (Non-Af Amer) POC Glucose (mg/dL) Random Glucose Calcium Total Bilirubin AST ALT Alkaline Phosphatase Lactate Dehydrogenase Total Creatine Kinase Troponin I NT-Pro-B Natriuret Pep 765 H Total Protein Albumin Globulin Albumin/Globulin Ratio Lipase Venous Blood Potassium 5.4 H Alcohol, Quantitative < 10 06/24/17 23:53 WBC RBC Hgb Hct MCV MCH MCHC RDW Plt Count MPV Gran % Lymph % (Auto) [place] % (Auto) Eos % (Auto) Baso % (Auto) Gran # Lymph # (Auto) [place] # (Auto) Eos # (Auto) Baso # (Auto) PT INR pO2 VBG pH VBG pCO2 VBG HCO3 VBG Total CO2 VBG O2 Sat (Calc) VBG Base Excess VBG Potassium Glucose Lactate FiO2 Sodium Potassium Chloride Carbon Dioxide Anion Gap BUN Creatinine Est GFR ( Amer) Est GFR (Non-Af Amer) POC Glucose (mg/dL) 244 H Random Glucose Calcium Total Bilirubin AST ALT Alkaline Phosphatase Lactate Dehydrogenase Total Creatine Kinase Troponin I NT-Pro-B Natriuret Pep Total Protein Albumin Globulin Albumin/Globulin Ratio Lipase Venous Blood Potassium Alcohol, Quantitative Assessment & Plan - Assessment and Plan (Free Text) Assessment: 56 y/o M with PMH of bleeding duodenal ulcer s/p hemoclip w/ Dr. Coates (01/2017) , CAD s/p CABG, PAD s/p R SFA stent, HLD, DM2, lumbosacral radiculopathy, tobacco use and chronic opioid dependence presents with non-bloody and non- bilious nausea/vomiting x3 days and 2 dark bowel movements earlier today. H/H is stable and vitals are stable. Patient is noted to be anemic but is similar to prior visits. INR is supratherapeutic. BUN/Cr ratio elevated and hints toward possible UGIB. Hyperkalemia is also noted. Plan: 1. n/v w/ melena - r/o UGI bleed given elevated BUN - NPO - no longer vomiting and is hemodynamically stable - PTX IVP 40mg Q12 - GI consulted, recs appreciated - zofran prn - NS 2L given, cont @ 125 - given hx of anemia, will order anemia workup - stool cdiff and cultures ordered - started on cipro and flagyl empirically - Orthostatics ordered for near syncope 2. Supratherapeutic INR - hold coumadin and other anticoagulants - monitor for further bleeding or drops in H/H 3. DIEUDONNE w/ hyperkalemia - EKG showed sinus rhythm w/ short DE @ 100 bpm - ca gluconate given - insulin 10u regular given - urine lytes ordered to calculate FeNa and FeUrea - monitor UOP 4. Hx CAD and PAD - cont metoprolol 5. Hx DM2 - ISS - Accuchecks - NPO 6. Hx tobacco use - nicotine patch 7. Hx opioid dependency - monitor for signs of withdrawal - call pharmacy to confirm meds Patient was seen, examined and discussed with attending, Dr. Olga Carter PGY1
[2017-06-25 00:32] LABS: % IRON SATURATION 10 % (20-55); IRON 34 ug/dL (45-180); TOTAL IRON BINDING CAPACITY 356 ug/dL (261-462)
[2017-06-25] MEDS: Insulin Lispro (humaLOG) MEDIUM Coverage SC SCH ×4 (00:43→19:30)
[2017-06-25] MEDS ORDERED: Sodium Chloride 0.9% 1,000 ML IV SCH (01:15)
[2017-06-25] MEDS: metroNIDAZOLE IV 500 mg/100 ml 500 MG/100 ML BAG IVPB SCH ×2 (01:16→08:44)
[2017-06-25] MEDS ORDERED: Morphine 2 mg/ml ISec IVP STA (03:26)
[2017-06-25] MEDS ORDERED: Phytonadione 10 MG in Sodium Chloride 0.9% 50 ML IV ONE (03:32)
--- NOTE | 2017-06-25 03:57 | CP.PCM.CON ---
<Umer Carter - Last Filed: 06/25/17 03:52> History of Present Illness - History of Present Illness History of Present Illness: Umer Carter PGY1 ICU Consult Mr. Fuentes is a 56 y/o M with PMH of bleeding duodenal ulcer s/p hemoclip w/ Dr. Coates (01/2017), CAD s/p CABG, PAD s/p R SFA stent, HLD, DM2, lumbosacral radiculopathy, tobacco use and chronic opioid dependence presents with non- bloody and non-bilious nausea/vomiting x3 days and 2 dark bowel movements earlier on day of admission. The patient also states that he was in the bathroom bearing down when had a syncopal episode for a few seconds but his caught him and he denies head trauma. He states that he has not been able to keep any food down, but yesterday felt improvement prior to feeling fevers/ chills then having the melena and syncopal episodes today. He states that he recently started seeing a new pain doctor who increased his oxycontin dose. He also states that he still takes Coumadin, Plavix and ASA for his femoral stent. denies any other bleeding, new chest pain, abdominal pain, weakness, numbness/ tingling, headaches or changes in vision/hearing. While in ED, patient had a large bowel movement, and per ED nurse, it was + occult blood. ICU was consulted. On arrival, the patient is noticeably pale, and is hypotensive in 80's/50's after 2L NS boluses that were given in ED. Fluids are opened wide and labs are ordered STAT. Patient is consented for blood transfusions. CBC, PT/PTT, INR, type and cross are all ordered STAT. Patient is not experiencing n/v. He has not made any urine while in ED, and bladder scan is ordered. ICU was consulted. PMH: As above Surgical Hx: R SFA stent, cholecystectomy, Left inguinal hernia repair, CABG Social Hx: Tobacco 1 ppd x 40 years. Alcohol socially, dependent on pain medication, admits to marijuana use Allergies: Levofloxacin, penicillin Medication: See MAR, states he takes ASA, Plavix and Coumadin Review of Systems - Review of Systems All systems: reviewed and no additional remarkable complaints except (as per HPI ) Past Patient History - Infectious Disease Hx of Infectious Diseases: None - Tetanus Immunizations Tetanus Immunization: Unknown - Past Social History Smoking Status: Heavy Smoker > 10 Cigarettes Daily Alcohol: None Drugs: Prescription medications Home Situation {Lives}: With Family - CARDIAC Hx Cardiac Disorders: Yes Hx Hypercholesterolemia: Yes Hx Hypertension: Yes Hx Pacemaker: No Other/Comment: CABG and Cardiac Stent - PULMONARY Hx Respiratory Disorders: Yes Hx Chronic Obstructive Pulmonary Disease (COPD): Yes - NEUROLOGICAL Hx Neurological Disorder: No - HEENT Hx HEENT Problems: No - RENAL Hx Chronic Kidney Disease: No - ENDOCRINE/METABOLIC Hx Endocrine Disorders: Yes Hx Diabetes Mellitus Type 2: Yes - HEMATOLOGICAL/ONCOLOGICAL Hx Blood Transfusions: Yes (01/17/17) Hx Blood Transfusion Reaction: No - INTEGUMENTARY Hx Dermatological Problems: No - MUSCULOSKELETAL/RHEUMATOLOGICAL Hx Falls: No - GASTROINTESTINAL Hx Gall Bladder Disease: Yes Hx Gastroesophageal Reflux: Yes Hx Ulcer: Yes - GENITOURINARY/GYNECOLOGICAL Hx Genitourinary Disorders: No - PSYCHIATRIC Hx Emotional Abuse: No Hx Physical Abuse: No Hx Substance Use: Yes (opiate dependent) - SURGICAL HISTORY Hx Cardiac Catheterization: Yes Hx Cholecystectomy: Yes Hx Coronary Artery Bypass Graft: Yes (quadruple) Hx Coronary Stent: Yes Hx Herniorrhaphy: Yes - ANESTHESIA Hx Anesthesia Reactions: Yes (WAKES UP ANGRY) Hx Malignant Hyperthermia: No Meds Allergies/Adverse Reactions: Allergies Allergy/AdvReac Type Severity Reaction Status Date / Time levofloxacin [From Levaquin] Allergy Severe URTICARIA Verified 06/24/17 19:11 Penicillins Allergy Severe RASH Verified 06/24/17 19:11 - Medications Medications: Current Medications Hydralazine HCl (Apresoline) 10 mg IVP Q6 PRN PRN Reason: Systolic Blood Pressure > 165 Metronidazole (Flagyl) 500 mg in 100 mls @ 100 mls/hr IVPB Q8 NINO PRN Reason: Protocol Last Admin: 06/25/17 01:16 Dose: 100 mls/hr Sodium Chloride (Sodium Chloride 0.9%) 1,000 mls @ 125 mls/hr IV .Q8H [facility] Phytonadione 10 mg/ Sodium (Chloride) 51 mls @ 100 mls/hr IV ONCE ONE Stop: 06/25/17 04:02 Pantoprazole Sodium (Protonix 40mg Ivpb) 40 mg in 100 mls @ 20 mls/hr IVPB .Q5H [facility] Insulin Human Lispro (Humalog Med) 0 units SC Q6 NINO PRN Reason: Protocol Last Admin: 06/25/17 00:43 Dose: Not Given Nicotine (Nicoderm Cq) 1 patch TD DAILY [facility] Ondansetron HCl (Zofran Inj) 4 mg IVP Q4H PRN PRN Reason: Nausea/Vomiting Physical Exam - Constitutional Appears: Non-toxic, No Acute Distress - Head Exam Head Exam: ATRAUMATIC, NORMAL INSPECTION - Eye Exam Eye Exam: EOMI, Normal appearance, PERRL Additional comments: pale conjunctiva - ENT Exam ENT Exam: Mucous Membranes Dry - Neck Exam Neck exam: Positive for: Normal Inspection - Respiratory Exam Respiratory Exam: Clear to Auscultation Bilateral, NORMAL BREATHING PATTERN. absent: Rales, Rhonchi, Wheezes - Cardiovascular Exam Cardiovascular Exam: Tachycardia (100-115), +S1, +S2 - GI/Abdominal Exam GI & Abdominal Exam: Soft. absent: Distended, Tenderness - Extremities Exam Extremities exam: Positive for: normal inspection. Negative for: pedal edema - Back Exam Back exam: NORMAL INSPECTION - Neurological Exam Neurological exam: Alert, Oriented x3 - Psychiatric Exam Psychiatric exam: Normal Affect, Normal Mood - Skin Skin Exam: Pallor, Warm Results - Vital Signs Recent Vital Signs: Last Vital Signs Temp 97.8 F 06/24/17 19:16 Pulse Resp BP Pulse Ox - Labs Result Diagrams: 06/24/17 20:06 06/24/17 20:06 Labs: Laboratory Results - last 24 hr 06/24/17 23:53 POC Glucose (mg/dL) 244 H Assessment & Plan - Assessment and Plan (Free Text) Assessment: 56 y/o M with PMH of bleeding duodenal ulcer s/p hemoclip w/ Dr. Coates (01/2017) , CAD s/p CABG, PAD s/p R SFA stent, HLD, DM2, lumbosacral radiculopathy, tobacco use and chronic opioid dependence presents with non-bloody and non- bilious nausea/vomiting x3 days and 2 dark bowel movements earlier today. H/H is stable and vitals are stable. Patient is noted to be anemic but is similar to prior visits. INR is supratherapeutic. BUN/Cr ratio elevated and hints toward possible UGIB. Hyperkalemia is also noted. Plan: Neuro currently at baseline AAOx3 monitor for mental status changes neurochecks will be transferred to ICU for continued management Cardio hypotensive - complete 3L NS boluses then cont NS @ 150 - monitor BP changes - maintain MAP > 65 - hold home PO meds - hydralazine Q6 PRN SBP > 165 EKG showed sinus rhythm w/ short CO @ 100 bpm Pulm CTA b/l CXR done, shows chest wires monitor for signs of fluid overload head of bed elevated > 30 O2 PRN maintain SaO2 > 90% GI Likely active upper GI bleed - PTX 80mg IVP then gtt - GI consulted, recs appreciated - NPO - monitor n/v - zofran prn - given hx of anemia, will order anemia workup - stool cdiff and cultures ordered - started on cipro and flagyl empirically - Orthostatics ordered for near syncope - cont hydration and stabilize BP Heme Active GI bleeding w/ supratherapeutic INR - hold coumadin and other home anticoagulants - type and cross ordered - 2u FFP to be given now - Vit K x1 ordered - monitor for further bleeding or drops in H/H Anemia - transfusion consent signed - type and cross ordered - 2u pRBC on standby - goal H/H >9 - CBC, PT/PTT, INR ordered stat - f/u morning labs - anemia workup ordered - monitor for continued signs of bleeding Renal DIEUDONNE noted - monitor UOP - bladder scan prn - straight cath prn - urine lytes ordered to determine FeNa and FeUrea Hyperkalemia - ca gluconate, insulin and bicarb were given - f/u morning CMP Hyponatremia - serum and urine osm ordered - cont NS hydration ID leukocytosis noted started on cipro and flagyl empirically maintain normothermia cdiff and stool cultures ordered Endo hypergylcemia was noted - ISS - Accuchecks - NPO - Hgb A1C ordered Patient was seen, examined and discussed with attending, DR. Karlene Carter PGY1 <Karlene MARTIN,Jonah - Last Filed: 06/25/17 07:59> Meds - Medications Medications: Current Medications Hydralazine HCl (Apresoline) 10 mg IVP Q6 PRN PRN Reason: Systolic Blood Pressure > 165 Metronidazole (Flagyl) 500 mg in 100 mls @ 100 mls/hr IVPB Q8 NINO PRN Reason: Protocol Last Admin: 06/25/17 01:16 Dose: 100 mls/hr Pantoprazole Sodium (Protonix 40mg Ivpb) 40 mg in 100 mls @ 20 mls/hr IVPB .Q5H [facility] Last Admin: 06/25/17 04:54 Dose: 20 mls/hr Sodium Chloride (Sodium Chloride 0.9%) 1,000 mls @ 75 mls/hr IV .[id number] [facility] Last Admin: 06/25/17 05:12 Dose: 75 mls/hr Insulin Human Lispro (Humalog Med) 0 units SC Q6 NINO PRN Reason: Protocol Last Admin: 06/25/17 00:43 Dose: Not Given Nicotine (Nicoderm Cq) 1 patch TD DAILY [facility] Ondansetron HCl (Zofran Inj) 4 mg IVP Q4H PRN PRN Reason: Nausea/Vomiting Results - Vital Signs Recent Vital Signs: Last Vital Signs Temp 97.3 F L 06/25/17 04:58 Pulse 113 H 06/25/17 04:58 Resp 13 06/25/17 04:58 BP 120/92 H 06/25/17 04:58 Pulse Ox 93 L 06/25/17 04:58 - Labs Result Diagrams: 06/24/17 20:06 06/24/17 20:06 Labs: Laboratory Results - last 24 hr 06/24/17 06/25/17 06/25/17 23:53 00:44 04:00 POC Glucose (mg/dL) 244 H 177 H Urine Color Yellow Urine Appearance Clear Urine pH 6.0 Ur Specific [place] 1.020 Urine Protein Negative Urine Glucose (UA) Negative Urine Ketones Negative Urine Blood Negative Urine Nitrate Negative Urine Bilirubin Negative Urine Urobilinogen 0.2 Ur Leukocyte Esterase Negative Influenza Typ A,B (EIA) 06/25/17 06/25/17 06:50 07:50 POC Glucose (mg/dL) 208 H Urine Color Urine Appearance Urine pH Ur Specific [place] Urine Protein Urine Glucose (UA) Urine Ketones Urine Blood Urine Nitrate Urine Bilirubin Urine Urobilinogen Ur Leukocyte Esterase Influenza Typ A,B (EIA) Negative for flu a/b Attending/Attestation - Attestation I have personally seen and examined this patient.: Yes I have fully participated in the care of the patient.: Yes I have reviewed all pertinent clinical information: Yes Notes (Text): -I agree with the above ICU consult note completed by the resident physician with the following additions and/or changes: -The patient is a 56 year old man with a history of bleeding duodenal ulcer (s/ p hemoclip placement in 2017), CAD (s/p CABG), PAD (s/p Rt SFA stent), paroxysmal atrial fibrillation (on Coumadin), HLD, NIDDM, chronic tobacco smoker , chronic low back pain and chronic opioid dependence, who presented with melena and was initially admitted to the telemetry santizo early this morning. However, soon after arrival to tele santizo, he passed two large melanic bowel movements, became tachycardic (105-110) and developed low-normal SBPs (85-95). In addition, he was found to have a supratherapeutic INR of 5.20 and an elevated BUN/Cr ratio (69/2.2). Consequently, given his recent history of PUD, acutely worsening symptoms and vitals, and elevated INR, he will be upgraded to the ICU this morning for closer monitoring. He will be started on Protonix drip , kept NPO and given 2units FFPs and 1 dose of IV Vitamin K. GI has been consulted. Serial CBCs will be monitored Q6hrs. Given the a patient's extensive cardiac history, the threshold for transfusion of PRBC's will be Hgb > 9-10. Critical Care Time Spent: 90-120 minutes
[2017-06-25] MEDS ORDERED: Albuterol-Ipratrop 3 mg / 0.5 (3 ml) UD IH PRN (04:32)
[2017-06-25 04:37] LABS: URINE BILIRUBIN NEGATIVE (NEGATIVE); URINE BLOOD NEGATIVE (NEGATIVE); URINE GLUCOSE (UA) NEGATIVE (NEGATIVE); URINE LEUKOCYTE ESTERASE NEGATIVE Leu/uL (NEGATIVE); URINE PROTEIN NEGATIVE mg/dL (<30 mg/dL); URINE UROBILINOGEN 0.2 E.U./dL (<1 E.U./dL)
[2017-06-25 04:40] LABS: URINE APPEARANCE CLEAR (CLEAR); URINE COLOR YELLOW (YELLOW)
[2017-06-25] MEDS: Pantoprazole 40mg/100mL NS 40 MG/100 ML BAG IVPB SCH ×4 (04:54→21:00)
[2017-06-25] MEDS: Sodium Chloride 0.9% 1,000 ML IV SCH ×2 (05:12→20:30)
[2017-06-25 07:06] LABS: ARTERIAL BLOOD GAS HCO3 16.6 mmol/L (21-28); ARTERIAL BLOOD GAS O2 SAT 99.9 % (95-98); ARTERIAL BLOOD GAS PCO2 25 mm/Hg (35-45); ARTERIAL BLOOD GAS PH 7.43 (7.35-7.45); ARTERIAL BLOOD GAS TCO2 17.4 mmol.L (22-28)
[2017-06-25] MEDS ORDERED: HYDROmorphone 0.5 mg/0.5 ml ISec IVP STA ×5 (07:10→22:35)
[2017-06-25 07:56] LABS: MEAN CELL VOLUME 67.3 fl (80.0-105.0); MEAN CORPUSCULAR HEMOGLOBIN 20.4 pg (25.0-35.0); MEAN CORPUSCULAR HGB CONC 30.4 g/dl (31.0-37.0); MEAN PLATELET VOLUME 9.3 fl (7.0-11.0); RBC 3.18 10^6/uL (3.5-6.1); RED CELL DISTRIBUTION WIDTH 18.3 % (11.5-14.5); WHITE BLOOD COUNT 23.1 10^3/ul (4.5-11.0)
[2017-06-25 08:01] LABS: VENOUS BLOOD GAS BASE EXCESS -8.8 mmol/L (0.0-2.0); VENOUS BLOOD GAS PO2 159 mm/Hg (30-55)
[2017-06-25 08:09] LABS: ALB/GLOB RATIO 1.2 (1.1-1.8); ALBUMIN 2.4 g/dL (3.0-4.8); CALCIUM 8.4 mg/dL (8.4-10.5)
[2017-06-25 08:21] LABS: HEMOGLOBIN 6.5 g/dL (14.0-18.0)
--- NOTE | 2017-06-25 08:25 | PCM.PROC ---
Procedures Attestation:: I certify that I have explained the specified Operation(s) or Procedure(s), risks, benefits and reasonable alternatives to the Patient and/or other person responsible. The opportunity was given to ask questions and all questions answered - Central Line Placement Left Femoral Aseptic technique was employed throughout the procedure: Hand Hygiene done prior to procedure, Full sterile barriers (mask, hair cover, sterile gown, sterile gloves), Full body sterile drape, Chloraprep Antiseptic: 2 minute prep for Femoral Central Line Prep: Chlorhexidine-Alcohol Combination Local Anesthesia Used: Lidocaine 1% Ultrasound Used for Placement: Yes Central Line Lumen Inserted: triple Central Line Length: 20 cm Post Procedure: Sutured in Place, Good Blood Return, All Ports Aspirated, Flushed, Capped, Sterile Dressing Applied Secured by: Suture Post procedure dressing: Gauze Patient Tolerated Procedure: Well, No Complications Immediate Complications: None
[2017-06-25 08:26] LABS: PARTIAL THROMBOPLASTIN TIME 30.5 Seconds (25.1-36.5); PROTHROMBIN TIME 81.1 SECONDS (9.4-12.5)
[2017-06-25 08:28] LABS: INR 6.78 (0.93-1.08)
--- NOTE | 2017-06-25 09:28 | RAD ---
HISTORY: Near Syncope COMPARISON: 06/02/2016 FINDINGS: LUNGS: No active pulmonary disease. PLEURA: No significant pleural effusion identified, no pneumothorax apparent. CARDIOVASCULAR: Mild vascular congestion. OSSEOUS STRUCTURES: Multiple broken sternal wires VISUALIZED UPPER ABDOMEN: Normal. OTHER FINDINGS: None. IMPRESSION: Mild vascular congestion
[2017-06-25] MEDS ORDERED: Metoprolol Succinate 50 mg XL Tab PO SCH (10:00)
--- NOTE | 2017-06-25 10:18 | CP.CCUPN ---
<Hugo Krishna - Last Filed: 06/25/17 10:37> CCU Subjective - Physician Review Subjective (Free Text): Patient seen and examined bedside in the ICU. Patient states he is feeling cold and a little short of breath, aware he will be transfused blood products. Denies any chest pain, nausea, vomiting or any other complaints at this time. 06/25/17 10:38 CCU Objective - Vital Signs / Intake & Output Vital Signs (Last 4 hours): Vital Signs Pulse Resp BP Pulse Ox 06/25/17 09:40 99 H 24 100 06/25/17 09:30 86 12 166/93 H 100 06/25/17 09:20 87 19 100 06/25/17 09:15 90 24 157/77 H 100 06/25/17 09:10 91 H 100 06/25/17 09:02 90 15 144/96 H 100 06/25/17 09:00 88 14 170/89 H 100 06/25/17 08:50 86 17 100 06/25/17 08:45 83 15 162/75 H 99 06/25/17 08:40 84 16 98 06/25/17 08:31 98 H 147/60 91 L 06/25/17 08:30 88 22 98 06/25/17 08:29 92 H 19 155/67 H 95 06/25/17 08:20 88 17 100 06/25/17 08:17 134/86 06/25/17 08:16 98 H 21 96 06/25/17 08:10 89 15 85 L 06/25/17 08:00 97 H 15 141/75 77 L 06/25/17 07:54 96 H 11 L 06/25/17 07:53 147/78 06/25/17 07:52 98 H 12 06/25/17 07:51 98 H 16 06/25/17 07:50 104 H 16 06/25/17 07:49 103 H 18 06/25/17 07:48 105 H 32 H 06/25/17 07:47 97 H 12 06/25/17 07:46 106 H 26 H 06/25/17 07:45 109 H 06/25/17 07:42 108 H 29 H 06/25/17 07:41 100 H 12 06/25/17 07:40 100 H 11 L 06/25/17 07:39 105 H 10 L 06/25/17 07:38 106 H 11 L 06/25/17 07:37 105 H 11 L 06/25/17 07:36 104 H 11 L 06/25/17 07:35 105 H 10 L 06/25/17 07:34 109 H 10 L 06/25/17 07:30 108 H 11 L 98 06/25/17 07:21 96 H 10 L 06/25/17 07:20 101 H 14 06/25/17 07:19 101 H 13 06/25/17 07:18 103 H 20 06/25/17 07:17 99 H 17 06/25/17 07:16 102 H 14 06/25/17 07:15 101 H 14 06/25/17 07:14 104 H 13 06/25/17 07:12 108 H 13 06/25/17 07:11 107 H 11 L Intake and Output (Last 8hrs): Intake & Output 06/24/17 06/25/17 06/25/17 22:59 06:59 14:59 Output Total 300 Balance -300 Output: Urine 300 - Physical Exam Head: Positive for: Atraumatic, Normocephalic Pupils: Positive for: PERRL Extroacular Muscles: Positive for: EOMI Conjunctiva: Positive for: Normal Mouth: Positive for: Dry Respiratory/Chest: Positive for: Clear to Auscultation, Good Air Exchange. Negative for: Respiratory Distress, Accessory Muscle Use Cardiovascular: Positive for: Regular Rate and Rhythm, Normal S1, S2. Negative for: Murmurs Abdomen: Positive for: Normal Bowel Sounds. Negative for: Tenderness, Distention, Peritoneal Signs Upper Extremity: Positive for: Normal Inspection. Negative for: Cyanosis, Edema Lower Extremity: Positive for: Normal Inspection. Negative for: Edema Neurological: Positive for: GCS=15, CN II-XII Intact, Speech Normal Skin: Positive for: Warm, Dry, Pale. Negative for: Rashes Psychiatric: Positive for: Alert, Oriented x 3, Normal Insight, Normal Concentration - Medications Active Medications: Active Medications Generic Name Dose Route Start Last Admin Trade Name Freq PRN Reason Stop Dose Admin Hydralazine HCl 10 mg 06/25/17 03:32 Apresoline IVP Q6 PRN Systolic Blood Pressure > 165 Metronidazole 500 mg in 100 mls @ 100 mls/hr 06/24/17 23:45 06/25/17 08:44 Flagyl IVPB 100 mls/hr Q8 NINO Administration Protocol Pantoprazole Sodium 40 mg in 100 mls @ 20 mls/hr 06/25/17 03:45 06/25/17 08: 00 Protonix 40mg Ivpb IVPB 20 mls/hr .Q5H NINO Administration Sodium Chloride 1,000 mls @ 75 mls/hr 06/25/17 04:35 06/25/17 05:12 Sodium Chloride 0.9% IV 75 mls/hr .[id number] NINO Administration Insulin Human Lispro 0 units 06/25/17 00:00 06/25/17 07:30 Humalog Med SC Not Given Q6 NINO Protocol Nicotine 1 patch 06/25/17 10:00 Nicoderm Cq TD DAILY NINO Ondansetron HCl 4 mg 06/24/17 23:46 Zofran Inj IVP Q4H PRN Nausea/Vomiting - Patient Studies Lab Studies: Lab Studies 06/25/17 06/25/17 06/25/17 Range/Units 07:50 07:35 07:35 WBC (4.5-11.0) 10^3/ul RBC (3.5-6.1) 10^6/uL Hgb (14.0-18.0) g/dL Hct (42.0-52.0) % MCV (80.0-105.0) fl MCH (25.0-35.0) pg MCHC (31.0-37.0) g/dl RDW (11.5-14.5) % Plt Count (120.0-450.0) 10^3/uL MPV (7.0-11.0) fl PT (9.4-12.5) SECONDS INR (0.93-1.08) APTT (25.1-36.5) Seconds pCO2 (35-45) mm/Hg pO2 159 H (80-100) mm/Hg HCO3 (21-28) mmol/L ABG pH (7.35-7.45) ABG Total CO2 (22-28) mmol.L ABG O2 Saturation (95-98) % ABG Base Excess (-2.0-3.0) mmol/L ABG Potassium (3.6-5.2) mmol/L VBG pH 7.30 L (7.32-7.43) VBG pCO2 34.0 L (40-60) VBG HCO3 16.7 L (21-28) mmol/l VBG Total CO2 17.7 L (22-28) mmol.L VBG O2 Sat (Calc) 99.3 H (40-65) % VBG Base Excess -8.8 L (0.0-2.0) mmol/L VBG Potassium 5.7 H (3.6-5.2) mmol/L Sodium 129.0 L (132-148) mmol/L Chloride 99.0 (98-107) mmol/L Glucose 229 H (75-110) mg/dl Lactate 10.9 H* (0.7-2.1) mmol/L FiO2 21.0 % Potassium (3.6-5.0) mmol/L Carbon Dioxide (21-33) mmol/L Anion Gap (10-20) BUN (7-21) mg/dL Creatinine (0.8-1.5) mg/dl Est GFR ( Amer) Est GFR (Non-Af Amer) POC Glucose (mg/dL) 208 H (65-110) mg/dL Random Glucose (70-110) mg/dL Calcium (8.4-10.5) mg/dL Total Bilirubin (0.2-1.3) mg/dL AST (17-59) U/L ALT (7-56) U/L Alkaline Phosphatase (38-126) U/L Total Protein (5.8-8.3) g/dL Albumin (3.0-4.8) g/dL Globulin gm/dL Albumin/Globulin Ratio (1.1-1.8) Arterial Blood Potassium (3.6-5.2) mmol/L Venous Blood Potassium 5.7 H (3.6-5.2) mmol/L Urine Color (YELLOW) Urine Appearance (CLEAR) Urine pH (4.7-8.0) Ur Specific [place] (1.005-1.035) Urine Protein (<30 mg/dL) mg/dL Urine Glucose (UA) (NEGATIVE) mg/dL Urine Ketones (NEGATIVE) mg/dL Urine Blood (NEGATIVE) Urine Nitrate (NEGATIVE) Urine Bilirubin (NEGATIVE) Urine Urobilinogen (<1 E.U./dL) E.U./dL Ur Leukocyte Esterase (NEGATIVE) Sayda/uL Influenza Typ A,B (EIA) (NEGATIVE) Blood Type A POSITIVE Antibody Screen Negative Crossmatch See Detail BBK History Checked Patient has bt 06/25/17 06/25/17 06/25/17 Range/Units 07:35 07:35 07:35 WBC 23.1 H D (4.5-11.0) 10^3/ul RBC 3.18 L (3.5-6.1) 10^6/uL Hgb 6.5 L* D (14.0-18.0) g/dL Hct 21.4 L (42.0-52.0) % MCV 67.3 L (80.0-105.0) fl MCH 20.4 L (25.0-35.0) pg MCHC 30.4 L (31.0-37.0) g/dl RDW 18.3 H (11.5-14.5) % Plt Count 409 (120.0-450.0) 10^3/uL MPV 9.3 (7.0-11.0) fl PT 81.1 H (9.4-12.5) SECONDS INR 6.78 H* (0.93-1.08) APTT 30.5 (25.1-36.5) Seconds pCO2 (35-45) mm/Hg pO2 (80-100) mm/Hg HCO3 (21-28) mmol/L ABG pH (7.35-7.45) ABG Total CO2 (22-28) mmol.L ABG O2 Saturation (95-98) % ABG Base Excess (-2.0-3.0) mmol/L ABG Potassium (3.6-5.2) mmol/L VBG pH (7.32-7.43) VBG pCO2 (40-60) VBG HCO3 (21-28) mmol/l VBG Total CO2 (22-28) mmol.L VBG O2 Sat (Calc) (40-65) % VBG Base Excess (0.0-2.0) mmol/L VBG Potassium (3.6-5.2) mmol/L Sodium 130 L (132-148) mmol/L Chloride 97 L (98-107) mmol/L Glucose (75-110) mg/dl Lactate (0.7-2.1) mmol/L FiO2 % Potassium 5.5 H (3.6-5.0) mmol/L Carbon Dioxide 15 L (21-33) mmol/L Anion Gap 23 H (10-20) BUN 72 H (7-21) mg/dL Creatinine 2.9 H (0.8-1.5) mg/dl Est GFR ( Amer) 27 Est GFR (Non-Af Amer) 22 POC Glucose (mg/dL) (65-110) mg/dL Random Glucose 211 H (70-110) mg/dL Calcium 8.4 (8.4-10.5) mg/dL Total Bilirubin 0.4 (0.2-1.3) mg/dL AST 110 H D (17-59) U/L ALT 146 H (7-56) U/L Alkaline Phosphatase 89 (38-126) U/L Total Protein 4.3 L (5.8-8.3) g/dL Albumin 2.4 L (3.0-4.8) g/dL Globulin 1.9 gm/dL Albumin/Globulin Ratio 1.2 (1.1-1.8) Arterial Blood Potassium (3.6-5.2) mmol/L Venous Blood Potassium (3.6-5.2) mmol/L Urine Color (YELLOW) Urine Appearance (CLEAR) Urine pH (4.7-8.0) Ur Specific [place] (1.005-1.035) Urine Protein (<30 mg/dL) mg/dL Urine Glucose (UA) (NEGATIVE) mg/dL Urine Ketones (NEGATIVE) mg/dL Urine Blood (NEGATIVE) Urine Nitrate (NEGATIVE) Urine Bilirubin (NEGATIVE) Urine Urobilinogen (<1 E.U./dL) E.U./dL Ur Leukocyte Esterase (NEGATIVE) Sayda/uL Influenza Typ A,B (EIA) (NEGATIVE) Blood Type Antibody Screen Crossmatch BBK History Checked 06/25/17 06/25/17 06/25/17 Range/Units 07:00 06:50 04:00 WBC (4.5-11.0) 10^3/ul RBC (3.5-6.1) 10^6/uL Hgb (14.0-18.0) g/dL Hct (42.0-52.0) % MCV (80.0-105.0) fl MCH (25.0-35.0) pg MCHC (31.0-37.0) g/dl RDW (11.5-14.5) % Plt Count (120.0-450.0) 10^3/uL MPV (7.0-11.0) fl PT (9.4-12.5) SECONDS INR (0.93-1.08) APTT (25.1-36.5) Seconds pCO2 25 L (35-45) mm/Hg pO2 272.0 H (80-100) mm/Hg HCO3 16.6 L (21-28) mmol/L ABG pH 7.43 (7.35-7.45) ABG Total CO2 17.4 L (22-28) mmol.L ABG O2 Saturation 99.9 H (95-98) % ABG Base Excess -6.0 L (-2.0-3.0) mmol/L ABG Potassium 5.2 (3.6-5.2) mmol/L VBG pH (7.32-7.43) VBG pCO2 (40-60) VBG HCO3 (21-28) mmol/l VBG Total CO2 (22-28) mmol.L VBG O2 Sat (Calc) (40-65) % VBG Base Excess (0.0-2.0) mmol/L VBG Potassium (3.6-5.2) mmol/L Sodium 129.0 L (132-148) mmol/L Chloride 101.0 (98-107) mmol/L Glucose 230 H (75-110) mg/dl Lactate 9.3 H* (0.7-2.1) mmol/L FiO2 100.0 % Potassium (3.6-5.0) mmol/L Carbon Dioxide (21-33) mmol/L Anion Gap (10-20) BUN (7-21) mg/dL Creatinine (0.8-1.5) mg/dl Est GFR ( Amer) Est GFR (Non-Af Amer) POC Glucose (mg/dL) (65-110) mg/dL Random Glucose (70-110) mg/dL Calcium (8.4-10.5) mg/dL Total Bilirubin (0.2-1.3) mg/dL AST (17-59) U/L ALT (7-56) U/L Alkaline Phosphatase (38-126) U/L Total Protein (5.8-8.3) g/dL Albumin (3.0-4.8) g/dL Globulin gm/dL Albumin/Globulin Ratio (1.1-1.8) Arterial Blood Potassium 5.2 (3.6-5.2) mmol/L Venous Blood Potassium (3.6-5.2) mmol/L Urine Color Yellow (YELLOW) Urine Appearance Clear (CLEAR) Urine pH 6.0 (4.7-8.0) Ur Specific [place] 1.020 (1.005-1.035) Urine Protein Negative (<30 mg/dL) mg/dL Urine Glucose (UA) Negative (NEGATIVE) mg/dL Urine Ketones Negative (NEGATIVE) mg/dL Urine Blood Negative (NEGATIVE) Urine Nitrate Negative (NEGATIVE) Urine Bilirubin Negative (NEGATIVE) Urine Urobilinogen 0.2 (<1 E.U./dL) E.U./dL Ur Leukocyte Esterase Negative (NEGATIVE) Sayda/uL Influenza Typ A,B (EIA) Negative for flu a/b (NEGATIVE) Blood Type Antibody Screen Crossmatch BBK History Checked 06/25/17 06/24/17 Range/Units 00:44 23:53 WBC (4.5-11.0) 10^3/ul RBC (3.5-6.1) 10^6/uL Hgb (14.0-18.0) g/dL Hct (42.0-52.0) % MCV (80.0-105.0) fl MCH (25.0-35.0) pg MCHC (31.0-37.0) g/dl RDW (11.5-14.5) % Plt Count (120.0-450.0) 10^3/uL MPV (7.0-11.0) fl PT (9.4-12.5) SECONDS INR (0.93-1.08) APTT (25.1-36.5) Seconds pCO2 (35-45) mm/Hg pO2 (80-100) mm/Hg HCO3 (21-28) mmol/L ABG pH (7.35-7.45) ABG Total CO2 (22-28) mmol.L ABG O2 Saturation (95-98) % ABG Base Excess (-2.0-3.0) mmol/L ABG Potassium (3.6-5.2) mmol/L VBG pH (7.32-7.43) VBG pCO2 (40-60) VBG HCO3 (21-28) mmol/l VBG Total CO2 (22-28) mmol.L VBG O2 Sat (Calc) (40-65) % VBG Base Excess (0.0-2.0) mmol/L VBG Potassium (3.6-5.2) mmol/L Sodium (132-148) mmol/L Chloride (98-107) mmol/L Glucose (75-110) mg/dl Lactate (0.7-2.1) mmol/L FiO2 % Potassium (3.6-5.0) mmol/L Carbon Dioxide (21-33) mmol/L Anion Gap (10-20) BUN (7-21) mg/dL Creatinine (0.8-1.5) mg/dl Est GFR ( Amer) Est GFR (Non-Af Amer) POC Glucose (mg/dL) 177 H 244 H (65-110) mg/dL Random Glucose (70-110) mg/dL Calcium (8.4-10.5) mg/dL Total Bilirubin (0.2-1.3) mg/dL AST (17-59) U/L ALT (7-56) U/L Alkaline Phosphatase (38-126) U/L Total Protein (5.8-8.3) g/dL Albumin (3.0-4.8) g/dL Globulin gm/dL Albumin/Globulin Ratio (1.1-1.8) Arterial Blood Potassium (3.6-5.2) mmol/L Venous Blood Potassium (3.6-5.2) mmol/L Urine Color (YELLOW) Urine Appearance (CLEAR) Urine pH (4.7-8.0) Ur Specific [place] (1.005-1.035) Urine Protein (<30 mg/dL) mg/dL Urine Glucose (UA) (NEGATIVE) mg/dL Urine Ketones (NEGATIVE) mg/dL Urine Blood (NEGATIVE) Urine Nitrate (NEGATIVE) Urine Bilirubin (NEGATIVE) Urine Urobilinogen (<1 E.U./dL) E.U./dL Ur Leukocyte Esterase (NEGATIVE) Sayda/uL Influenza Typ A,B (EIA) (NEGATIVE) Blood Type Antibody Screen Crossmatch BBK History Checked Laboratory Results - last 24 hr 06/24/17 06/25/17 06/25/17 23:53 00:44 04:00 WBC RBC Hgb Hct MCV MCH MCHC RDW Plt Count MPV PT INR APTT pCO2 pO2 HCO3 ABG pH ABG Total CO2 ABG O2 Saturation ABG Base Excess ABG Potassium VBG pH VBG pCO2 VBG HCO3 VBG Total CO2 VBG O2 Sat (Calc) VBG Base Excess VBG Potassium Sodium Chloride Glucose Lactate FiO2 Potassium Carbon Dioxide Anion Gap BUN Creatinine Est GFR ( Amer) Est GFR (Non-Af Amer) POC Glucose (mg/dL) 244 H 177 H Random Glucose Calcium Total Bilirubin AST ALT Alkaline Phosphatase Total Protein Albumin Globulin Albumin/Globulin Ratio Arterial Blood Potassium Venous Blood Potassium Urine Color Yellow Urine Appearance Clear Urine pH 6.0 Ur Specific [place] 1.020 Urine Protein Negative Urine Glucose (UA) Negative Urine Ketones Negative Urine Blood Negative Urine Nitrate Negative Urine Bilirubin Negative Urine Urobilinogen 0.2 Ur Leukocyte Esterase Negative Influenza Typ A,B (EIA) Blood Type Antibody Screen Crossmatch BBK History Checked 06/25/17 06/25/17 06/25/17 06:50 07:00 07:35 WBC RBC Hgb Hct MCV MCH MCHC RDW Plt Count MPV PT 81.1 H INR 6.78 H* APTT 30.5 pCO2 25 L pO2 272.0 H HCO3 16.6 L ABG pH 7.43 ABG Total CO2 17.4 L ABG O2 Saturation 99.9 H ABG Base Excess -6.0 L ABG Potassium 5.2 VBG pH VBG pCO2 VBG HCO3 VBG Total CO2 VBG O2 Sat (Calc) VBG Base Excess VBG Potassium Sodium 129.0 L Chloride 101.0 Glucose 230 H Lactate 9.3 H* FiO2 100.0 Potassium Carbon Dioxide Anion Gap BUN Creatinine Est GFR ( Amer) Est GFR (Non-Af Amer) POC Glucose (mg/dL) Random Glucose Calcium Total Bilirubin AST ALT Alkaline Phosphatase Total Protein Albumin Globulin Albumin/Globulin Ratio Arterial Blood Potassium 5.2 Venous Blood Potassium Urine Color Urine Appearance Urine pH Ur Specific [place] Urine Protein Urine Glucose (UA) Urine Ketones Urine Blood Urine Nitrate Urine Bilirubin Urine Urobilinogen Ur Leukocyte Esterase Influenza Typ A,B (EIA) Negative for flu a/b Blood Type Antibody Screen Crossmatch BBK History Checked 06/25/17 06/25/17 06/25/17 07:35 07:35 07:35 WBC 23.1 H D RBC 3.18 L Hgb 6.5 L* D Hct 21.4 L MCV 67.3 L MCH 20.4 L MCHC 30.4 L RDW 18.3 H Plt Count 409 MPV 9.3 PT INR APTT pCO2 pO2 159 H HCO3 ABG pH ABG Total CO2 ABG O2 Saturation ABG Base Excess ABG Potassium VBG pH 7.30 L VBG pCO2 34.0 L VBG HCO3 16.7 L VBG Total CO2 17.7 L VBG O2 Sat (Calc) 99.3 H VBG Base Excess -8.8 L VBG Potassium 5.7 H Sodium 130 L 129.0 L Chloride 97 L 99.0 Glucose 229 H Lactate 10.9 H* FiO2 21.0 Potassium 5.5 H Carbon Dioxide 15 L Anion Gap 23 H BUN 72 H Creatinine 2.9 H Est GFR ( Amer) 27 Est GFR (Non-Af Amer) 22 POC Glucose (mg/dL) Random Glucose 211 H Calcium 8.4 Total Bilirubin 0.4 AST 110 H D ALT 146 H Alkaline Phosphatase 89 Total Protein 4.3 L Albumin 2.4 L Globulin 1.9 Albumin/Globulin Ratio 1.2 Arterial Blood Potassium Venous Blood Potassium 5.7 H Urine Color Urine Appearance Urine pH Ur Specific [place] Urine Protein Urine Glucose (UA) Urine Ketones Urine Blood Urine Nitrate Urine Bilirubin Urine Urobilinogen Ur Leukocyte Esterase Influenza Typ A,B (EIA) Blood Type Antibody Screen Crossmatch BBK History Checked 06/25/17 06/25/17 07:35 07:50 WBC RBC Hgb Hct MCV MCH MCHC RDW Plt Count MPV PT INR APTT pCO2 pO2 HCO3 ABG pH ABG Total CO2 ABG O2 Saturation ABG Base Excess ABG Potassium VBG pH VBG pCO2 VBG HCO3 VBG Total CO2 VBG O2 Sat (Calc) VBG Base Excess VBG Potassium Sodium Chloride Glucose Lactate FiO2 Potassium Carbon Dioxide Anion Gap BUN Creatinine Est GFR ( Amer) Est GFR (Non-Af Amer) POC Glucose (mg/dL) 208 H Random Glucose Calcium Total Bilirubin AST ALT Alkaline Phosphatase Total Protein Albumin Globulin Albumin/Globulin Ratio Arterial Blood Potassium Venous Blood Potassium Urine Color Urine Appearance Urine pH Ur Specific [place] Urine Protein Urine Glucose (UA) Urine Ketones Urine Blood Urine Nitrate Urine Bilirubin Urine Urobilinogen Ur Leukocyte Esterase Influenza Typ A,B (EIA) Blood Type A POSITIVE Antibody Screen Negative Crossmatch See Detail BBK History Checked Patient has bt EKG/Cardiology Studies: Cardiology / EKG Studies 06/24/17 19:01 ELECTROCARDIOGRAM Stat Comment: Reason For Exam: ABDOMINAL/BACK PAIN Fingerstick Blood Sugar Results: 177 Review of Systems - EENT Eyes: absent: Blurred Vision, Change in Vision Nose/Mouth/Throat: absent: Nasal Congestion, Nasal Discharge - Cardiovascular Cardiovascular: Dyspnea. absent: Chest Pain, Lightheadedness - Respiratory Respiratory: Dyspnea - Gastrointestinal Gastrointestinal: Melena - Genitourinary Genitourinary: absent: Dysuria - Musculoskeletal Musculoskeletal: Arthralgias - Neurological Neurological: Dizziness - Endocrine Endocrine: Cold Intolorance Assessment/Plan - Assessment and Plan (Free Text) Assessment: 56 y/o M with PMH of bleeding duodenal ulcer s/p hemoclip w/ Dr. Coates (01/2017) , CAD s/p CABG, PAD s/p R SFA stent, HLD, DM2, lumbosacral radiculopathy, tobacco use and chronic opioid dependence presents with non-bloody and non- bilious nausea/vomiting x3 days and 2 dark bowel movements earlier today. Patient has supertherputic INR and low Hgb. He will transfused 4 units of PRBC and 4 units of FFP. Plan: Neuro - currently at baseline - AAOx3 - monitor for mental status changes - neurochecks Cardio - maintain MAP > 65 - hold home PO meds Pulm - monitor for signs of fluid overload - head of bed elevated > 30 - O2 PRN - maintain SaO2 > 90% GI Likely active upper GI bleed - GI consulted, Aminata, follow recs - NPO - monitor n/v - zofran prn - will be receiving 4 units PRBC and 4 units FFP Heme - anemia with supratherapeutic INR, likely from GI bleed - hold coumadin and other home anticoagulants - transfuse 4 units of prbc and 4 units of ffp - monitor for further bleeding or drops in H/H - will order repeat BMP and CBC post transfusion Renal DIEUDONNE hyperkalemia Hyponatremia continue to monitor continue fluids ID leukocytosis noted maintain normothermia cdiff and stool cultures ordered Endo ISS Accuchecks NPO <Takhalov,Calin - Last Filed: 06/25/17 12:10> CCU Objective - Vital Signs / Intake & Output Vital Signs (Last 4 hours): Vital Signs Pulse Resp BP Pulse Ox 06/25/17 09:40 99 H 24 100 06/25/17 09:30 86 12 166/93 H 100 06/25/17 09:20 87 19 100 06/25/17 09:15 90 24 157/77 H 100 06/25/17 09:10 91 H 100 06/25/17 09:02 90 15 144/96 H 100 06/25/17 09:00 88 14 170/89 H 100 06/25/17 08:50 86 17 100 06/25/17 08:45 83 15 162/75 H 99 06/25/17 08:40 84 16 98 06/25/17 08:31 98 H 147/60 91 L 06/25/17 08:30 88 22 98 06/25/17 08:29 92 H 19 155/67 H 95 06/25/17 08:20 88 17 100 06/25/17 08:17 134/86 06/25/17 08:16 98 H 21 96 06/25/17 08:10 89 15 85 L Intake and Output (Last 8hrs): Intake & Output 06/24/17 06/25/17 06/25/17 22:59 06:59 14:59 Output Total 300 Balance -300 Output: Urine 300 - Medications Active Medications: Active Medications Generic Name Dose Route Start Last Admin Trade Name Freq PRN Reason Stop Dose Admin Hydralazine HCl 10 mg 06/25/17 03:32 Apresoline IVP Q6 PRN Systolic Blood Pressure > 165 Metronidazole 500 mg in 100 mls @ 100 mls/hr 06/24/17 23:45 06/25/17 08:44 Flagyl IVPB 100 mls/hr Q8 NINO Administration Protocol Pantoprazole Sodium 40 mg in 100 mls @ 20 mls/hr 06/25/17 03:45 06/25/17 08: 00 Protonix 40mg Ivpb IVPB 20 mls/hr .Q5H NINO Administration Sodium Chloride 1,000 mls @ 75 mls/hr 06/25/17 04:35 06/25/17 05:12 Sodium Chloride 0.9% IV 75 mls/hr .[id number] NINO Administration Insulin Human Lispro 0 units 06/25/17 00:00 06/25/17 07:30 Humalog Med SC Not Given Q6 [facility] Protocol Morphine Sulfate 2 mg 06/25/17 11:11 06/25/17 11:50 Morphine IVP 2 mg Q6H PRN Administration Pain, severe (8-10) Nicotine 1 patch 06/25/17 10:00 Nicoderm Cq TD DAILY [facility] Ondansetron HCl 4 mg 06/24/17 23:46 Zofran Inj IVP Q4H PRN Nausea/Vomiting - Patient Studies Lab Studies: Lab Studies 06/25/17 06/25/17 06/25/17 Range/Units 11:03 11:03 07:50 WBC 15.6 H D (4.5-11.0) 10^3/ul RBC 2.90 L (3.5-6.1) 10^6/uL Hgb 6.8 L* (14.0-18.0) g/dL Hct 21.1 L (42.0-52.0) % MCV 72.8 L D (80.0-105.0) fl MCH 23.4 L (25.0-35.0) pg MCHC 32.2 (31.0-37.0) g/dl RDW 22.3 H (11.5-14.5) % Plt Count 186 (120.0-450.0) 10^3/uL MPV 8.9 (7.0-11.0) fl Gran % 83.9 H (50.0-68.0) % Lymph % (Auto) 6.8 L (22.0-35.0) % Dent % (Auto) 9.2 H (1.0-6.0) % Eos % (Auto) 0.0 L (1.5-5.0) % Baso % (Auto) 0.1 (0.0-3.0) % Gran # 13.05 H (1.4-6.5) Lymph # (Auto) 1.1 L (1.2-3.4) Dent # (Auto) 1.4 H (0.1-0.6) Eos # (Auto) 0.0 (0.0-0.7) Baso # (Auto) 0.01 (0.0-2.0) K/mm3 PT (9.4-12.5) SECONDS INR (0.93-1.08) APTT (25.1-36.5) Seconds pCO2 (35-45) mm/Hg pO2 203 H (80-100) mm/Hg HCO3 (21-28) mmol/L ABG pH (7.35-7.45) ABG Total CO2 (22-28) mmol.L ABG O2 Saturation (95-98) % ABG Base Excess (-2.0-3.0) mmol/L ABG Potassium (3.6-5.2) mmol/L VBG pH 7.40 (7.32-7.43) VBG pCO2 41.0 (40-60) VBG HCO3 25.4 (21-28) mmol/l VBG Total CO2 26.7 (22-28) mmol.L VBG O2 Sat (Calc) 99.8 H (40-65) % VBG Base Excess 0.5 (0.0-2.0) mmol/L VBG Potassium 5.3 H (3.6-5.2) mmol/L Sodium 132.0 (132-148) mmol/L Chloride 102.0 (98-107) mmol/L Glucose 264 H (75-110) mg/dl Lactate 3.5 H (0.7-2.1) mmol/L FiO2 21.0 % Potassium (3.6-5.0) mmol/L Carbon Dioxide (21-33) mmol/L Anion Gap (10-20) BUN (7-21) mg/dL Creatinine (0.8-1.5) mg/dl Est GFR ( Amer) Est GFR (Non-Af Amer) POC Glucose (mg/dL) 208 H (65-110) mg/dL Random Glucose (70-110) mg/dL Calcium (8.4-10.5) mg/dL Total Bilirubin (0.2-1.3) mg/dL AST (17-59) U/L ALT (7-56) U/L Alkaline Phosphatase (38-126) U/L Total Protein (5.8-8.3) g/dL Albumin (3.0-4.8) g/dL Globulin gm/dL Albumin/Globulin Ratio (1.1-1.8) Arterial Blood Potassium (3.6-5.2) mmol/L Venous Blood Potassium 5.3 H (3.6-5.2) mmol/L Urine Color (YELLOW) Urine Appearance (CLEAR) Urine pH (4.7-8.0) Ur Specific [place] (1.005-1.035) Urine Protein (<30 mg/dL) mg/dL Urine Glucose (UA) (NEGATIVE) mg/dL Urine Ketones (NEGATIVE) mg/dL Urine Blood (NEGATIVE) Urine Nitrate (NEGATIVE) Urine Bilirubin (NEGATIVE) Urine Urobilinogen (<1 E.U./dL) E.U./dL Ur Leukocyte Esterase (NEGATIVE) Sayda/uL Influenza Typ A,B (EIA) (NEGATIVE) Blood Type Antibody Screen Crossmatch BBK History Checked 06/25/17 06/25/17 06/25/17 Range/Units 07:35 07:35 07:35 WBC 23.1 H D (4.5-11.0) 10^3/ul RBC 3.18 L (3.5-6.1) 10^6/uL Hgb 6.5 L* D (14.0-18.0) g/dL Hct 21.4 L (42.0-52.0) % MCV 67.3 L (80.0-105.0) fl MCH 20.4 L (25.0-35.0) pg MCHC 30.4 L (31.0-37.0) g/dl RDW 18.3 H (11.5-14.5) % Plt Count 409 (120.0-450.0) 10^3/uL MPV 9.3 (7.0-11.0) fl Gran % (50.0-68.0) % Lymph % (Auto) (22.0-35.0) % Dent % (Auto) (1.0-6.0) % Eos % (Auto) (1.5-5.0) % Baso % (Auto) (0.0-3.0) % Gran # (1.4-6.5) Lymph # (Auto) (1.2-3.4) Dent # (Auto) (0.1-0.6) Eos # (Auto) (0.0-0.7) Baso # (Auto) (0.0-2.0) K/mm3 PT (9.4-12.5) SECONDS INR (0.93-1.08) APTT (25.1-36.5) Seconds pCO2 (35-45) mm/Hg pO2 159 H (80-100) mm/Hg HCO3 (21-28) mmol/L ABG pH (7.35-7.45) ABG Total CO2 (22-28) mmol.L ABG O2 Saturation (95-98) % ABG Base Excess (-2.0-3.0) mmol/L ABG Potassium (3.6-5.2) mmol/L VBG pH 7.30 L (7.32-7.43) VBG pCO2 34.0 L (40-60) VBG HCO3 16.7 L (21-28) mmol/l VBG Total CO2 17.7 L (22-28) mmol.L VBG O2 Sat (Calc) 99.3 H (40-65) % VBG Base Excess -8.8 L (0.0-2.0) mmol/L VBG Potassium 5.7 H (3.6-5.2) mmol/L Sodium 129.0 L (132-148) mmol/L Chloride 99.0 (98-107) mmol/L Glucose 229 H (75-110) mg/dl Lactate 10.9 H* (0.7-2.1) mmol/L FiO2 21.0 % Potassium (3.6-5.0) mmol/L Carbon Dioxide (21-33) mmol/L Anion Gap (10-20) BUN (7-21) mg/dL Creatinine (0.8-1.5) mg/dl Est GFR ( Amer) Est GFR (Non-Af Amer) POC Glucose (mg/dL) (65-110) mg/dL Random Glucose (70-110) mg/dL Calcium (8.4-10.5) mg/dL Total Bilirubin (0.2-1.3) mg/dL AST (17-59) U/L ALT (7-56) U/L Alkaline Phosphatase (38-126) U/L Total Protein (5.8-8.3) g/dL Albumin (3.0-4.8) g/dL Globulin gm/dL Albumin/Globulin Ratio (1.1-1.8) Arterial Blood Potassium (3.6-5.2) mmol/L Venous Blood Potassium 5.7 H (3.6-5.2) mmol/L Urine Color (YELLOW) Urine Appearance (CLEAR) Urine pH (4.7-8.0) Ur Specific [place] (1.005-1.035) Urine Protein (<30 mg/dL) mg/dL Urine Glucose (UA) (NEGATIVE) mg/dL Urine Ketones (NEGATIVE) mg/dL Urine Blood (NEGATIVE) Urine Nitrate (NEGATIVE) Urine Bilirubin (NEGATIVE) Urine Urobilinogen (<1 E.U./dL) E.U./dL Ur Leukocyte Esterase (NEGATIVE) Sayda/uL Influenza Typ A,B (EIA) (NEGATIVE) Blood Type A POSITIVE Antibody Screen Negative Crossmatch See Detail BBK History Checked Patient has bt 06/25/17 06/25/17 06/25/17 Range/Units 07:35 07:35 07:00 WBC (4.5-11.0) 10^3/ul RBC (3.5-6.1) 10^6/uL Hgb (14.0-18.0) g/dL Hct (42.0-52.0) % MCV (80.0-105.0) fl MCH (25.0-35.0) pg MCHC (31.0-37.0) g/dl RDW (11.5-14.5) % Plt Count (120.0-450.0) 10^3/uL MPV (7.0-11.0) fl Gran % (50.0-68.0) % Lymph % (Auto) (22.0-35.0) % Dent % (Auto) (1.0-6.0) % Eos % (Auto) (1.5-5.0) % Baso % (Auto) (0.0-3.0) % Gran # (1.4-6.5) Lymph # (Auto) (1.2-3.4) Dent # (Auto) (0.1-0.6) Eos # (Auto) (0.0-0.7) Baso # (Auto) (0.0-2.0) K/mm3 PT 81.1 H (9.4-12.5) SECONDS INR 6.78 H* (0.93-1.08) APTT 30.5 (25.1-36.5) Seconds pCO2 25 L (35-45) mm/Hg pO2 272.0 H (80-100) mm/Hg HCO3 16.6 L (21-28) mmol/L ABG pH 7.43 (7.35-7.45) ABG Total CO2 17.4 L (22-28) mmol.L ABG O2 Saturation 99.9 H (95-98) % ABG Base Excess -6.0 L (-2.0-3.0) mmol/L ABG Potassium 5.2 (3.6-5.2) mmol/L VBG pH (7.32-7.43) VBG pCO2 (40-60) VBG HCO3 (21-28) mmol/l VBG Total CO2 (22-28) mmol.L VBG O2 Sat (Calc) (40-65) % VBG Base Excess (0.0-2.0) mmol/L VBG Potassium (3.6-5.2) mmol/L Sodium 130 L 129.0 L (132-148) mmol/L Chloride 97 L 101.0 (98-107) mmol/L Glucose 230 H (75-110) mg/dl Lactate 9.3 H* (0.7-2.1) mmol/L FiO2 100.0 % Potassium 5.5 H (3.6-5.0) mmol/L Carbon Dioxide 15 L (21-33) mmol/L Anion Gap 23 H (10-20) BUN 72 H (7-21) mg/dL Creatinine 2.9 H (0.8-1.5) mg/dl Est GFR ( Amer) 27 Est GFR (Non-Af Amer) 22 POC Glucose (mg/dL) (65-110) mg/dL Random Glucose 211 H (70-110) mg/dL Calcium 8.4 (8.4-10.5) mg/dL Total Bilirubin 0.4 (0.2-1.3) mg/dL AST 110 H D (17-59) U/L ALT 146 H (7-56) U/L Alkaline Phosphatase 89 (38-126) U/L Total Protein 4.3 L (5.8-8.3) g/dL Albumin 2.4 L (3.0-4.8) g/dL Globulin 1.9 gm/dL Albumin/Globulin Ratio 1.2 (1.1-1.8) Arterial Blood Potassium 5.2 (3.6-5.2) mmol/L Venous Blood Potassium (3.6-5.2) mmol/L Urine Color (YELLOW) Urine Appearance (CLEAR) Urine pH (4.7-8.0) Ur Specific [place] (1.005-1.035) Urine Protein (<30 mg/dL) mg/dL Urine Glucose (UA) (NEGATIVE) mg/dL Urine Ketones (NEGATIVE) mg/dL Urine Blood (NEGATIVE) Urine Nitrate (NEGATIVE) Urine Bilirubin (NEGATIVE) Urine Urobilinogen (<1 E.U./dL) E.U./dL Ur Leukocyte Esterase (NEGATIVE) Sayda/uL Influenza Typ A,B (EIA) (NEGATIVE) Blood Type Antibody Screen Crossmatch BBK History Checked 06/25/17 06/25/17 06/25/17 Range/Units 06:50 04:00 00:44 WBC (4.5-11.0) 10^3/ul RBC (3.5-6.1) 10^6/uL Hgb (14.0-18.0) g/dL Hct (42.0-52.0) % MCV (80.0-105.0) fl MCH (25.0-35.0) pg MCHC (31.0-37.0) g/dl RDW (11.5-14.5) % Plt Count (120.0-450.0) 10^3/uL MPV (7.0-11.0) fl Gran % (50.0-68.0) % Lymph % (Auto) (22.0-35.0) % Dent % (Auto) (1.0-6.0) % Eos % (Auto) (1.5-5.0) % Baso % (Auto) (0.0-3.0) % Gran # (1.4-6.5) Lymph # (Auto) (1.2-3.4) Dent # (Auto) (0.1-0.6) Eos # (Auto) (0.0-0.7) Baso # (Auto) (0.0-2.0) K/mm3 PT (9.4-12.5) SECONDS INR (0.93-1.08) APTT (25.1-36.5) Seconds pCO2 (35-45) mm/Hg pO2 (80-100) mm/Hg HCO3 (21-28) mmol/L ABG pH (7.35-7.45) ABG Total CO2 (22-28) mmol.L ABG O2 Saturation (95-98) % ABG Base Excess (-2.0-3.0) mmol/L ABG Potassium (3.6-5.2) mmol/L VBG pH (7.32-7.43) VBG pCO2 (40-60) VBG HCO3 (21-28) mmol/l VBG Total CO2 (22-28) mmol.L VBG O2 Sat (Calc) (40-65) % VBG Base Excess (0.0-2.0) mmol/L VBG Potassium (3.6-5.2) mmol/L Sodium (132-148) mmol/L Chloride (98-107) mmol/L Glucose (75-110) mg/dl Lactate (0.7-2.1) mmol/L FiO2 % Potassium (3.6-5.0) mmol/L Carbon Dioxide (21-33) mmol/L Anion Gap (10-20) BUN (7-21) mg/dL Creatinine (0.8-1.5) mg/dl Est GFR ( Amer) Est GFR (Non-Af Amer) POC Glucose (mg/dL) 177 H (65-110) mg/dL Random Glucose (70-110) mg/dL Calcium (8.4-10.5) mg/dL Total Bilirubin (0.2-1.3) mg/dL AST (17-59) U/L ALT (7-56) U/L Alkaline Phosphatase (38-126) U/L Total Protein (5.8-8.3) g/dL Albumin (3.0-4.8) g/dL Globulin gm/dL Albumin/Globulin Ratio (1.1-1.8) Arterial Blood Potassium (3.6-5.2) mmol/L Venous Blood Potassium (3.6-5.2) mmol/L Urine Color Yellow (YELLOW) Urine Appearance Clear (CLEAR) Urine pH 6.0 (4.7-8.0) Ur Specific [place] 1.020 (1.005-1.035) Urine Protein Negative (<30 mg/dL) mg/dL Urine Glucose (UA) Negative (NEGATIVE) mg/dL Urine Ketones Negative (NEGATIVE) mg/dL Urine Blood Negative (NEGATIVE) Urine Nitrate Negative (NEGATIVE) Urine Bilirubin Negative (NEGATIVE) Urine Urobilinogen 0.2 (<1 E.U./dL) E.U./dL Ur Leukocyte Esterase Negative (NEGATIVE) Sayda/uL Influenza Typ A,B (EIA) Negative for flu a/b (NEGATIVE) Blood Type Antibody Screen Crossmatch BBK History Checked 06/24/17 Range/Units 23:53 WBC (4.5-11.0) 10^3/ul RBC (3.5-6.1) 10^6/uL Hgb (14.0-18.0) g/dL Hct (42.0-52.0) % MCV (80.0-105.0) fl MCH (25.0-35.0) pg MCHC (31.0-37.0) g/dl RDW (11.5-14.5) % Plt Count (120.0-450.0) 10^3/uL MPV (7.0-11.0) fl Gran % (50.0-68.0) % Lymph % (Auto) (22.0-35.0) % Dent % (Auto) (1.0-6.0) % Eos % (Auto) (1.5-5.0) % Baso % (Auto) (0.0-3.0) % Gran # (1.4-6.5) Lymph # (Auto) (1.2-3.4) Dent # (Auto) (0.1-0.6) Eos # (Auto) (0.0-0.7) Baso # (Auto) (0.0-2.0) K/mm3 PT (9.4-12.5) SECONDS INR (0.93-1.08) APTT (25.1-36.5) Seconds pCO2 (35-45) mm/Hg pO2 (80-100) mm/Hg HCO3 (21-28) mmol/L ABG pH (7.35-7.45) ABG Total CO2 (22-28) mmol.L ABG O2 Saturation (95-98) % ABG Base Excess (-2.0-3.0) mmol/L ABG Potassium (3.6-5.2) mmol/L VBG pH (7.32-7.43) VBG pCO2 (40-60) VBG HCO3 (21-28) mmol/l VBG Total CO2 (22-28) mmol.L VBG O2 Sat (Calc) (40-65) % VBG Base Excess (0.0-2.0) mmol/L VBG Potassium (3.6-5.2) mmol/L Sodium (132-148) mmol/L Chloride (98-107) mmol/L Glucose (75-110) mg/dl Lactate (0.7-2.1) mmol/L FiO2 % Potassium (3.6-5.0) mmol/L Carbon Dioxide (21-33) mmol/L Anion Gap (10-20) BUN (7-21) mg/dL Creatinine (0.8-1.5) mg/dl Est GFR ( Amer) Est GFR (Non-Af Amer) POC Glucose (mg/dL) 244 H (65-110) mg/dL Random Glucose (70-110) mg/dL Calcium (8.4-10.5) mg/dL Total Bilirubin (0.2-1.3) mg/dL AST (17-59) U/L ALT (7-56) U/L Alkaline Phosphatase (38-126) U/L Total Protein (5.8-8.3) g/dL Albumin (3.0-4.8) g/dL Globulin gm/dL Albumin/Globulin Ratio (1.1-1.8) Arterial Blood Potassium (3.6-5.2) mmol/L Venous Blood Potassium (3.6-5.2) mmol/L Urine Color (YELLOW) Urine Appearance (CLEAR) Urine pH (4.7-8.0) Ur Specific [place] (1.005-1.035) Urine Protein (<30 mg/dL) mg/dL Urine Glucose (UA) (NEGATIVE) mg/dL Urine Ketones (NEGATIVE) mg/dL Urine Blood (NEGATIVE) Urine Nitrate (NEGATIVE) Urine Bilirubin (NEGATIVE) Urine Urobilinogen (<1 E.U./dL) E.U./dL Ur Leukocyte Esterase (NEGATIVE) Sayda/uL Influenza Typ A,B (EIA) (NEGATIVE) Blood Type Antibody Screen Crossmatch BBK History Checked Laboratory Results - last 24 hr 06/24/17 06/25/17 06/25/17 23:53 00:44 04:00 WBC RBC Hgb Hct MCV MCH MCHC RDW Plt Count MPV Gran % Lymph % (Auto) Dent % (Auto) Eos % (Auto) Baso % (Auto) Gran # Lymph # (Auto) Dent # (Auto) Eos # (Auto) Baso # (Auto) PT INR APTT pCO2 pO2 HCO3 ABG pH ABG Total CO2 ABG O2 Saturation ABG Base Excess ABG Potassium VBG pH VBG pCO2 VBG HCO3 VBG Total CO2 VBG O2 Sat (Calc) VBG Base Excess VBG Potassium Sodium Chloride Glucose Lactate FiO2 Potassium Carbon Dioxide Anion Gap BUN Creatinine Est GFR ( Amer) Est GFR (Non-Af Amer) POC Glucose (mg/dL) 244 H 177 H Random Glucose Calcium Total Bilirubin AST ALT Alkaline Phosphatase Total Protein Albumin Globulin Albumin/Globulin Ratio Arterial Blood Potassium Venous Blood Potassium Urine Color Yellow Urine Appearance Clear Urine pH 6.0 Ur Specific [place] 1.020 Urine Protein Negative Urine Glucose (UA) Negative Urine Ketones Negative Urine Blood Negative Urine Nitrate Negative Urine Bilirubin Negative Urine Urobilinogen 0.2 Ur Leukocyte Esterase Negative Influenza Typ A,B (EIA) Blood Type Antibody Screen Crossmatch BBK History Checked 06/25/17 06/25/17 06/25/17 06:50 07:00 07:35 WBC RBC Hgb Hct MCV MCH MCHC RDW Plt Count MPV Gran % Lymph % (Auto) Dent % (Auto) Eos % (Auto) Baso % (Auto) Gran # Lymph # (Auto) Dent # (Auto) Eos # (Auto) Baso # (Auto) PT 81.1 H INR 6.78 H* APTT 30.5 pCO2 25 L pO2 272.0 H HCO3 16.6 L ABG pH 7.43 ABG Total CO2 17.4 L ABG O2 Saturation 99.9 H ABG Base Excess -6.0 L ABG Potassium 5.2 VBG pH VBG pCO2 VBG HCO3 VBG Total CO2 VBG O2 Sat (Calc) VBG Base Excess VBG Potassium Sodium 129.0 L Chloride 101.0 Glucose 230 H Lactate 9.3 H* FiO2 100.0 Potassium Carbon Dioxide Anion Gap BUN Creatinine Est GFR ( Amer) Est GFR (Non-Af Amer) POC Glucose (mg/dL) Random Glucose Calcium Total Bilirubin AST ALT Alkaline Phosphatase Total Protein Albumin Globulin Albumin/Globulin Ratio Arterial Blood Potassium 5.2 Venous Blood Potassium Urine Color Urine Appearance Urine pH Ur Specific [place] Urine Protein Urine Glucose (UA) Urine Ketones Urine Blood Urine Nitrate Urine Bilirubin Urine Urobilinogen Ur Leukocyte Esterase Influenza Typ A,B (EIA) Negative for flu a/b Blood Type Antibody Screen Crossmatch BBK History Checked 06/25/17 06/25/17 06/25/17 07:35 07:35 07:35 WBC 23.1 H D RBC 3.18 L Hgb 6.5 L* D Hct 21.4 L MCV 67.3 L MCH 20.4 L MCHC 30.4 L RDW 18.3 H Plt Count 409 MPV 9.3 Gran % Lymph % (Auto) Dent % (Auto) Eos % (Auto) Baso % (Auto) Gran # Lymph # (Auto) Dent # (Auto) Eos # (Auto) Baso # (Auto) PT INR APTT pCO2 pO2 159 H HCO3 ABG pH ABG Total CO2 ABG O2 Saturation ABG Base Excess ABG Potassium VBG pH 7.30 L VBG pCO2 34.0 L VBG HCO3 16.7 L VBG Total CO2 17.7 L VBG O2 Sat (Calc) 99.3 H VBG Base Excess -8.8 L VBG Potassium 5.7 H Sodium 130 L 129.0 L Chloride 97 L 99.0 Glucose 229 H Lactate 10.9 H* FiO2 21.0 Potassium 5.5 H Carbon Dioxide 15 L Anion Gap 23 H BUN 72 H Creatinine 2.9 H Est GFR ( Amer) 27 Est GFR (Non-Af Amer) 22 POC Glucose (mg/dL) Random Glucose 211 H Calcium 8.4 Total Bilirubin 0.4 AST 110 H D ALT 146 H Alkaline Phosphatase 89 Total Protein 4.3 L Albumin 2.4 L Globulin 1.9 Albumin/Globulin Ratio 1.2 Arterial Blood Potassium Venous Blood Potassium 5.7 H Urine Color Urine Appearance Urine pH Ur Specific [place] Urine Protein Urine Glucose (UA) Urine Ketones Urine Blood Urine Nitrate Urine Bilirubin Urine Urobilinogen Ur Leukocyte Esterase Influenza Typ A,B (EIA) Blood Type Antibody Screen Crossmatch BBK History Checked 06/25/17 06/25/17 06/25/17 07:35 07:50 11:03 WBC 15.6 H D RBC 2.90 L Hgb 6.8 L* Hct 21.1 L MCV 72.8 L D MCH 23.4 L MCHC 32.2 RDW 22.3 H Plt Count 186 MPV 8.9 Gran % 83.9 H Lymph % (Auto) 6.8 L Dent % (Auto) 9.2 H Eos % (Auto) 0.0 L Baso % (Auto) 0.1 Gran # 13.05 H Lymph # (Auto) 1.1 L Dent # (Auto) 1.4 H Eos # (Auto) 0.0 Baso # (Auto) 0.01 PT INR APTT pCO2 pO2 HCO3 ABG pH ABG Total CO2 ABG O2 Saturation ABG Base Excess ABG Potassium VBG pH VBG pCO2 VBG HCO3 VBG Total CO2 VBG O2 Sat (Calc) VBG Base Excess VBG Potassium Sodium Chloride Glucose Lactate FiO2 Potassium Carbon Dioxide Anion Gap BUN Creatinine Est GFR ( Amer) Est GFR (Non-Af Amer) POC Glucose (mg/dL) 208 H Random Glucose Calcium Total Bilirubin AST ALT Alkaline Phosphatase Total Protein Albumin Globulin Albumin/Globulin Ratio Arterial Blood Potassium Venous Blood Potassium Urine Color Urine Appearance Urine pH Ur Specific [place] Urine Protein Urine Glucose (UA) Urine Ketones Urine Blood Urine Nitrate Urine Bilirubin Urine Urobilinogen Ur Leukocyte Esterase Influenza Typ A,B (EIA) Blood Type A POSITIVE Antibody Screen Negative Crossmatch See Detail BBK History Checked Patient has bt 06/25/17 11:03 WBC RBC Hgb Hct MCV MCH MCHC RDW Plt Count MPV Gran % Lymph % (Auto) Dent % (Auto) Eos % (Auto) Baso % (Auto) Gran # Lymph # (Auto) Dent # (Auto) Eos # (Auto) Baso # (Auto) PT INR APTT pCO2 pO2 203 H HCO3 ABG pH ABG Total CO2 ABG O2 Saturation ABG Base Excess ABG Potassium VBG pH 7.40 VBG pCO2 41.0 VBG HCO3 25.4 VBG Total CO2 26.7 VBG O2 Sat (Calc) 99.8 H VBG Base Excess 0.5 VBG Potassium 5.3 H Sodium 132.0 Chloride 102.0 Glucose 264 H Lactate 3.5 H FiO2 21.0 Potassium Carbon Dioxide Anion Gap BUN Creatinine Est GFR ( Amer) Est GFR (Non-Af Amer) POC Glucose (mg/dL) Random Glucose Calcium Total Bilirubin AST ALT Alkaline Phosphatase Total Protein Albumin Globulin Albumin/Globulin Ratio Arterial Blood Potassium Venous Blood Potassium 5.3 H Urine Color Urine Appearance Urine pH Ur Specific [place] Urine Protein Urine Glucose (UA) Urine Ketones Urine Blood Urine Nitrate Urine Bilirubin Urine Urobilinogen Ur Leukocyte Esterase Influenza Typ A,B (EIA) Blood Type Antibody Screen Crossmatch BBK History Checked EKG/Cardiology Studies: Cardiology / EKG Studies 06/24/17 19:01 ELECTROCARDIOGRAM Stat Comment: Reason For Exam: ABDOMINAL/BACK PAIN Assessment/Plan - Assessment and Plan (Free Text) Plan: Patient seen and examined on rounds with resident, agree with note with following additions/exceptions: Patient is 56 y/o M with PMH of bleeding duodenal ulcer s/p hemoclip w/ Dr. Coates (01/2017), CAD s/p CABG, PAD s/p R SFA stent, HLD, DM2, lumbosacral radiculopathy, tobacco use and chronic opioid dependence admitted with melena, and acute GIB. Earlier this morning, patient was HD stable, but HH dropped from 11 to 6.5, lactate 10.9, STAT 4u PRBC and 4U FFP ordered, L emergent femoral TLC placed, lactate improved 10.9-->3.5. Patient is currently afebrile, HD stable, comfortable in NAD, SBP 160s. GI has seen the patient, Dr Marinelli. Benign abdominal exam on exam. Acute GIB Hemorrhagic Shock CAD CAD s/p CABG PAD s/p SFA stent ARF DM Recommend: - supp o2 as needed - panculture, UCx, BCx, procal - IVF hydration - check Ulytes, Uosm, TSH - 4u PRBC, 4U FFP, 1u Platelets - repeat INR, CBC, Lactate after transfusion have been completed - q6hr CBC - maintain TLC, 2 large bore PIVs - follow up GI - NPO - PPI drip - Hold ASA, Plavix, coumadin - GI ppx - DVT ppx, SCDs - Monitor in MICU Patient at high risk for morbidity and mortality Critical care time 55 minutes
[2017-06-25] MEDS ORDERED: oxyCODONE 5 mg Immediate Release Tab PO PRN (11:08)
[2017-06-25] MEDS ORDERED: Morphine 2 mg/ml ISec IVP PRN (11:11)
[2017-06-25 11:14] LABS: BASO # 0.01 K/mm3 (0.0-2.0); BASO % 0.1 % (0.0-3.0); GRAN # 13.05 (1.4-6.5); GRAN % 83.9 % (50.0-68.0); LYMPH # 1.1 (1.2-3.4); LYMPH % 6.8 % (22.0-35.0); MEAN CELL VOLUME 72.8 fl (80.0-105.0); MEAN CORPUSCULAR HEMOGLOBIN 23.4 pg (25.0-35.0); MEAN CORPUSCULAR HGB CONC 32.2 g/dl (31.0-37.0); MEAN PLATELET VOLUME 8.9 fl (7.0-11.0); MONO # 1.4 (0.1-0.6); MONO % 9.2 % (1.0-6.0); RBC 2.9 10^6/uL (3.5-6.1); RED CELL DISTRIBUTION WIDTH 22.3 % (11.5-14.5); WHITE BLOOD COUNT 15.6 10^3/ul (4.5-11.0)
[2017-06-25 11:17] LABS: VENOUS BLOOD GAS BASE EXCESS 0.5 mmol/L (0.0-2.0); VENOUS BLOOD GAS PO2 203 mm/Hg (30-55)
[2017-06-25 11:23] LABS: HEMOGLOBIN 6.8 g/dL (14.0-18.0)
[2017-06-25 11:50] LABS: TRANSFERRIN 324.36 mg/dL (206-381)
[2017-06-25 12:22] LABS: FERRITIN 10.8 ng/mL
[2017-06-25 12:52] LABS: FOLATE 15.8 ng/mL
--- NOTE | 2017-06-25 13:34 | CON ---
DATE: 06/25/2017 CONSULTATION GASTROENTEROLOGY REASON FOR CONSULT: I have been asked to see this 56-year-old male with a history of chronic back pain, opioid dependence, who comes to the hospital with 2 episodes of dark bowel movement. This was described as having the appearance of melena. The patient also had several episodes of nonbloody nausea and vomiting. The patient had a near-syncopal episode when he was bearing down to have a bowel movement in the bathroom. The patient had 2 more melanotic bowel movements in the hospital. The patient is on Coumadin, Plavix and aspirin. He is known to have severe peripheral arterial disease and coronary artery disease. Routine blood work in the hospital shows the patient to have a severe coagulopathy with PT/INR of 59.6 and 5.06. Repeat at 07:30 this morning shows the PT to be 81.1 with an INR of 6.78. He is currently asking for pain medications. The patient denies any chest pain, abdominal pain, diarrhea or shortness of breath. PAST MEDICAL HISTORY: As above. Again, he has a history of peripheral arterial disease, status post right superior femoral artery stent placement; coronary artery disease; type 2 diabetes mellitus; lumbosacral radiculopathy; opioid dependence; hyperlipidemia; bleeding duodenal ulcer. He had an upper endoscopy with a hemoclip of a bleeding duodenal ulcer in January 2017. PAST SURGICAL HISTORY: Notable for coronary artery bypass surgery and right superior femoral artery stent placement, cholecystectomy, left inguinal hernia repair. SOCIAL HISTORY: The patient has smoked 1 to 2 packs of cigarettes for 40 years. Consumes alcohol socially. He is opioid dependent and has gone to numerous pain management doctors. ALLERGIES: HE IS ALLERGIC TO PENICILLIN AND LEVAQUIN. MEDICATIONS: His medications currently include Coumadin 4 mg once a day, metoprolol 50 mg once a day, probiotics daily, glipizide XL 10 mg daily, Lasix 20 mg once a day, clopidogrel 75 mg once a day, atorvastatin 40 mg daily, Jeffrey aspirin 81 mg once a day. PHYSICAL EXAMINATION: GENERAL: Middle-aged male, lying in bed, asking for pain medications. VITAL SIGNS: Reveal he is afebrile. Vital signs reveal blood pressure 162/75, heart rate 83. HEENT: Reveals sclerae to be white. Conjunctivae pale. NECK: Supple. CHEST: Reveals lungs to be clear. HEART: Reveals regular rate and rhythm. ABDOMEN: Soft, nontender. No mass. EXTREMITIES: Show no edema. LABORATORY DATA: From this morning revealed PT of 81.1, INR of 6.78. Chemistries reveal sodium 130, potassium 5.5, BUN 72, creatinine 2.9, blood sugar 211, albumin of 2.4. CBC reveals hemoglobin down to 6.5 from 11.2, white blood cell count up to 23.1. IMPRESSION: 1. Gastrointestinal bleeding exacerbated by severe coagulopathy. 2. History of bleeding duodenal ulcer. 3. Chronic back pain with opioid dependence. 4. Acute kidney injury with hyperkalemia. 5. Vasculopathy with known coronary artery disease and peripheral arterial disease. 6. Diabetes mellitus. His prognosis is extremely guarded. RECOMMENDATIONS: 1. We will transfuse 4 units of packed red blood cells. 2. Continue Protonix drip. 3. Transfuse 2 units of fresh frozen plasma. 4. Follow serial hematocrits and PT/INR. 5. Keep n.p.o. Terry Coates MD
[2017-06-25 15:05] LABS: VENOUS BLOOD GAS PO2 138 mm/Hg (30-55)
[2017-06-25 15:10] LABS: HEMOGLOBIN 8.5 g/dL (14.0-18.0); MEAN CELL VOLUME 75.1 fl (80.0-105.0); MEAN CORPUSCULAR HEMOGLOBIN 24.9 pg (25.0-35.0); MEAN CORPUSCULAR HGB CONC 33.1 g/dl (31.0-37.0); RBC 3.42 10^6/uL (3.5-6.1); RED CELL DISTRIBUTION WIDTH 21.2 % (11.5-14.5); WHITE BLOOD COUNT 14.8 10^3/ul (4.5-11.0)
[2017-06-25 15:21] LABS: INR 1.52 (0.93-1.08); PROTHROMBIN TIME 17.5 SECONDS (9.4-12.5)
[2017-06-25] MEDS ORDERED: HYDROmorphone 1 mg/ml ISec IVP STA (15:28)
[2017-06-25 20:46] LABS: MEAN CELL VOLUME 74.4 fl (80.0-105.0); MEAN CORPUSCULAR HEMOGLOBIN 24.7 pg (25.0-35.0); MEAN CORPUSCULAR HGB CONC 33.2 g/dl (31.0-37.0); MEAN PLATELET VOLUME 9.2 fl (7.0-11.0); RBC 3.24 10^6/uL (3.5-6.1); RED CELL DISTRIBUTION WIDTH 20.7 % (11.5-14.5); WHITE BLOOD COUNT 11.8 10^3/ul (4.5-11.0)
[2017-06-25] MEDS ORDERED: DiphenhydrAMINE 50 mg/ml Inj IVP ONE (22:44)
[2017-06-25] MEDS ORDERED: HYDROmorphone 2 mg/ml ISec IVP ONE ×2 (23:00→23:19)
[2017-06-25] MEDS: HYDROmorphone 1 mg/ml ISec IVP ONE (23:15)
[2017-06-26] MEDS: HYDROmorphone 1 mg/ml ISec IVP ONE (00:23)
[2017-06-26] MEDS: Pantoprazole 40mg/100mL NS 40 MG/100 ML BAG IVPB SCH ×4 (01:58→14:22)
[2017-06-26 06:32] LABS: HEMOGLOBIN 8.8 g/dL (14.0-18.0); MEAN CELL VOLUME 75.9 fl (80.0-105.0); MEAN CORPUSCULAR HEMOGLOBIN 25.3 pg (25.0-35.0); MEAN CORPUSCULAR HGB CONC 33.3 g/dl (31.0-37.0); MEAN PLATELET VOLUME 9.2 fl (7.0-11.0); RBC 3.48 10^6/uL (3.5-6.1); RED CELL DISTRIBUTION WIDTH 20.2 % (11.5-14.5); WHITE BLOOD COUNT 10.3 10^3/ul (4.5-11.0)
[2017-06-26 06:59] LABS: INR 1.32 (0.93-1.08); PROTHROMBIN TIME 15.3 SECONDS (9.4-12.5)
[2017-06-26 07:16] LABS: ALB/GLOB RATIO 1.2 (1.1-1.8); ALBUMIN 2.8 g/dL (3.0-4.8)
[2017-06-26] MEDS: Morphine 2 mg/ml ISec IVP PRN ×3 (07:18→15:31)
[2017-06-26] MEDS: Insulin Lispro (humaLOG) MEDIUM Coverage SC SCH ×4 (07:40→18:04)
[2017-06-26] MEDS: Sodium Chloride 0.9% 1,000 ML IV SCH (10:21)
--- NOTE | 2017-06-26 10:56 | CARD ---
APPROVED REPORT EKG Measurement Heart [id number] <Conclusion> Sinus rhythm with short AR Inferior infarct, old PRWP NSSTW changes improved c/w ECG 04/01/17
--- NOTE | 2017-06-26 12:09 | CP.CCUPN ---
<Vlad Gallardo - Last Filed: 06/26/17 12:11> CCU Subjective - Physician Review Subjective (Free Text): Patient seen and examined at bedside. Patient complaining of generalized pain this morning. Patient admits to small amount of dark colored stool. Denies chest pain, shortness of breath, nausea, vomiting, diarrhea, fever, chills. 06/26/17 12:05 CCU Objective - Vital Signs / Intake & Output Vital Signs (Last 4 hours): Vital Signs Pulse Resp Pulse Ox 06/26/17 08:20 83 17 100 06/26/17 08:10 81 16 99 Intake and Output (Last 8hrs): Intake & Output 06/25/17 06/26/17 06/26/17 22:59 06:59 14:59 Intake Total 2561 Output Total 950 Balance 1611 Intake: IV 2045 NSALINE IVF 1825 PROTONIX 220 Blood Product 516 Output: Urine 950 Urine, Voided 950 Other: # Bowel Movements 3 - Physical Exam Head: Positive for: Atraumatic, Normocephalic Pupils: Positive for: PERRL Extroacular Muscles: Positive for: EOMI Conjunctiva: Positive for: Normal Mouth: Positive for: Moist Mucous Membranes Respiratory/Chest: Positive for: Clear to Auscultation, Good Air Exchange. Negative for: Respiratory Distress, Accessory Muscle Use Cardiovascular: Positive for: Regular Rate and Rhythm, Normal S1, S2. Negative for: Murmurs Abdomen: Positive for: Normal Bowel Sounds. Negative for: Tenderness, Distention, Peritoneal Signs Upper Extremity: Positive for: Normal Inspection. Negative for: Cyanosis, Edema Lower Extremity: Positive for: Normal Inspection. Negative for: Edema Neurological: Positive for: GCS=15, CN II-XII Intact, Speech Normal Skin: Positive for: Warm, Dry, Pale. Negative for: Rashes Psychiatric: Positive for: Alert, Oriented x 3, Normal Insight, Normal Concentration - Medications Active Medications: Active Medications Generic Name Dose Route Start Last Admin Trade Name Freq PRN Reason Stop Dose Admin Hydralazine HCl 10 mg 06/25/17 03:32 Apresoline IVP Q6 PRN Systolic Blood Pressure > 165 Metronidazole 500 mg in 100 mls @ 100 mls/hr 06/24/17 23:45 06/25/17 08:44 Flagyl IVPB 100 mls/hr Q8 NINO Administration Protocol Pantoprazole Sodium 40 mg in 100 mls @ 20 mls/hr 06/25/17 03:45 06/26/17 08: 28 Protonix 40mg Ivpb IVPB 20 mls/hr .Q5H NINO Administration Sodium Chloride 1,000 mls @ 100 mls/hr 06/26/17 09:45 06/26/17 10:21 Sodium Chloride 0.9% IV 100 mls/hr .Q10H NINO Administration Insulin Human Lispro 0 units 06/25/17 00:00 06/26/17 07:42 Humalog Med SC Not Given Q6 NINO Protocol Morphine Sulfate 2 mg 06/26/17 07:10 06/26/17 07:18 Morphine IVP 2 mg Q4 PRN Administration Pain, severe (8-10) Nicotine 1 patch 06/26/17 10:00 06/26/17 10:23 Nicoderm Cq TD 1 patch DAILY NINO Administration Ondansetron HCl 4 mg 06/24/17 23:46 Zofran Inj IVP Q4H PRN Nausea/Vomiting - Patient Studies Lab Studies: Microbiology Studies 06/25/17 04:00 Urine Culture - Final Urine,Clean Catch No Growth (<1,000 CFU/ML) Lab Studies 06/26/17 06/26/17 06/26/17 Range/Units 06:00 06:00 06:00 WBC 10.3 (4.5-11.0) 10^3/ul RBC 3.48 L (3.5-6.1) 10^6/uL Hgb 8.8 L (14.0-18.0) g/dL Hct 26.4 L (42.0-52.0) % MCV 75.9 L (80.0-105.0) fl MCH 25.3 (25.0-35.0) pg MCHC 33.3 (31.0-37.0) g/dl RDW 20.2 H (11.5-14.5) % Plt Count 157 (120.0-450.0) 10^3/uL MPV 9.2 (7.0-11.0) fl PT 15.3 H (9.4-12.5) SECONDS INR 1.32 H (0.93-1.08) APTT (25.1-36.5) Seconds pO2 (30-55) mm/Hg VBG pH (7.32-7.43) VBG pCO2 (40-60) VBG HCO3 (21-28) mmol/l VBG Total CO2 (22-28) mmol.L VBG O2 Sat (Calc) (40-65) % VBG Base Excess (0.0-2.0) mmol/L VBG Potassium (3.6-5.2) mmol/L Sodium 139 (132-148) mmol/L Chloride 103 (98-107) mmol/L Glucose (75-110) mg/dl Lactate (0.7-2.1) mmol/L FiO2 % Potassium 4.1 (3.6-5.0) mmol/L Carbon Dioxide 30 (21-33) mmol/L Anion Gap 9 L (10-20) BUN 55 H (7-21) mg/dL Creatinine 1.8 H (0.8-1.5) mg/dl Est GFR ( Amer) 47 Est GFR (Non-Af Amer) 39 POC Glucose (mg/dL) (65-110) mg/dL Random Glucose 93 (70-110) mg/dL Calcium 9.0 (8.4-10.5) mg/dL Total Bilirubin 0.7 (0.2-1.3) mg/dL AST 571 H D (17-59) U/L ALT 701 H (7-56) U/L Alkaline Phosphatase 87 (38-126) U/L Total Protein 5.1 L (5.8-8.3) g/dL Albumin 2.8 L (3.0-4.8) g/dL Globulin 2.3 gm/dL Albumin/Globulin Ratio 1.2 (1.1-1.8) Venous Blood Potassium (3.6-5.2) mmol/L Blood Type Antibody Screen Crossmatch BBK History Checked 06/26/17 06/25/17 06/25/17 Range/Units 01:11 20:40 17:51 WBC 11.8 H D (4.5-11.0) 10^3/ul RBC 3.24 L (3.5-6.1) 10^6/uL Hgb 8.0 L (14.0-18.0) g/dL Hct 24.1 L (42.0-52.0) % MCV 74.4 L (80.0-105.0) fl MCH 24.7 L (25.0-35.0) pg MCHC 33.2 (31.0-37.0) g/dl RDW 20.7 H (11.5-14.5) % Plt Count 161 (120.0-450.0) 10^3/uL MPV 9.2 (7.0-11.0) fl PT (9.4-12.5) SECONDS INR (0.93-1.08) APTT (25.1-36.5) Seconds pO2 (30-55) mm/Hg VBG pH (7.32-7.43) VBG pCO2 (40-60) VBG HCO3 (21-28) mmol/l VBG Total CO2 (22-28) mmol.L VBG O2 Sat (Calc) (40-65) % VBG Base Excess (0.0-2.0) mmol/L VBG Potassium (3.6-5.2) mmol/L Sodium (132-148) mmol/L Chloride (98-107) mmol/L Glucose (75-110) mg/dl Lactate (0.7-2.1) mmol/L FiO2 % Potassium (3.6-5.0) mmol/L Carbon Dioxide (21-33) mmol/L Anion Gap (10-20) BUN (7-21) mg/dL Creatinine (0.8-1.5) mg/dl Est GFR ( Amer) Est GFR (Non-Af Amer) POC Glucose (mg/dL) 109 127 H (65-110) mg/dL Random Glucose (70-110) mg/dL Calcium (8.4-10.5) mg/dL Total Bilirubin (0.2-1.3) mg/dL AST (17-59) U/L ALT (7-56) U/L Alkaline Phosphatase (38-126) U/L Total Protein (5.8-8.3) g/dL Albumin (3.0-4.8) g/dL Globulin gm/dL Albumin/Globulin Ratio (1.1-1.8) Venous Blood Potassium (3.6-5.2) mmol/L Blood Type Antibody Screen Crossmatch BBK History Checked 06/25/17 06/25/17 06/25/17 Range/Units 15:00 15:00 15:00 WBC 14.8 H (4.5-11.0) 10^3/ul RBC 3.42 L (3.5-6.1) 10^6/uL Hgb 8.5 L (14.0-18.0) g/dL Hct 25.7 L (42.0-52.0) % MCV 75.1 L (80.0-105.0) fl MCH 24.9 L (25.0-35.0) pg MCHC 33.1 (31.0-37.0) g/dl RDW 21.2 H (11.5-14.5) % Plt Count 175 (120.0-450.0) 10^3/uL MPV 9.0 (7.0-11.0) fl PT 17.5 H (9.4-12.5) SECONDS INR 1.52 H (0.93-1.08) APTT 25.0 L (25.1-36.5) Seconds pO2 138 H (30-55) mm/Hg VBG pH 7.40 (7.32-7.43) VBG pCO2 44.0 (40-60) VBG HCO3 27.3 (21-28) mmol/l VBG Total CO2 28.7 H (22-28) mmol.L VBG O2 Sat (Calc) 99.4 H (40-65) % VBG Base Excess 2.0 (0.0-2.0) mmol/L VBG Potassium 4.5 (3.6-5.2) mmol/L Sodium 134.0 (132-148) mmol/L Chloride 104.0 (98-107) mmol/L Glucose 205 H (75-110) mg/dl Lactate 2.6 H (0.7-2.1) mmol/L FiO2 21.0 % Potassium (3.6-5.0) mmol/L Carbon Dioxide (21-33) mmol/L Anion Gap (10-20) BUN (7-21) mg/dL Creatinine (0.8-1.5) mg/dl Est GFR ( Amer) Est GFR (Non-Af Amer) POC Glucose (mg/dL) (65-110) mg/dL Random Glucose (70-110) mg/dL Calcium (8.4-10.5) mg/dL Total Bilirubin (0.2-1.3) mg/dL AST (17-59) U/L ALT (7-56) U/L Alkaline Phosphatase (38-126) U/L Total Protein (5.8-8.3) g/dL Albumin (3.0-4.8) g/dL Globulin gm/dL Albumin/Globulin Ratio (1.1-1.8) Venous Blood Potassium 4.5 (3.6-5.2) mmol/L Blood Type Antibody Screen Crossmatch BBK History Checked 06/25/17 06/25/17 Range/Units 11:47 07:35 WBC (4.5-11.0) 10^3/ul RBC (3.5-6.1) 10^6/uL Hgb (14.0-18.0) g/dL Hct (42.0-52.0) % MCV (80.0-105.0) fl MCH (25.0-35.0) pg MCHC (31.0-37.0) g/dl RDW (11.5-14.5) % Plt Count (120.0-450.0) 10^3/uL MPV (7.0-11.0) fl PT (9.4-12.5) SECONDS INR (0.93-1.08) APTT (25.1-36.5) Seconds pO2 (30-55) mm/Hg VBG pH (7.32-7.43) VBG pCO2 (40-60) VBG HCO3 (21-28) mmol/l VBG Total CO2 (22-28) mmol.L VBG O2 Sat (Calc) (40-65) % VBG Base Excess (0.0-2.0) mmol/L VBG Potassium (3.6-5.2) mmol/L Sodium (132-148) mmol/L Chloride (98-107) mmol/L Glucose (75-110) mg/dl Lactate (0.7-2.1) mmol/L FiO2 % Potassium (3.6-5.0) mmol/L Carbon Dioxide (21-33) mmol/L Anion Gap (10-20) BUN (7-21) mg/dL Creatinine (0.8-1.5) mg/dl Est GFR ( Amer) Est GFR (Non-Af Amer) POC Glucose (mg/dL) 248 H (65-110) mg/dL Random Glucose (70-110) mg/dL Calcium (8.4-10.5) mg/dL Total Bilirubin (0.2-1.3) mg/dL AST (17-59) U/L ALT (7-56) U/L Alkaline Phosphatase (38-126) U/L Total Protein (5.8-8.3) g/dL Albumin (3.0-4.8) g/dL Globulin gm/dL Albumin/Globulin Ratio (1.1-1.8) Venous Blood Potassium (3.6-5.2) mmol/L Blood Type A POSITIVE Antibody Screen Negative Crossmatch See Detail BBK History Checked Patient has bt Laboratory Results - last 24 hr 06/25/17 06/25/17 06/25/17 07:35 11:47 15:00 WBC RBC Hgb Hct MCV MCH MCHC RDW Plt Count MPV PT INR APTT pO2 138 H VBG pH 7.40 VBG pCO2 44.0 VBG HCO3 27.3 VBG Total CO2 28.7 H VBG O2 Sat (Calc) 99.4 H VBG Base Excess 2.0 VBG Potassium 4.5 Sodium 134.0 Chloride 104.0 Glucose 205 H Lactate 2.6 H FiO2 21.0 Potassium Carbon Dioxide Anion Gap BUN Creatinine Est GFR ( Amer) Est GFR (Non-Af Amer) POC Glucose (mg/dL) 248 H Random Glucose Calcium Total Bilirubin AST ALT Alkaline Phosphatase Total Protein Albumin Globulin Albumin/Globulin Ratio Venous Blood Potassium 4.5 Blood Type A POSITIVE Antibody Screen Negative Crossmatch See Detail BBK History Checked Patient has bt 06/25/17 06/25/17 06/25/17 15:00 15:00 17:51 WBC 14.8 H RBC 3.42 L Hgb 8.5 L Hct 25.7 L MCV 75.1 L MCH 24.9 L MCHC 33.1 RDW 21.2 H Plt Count 175 MPV 9.0 PT 17.5 H INR 1.52 H APTT 25.0 L pO2 VBG pH VBG pCO2 VBG HCO3 VBG Total CO2 VBG O2 Sat (Calc) VBG Base Excess VBG Potassium Sodium Chloride Glucose Lactate FiO2 Potassium Carbon Dioxide Anion Gap BUN Creatinine Est GFR ( Amer) Est GFR (Non-Af Amer) POC Glucose (mg/dL) 127 H Random Glucose Calcium Total Bilirubin AST ALT Alkaline Phosphatase Total Protein Albumin Globulin Albumin/Globulin Ratio Venous Blood Potassium Blood Type Antibody Screen Crossmatch BBK History Checked 06/25/17 06/26/17 06/26/17 20:40 01:11 06:00 WBC 11.8 H D 10.3 RBC 3.24 L 3.48 L Hgb 8.0 L 8.8 L Hct 24.1 L 26.4 L MCV 74.4 L 75.9 L MCH 24.7 L 25.3 MCHC 33.2 33.3 RDW 20.7 H 20.2 H Plt Count 161 157 MPV 9.2 9.2 PT INR APTT pO2 VBG pH VBG pCO2 VBG HCO3 VBG Total CO2 VBG O2 Sat (Calc) VBG Base Excess VBG Potassium Sodium Chloride Glucose Lactate FiO2 Potassium Carbon Dioxide Anion Gap BUN Creatinine Est GFR ( Amer) Est GFR (Non-Af Amer) POC Glucose (mg/dL) 109 Random Glucose Calcium Total Bilirubin AST ALT Alkaline Phosphatase Total Protein Albumin Globulin Albumin/Globulin Ratio Venous Blood Potassium Blood Type Antibody Screen Crossmatch BBK History Checked 06/26/17 06/26/17 06:00 06:00 WBC RBC Hgb Hct MCV MCH MCHC RDW Plt Count MPV PT 15.3 H INR 1.32 H APTT pO2 VBG pH VBG pCO2 VBG HCO3 VBG Total CO2 VBG O2 Sat (Calc) VBG Base Excess VBG Potassium Sodium 139 Chloride 103 Glucose Lactate FiO2 Potassium 4.1 Carbon Dioxide 30 Anion Gap 9 L BUN 55 H Creatinine 1.8 H Est GFR ( Amer) 47 Est GFR (Non-Af Amer) 39 POC Glucose (mg/dL) Random Glucose 93 Calcium 9.0 Total Bilirubin 0.7 AST 571 H D ALT 701 H Alkaline Phosphatase 87 Total Protein 5.1 L Albumin 2.8 L Globulin 2.3 Albumin/Globulin Ratio 1.2 Venous Blood Potassium Blood Type Antibody Screen Crossmatch BBK History Checked Fingerstick Blood Sugar Results: 109 Critical Care Progress Note - Nutrition Nutrition: Nutrition Category Date Time Status Liquid Diet [DIET] Diets 06/26/17 Breakfast Ordered Assessment/Plan - Assessment and Plan (Free Text) Plan: 56 y/o M with PMH of bleeding duodenal ulcer s/p hemoclip, CAD s/p CABG, PAD s/ p R SFA stent, HLD, DM2, lumbosacral radiculopathy, tobacco use and chronic opioid dependence presents with upper GI bleed. Patient is s/p 5 units PRBCs, 4 units of FFP, and 1 unit of platelets. Patient is currently is alert and oriented along with being hemodynamically stable with no plans for acute intervention at this time. Patient will be transferred to telemetry for further monitoring. Neuro AAOx3 Cardio Hemodynamically stable Hg 8.8 Continue normal saline Maintain MAP >65 Pulm maintain SaO2 > 90% GI IV protonix Hg stable No acute intervention as per GI Acute transaminitis likely secondary to shock Trend LFTs Zofran Continue Flagyl GI consulted Heme/ID Hg stable Afebrile, no leukocytosis Follow cultures Continue Flagyl Maintain normothermia Nephro DIEUDONNE improving Continue IVF Monitor electrolytes, replenish as needed Maintain euvolemia Endo ISS Maintain euglycemia Sami PGY-2 <Calin Mcnamara - Last Filed: 06/26/17 12:59> CCU Objective - Vital Signs / Intake & Output Intake and Output (Last 8hrs): Intake & Output 06/25/17 06/26/17 06/26/17 22:59 06:59 14:59 Intake Total 2561 Output Total 950 Balance 1611 Intake: IV 2045 NSALINE IVF 1825 PROTONIX 220 Blood Product 516 Output: Urine 950 Urine, Voided 950 Other: # Bowel Movements 3 - Medications Active Medications: Active Medications Generic Name Dose Route Start Last Admin Trade Name Freq PRN Reason Stop Dose Admin Hydralazine HCl 10 mg 06/25/17 03:32 Apresoline IVP Q6 PRN Systolic Blood Pressure > 165 Metronidazole 500 mg in 100 mls @ 100 mls/hr 06/24/17 23:45 06/25/17 08:44 Flagyl IVPB 100 mls/hr Q8 NINO Administration Protocol Pantoprazole Sodium 40 mg in 100 mls @ 20 mls/hr 06/25/17 03:45 06/26/17 08: 28 Protonix 40mg Ivpb IVPB 20 mls/hr .Q5H NINO Administration Sodium Chloride 1,000 mls @ 100 mls/hr 06/26/17 09:45 06/26/17 10:21 Sodium Chloride 0.9% IV 100 mls/hr .Q10H NINO Administration Insulin Human Lispro 0 units 06/25/17 00:00 06/26/17 12:54 Humalog Med SC Not Given Q6 [facility] Protocol Morphine Sulfate 2 mg 06/26/17 07:10 06/26/17 12:12 Morphine IVP 2 mg Q4 PRN Administration Pain, severe (8-10) Nicotine 1 patch 06/26/17 10:00 06/26/17 10:23 Nicoderm Cq TD 1 patch DAILY NINO Administration Ondansetron HCl 4 mg 06/24/17 23:46 Zofran Inj IVP Q4H PRN Nausea/Vomiting - Patient Studies Lab Studies: Microbiology Studies 06/25/17 04:00 Urine Culture - Final Urine,Clean Catch No Growth (<1,000 CFU/ML) Lab Studies 06/26/17 06/26/17 06/26/17 Range/Units 06:00 06:00 06:00 WBC 10.3 (4.5-11.0) 10^3/ul RBC 3.48 L (3.5-6.1) 10^6/uL Hgb 8.8 L (14.0-18.0) g/dL Hct 26.4 L (42.0-52.0) % MCV 75.9 L (80.0-105.0) fl MCH 25.3 (25.0-35.0) pg MCHC 33.3 (31.0-37.0) g/dl RDW 20.2 H (11.5-14.5) % Plt Count 157 (120.0-450.0) 10^3/uL MPV 9.2 (7.0-11.0) fl PT 15.3 H (9.4-12.5) SECONDS INR 1.32 H (0.93-1.08) APTT (25.1-36.5) Seconds pO2 (30-55) mm/Hg VBG pH (7.32-7.43) VBG pCO2 (40-60) VBG HCO3 (21-28) mmol/l VBG Total CO2 (22-28) mmol.L VBG O2 Sat (Calc) (40-65) % VBG Base Excess (0.0-2.0) mmol/L VBG Potassium (3.6-5.2) mmol/L Sodium 139 (132-148) mmol/L Chloride 103 (98-107) mmol/L Glucose (75-110) mg/dl Lactate (0.7-2.1) mmol/L FiO2 % Potassium 4.1 (3.6-5.0) mmol/L Carbon Dioxide 30 (21-33) mmol/L Anion Gap 9 L (10-20) BUN 55 H (7-21) mg/dL Creatinine 1.8 H (0.8-1.5) mg/dl Est GFR ( Amer) 47 Est GFR (Non-Af Amer) 39 POC Glucose (mg/dL) (65-110) mg/dL Random Glucose 93 (70-110) mg/dL Calcium 9.0 (8.4-10.5) mg/dL Total Bilirubin 0.7 (0.2-1.3) mg/dL AST 571 H D (17-59) U/L ALT 701 H (7-56) U/L Alkaline Phosphatase 87 (38-126) U/L Total Protein 5.1 L (5.8-8.3) g/dL Albumin 2.8 L (3.0-4.8) g/dL Globulin 2.3 gm/dL Albumin/Globulin Ratio 1.2 (1.1-1.8) Venous Blood Potassium (3.6-5.2) mmol/L Blood Type Antibody Screen Crossmatch BBK History Checked 06/26/17 06/25/17 06/25/17 Range/Units 01:11 20:40 17:51 WBC 11.8 H D (4.5-11.0) 10^3/ul RBC 3.24 L (3.5-6.1) 10^6/uL Hgb 8.0 L (14.0-18.0) g/dL Hct 24.1 L (42.0-52.0) % MCV 74.4 L (80.0-105.0) fl MCH 24.7 L (25.0-35.0) pg MCHC 33.2 (31.0-37.0) g/dl RDW 20.7 H (11.5-14.5) % Plt Count 161 (120.0-450.0) 10^3/uL MPV 9.2 (7.0-11.0) fl PT (9.4-12.5) SECONDS INR (0.93-1.08) APTT (25.1-36.5) Seconds pO2 (30-55) mm/Hg VBG pH (7.32-7.43) VBG pCO2 (40-60) VBG HCO3 (21-28) mmol/l VBG Total CO2 (22-28) mmol.L VBG O2 Sat (Calc) (40-65) % VBG Base Excess (0.0-2.0) mmol/L VBG Potassium (3.6-5.2) mmol/L Sodium (132-148) mmol/L Chloride (98-107) mmol/L Glucose (75-110) mg/dl Lactate (0.7-2.1) mmol/L FiO2 % Potassium (3.6-5.0) mmol/L Carbon Dioxide (21-33) mmol/L Anion Gap (10-20) BUN (7-21) mg/dL Creatinine (0.8-1.5) mg/dl Est GFR ( Amer) Est GFR (Non-Af Amer) POC Glucose (mg/dL) 109 127 H (65-110) mg/dL Random Glucose (70-110) mg/dL Calcium (8.4-10.5) mg/dL Total Bilirubin (0.2-1.3) mg/dL AST (17-59) U/L ALT (7-56) U/L Alkaline Phosphatase (38-126) U/L Total Protein (5.8-8.3) g/dL Albumin (3.0-4.8) g/dL Globulin gm/dL Albumin/Globulin Ratio (1.1-1.8) Venous Blood Potassium (3.6-5.2) mmol/L Blood Type Antibody Screen Crossmatch BBK History Checked 06/25/17 06/25/17 06/25/17 Range/Units 15:00 15:00 15:00 WBC 14.8 H (4.5-11.0) 10^3/ul RBC 3.42 L (3.5-6.1) 10^6/uL Hgb 8.5 L (14.0-18.0) g/dL Hct 25.7 L (42.0-52.0) % MCV 75.1 L (80.0-105.0) fl MCH 24.9 L (25.0-35.0) pg MCHC 33.1 (31.0-37.0) g/dl RDW 21.2 H (11.5-14.5) % Plt Count 175 (120.0-450.0) 10^3/uL MPV 9.0 (7.0-11.0) fl PT 17.5 H (9.4-12.5) SECONDS INR 1.52 H (0.93-1.08) APTT 25.0 L (25.1-36.5) Seconds pO2 138 H (30-55) mm/Hg VBG pH 7.40 (7.32-7.43) VBG pCO2 44.0 (40-60) VBG HCO3 27.3 (21-28) mmol/l VBG Total CO2 28.7 H (22-28) mmol.L VBG O2 Sat (Calc) 99.4 H (40-65) % VBG Base Excess 2.0 (0.0-2.0) mmol/L VBG Potassium 4.5 (3.6-5.2) mmol/L Sodium 134.0 (132-148) mmol/L Chloride 104.0 (98-107) mmol/L Glucose 205 H (75-110) mg/dl Lactate 2.6 H (0.7-2.1) mmol/L FiO2 21.0 % Potassium (3.6-5.0) mmol/L Carbon Dioxide (21-33) mmol/L Anion Gap (10-20) BUN (7-21) mg/dL Creatinine (0.8-1.5) mg/dl Est GFR ( Amer) Est GFR (Non-Af Amer) POC Glucose (mg/dL) (65-110) mg/dL Random Glucose (70-110) mg/dL Calcium (8.4-10.5) mg/dL Total Bilirubin (0.2-1.3) mg/dL AST (17-59) U/L ALT (7-56) U/L Alkaline Phosphatase (38-126) U/L Total Protein (5.8-8.3) g/dL Albumin (3.0-4.8) g/dL Globulin gm/dL Albumin/Globulin Ratio (1.1-1.8) Venous Blood Potassium 4.5 (3.6-5.2) mmol/L Blood Type Antibody Screen Crossmatch BBK History Checked 06/25/17 Range/Units 07:35 WBC (4.5-11.0) 10^3/ul RBC (3.5-6.1) 10^6/uL Hgb (14.0-18.0) g/dL Hct (42.0-52.0) % MCV (80.0-105.0) fl MCH (25.0-35.0) pg MCHC (31.0-37.0) g/dl RDW (11.5-14.5) % Plt Count (120.0-450.0) 10^3/uL MPV (7.0-11.0) fl PT (9.4-12.5) SECONDS INR (0.93-1.08) APTT (25.1-36.5) Seconds pO2 (30-55) mm/Hg VBG pH (7.32-7.43) VBG pCO2 (40-60) VBG HCO3 (21-28) mmol/l VBG Total CO2 (22-28) mmol.L VBG O2 Sat (Calc) (40-65) % VBG Base Excess (0.0-2.0) mmol/L VBG Potassium (3.6-5.2) mmol/L Sodium (132-148) mmol/L Chloride (98-107) mmol/L Glucose (75-110) mg/dl Lactate (0.7-2.1) mmol/L FiO2 % Potassium (3.6-5.0) mmol/L Carbon Dioxide (21-33) mmol/L Anion Gap (10-20) BUN (7-21) mg/dL Creatinine (0.8-1.5) mg/dl Est GFR ( Amer) Est GFR (Non-Af Amer) POC Glucose (mg/dL) (65-110) mg/dL Random Glucose (70-110) mg/dL Calcium (8.4-10.5) mg/dL Total Bilirubin (0.2-1.3) mg/dL AST (17-59) U/L ALT (7-56) U/L Alkaline Phosphatase (38-126) U/L Total Protein (5.8-8.3) g/dL Albumin (3.0-4.8) g/dL Globulin gm/dL Albumin/Globulin Ratio (1.1-1.8) Venous Blood Potassium (3.6-5.2) mmol/L Blood Type A POSITIVE Antibody Screen Negative Crossmatch See Detail BBK History Checked Patient has bt Laboratory Results - last 24 hr 06/25/17 06/25/17 06/25/17 07:35 15:00 15:00 WBC 14.8 H RBC 3.42 L Hgb 8.5 L Hct 25.7 L MCV 75.1 L MCH 24.9 L MCHC 33.1 RDW 21.2 H Plt Count 175 MPV 9.0 PT INR APTT pO2 138 H VBG pH 7.40 VBG pCO2 44.0 VBG HCO3 27.3 VBG Total CO2 28.7 H VBG O2 Sat (Calc) 99.4 H VBG Base Excess 2.0 VBG Potassium 4.5 Sodium 134.0 Chloride 104.0 Glucose 205 H Lactate 2.6 H FiO2 21.0 Potassium Carbon Dioxide Anion Gap BUN Creatinine Est GFR ( Amer) Est GFR (Non-Af Amer) POC Glucose (mg/dL) Random Glucose Calcium Total Bilirubin AST ALT Alkaline Phosphatase Total Protein Albumin Globulin Albumin/Globulin Ratio Venous Blood Potassium 4.5 Blood Type A POSITIVE Antibody Screen Negative Crossmatch See Detail BBK History Checked Patient has bt 06/25/17 06/25/17 06/25/17 15:00 17:51 20:40 WBC 11.8 H D RBC 3.24 L Hgb 8.0 L Hct 24.1 L MCV 74.4 L MCH 24.7 L MCHC 33.2 RDW 20.7 H Plt Count 161 MPV 9.2 PT 17.5 H INR 1.52 H APTT 25.0 L pO2 VBG pH VBG pCO2 VBG HCO3 VBG Total CO2 VBG O2 Sat (Calc) VBG Base Excess VBG Potassium Sodium Chloride Glucose Lactate FiO2 Potassium Carbon Dioxide Anion Gap BUN Creatinine Est GFR ( Amer) Est GFR (Non-Af Amer) POC Glucose (mg/dL) 127 H Random Glucose Calcium Total Bilirubin AST ALT Alkaline Phosphatase Total Protein Albumin Globulin Albumin/Globulin Ratio Venous Blood Potassium Blood Type Antibody Screen Crossmatch BBK History Checked 06/26/17 06/26/17 06/26/17 01:11 06:00 06:00 WBC 10.3 RBC 3.48 L Hgb 8.8 L Hct 26.4 L MCV 75.9 L MCH 25.3 MCHC 33.3 RDW 20.2 H Plt Count 157 MPV 9.2 PT 15.3 H INR 1.32 H APTT pO2 VBG pH VBG pCO2 VBG HCO3 VBG Total CO2 VBG O2 Sat (Calc) VBG Base Excess VBG Potassium Sodium Chloride Glucose Lactate FiO2 Potassium Carbon Dioxide Anion Gap BUN Creatinine Est GFR ( Amer) Est GFR (Non-Af Amer) POC Glucose (mg/dL) 109 Random Glucose Calcium Total Bilirubin AST ALT Alkaline Phosphatase Total Protein Albumin Globulin Albumin/Globulin Ratio Venous Blood Potassium Blood Type Antibody Screen Crossmatch BBK History Checked 06/26/17 06:00 WBC RBC Hgb Hct MCV MCH MCHC RDW Plt Count MPV PT INR APTT pO2 VBG pH VBG pCO2 VBG HCO3 VBG Total CO2 VBG O2 Sat (Calc) VBG Base Excess VBG Potassium Sodium 139 Chloride 103 Glucose Lactate FiO2 Potassium 4.1 Carbon Dioxide 30 Anion Gap 9 L BUN 55 H Creatinine 1.8 H Est GFR ( Amer) 47 Est GFR (Non-Af Amer) 39 POC Glucose (mg/dL) Random Glucose 93 Calcium 9.0 Total Bilirubin 0.7 AST 571 H D ALT 701 H Alkaline Phosphatase 87 Total Protein 5.1 L Albumin 2.8 L Globulin 2.3 Albumin/Globulin Ratio 1.2 Venous Blood Potassium Blood Type Antibody Screen Crossmatch BBK History Checked Critical Care Progress Note - Nutrition Nutrition: Nutrition Category Date Time Status Liquid Diet [DIET] Diets 06/26/17 Breakfast Ordered Assessment/Plan - Assessment and Plan (Free Text) Plan: Patient seen and examined on rounds with resident, agree with note with following additions/exceptions: Patient is 56 y/o M with PMH of bleeding duodenal ulcer s/p hemoclip w/ Dr. Coates (01/2017), CAD s/p CABG, PAD s/p R SFA stent, HLD, DM2, lumbosacral radiculopathy, tobacco use and chronic opioid dependence admitted with melena, and acute GIB. Pt is s/p 5u PRBC, 4u FFP, 1u Platelets transfusion yesterday, HH has been stable, HH 8.8, INR<2, no evidence of overt clinical bleeding, GI following. Lactate <3, stable. Renal function improving. Acute GIB CAD CAD s/p CABG PAD s/p SFA stent ARF DM Recommend: - supp o2 as needed - panculture, UCx, BCx, procal - IVF hydration - check Ulytes, Uosm, TSH - q12hr CBC - maintain TLC, 2 large bore PIVs - follow up GI - clear liquid diet - PPI drip - Hold ASA, Plavix, coumadin - GI ppx - DVT ppx, SCDs - stable, transfer to telemetry
--- NOTE | 2017-06-26 12:59 | CT ---
PROCEDURE: CT Abdomen and Pelvis without intravenous contrast HISTORY: Melena, symptomatic anemia, N/V, abdominal pain COMPARISON: Comparison is made to the previous study dated 2016 TECHNIQUE: Axial and reformatted coronal and sagittal CT images of the abdomen and pelvis were obtained without oral or IV contrast administration. .. Contrast Dose: 0 Radiation dose: Total exam DLP = 1015.89 mGy-cm. This CT exam was performed using one or more of the following dose reduction techniques: Automated exposure control, adjustment of the mA and/or kV according to patient size, and/or use of iterative reconstruction technique. FINDINGS: LOWER THORAX: Mild atelectasis at the right lung base is noted. LIVER: No significant interval change in the liver noted since the previous exam. The assessment of the liver and upper abdomen solid organs is limited due to streak artifact from the patient's arm and due to lack of IV contrast administration. GALLBLADDER AND BILE DUCTS: Status post cholecystectomy. PANCREAS: Unremarkable. No gross lesion or ductal dilatation. SPLEEN: Unremarkable. ADRENALS: Nodular enlargement of the adrenal glands left more than right is again noted. KIDNEYS AND URETERS: Again seen is low-attenuation cyst at the mid to upper pole left kidney measures 1.7 centimeter. . No hydronephrosis. No solid mass. VASCULATURE: Unremarkable. No aortic aneurysm. BOWEL: No evidence of bowel obstruction. No evidence of obstructing mass lesion in the visualized portion of the large bowel. There is a questionable focal thickening at the proximal sigmoid colon versus incomplete distention. There is focal wall thickening seen in the rectum image 156 series 3 at the right aspect of the rectum measures 3 centimeter in the AP diameter and 1.5 centimeter in the transverse diameter suspicious for malignant neoplasm. APPENDIX: No evidence of appendicitis. PERITONEUM: Unremarkable. No free fluid. No free air. LYMPH NODES: Unremarkable. No enlarged lymph nodes. BLADDER: Unremarkable. REPRODUCTIVE: Mildly enlarged prostate is again noted. BONES: No acute fracture. OTHER FINDINGS: None. IMPRESSION: Focal wall thickening at the right aspect of the mid to distal rectum in measures 3 x 1.5 centimeters suspicious for malignant neoplasm. Further assessment is suggested. Questionable focal thickening versus incomplete distention in the proximal sigmoid colon. No evidence of acute pathology in the abdomen and pelvis.
--- NOTE | 2017-06-26 15:27 | CP.PCM.PN ---
Subjective - Date & Time of Evaluation Date of Evaluation: 06/26/17 Time of Evaluation: 15:26 - Subjective Subjective: Medicine progress note for Dr. Meena Kline Patient seen and examined at bedside, patient is extremely agitated and is acting disruptive with staff. Patient denies any complaints right now. Objective - Vital Signs/Intake and Output Vital Signs (last 24 hours): Temp Pulse Resp BP Pulse Ox 97.6 F 88 18 125/67 96 06/25/17 16:22 06/26/17 14:20 06/26/17 14:20 06/26/17 14:00 06/26/17 10:20 Intake and Output: 06/26/17 06/26/17 06:59 18:59 Intake Total 2561 Output Total 950 Balance 1611 - Medications Medications: Current Medications Haloperidol (Haldol) 2 mg PO Q6 PRN; Protocol PRN Reason: Agitation Last Admin: 06/26/17 14:42 Dose: 2 mg Hydralazine HCl (Apresoline) 10 mg IVP Q6 PRN PRN Reason: Systolic Blood Pressure > 165 Metronidazole (Flagyl) 500 mg in 100 mls @ 100 mls/hr IVPB Q8 NINO PRN Reason: Protocol Last Admin: 06/25/17 08:44 Dose: 100 mls/hr Pantoprazole Sodium (Protonix 40mg Ivpb) 40 mg in 100 mls @ 20 mls/hr IVPB .Q5H [facility] Last Admin: 06/26/17 14:22 Dose: 20 mls/hr Sodium Chloride (Sodium Chloride 0.9%) 1,000 mls @ 100 mls/hr IV .Q10H [facility] Last Admin: 06/26/17 10:21 Dose: 100 mls/hr Insulin Human Lispro (Humalog Med) 0 units SC Q6 NINO PRN Reason: Protocol Last Admin: 06/26/17 12:54 Dose: Not Given Lorazepam (Ativan) 0.5 mg PO Q6 PRN; Protocol PRN Reason: Agitation Last Admin: 06/26/17 14:41 Dose: 0.5 mg Morphine Sulfate (Morphine) 2 mg IVP Q4 PRN PRN Reason: Pain, severe (8-10) Last Admin: 06/26/17 12:12 Dose: 2 mg Nicotine (Nicoderm Cq) 1 patch TD DAILY [facility] Last Admin: 06/26/17 10:23 Dose: 1 patch Ondansetron HCl (Zofran Inj) 4 mg IVP Q4H PRN PRN Reason: Nausea/Vomiting Quetiapine Fumarate (Seroquel) 25 mg PO BID NINO PRN Reason: Protocol Quetiapine Fumarate (Seroquel) 50 mg PO HS NINO PRN Reason: Protocol - Labs Labs: 06/26/17 06:00 06/26/17 06:00 PT 15.3 SECONDS (9.4-12.5) H 06/26/17 06:00 INR 1.32 (0.93-1.08) H 06/26/17 06:00 APTT 25.0 Seconds (25.1-36.5) L 06/25/17 15:00 - Constitutional Appears: Well - Head Exam Head Exam: ATRAUMATIC, NORMAL INSPECTION, NORMOCEPHALIC - Eye Exam Eye Exam: EOMI, Normal appearance, PERRL Pupil Exam: NORMAL ACCOMODATION, PERRL - ENT Exam ENT Exam: Mucous Membranes Moist, Normal Exam - Neck Exam Neck Exam: Full ROM, Normal Inspection. absent: Lymphadenopathy - Respiratory Exam Respiratory Exam: Clear to Ausculation Bilateral, NORMAL BREATHING PATTERN - Cardiovascular Exam Cardiovascular Exam: REGULAR RHYTHM, +S1, +S2. absent: Murmur - GI/Abdominal Exam GI & Abdominal Exam: Soft, Normal Bowel Sounds. absent: Tenderness - Extremities Exam Extremities Exam: Full ROM, Normal Capillary Refill, Normal Inspection. absent : Joint Swelling, Pedal Edema - Back Exam Back Exam: NORMAL INSPECTION - Neurological Exam Neurological Exam: Alert, Awake, CN II-XII Intact, Normal Gait, Oriented x3 - Psychiatric Exam Psychiatric exam: Normal Affect, Normal Mood - Skin Skin Exam: Dry, Intact, Normal Color, Warm Assessment and Plan - Assessment and Plan (Free Text) Assessment: Assessment and Plan 56 y/o M with PMH of bleeding duodenal ulcer s/p hemoclip w/ Dr. Coates (01/2017) , CAD s/p CABG, PAD s/p R SFA stent, HLD, DM2, lumbosacral radiculopathy, tobacco use and chronic opioid dependence presents with non-bloody and non- bilious nausea/vomiting x3 days and 2 dark bowel movements on day of presentation. H/H is stable and vitals are stable. Patient is noted to be anemic but is similar to prior visits. INR is supratherapeutic. BUN/Cr ratio elevated and hints toward possible UGIB. Hyperkalemia is also noted. Nausea and Vomiting with Melena - r/o UGI bleed given elevated BUN - no longer vomiting and is hemodynamically stable - PTX IVP 40mg Q12 - zofran prn - NS 2L given, cont @ 125 - given hx of anemia, will order anemia workup Iron: Low, TIBC: normal, % Sat: low - stool cdiff and cultures ordered - started on cipro and flagyl empirically - Orthostatics ordered for near syncope - GI on consult: Dr. Gupta No acute GI intervention at this time, will re-evaluate on Wednesday Supratherapeutic INR - hold coumadin and other anticoagulants - monitor INR - Dr. Molina on consult, Dr. Joseph covering, appreciate recommendations DIEUDONNE - improving - EKG showed sinus rhythm w/ short MA @ 100 bpm - urine lytes ordered to calculate FeNa and FeUrea: pending - monitor UOP: 950 mL Hyperkalemia - Resolved - Ca gluconate given on admission - Insulin 10u regular given on admission Hx CAD and PAD - cont metoprolol Hx DM2 - RISS Medium - Accuchecks - Advanced to liquid diet Hx tobacco use - nicotine patch Hx opioid dependency - monitor for signs of withdrawal
[2017-06-26 17:54] LABS: HEMOGLOBIN 8.7 g/dL (14.0-18.0); MEAN CELL VOLUME 76.5 fl (80.0-105.0); MEAN CORPUSCULAR HEMOGLOBIN 25.3 pg (25.0-35.0); MEAN CORPUSCULAR HGB CONC 33.1 g/dl (31.0-37.0); RBC 3.44 10^6/uL (3.5-6.1); RED CELL DISTRIBUTION WIDTH 20.3 % (11.5-14.5); WHITE BLOOD COUNT 10.4 10^3/ul (4.5-11.0)
[2017-06-26] MEDS ORDERED: HYDROmorphone 1 mg/ml ISec IVP STA (18:36)
[2017-06-26] MEDS ORDERED: HYDROmorphone 0.5 mg/0.5 ml ISec IVP STA ×2 (19:00→23:59)
--- NOTE | 2017-06-26 23:57 | CON ---
DATE: REASON FOR CONSULTATION: GI bleeding, history of coronary artery disease and peripheral vascular disease. HISTORY OF PRESENT ILLNESS: The patient is a 56-year-old male who has multiple medical problems including chronic back pain and opioid dependence, the patient has history of coronary artery disease, who has history of coronary artery bypass surgery, most recent cardiac catheterization was done in 2012. There are no available records of coronary intervention at [facility]. Since then patient has history of intervention on a thrombosed right superficial femoral artery in the same year and no other peripheral intervention noted at [facility] medical records. Following that, the patient, according to him, has been on aspirin and Plavix. He has a history of bleeding gastric ulcer a few months ago according to him and according to Dr. Coates, regulatory compliance manager. The patient has a history of bleeding duodenal ulcer. The patient presented because of melena. The patient's initial hemoglobin and hematocrit were 6.5 and 21.4 and did receive packed RBC infusion as well as fresh frozen plasma. The patient's INR on admission was 5.06. The patient was on aspirin, Plavix and Coumadin therapy. Apparently, Coumadin therapy was given for paroxysmal atrial fibrillation. SOCIAL HISTORY: The patient is a smoker. He has opioid dependence. He works in [employer]. MEDICATIONS: Home medications include aspirin, Lopressor, Plavix 75, Lasix, Lipitor, warfarin, glipizide, Cipro, Flagyl, and Zofran and current hospital medications are hydralazine 10 mg intravenously q. 6 hours p.r.n., Flagyl 500 mg intravenously q. 8 hours, Haldol 2 mg p.o. q. 6 hours p.r.n., morphine sulfate 2 mg intravenously q.4 hours, nicotine patch, Protonix 40 mg IV piggyback daily, Seroquel 25 mg twice a day, Zofran 4 mg intravenously q.4 hours p.r.n. PHYSICAL EXAMINATION GENERAL: The patient is a middle-aged male, who is slightly restless and angry, does not appear to be in respiratory distress. VITAL SIGNS: Blood pressure 126/64, heart rate 88, respirations 16, temperature 97.6. HEENT: Pale conjunctivae. CHEST: Clear. HEART: S1 and S2 regular. ABDOMEN: Soft. EXTREMITIES: No edema. LABORATORY DATA: Hemoglobin and hematocrit today 8.8 and 26.4. White count and platelet counts are within normal limits. SMA-7; sodium 139, potassium 4.1, chloride 103, CO2 30, glucose 93, BUN 55, and creatinine 1.8. Admitting BUN and creatinine were 69 and 2.2 and admitting potassium was 5.8. EKG revealed sinus rhythm, old inferior infarct. ASSESSMENT: 1. Coagulopathy. 2. Status post gastrointestinal bleed. 3. History of bleeding duodenal ulcer. 4. History of paroxysmal atrial fibrillation. 5. History of coronary artery disease, status post coronary artery bypass surgery and history of right superficial femoral artery stenting. RECOMMENDATIONS: Hold on any further antiplatelets or anticoagulation therapy for now unless a strong indication is needed and after definitely complete gastrointestinal and surgical clearance. Continue current IV Flagyl, p.r.n. IV Zofran and normal saline infusion. Continue IV Protonix. Colton Hdz MD
[2017-06-27] MEDS: DiphenhydrAMINE 50 mg/ml Inj IVP PRN ×2 (00:44→06:21)
[2017-06-27] MEDS: Insulin Lispro (humaLOG) MEDIUM Coverage SC SCH ×4 (00:47→20:05)
[2017-06-27] MEDS: Pantoprazole 40mg/100mL NS 40 MG/100 ML BAG IVPB SCH (01:08)
--- NOTE | 2017-06-27 02:11 | CON ---
DATE: HISTORY OF PRESENT ILLNESS: Patient is [id number] white male with a history of opioid dependency, alcohol abuse with marijuana abuse, psychiatric history, who is being treated in the ICU after presenting with complaints of nausea, vomiting for 3 days and melena. INR was noted to be supratherapeutic and labs also indicated on 06/25/2017 low hemoglobin of 6.5 and 6.8 as well as hematocrit of 21.4 and 21.1, though stayed stable at this time. Psychiatry was called to evaluate patient as patient reported that he did not feel like living any more and has been agitated while he is being treated in the ICU. Patient was noted to get increasingly hostile with staff, verbally abusive, threatening to sabotage his IV lines. He is very disruptive and required Ativan and Geodon IM. Generally difficult to redirect despite multiple reassurances and reminders by staff members. I reviewed recent notes obviously and that was with patient at bedside. Patient immediately greeted me very loudly and presents as irritable, hostile, and was difficult to have a productive interview because he was complaining about multiple issues. Patient could not initially give me the correct month, though finally realized it is June and even mentioned that it was 1917 multiple times, before I had to remind him it is 2018. Patient is aware that he was in the hospital. I am not sure he is aware if he is in the intensive care unit. The patient is loud and he swears frequently and I agree with staff members he could sound very hostile. Patient is very frustrated and upset. When I asked the patient what he knows about the circumstances of his current hospitalization, patient yells at me "I am bleeding from my balls and nobody can seem to fix it." Patient complains that he is not getting enough information from his doctors and does not even know when his medical doctors are going to visit him next. He is upset that "he can't eat, can't smoke weed, can't move" and that he has to "sit in a bedpan." Patient also reports that his pain is not adequately being addressed and entire records do indicate that patient does have history of opioid dependency. Although prior notes showed that the patient demanded to be signed out, today he is not demanding to be discharged. He appears to comprehend the severity of the symptoms and need for treatment. Patient indicates that he feel hopeless and that what is the point of living if he has multiple restrictions. I attempted to reassure patient and indicated that the current situation is temporary and patient barked at me and states "I just want more information, they are making it sound like it is not temporary and it will be forever." Patient does not appear to be acutely suicidal, although he is quite angry and appears to be withdrawn from multiple substances and probably has a source of legitimate pain. He is not hallucinating, though he can be disorganized and irrational, or just probably more likely a combination of his anger and disorientation due to medical issues. He might have some paranoia, but, however, this just fits into his paradigm of anger and it might clear off once patient calms down. Vital signs were reviewed by the provider. LABORATORY DATA: Recent labs were also reviewed by this provider. RELEVANT PSYCHIATRIC MEDICATIONS: Patient does not appear to be on any psychiatric medications at this time, though did received Geodon 10 mg IM at 1 a.m. this morning and Xanax last night around 9 p.m. 1mg and Ativan 1 mg last night as well an hour or two prior to Xanax. Patient is on morphine 2 mg IV q.4 p.r.n., however, patient reports that is not beneficial at all. IMPRESSION: Opiate use disorder, severe, marijuana use disorder, mood disorder, not otherwise specified, likely adjustment disorder with mood and anxiety, rule out cluster B personality disorder. Likely opiate withdrawal as well as marijuana withdrawal. Please note that social history and psychiatric history could not be obtained from the patient as patient refused to be interviewed by the provider due to his anger. Patient was aware that this provider could not adequately treat or help patient with his mood, anxiety symptoms if he could not give me his history or symptoms, however, the patient states that "there is nothing you could do for me." RECOMMENDATIONS: This provider will follow up with patient again in the a.m. tomorrow. In the meantime, hopefully change morphine to 2 mg IV q.4 from q.6 might help with his pain and irritability. I will also add Seroquel to also help with patient's mood and impulse control, 25 mg a.m., p.m., and 50 mg at bedtime; and Ativan 0.5 mg q.6 p.r.n. with Haldol 2 mg q.6 p.r.n. for agitation. As mentioned, Psychiatry will follow up with the patient in the a.m. on Wednesday on 06/27/2017, specifically Dr. Mcqueen will follow up with the patient. Nestor Mcqueen MD
[2017-06-27] MEDS ORDERED: Dexmedetomidine 400mcg/100mL 400 MCG/100 ML BOTTLE IV PRN (04:54)
--- NOTE | 2017-06-27 07:44 | CP.PCM.CON ---
Addendum entered and electronically signed by Kar Cesar DO 06/27/17 13:48: s/p EGD: no obvious etiology of bleeding, GE nodule (biopsied). briefly visualized a 3rd portion duodenal ulcer with no stigmata of bleeding S/P Flex sig: gross amounts of melena and blood, could not successfully lavage rectum, procedure aborted -recommend bleeding scan, if + IR guided angio recommended -consult surgery -will plan for enteroscopy and colonoscopy tomorrow Original Note: <Kar Cesar - Last Filed: 06/27/17 13:48> History of Present Illness - History of Present Illness History of Present Illness: PGY4 Initial GO Consult Reason for consultation: Anemia, melena Marco A Fuentes is a 56 y/o M with hx of bleeding duodenal ulcer s/p hemoclip w / Dr. Coates (01/2017), CAD s/p CABG, PAD s/p R SFA stent, HLD, DM2, lumbosacral radiculopathy, tobacco use and chronic opioid dependence who presented to the ER with non-bloody and non-bilious nausea/vomiting x3 days and melena. Pt was sedated in the ICU and was not arousable. All information was obtained from the chart, staff, and freight delivery driver. The patient initially stated that he was in the bathroom bearing down when had a syncopal episode for a few seconds but his caught him and he denies head trauma. He states that he has not been able to keep any food down, but yesterday felt improvement prior to feeling fevers/ chills. he then had melena and syncopal episodes. He is on chronic narcotics for his back pain. He also states that he still takes Coumadin, Plavix and ASA for his femoral stent and hx of CAD s/p CABG.In the ED, the pt was hypotensive with BP in the 80's/50's. He initially arrived to the ED with a hgb of 11, but after fluid resuscitation his hgb dropped to 6.8. His INr was >5. He received a total of 5 units PRBC, 3 units of FFP, and 1 of platelets. His was initially seen by Dr. Sexton then Dr. Trejo but pt defered their services. He apparently became very belligerent and aggressive overnight therefore was placed on 1:1 watch and given sedatives for pt safety. The RN reports no BM overnight. Denies nay melena, hematemesis, or coffee-ground emesis. PMH: As above Surgical Hx: R SFA stent, cholecystectomy, Left inguinal hernia repair, CABG Social Hx: Tobacco 1 ppd x 40 years. Alcohol socially, dependent on pain medication, admits to marijuana use Endo Hx: EGD 01/2017 large duodenal ulcer s/p hemoclip Past Patient History - Infectious Disease Hx of Infectious Diseases: None - Tetanus Immunizations Tetanus Immunization: Unknown - Past Social History Smoking Status: Heavy Smoker > 10 Cigarettes Daily - CARDIAC Hx Cardiac Disorders: Yes (cabg) Hx Peripheral Vascular Disease: Yes - PULMONARY Hx Chronic Obstructive Pulmonary Disease (COPD): Yes - NEUROLOGICAL Hx Neurological Disorder: No - HEENT Hx HEENT Problems: No - RENAL Hx Chronic Kidney Disease: No - ENDOCRINE/METABOLIC Hx Diabetes Mellitus Type 2: Yes - HEMATOLOGICAL/ONCOLOGICAL Hx Anemia: Yes - INTEGUMENTARY Hx Dermatological Problems: No - MUSCULOSKELETAL/RHEUMATOLOGICAL Hx Falls: No - GASTROINTESTINAL Hx Gall Bladder Disease: Yes - GENITOURINARY/GYNECOLOGICAL Hx Genitourinary Disorders: No - PSYCHIATRIC Hx Substance Use: Yes (Opiate dependance) - SURGICAL HISTORY Hx Cardiac Catheterization: Yes Hx Cholecystectomy: Yes Hx Coronary Stent: Yes Hx Open Heart Surgery: Yes - ANESTHESIA Hx Anesthesia Reactions: Yes (WAKES UP ANGRY) Hx Malignant Hyperthermia: No Meds Allergies/Adverse Reactions: Allergies Allergy/AdvReac Type Severity Reaction Status Date / Time levofloxacin [From Levaquin] Allergy Severe URTICARIA Verified 06/24/17 19:11 Penicillins Allergy Severe RASH Verified 06/24/17 19:11 - Medications Medications: Current Medications Diphenhydramine HCl (Benadryl) 25 mg IVP Q6 PRN PRN Reason: Allergy symptoms Last Admin: 06/27/17 06:21 Dose: 25 mg Haloperidol Lactate (Haldol) 5 mg IVP Q6 PRN; Protocol PRN Reason: Agitation Last Admin: 06/27/17 06:19 Dose: 5 mg Hydralazine HCl (Apresoline) 10 mg IVP Q6 PRN PRN Reason: Systolic Blood Pressure > 165 Last Admin: 06/26/17 22:08 Dose: 10 mg Metronidazole (Flagyl) 500 mg in 100 mls @ 100 mls/hr IVPB Q8 [facility] PRN Reason: Protocol Last Admin: 06/25/17 08:44 Dose: 100 mls/hr Pantoprazole Sodium (Protonix 40mg Ivpb) 40 mg in 100 mls @ 20 mls/hr IVPB .Q5H [facility] Last Admin: 06/27/17 01:08 Dose: 20 mls/hr Sodium Chloride (Sodium Chloride 0.9%) 1,000 mls @ 100 mls/hr IV .Q10H [facility] Last Admin: 06/26/17 10:21 Dose: 100 mls/hr Insulin Human Lispro (Humalog Med) 0 units SC Q6 [facility] PRN Reason: Protocol Last Admin: 06/27/17 06:27 Dose: Not Given Lorazepam (Ativan) 1 mg IVP Q6H PRN; Protocol PRN Reason: Anxiety Last Admin: 06/27/17 06:20 Dose: 1 mg Morphine Sulfate (Morphine) 2 mg IVP Q4 PRN PRN Reason: Pain, severe (8-10) Last Admin: 06/26/17 15:31 Dose: 2 mg Nicotine (Nicoderm Cq) 1 patch TD DAILY [facility] Last Admin: 06/26/17 10:23 Dose: 1 patch Ondansetron HCl (Zofran Inj) 4 mg IVP Q4H PRN PRN Reason: Nausea/Vomiting Quetiapine Fumarate (Seroquel) 25 mg PO BID [facility] PRN Reason: Protocol Last Admin: 06/26/17 17:19 Dose: 25 mg Quetiapine Fumarate (Seroquel) 100 mg PO HS [facility] PRN Reason: Protocol Last Admin: 06/26/17 22:05 Dose: 100 mg Physical Exam - Constitutional Appears: Well, No Acute Distress - Head Exam Head Exam: ATRAUMATIC, NORMOCEPHALIC - Eye Exam Eye Exam: Normal appearance - ENT Exam ENT Exam: Mucous Membranes Moist, Normal Exam - Neck Exam Neck exam: Positive for: Normal Inspection - Respiratory Exam Respiratory Exam: Clear to Auscultation Bilateral, NORMAL BREATHING PATTERN. absent: Rhonchi, Wheezes, Respiratory Distress - Cardiovascular Exam Cardiovascular Exam: REGULAR RHYTHM, +S1, +S2 - GI/Abdominal Exam GI & Abdominal Exam: Normal Bowel Sounds, Soft. absent: Guarding, Hernia, Rebound, Rigid, Tenderness - Extremities Exam Extremities exam: Negative for: joint swelling, pedal edema - Neurological Exam Neurological exam: Altered - Psychiatric Exam Psychiatric exam: Normal Affect, Normal Mood - Skin Skin Exam: Dry, Intact, Normal Color, Warm Results - Vital Signs Recent Vital Signs: Last Vital Signs Temp 97.6 F 06/25/17 16:22 Pulse 75 06/27/17 06:30 Resp 20 06/27/17 06:30 BP 138/77 06/27/17 05:36 Pulse Ox 100 06/27/17 06:30 - Labs Result Diagrams: 06/27/17 08:00 06/27/17 08:00 Labs: Laboratory Results - last 24 hr 06/25/17 06/26/17 06/26/17 05:00 12:27 17:42 WBC RBC Hgb Hct MCV MCH MCHC RDW Plt Count MPV POC Glucose (mg/dL) 165 H 106 RBC Folate 199106/26/17 06/27/17 17:45 00:15 WBC 10.4 RBC 3.44 L Hgb 8.7 L Hct 26.3 L MCV 76.5 L MCH 25.3 MCHC 33.1 RDW 20.3 H Plt Count 149 MPV 9.0 POC Glucose (mg/dL) 195 H RBC Folate Assessment & Plan - Assessment and Plan (Free Text) Assessment: Marco A Fuentes is a 56M w/ hx of bleeding duodenal ulcer s/p hemoclip w/ Dr. Coates (01/2017), CAD s/p CABG, PAD s/p R SFA stent, HLD, DM2, lumbosacral radiculopathy, tobacco use and chronic opioid dependence presents who presented with anemia and melena. S/P EGD POD#0 Normocytic anemia Melena Transaminemia likely 2/2 ischemic hepatitis; r/o viral and autoimmune etiology Focal wall thickening at distal rectum; reported as suspicious for malignancy sigmoid focal wall thickening Hx of narcotic use Hx of duodenal ulcer Coagulopathy Hx of PVD hx of CAD s/p CABG Plan: -continue PPI drip -NPO after midnight -will try to obtain consent from if pt is still sedated -s/p 5 units of PRBC -check INR, CBC in the AM -maintaine 2 large IV borelines -maintain a hgb >8 -continue IV fluids -will get hepatitis Viral serologies and autoimmune -pt will eventually need colonoscopy to eval rectum and sigmoid for suspicious lesion identified on CT will D/W Dr. Souza <Sunday Souza - Last Filed: 06/27/17 15:03> Meds - Medications Medications: Current Medications Diphenhydramine HCl (Benadryl) 25 mg IVP Q6 PRN PRN Reason: Allergy symptoms Last Admin: 06/27/17 06:21 Dose: 25 mg Haloperidol Lactate (Haldol) 5 mg IVP Q6 PRN; Protocol PRN Reason: Agitation Last Admin: 06/27/17 06:19 Dose: 5 mg Hydralazine HCl (Apresoline) 10 mg IVP Q6 PRN PRN Reason: Systolic Blood Pressure > 165 Last Admin: 06/26/17 22:08 Dose: 10 mg Metronidazole (Flagyl) 500 mg in 100 mls @ 100 mls/hr IVPB Q8 [facility] PRN Reason: Protocol Last Admin: 06/25/17 08:44 Dose: 100 mls/hr Pantoprazole Sodium (Protonix 40mg Ivpb) 40 mg in 100 mls @ 20 mls/hr IVPB .Q5H [facility] Last Admin: 06/27/17 01:08 Dose: 20 mls/hr Sodium Chloride (Sodium Chloride 0.9%) 1,000 mls @ 100 mls/hr IV .Q10H [facility] Last Admin: 06/26/17 10:21 Dose: 100 mls/hr Propofol (Diprivan) 1,000 mg in 100 mls @ 2.722 mls/hr IV .Q24H PRN; Protocol; 5 MCG/KG/MIN PRN Reason: TITRATE PER MD ORDER Last Admin: 06/27/17 11:21 Dose: 5 mcg/kg/min, 2.722 mls/hr Dexmedetomidine HCl (Precedex 400mcg/100ml) 400 mcg in 100 mls @ 4.536 mls/hr IV .Q22H3M PRN; Protocol; 0.2 MCG/KG/HR PRN Reason: Agitation Last Admin: 06/27/17 12:52 Dose: 0.2 mcg/kg/hr, 4.536 mls/hr Insulin Human Lispro (Humalog Med) 0 units SC Q6 [facility] PRN Reason: Protocol Last Admin: 06/27/17 06:27 Dose: Not Given Lorazepam (Ativan) 1 mg IVP Q6H PRN; Protocol PRN Reason: Anxiety Last Admin: 06/27/17 06:20 Dose: 1 mg Morphine Sulfate (Morphine) 2 mg IVP Q4 PRN PRN Reason: Pain, severe (8-10) Last Admin: 06/27/17 09:11 Dose: 2 mg Nicotine (Nicoderm Cq) 1 patch TD DAILY [facility] Last Admin: 06/26/17 10:23 Dose: 1 patch Ondansetron HCl (Zofran Inj) 4 mg IVP Q4H PRN PRN Reason: Nausea/Vomiting Quetiapine Fumarate (Seroquel) 50 mg PO BID [facility] PRN Reason: Protocol Quetiapine Fumarate (Seroquel) 150 mg PO HS [facility] PRN Reason: Protocol Results - Vital Signs Recent Vital Signs: Last Vital Signs Temp 97.9 F 06/27/17 13:39 Pulse 77 06/27/17 13:39 Resp 16 06/27/17 13:39 BP 152/73 H 06/27/17 13:39 Pulse Ox 100 06/27/17 13:30 - Labs Result Diagrams: 06/27/17 08:00 06/27/17 08:00 Labs: Laboratory Results - last 24 hr 06/25/17 06/25/17 06/26/17 05:00 07:35 17:42 WBC RBC Hgb Hct MCV MCH MCHC RDW Plt Count MPV PT INR Sodium Potassium Chloride Carbon Dioxide Anion Gap BUN Creatinine Est GFR ( Amer) Est GFR (Non-Af Amer) POC Glucose (mg/dL) 106 Random Glucose Calcium Total Bilirubin AST ALT Alkaline Phosphatase Total Protein Albumin Globulin Albumin/Globulin Ratio RBC Folate 1992 Blood Type A POSITIVE Antibody Screen Negative Crossmatch See Detail BBK History Checked Patient has bt 06/26/17 06/27/17 06/27/17 17:45 00:15 08:00 WBC 10.4 8.1 D RBC 3.44 L 3.13 L Hgb 8.7 L 7.9 L Hct 26.3 L 24.1 L MCV 76.5 L 77.0 L MCH 25.3 25.2 MCHC 33.1 32.8 RDW 20.3 H 20.8 H Plt Count 149 153 MPV 9.0 9.5 PT INR Sodium Potassium Chloride Carbon Dioxide Anion Gap BUN Creatinine Est GFR ( Amer) Est GFR (Non-Af Amer) POC Glucose (mg/dL) 195 H Random Glucose Calcium Total Bilirubin AST ALT Alkaline Phosphatase Total Protein Albumin Globulin Albumin/Globulin Ratio RBC Folate Blood Type Antibody Screen Crossmatch BBK History Checked 06/27/17 06/27/17 06/27/17 08:00 08:00 11:58 WBC RBC Hgb Hct MCV MCH MCHC RDW Plt Count MPV PT 14.1 H INR 1.22 H Sodium 143 Potassium 4.5 Chloride 110 H Carbon Dioxide 26 Anion Gap 12 BUN 36 H Creatinine 1.4 Est GFR ( Amer) > 60 Est GFR (Non-Af Amer) 52 POC Glucose (mg/dL) 95 Random Glucose 120 H Calcium 8.8 Total Bilirubin 0.6 AST 413 H D ALT 866 H Alkaline Phosphatase 83 Total Protein 5.1 L Albumin 2.7 L Globulin 2.4 Albumin/Globulin Ratio 1.1 RBC Folate Blood Type Antibody Screen Crossmatch BBK History Checked Attending/Attestation - Attestation I have personally seen and examined this patient.: Yes I have fully participated in the care of the patient.: Yes I have reviewed all pertinent clinical information: Yes Notes (Text): 06/27/17 14:47 Patient seen with GI fellow in MICU this am. [employer] Consultant called as third GI opinion for a GI bleeding and inappropriate response to PRBC. In a nutshell this is a 56 yr old M with history of bleeding duodenal ulcer s/p hemoclip w/ Dr. Coates (01/2017), CAD s/p CABG, PAD s/p R SFA stent, on ASA and coumadin HLD, DM2, lumbosacral radiculopathy, tobacco use and chronic opioid dependence presents who presented with anemia and melena and supra therapeutic INR of 5. He did not respond to 5 untis PRBC and had melana on rectal exam. In MICU patient was beligerent and agitated. Ct reviewed showed distal rectal thickening with focal sigmoid thickening. Decision to do urgent EGD was made that showed cratered ulcer in third portion of duodenum but no stigmata of bleeding. On unprepped flex sigmoidoscopy blood clots were seen with poor visualization after 2 lts of lavage. Will send patient for nuclear scan and a potential CTA with embolization for active lower GI bleeding. If nuclear scan negative will start prep through [facility] for colonoscopy in am - Keep intubated if patient needs more blood products -NPO -Nuclear scan with CTA and iR embolization if positive -Keep Hct above 27 due to history of CAD -check INR, CBC in the AM - hold anti platelet and anti coagulation - Trend daily Hct and INR - Maintain 2 large IV borelines -will get hepatitis Viral serologies and autoimmune for transminemia - PPI IV bid - Discussed in detail with freight delivery driver - Consider surgical consult 06/27/17 15:03
[2017-06-27 08:23] LABS: HEMOGLOBIN 7.9 g/dL (14.0-18.0); MEAN CORPUSCULAR HEMOGLOBIN 25.2 pg (25.0-35.0); MEAN CORPUSCULAR HGB CONC 32.8 g/dl (31.0-37.0); MEAN PLATELET VOLUME 9.5 fl (7.0-11.0); RBC 3.13 10^6/uL (3.5-6.1); RED CELL DISTRIBUTION WIDTH 20.8 % (11.5-14.5); WHITE BLOOD COUNT 8.1 10^3/ul (4.5-11.0)
[2017-06-27 08:29] LABS: INR 1.22 (0.93-1.08); PROTHROMBIN TIME 14.1 SECONDS (9.4-12.5)
[2017-06-27 08:49] LABS: ALB/GLOB RATIO 1.1 (1.1-1.8); ALBUMIN 2.7 g/dL (3.0-4.8); ALT/SGPT 866 U/L (7-56); AST/SGOT 413 U/L (17-59); BLOOD UREA NITROGEN 36 mg/dL (7-21); CALCIUM 8.8 mg/dL (8.4-10.5); GFR AFRICAN-AMERICAN > 60; GFR NON-AFRICAN AMERICAN 52
[2017-06-27] MEDS: Morphine 2 mg/ml ISec IVP PRN (09:11)
[2017-06-27] MEDS ORDERED: Propofol 10 mg/ml Inj (20 ML) IVP ONE (09:31)
[2017-06-27] MEDS ORDERED: Propofol 10 mg/ml Inj (20 ML) ONE ×3 (09:40→12:17)
[2017-06-27] MEDS ORDERED: Succinylcholine 200 mg/10 ml Inj IV ONE (09:55)
[2017-06-27] MEDS ORDERED: Rocuronium 10 mg/ml (5 ml) ONE (10:55)
[2017-06-27] MEDS ORDERED: Midazolam 2 MG/2 ML VIAL ONE (10:58)
[2017-06-27] MEDS ORDERED: Propofol 10 mg/ml 1,000 MG/100 ML VIAL ONE (11:14)
[2017-06-27] MEDS: Propofol 10 mg/ml 1,000 MG/100 ML VIAL IV PRN ×2 (11:21→21:40)
[2017-06-27] MEDS: Dexmedetomidine 400mcg/100mL 400 MCG/100 ML BOTTLE IV PRN (12:52)
--- NOTE | 2017-06-27 12:53 | CP.CCUPN ---
CCU Subjective - Physician Review Subjective (Free Text): Patient seen and examined at bedside. Patient is agitated and delirious this morning. Denies chest pain, shortness of breath, nausea, vomiting, diarrhea, fever, chills. CCU Objective - Vital Signs / Intake & Output Vital Signs (Last 4 hours): Vital Signs Temp Pulse Resp BP Pulse Ox 06/27/17 12:42 98.0 F 73 13 124/66 06/27/17 09:51 98 F 75 16 138/77 100 Intake and Output (Last 8hrs): Intake & Output 06/26/17 06/27/17 06/27/17 22:59 06:59 14:59 Intake Total 1500 0 Output Total 1600 Balance -100 0 Intake: IV 1200 Left Forearm 1200 Oral 300 Blood Product 0 Red Blood Cells Cpd As1 0 Lr Unit [id number] Output: Urine 1600 Urine, Voided 1600 Other: # Bowel Movements 0 - Physical Exam Head: Positive for: Atraumatic, Normocephalic Pupils: Positive for: PERRL Extroacular Muscles: Positive for: EOMI Conjunctiva: Positive for: Normal Mouth: Positive for: Moist Mucous Membranes Respiratory/Chest: Positive for: Clear to Auscultation, Good Air Exchange. Negative for: Respiratory Distress, Accessory Muscle Use Cardiovascular: Positive for: Regular Rate and Rhythm, Normal S1, S2. Negative for: Murmurs Abdomen: Positive for: Normal Bowel Sounds. Negative for: Tenderness, Distention, Peritoneal Signs Upper Extremity: Positive for: Normal Inspection. Negative for: Cyanosis, Edema Lower Extremity: Positive for: Normal Inspection. Negative for: Edema Neurological: Positive for: GCS=15, CN II-XII Intact, Speech Normal Skin: Positive for: Warm, Dry, Pale. Negative for: Rashes Psychiatric: Positive for: Alert, Oriented x 3, Normal Insight, Normal Concentration - Medications Active Medications: Active Medications Generic Name Dose Route Start Last Admin Trade Name Freq PRN Reason Stop Dose Admin Diphenhydramine HCl 25 mg 06/27/17 00:26 06/27/17 06:21 Benadryl IVP 25 mg Q6 PRN Administration Allergy symptoms Haloperidol Lactate 5 mg 06/27/17 00:24 06/27/17 06:19 Haldol IVP 5 mg Q6 PRN Administration Agitation Protocol Hydralazine HCl 10 mg 06/25/17 03:32 06/26/17 22:08 Apresoline IVP 10 mg Q6 PRN Administration Systolic Blood Pressure > 165 Metronidazole 500 mg in 100 mls @ 100 mls/hr 06/24/17 23:45 06/25/17 08:44 Flagyl IVPB 100 mls/hr Q8 NINO Administration Protocol Pantoprazole Sodium 40 mg in 100 mls @ 20 mls/hr 06/25/17 03:45 06/27/17 01: 08 Protonix 40mg Ivpb IVPB 20 mls/hr .Q5H [facility]INO Administration Sodium Chloride 1,000 mls @ 100 mls/hr 06/26/17 09:45 06/26/17 10:21 Sodium Chloride 0.9% IV 100 mls/hr .Q10H [facility] Administration Propofol 1,000 mg in 100 mls @ 2.722 mls/hr 06/27/17 11:14 06/27/17 11:21 Diprivan IV 5 mcg/kg/min .Q24H PRN 2.722 mls/hr TITRATE PER MD ORDER Administration Protocol 5 MCG/KG/MIN Dexmedetomidine HCl 400 mcg in 100 mls @ 4.536 mls/hr 06/27/17 12:20 Precedex 400mcg/100ml IV .Q22H3M PRN Agitation Protocol 0.2 MCG/KG/HR Insulin Human Lispro 0 units 06/25/17 00:00 06/27/17 06:27 Humalog Med SC Not Given Q6 [facility] Protocol Lorazepam 1 mg 06/27/17 00:26 06/27/17 06:20 Ativan IVP 1 mg Q6H PRN Administration Anxiety Protocol Morphine Sulfate 2 mg 06/26/17 07:10 06/27/17 09:11 Morphine IVP 2 mg Q4 PRN Administration Pain, severe (8-10) Nicotine 1 patch 06/26/17 10:00 06/26/17 10:23 Nicoderm Cq TD 1 patch DAILY [facility] Administration Ondansetron HCl 4 mg 06/24/17 23:46 Zofran Inj IVP Q4H PRN Nausea/Vomiting Quetiapine Fumarate 50 mg 06/27/17 12:45 Seroquel PO BID N[facility] Protocol Quetiapine Fumarate 150 mg 06/27/17 12:45 Seroquel PO HS [facility] Protocol - Patient Studies Lab Studies: Microbiology Studies 06/25/17 04:00 Urine Culture - Final Urine,Clean Catch No Growth (<1,000 CFU/ML) Lab Studies 06/27/17 06/27/17 06/27/17 Range/Units 11:58 08:00 08:00 WBC (4.5-11.0) 10^3/ul RBC (3.5-6.1) 10^6/uL Hgb (14.0-18.0) g/dL Hct (42.0-52.0) % MCV (80.0-105.0) fl MCH (25.0-35.0) pg MCHC (31.0-37.0) g/dl RDW (11.5-14.5) % Plt Count (120.0-450.0) 10^3/uL MPV (7.0-11.0) fl PT 14.1 H (9.4-12.5) SECONDS INR 1.22 H (0.93-1.08) Sodium 143 (132-148) mmol/L Potassium 4.5 (3.6-5.0) mmol/L Chloride 110 H (98-107) mmol/L Carbon Dioxide 26 (21-33) mmol/L Anion Gap 12 (10-20) BUN 36 H (7-21) mg/dL Creatinine 1.4 (0.8-1.5) mg/dl Est GFR ( Amer) > 60 Est GFR (Non-Af Amer) 52 POC Glucose (mg/dL) 95 (65-110) mg/dL Random Glucose 120 H (70-110) mg/dL Calcium 8.8 (8.4-10.5) mg/dL Total Bilirubin 0.6 (0.2-1.3) mg/dL AST 413 H D (17-59) U/L ALT 866 H (7-56) U/L Alkaline Phosphatase 83 (38-126) U/L Total Protein 5.1 L (5.8-8.3) g/dL Albumin 2.7 L (3.0-4.8) g/dL Globulin 2.4 gm/dL Albumin/Globulin Ratio 1.1 (1.1-1.8) RBC Folate (>280) ng/mL RBC Blood Type Antibody Screen Crossmatch BBK History Checked 06/27/17 06/27/17 06/26/17 Range/Units 08:00 00:15 17:45 WBC 8.1 D 10.4 (4.5-11.0) 10^3/ul RBC 3.13 L 3.44 L (3.5-6.1) 10^6/uL Hgb 7.9 L 8.7 L (14.0-18.0) g/dL Hct 24.1 L 26.3 L (42.0-52.0) % MCV 77.0 L 76.5 L (80.0-105.0) fl MCH 25.2 25.3 (25.0-35.0) pg MCHC 32.8 33.1 (31.0-37.0) g/dl RDW 20.8 H 20.3 H (11.5-14.5) % Plt Count 153 149 (120.0-450.0) 10^3/uL MPV 9.5 9.0 (7.0-11.0) fl PT (9.4-12.5) SECONDS INR (0.93-1.08) Sodium (132-148) mmol/L Potassium (3.6-5.0) mmol/L Chloride (98-107) mmol/L Carbon Dioxide (21-33) mmol/L Anion Gap (10-20) BUN (7-21) mg/dL Creatinine (0.8-1.5) mg/dl Est GFR ( Amer) Est GFR (Non-Af Amer) POC Glucose (mg/dL) 195 H (65-110) mg/dL Random Glucose (70-110) mg/dL Calcium (8.4-10.5) mg/dL Total Bilirubin (0.2-1.3) mg/dL AST (17-59) U/L ALT (7-56) U/L Alkaline Phosphatase (38-126) U/L Total Protein (5.8-8.3) g/dL Albumin (3.0-4.8) g/dL Globulin gm/dL Albumin/Globulin Ratio (1.1-1.8) RBC Folate (>280) ng/mL RBC Blood Type Antibody Screen Crossmatch BBK History Checked 06/26/17 06/26/17 06/25/17 Range/Units 17:42 12:27 07:35 WBC (4.5-11.0) 10^3/ul RBC (3.5-6.1) 10^6/uL Hgb (14.0-18.0) g/dL Hct (42.0-52.0) % MCV (80.0-105.0) fl MCH (25.0-35.0) pg MCHC (31.0-37.0) g/dl RDW (11.5-14.5) % Plt Count (120.0-450.0) 10^3/uL MPV (7.0-11.0) fl PT (9.4-12.5) SECONDS INR (0.93-1.08) Sodium (132-148) mmol/L Potassium (3.6-5.0) mmol/L Chloride (98-107) mmol/L Carbon Dioxide (21-33) mmol/L Anion Gap (10-20) BUN (7-21) mg/dL Creatinine (0.8-1.5) mg/dl Est GFR ( Amer) Est GFR (Non-Af Amer) POC Glucose (mg/dL) 106 165 H (65-110) mg/dL Random Glucose (70-110) mg/dL Calcium (8.4-10.5) mg/dL Total Bilirubin (0.2-1.3) mg/dL AST (17-59) U/L ALT (7-56) U/L Alkaline Phosphatase (38-126) U/L Total Protein (5.8-8.3) g/dL Albumin (3.0-4.8) g/dL Globulin gm/dL Albumin/Globulin Ratio (1.1-1.8) RBC Folate (>280) ng/mL RBC Blood Type A POSITIVE Antibody Screen Negative Crossmatch See Detail BBK History Checked Patient has bt 06/25/17 Range/Units 05:00 WBC (4.5-11.0) 10^3/ul RBC (3.5-6.1) 10^6/uL Hgb (14.0-18.0) g/dL Hct (42.0-52.0) % MCV (80.0-105.0) fl MCH (25.0-35.0) pg MCHC (31.0-37.0) g/dl RDW (11.5-14.5) % Plt Count (120.0-450.0) 10^3/uL MPV (7.0-11.0) fl PT (9.4-12.5) SECONDS INR (0.93-1.08) Sodium (132-148) mmol/L Potassium (3.6-5.0) mmol/L Chloride (98-107) mmol/L Carbon Dioxide (21-33) mmol/L Anion Gap (10-20) BUN (7-21) mg/dL Creatinine (0.8-1.5) mg/dl Est GFR ( Amer) Est GFR (Non-Af Amer) POC Glucose (mg/dL) (65-110) mg/dL Random Glucose (70-110) mg/dL Calcium (8.4-10.5) mg/dL Total Bilirubin (0.2-1.3) mg/dL AST (17-59) U/L ALT (7-56) U/L Alkaline Phosphatase (38-126) U/L Total Protein (5.8-8.3) g/dL Albumin (3.0-4.8) g/dL Globulin gm/dL Albumin/Globulin Ratio (1.1-1.8) RBC Folate 1991 (>280) ng/mL RBC Blood Type Antibody Screen Crossmatch BBK History Checked Laboratory Results - last 24 hr 06/25/17 06/25/17 06/26/17 05:00 07:35 12:27 WBC RBC Hgb Hct MCV MCH MCHC RDW Plt Count MPV PT INR Sodium Potassium Chloride Carbon Dioxide Anion Gap BUN Creatinine Est GFR ( Amer) Est GFR (Non-Af Amer) POC Glucose (mg/dL) 165 H Random Glucose Calcium Total Bilirubin AST ALT Alkaline Phosphatase Total Protein Albumin Globulin Albumin/Globulin Ratio RBC Folate 1991 Blood Type A POSITIVE Antibody Screen Negative Crossmatch See Detail BBK History Checked Patient has bt 06/26/17 06/26/17 06/27/17 17:42 17:45 00:15 WBC 10.4 RBC 3.44 L Hgb 8.7 L Hct 26.3 L MCV 76.5 L MCH 25.3 MCHC 33.1 RDW 20.3 H Plt Count 149 MPV 9.0 PT INR Sodium Potassium Chloride Carbon Dioxide Anion Gap BUN Creatinine Est GFR ( Amer) Est GFR (Non-Af Amer) POC Glucose (mg/dL) 106 195 H Random Glucose Calcium Total Bilirubin AST ALT Alkaline Phosphatase Total Protein Albumin Globulin Albumin/Globulin Ratio RBC Folate Blood Type Antibody Screen Crossmatch BBK History Checked 06/27/17 06/27/17 06/27/17 08:00 08:00 08:00 WBC 8.1 D RBC 3.13 L Hgb 7.9 L Hct 24.1 L MCV 77.0 L MCH 25.2 MCHC 32.8 RDW 20.8 H Plt Count 153 MPV 9.5 PT 14.1 H INR 1.22 H Sodium 143 Potassium 4.5 Chloride 110 H Carbon Dioxide 26 Anion Gap 12 BUN 36 H Creatinine 1.4 Est GFR ( Amer) > 60 Est GFR (Non-Af Amer) 52 POC Glucose (mg/dL) Random Glucose 120 H Calcium 8.8 Total Bilirubin 0.6 AST 413 H D ALT 866 H Alkaline Phosphatase 83 Total Protein 5.1 L Albumin 2.7 L Globulin 2.4 Albumin/Globulin Ratio 1.1 RBC Folate Blood Type Antibody Screen Crossmatch BBK History Checked 06/27/17 11:58 WBC RBC Hgb Hct MCV MCH MCHC RDW Plt Count MPV PT INR Sodium Potassium Chloride Carbon Dioxide Anion Gap BUN Creatinine Est GFR ( Amer) Est GFR (Non-Af Amer) POC Glucose (mg/dL) 95 Random Glucose Calcium Total Bilirubin AST ALT Alkaline Phosphatase Total Protein Albumin Globulin Albumin/Globulin Ratio RBC Folate Blood Type Antibody Screen Crossmatch BBK History Checked Fingerstick Blood Sugar Results: 108 Critical Care Progress Note - Nutrition Nutrition: Nutrition Category Date Time Status Liquid Diet [DIET] Diets 06/26/17 Breakfast Ordered Assessment/Plan - Assessment and Plan (Free Text) Plan: 56 y/o M with PMH of bleeding duodenal ulcer s/p hemoclip, CAD s/p CABG, PAD s/ p R SFA stent, HLD, DM2, lumbosacral radiculopathy, tobacco use and chronic opioid dependence presents with lower GI bleed. Patient received 2 units PRBCs this morning and had EGD and colonoscopy. EGD was unremarkable, but colonoscopy showed diffuse blood. Patient will undergo bleeding scan today. Patient is s/p 7 units PRBCs, 4 units of FFP, and 1 unit of platelets. Patient will be monitored in the ICU. Neuro Sedated on precedex and propofol Cardio Hemodynamically stable Continue NS @100 Maintain MAP >65 Pulm Intubated VAP Bundle maintain SaO2 > 90% GI IV protonix Hg 7.9, given 2 units PRBCS Recheck Hg this afternoon Bleeding scan ordered Acute transaminitis likely secondary to shock Trend LFTs Zofran Flagyl on hold GI consulted Heme/ID Hg stable Afebrile, no leukocytosis Cultures negative Maintain normothermia Nephro DIEUDONNE resolved Continue IVF Monitor electrolytes, replenish as needed Maintain euvolemia Endo ISS Maintain euglycemia Psych Haldol, Benadryl, and Ativan as per psychiatrist Likely opioid withdrawal Sami, PGY-2
--- NOTE | 2017-06-27 13:27 | CP.PCM.PN ---
<ChrisBryant - Last Filed: 06/27/17 13:28> Subjective - Date & Time of Evaluation Date of Evaluation: 06/27/17 Time of Evaluation: 13:19 - Subjective Subjective: Medicine progress note for Dr. Meena Kline Patient seen and examined at bedside, patient is in restraints. Patient has been agitated and upset all night. GI team Dr. Souza and Dr. Kar Cesar were all at bedside, patient was too agitated to elicit history. Objective - Vital Signs/Intake and Output Vital Signs (last 24 hours): Temp Pulse Resp BP Pulse Ox 98.0 F 73 13 124/66 100 06/27/17 12:42 06/27/17 12:42 06/27/17 12:42 06/27/17 12:42 06/27/17 09:51 Intake and Output: 06/27/17 06/27/17 06:59 18:59 Intake Total 1500 0 Output Total 1600 Balance -100 0 - Medications Medications: Current Medications Diphenhydramine HCl (Benadryl) 25 mg IVP Q6 PRN PRN Reason: Allergy symptoms Last Admin: 06/27/17 06:21 Dose: 25 mg Haloperidol Lactate (Haldol) 5 mg IVP Q6 PRN; Protocol PRN Reason: Agitation Last Admin: 06/27/17 06:19 Dose: 5 mg Hydralazine HCl (Apresoline) 10 mg IVP Q6 PRN PRN Reason: Systolic Blood Pressure > 165 Last Admin: 06/26/17 22:08 Dose: 10 mg Metronidazole (Flagyl) 500 mg in 100 mls @ 100 mls/hr IVPB Q8 NINO PRN Reason: Protocol Last Admin: 06/25/17 08:44 Dose: 100 mls/hr Pantoprazole Sodium (Protonix 40mg Ivpb) 40 mg in 100 mls @ 20 mls/hr IVPB .Q5H NINO Last Admin: 06/27/17 01:08 Dose: 20 mls/hr Sodium Chloride (Sodium Chloride 0.9%) 1,000 mls @ 100 mls/hr IV .Q10H NINO Last Admin: 06/26/17 10:21 Dose: 100 mls/hr Propofol (Diprivan) 1,000 mg in 100 mls @ 2.722 mls/hr IV .Q24H PRN; Protocol; 5 MCG/KG/MIN PRN Reason: TITRATE PER MD ORDER Last Admin: 06/27/17 11:21 Dose: 5 mcg/kg/min, 2.722 mls/hr Dexmedetomidine HCl (Precedex 400mcg/100ml) 400 mcg in 100 mls @ 4.536 mls/hr IV .Q22H3M PRN; Protocol; 0.2 MCG/KG/HR PRN Reason: Agitation Last Admin: 06/27/17 12:52 Dose: 0.2 mcg/kg/hr, 4.536 mls/hr Insulin Human Lispro (Humalog Med) 0 units SC Q6 NINO PRN Reason: Protocol Last Admin: 06/27/17 06:27 Dose: Not Given Lorazepam (Ativan) 1 mg IVP Q6H PRN; Protocol PRN Reason: Anxiety Last Admin: 06/27/17 06:20 Dose: 1 mg Morphine Sulfate (Morphine) 2 mg IVP Q4 PRN PRN Reason: Pain, severe (8-10) Last Admin: 06/27/17 09:11 Dose: 2 mg Nicotine (Nicoderm Cq) 1 patch TD DAILY NINO Last Admin: 06/26/17 10:23 Dose: 1 patch Ondansetron HCl (Zofran Inj) 4 mg IVP Q4H PRN PRN Reason: Nausea/Vomiting Quetiapine Fumarate (Seroquel) 50 mg PO BID NINO PRN Reason: Protocol Quetiapine Fumarate (Seroquel) 150 mg PO HS NINO PRN Reason: Protocol - Labs Labs: 06/27/17 08:00 06/27/17 08:00 PT 14.1 SECONDS (9.4-12.5) H 06/27/17 08:00 INR 1.22 (0.93-1.08) H 06/27/17 08:00 APTT 25.0 Seconds (25.1-36.5) L 06/25/17 15:00 - Constitutional Appears: Well - Head Exam Head Exam: ATRAUMATIC, NORMAL INSPECTION, NORMOCEPHALIC - Eye Exam Eye Exam: EOMI, Normal appearance, PERRL Pupil Exam: NORMAL ACCOMODATION, PERRL - ENT Exam ENT Exam: Mucous Membranes Moist, Normal Exam - Neck Exam Neck Exam: Full ROM, Normal Inspection. absent: Lymphadenopathy - Respiratory Exam Respiratory Exam: Clear to Ausculation Bilateral, NORMAL BREATHING PATTERN - Cardiovascular Exam Cardiovascular Exam: REGULAR RHYTHM, +S1, +S2. absent: Murmur - GI/Abdominal Exam GI & Abdominal Exam: Soft, Normal Bowel Sounds. absent: Tenderness - Rectal Exam Rectal Exam: Bloody Stool, NORMAL INSPECTION - Extremities Exam Extremities Exam: Full ROM, Normal Capillary Refill, Normal Inspection. absent : Joint Swelling, Pedal Edema - Back Exam Back Exam: NORMAL INSPECTION - Neurological Exam Neurological Exam: Alert, Awake, CN II-XII Intact, Normal Gait, Oriented x3 - Psychiatric Exam Psychiatric exam: Normal Affect, Normal Mood - Skin Skin Exam: Dry, Intact, Normal Color, Warm Assessment and Plan - Assessment and Plan (Free Text) Assessment: Assessment and Plan 56 y/o M with PMH of bleeding duodenal ulcer s/p hemoclip w/ Dr. Coates (01/2017) , CAD s/p CABG, PAD s/p R SFA stent, HLD, DM2, lumbosacral radiculopathy, tobacco use and chronic opioid dependence presents with non-bloody and non- bilious nausea/vomiting x3 days and 2 dark bowel movements on day of presentation. H/H is stable and vitals are stable. Patient is noted to be anemic but is similar to prior visits. INR is supratherapeutic. BUN/Cr ratio elevated and hints toward possible UGIB. Hyperkalemia is also noted. Nausea and Vomiting with Melena - no longer vomiting and is hemodynamically stable - Hgb this AM was 7.9, down from yesterday - PTX IVP 40mg Q12 - zofran prn - NS 2L given, cont @ 125 - given hx of anemia, will order anemia workup Iron: Low, TIBC: normal, % Sat: low - stool cdiff and cultures ordered - started on cipro and flagyl empirically - Orthostatics ordered for near syncope - GI on consult: Dr. Souza EGD this am showed nodule in esophagus, biopsied; Z-line regular 40 cm from the incisors; gastritis, gastitis biopsied, granular mucosa in the duodenal bulb; normal 2nd part of duodenum; one duodenal ulcer with clean base. Recs: NPO, Protonix 8 mg/hr IV, Await path results, Will repeat upper tomorrow, flex sigmoidoscopy to follow Keep tubed Supratherapeutic INR - hold coumadin and other anticoagulants - monitor INR - Dr. Molina on consult, Dr. Joseph covering, appreciate recommendations DIEUDONNE - Resolved - EKG showed sinus rhythm w/ short ID @ 100 bpm - urine lytes ordered to calculate FeNa and FeUrea: still pending - monitor UOP: 1600 mL Hyperkalemia - Resolved - Ca gluconate given on admission - Insulin 10u regular given on admission Hx CAD and PAD - cont metoprolol Hx DM2 - RISS Medium - Accuchecks - Advanced to liquid diet Hx tobacco use - nicotine patch Hx opioid dependency - monitor for signs of withdrawal <RangasamyAjbeana - Last Filed: 06/27/17 15:06> Objective - Vital Signs/Intake and Output Vital Signs (last 24 hours): Temp Pulse Resp BP Pulse Ox 97.9 F 77 16 152/73 H 100 06/27/17 13:39 06/27/17 13:39 06/27/17 13:39 06/27/17 13:39 06/27/17 13:30 Intake and Output: 06/27/17 06/27/17 06:59 18:59 Intake Total 1500 0 Output Total 1600 Balance -100 0 - Medications Medications: Current Medications Diphenhydramine HCl (Benadryl) 25 mg IVP Q6 PRN PRN Reason: Allergy symptoms Last Admin: 06/27/17 06:21 Dose: 25 mg Haloperidol Lactate (Haldol) 5 mg IVP Q6 PRN; Protocol PRN Reason: Agitation Last Admin: 06/27/17 06:19 Dose: 5 mg Hydralazine HCl (Apresoline) 10 mg IVP Q6 PRN PRN Reason: Systolic Blood Pressure > 165 Last Admin: 06/26/17 22:08 Dose: 10 mg Metronidazole (Flagyl) 500 mg in 100 mls @ 100 mls/hr IVPB Q8 NINO PRN Reason: Protocol Last Admin: 06/25/17 08:44 Dose: 100 mls/hr Pantoprazole Sodium (Protonix 40mg Ivpb) 40 mg in 100 mls @ 20 mls/hr IVPB .Q5H NINO Last Admin: 06/27/17 01:08 Dose: 20 mls/hr Sodium Chloride (Sodium Chloride 0.9%) 1,000 mls @ 100 mls/hr IV .Q10H NINO Last Admin: 06/26/17 10:21 Dose: 100 mls/hr Propofol (Diprivan) 1,000 mg in 100 mls @ 2.722 mls/hr IV .Q24H PRN; Protocol; 5 MCG/KG/MIN PRN Reason: TITRATE PER MD ORDER Last Admin: 06/27/17 11:21 Dose: 5 mcg/kg/min, 2.722 mls/hr Dexmedetomidine HCl (Precedex 400mcg/100ml) 400 mcg in 100 mls @ 4.536 mls/hr IV .Q22H3M PRN; Protocol; 0.2 MCG/KG/HR PRN Reason: Agitation Last Admin: 06/27/17 12:52 Dose: 0.2 mcg/kg/hr, 4.536 mls/hr Insulin Human Lispro (Humalog Med) 0 units SC Q6 NINO PRN Reason: Protocol Last Admin: 06/27/17 06:27 Dose: Not Given Lorazepam (Ativan) 1 mg IVP Q6H PRN; Protocol PRN Reason: Anxiety Last Admin: 06/27/17 06:20 Dose: 1 mg Morphine Sulfate (Morphine) 2 mg IVP Q4 PRN PRN Reason: Pain, severe (8-10) Last Admin: 06/27/17 09:11 Dose: 2 mg Nicotine (Nicoderm Cq) 1 patch TD DAILY [facility] Last Admin: 06/26/17 10:23 Dose: 1 patch Ondansetron HCl (Zofran Inj) 4 mg IVP Q4H PRN PRN Reason: Nausea/Vomiting Quetiapine Fumarate (Seroquel) 50 mg PO BID NINO PRN Reason: Protocol Quetiapine Fumarate (Seroquel) 150 mg PO HS NINO PRN Reason: Protocol - Labs Labs: 06/27/17 08:00 06/27/17 08:00 PT 14.1 SECONDS (9.4-12.5) H 06/27/17 08:00 INR 1.22 (0.93-1.08) H 06/27/17 08:00 APTT 25.0 Seconds (25.1-36.5) L 06/25/17 15:00 Attending/Attestation - Attestation I have personally seen and examined this patient.: Yes I have fully participated in the care of the patient.: Yes I have reviewed all pertinent clinical information, including history, physical exam and plan: Yes Notes (Text): 06/27/17 14:48 attending note; Patient seen and examined with resident in ICU early this morning. Patient was agitated. Confused. Not following commands. GI evaluation appreciated. Plan for EGD and colonoscopy. Patient was sedated with IV Ativan. consent obtained from patient's over the phone. Patient is a 56-year-old male with PMH of bleeding duodenal ulcer s/p hemoclip, CAD s/p CABG, peripheral arterial disease s/p R SFA stent, hyperlipidemia, diabetes, lumbosacral radiculopathy, tobacco use and chronic opioid dependence presents with lower GI bleed. Patient received 5 units PRBCs, 4 FFP's, 1 platelet since admission. hypercoagulable status secondary to Coumadin. History of coronary artery disease; cardiology evaluation appreciated. Currently aspirin, Plavix and Coumadin on hold. INR is 1.2. Status post EGD today. Showed Gastritis and the duodenal ulcer with clean base. Sigmoidoscopy showed diffuse blood. on protonix drip. Patient is currently intubated. Bleeding scan ordered. acute renal insufficiency; resolving. Mostly secondary to GI bleed/volume loss/ prerenal state. Psychiatric evaluation appreciated. continue morphine and NicoDerm patch to avoid withdrawal symptoms. continue Precedex and propofol for sedation. monitor the patient closely in ICU. 06/27/17 15:05
--- NOTE | 2017-06-27 13:49 | RAD ---
HISTORY: NGT placement, ET tube placement COMPARISON: Comparison is made with 06/24/2017 FINDINGS: LUNGS: The ET tube is seen at appropriate position. Mild pulmonary vascular congestion is noted. PLEURA: No evidence of significant pleural effusion or pneumothorax. CARDIOVASCULAR: Cardiomegaly and post cardiac surgery changes are again noted. OSSEOUS STRUCTURES: No significant abnormalities. VISUALIZED UPPER ABDOMEN: The NG tube is seen extending to the left upper abdomen. OTHER FINDINGS: None. IMPRESSION: Appropriate position of the ETT and NG tube. Mild pulmonary vascular congestion.
--- NOTE | 2017-06-27 14:43 | CON ---
DATE: HISTORY OF PRESENT ILLNESS: The patient is a 56-year-old white male with a history of opiate use disorder, likely personality disorder, who is being treated in the ICU after he presented to the ER with complaints of nausea and vomiting for 3 days as well as melena. The patient has been very difficult in the ICU and extremely difficult to redirect. There are multiple issues going on at this time regarding management of this patient and his presenting symptoms. The patient has repeatedly reported that his pain is not being addressed and that he continues to have pain. Records indicate that his confirmed that he was being prescribed oxycodone and fentanyl patch by an outpatient doctor prior to his admission to the ICU. The patient has been requesting these medications; however, has only been receiving Dilaudid and morphine IV, presumably due to fear of the patient having a GI bleed leading to his presentation with very low hemoglobin and hematocrit as well as a little bit melena. In addition, the patient has been abusing his pain medications and taking more than prescribed, further increasing his tolerance to whatever pain medications that are given to him in the ICU. Regardless, it is unclear why the patient was not given the fentanyl patch at the very least to accommodate some of his pain complaint. The patient also has anger issues. He is also delirious and exhibits antisocial traits and it does not help that the patient is n.p.o. and quite hungry. The patient also used to smoking marijuana on a daily basis and withdrawal from this can also lead to issues with mood control, thought the prevailing causes of his irritability is opiate withdrawal. Multiple interventions were tried. Geodon was given to the patient on 2 occasions on 06/26/2017 and 06/27/2017, 20 mg and this was not effective at all for the patient. This provider started the patient on Haldol 2 mg and Ativan 0.5 mg conservatively p.r.n. for his agitation as I was concerned patient is ill and has multiple medical issues as was the fact that he is on a lot of opiates. However, this combination was very ineffective. So, Haldol was increased to Haldol 5 mg, Ativan 1 mg, Benadryl 25 mg q. 6 p.r.n. for agitation, which appeared to be the most effective combination for his agitation, though only a temporizing measure. In addition, medical team switched out morphine for oxycodone 2 mg IV q. 6 was changed to 2 mg IV q. 4 to accommodate the patient's extra use of oxycodone at home; however, the patient was still complaining about pain and Dilaudid was also started at 2 mg which he received at 7:00 p.m. and 12:00 midnight yesterday and today. The patient has also received multiple doses of Ativan, but not excessive doses. It appears that his main cause of delirium would be his acute medical issues, opiate withdrawal and marijuana withdrawal. The amount of benzos given to him would not be contributing to the presentation consistent with benzo delirium. I met with the nursing staff this morning as well as resident caring for the patient and reviewed the patient's presentation of multiple factors, which were summarized above including the fact that he is in pain. He overuses his pain medications. He is not getting the pain medications that he used to taking at home. He is antisocial. He has anger issues. He is delirious. He is also hungry, hyperglycemic, and then withdrawing from marijuana as well. The patient is not schizophrenic. Does not appear to have that affecting his actions at this time; however, he is as noted quite difficult and irrational due to the aforementioned combination of stressors. It is worth noting that he has been screaming and yelling, pulling IV line, verbally aggressive, and throwing items in his room. At one point yesterday, ismael hager was called and polices were also called to the ICU due to the patient's behavior. He was extremely difficult to redirect. I met with the patient at bedside and he had just received p.r.n. Haldol, Benadryl, and Ativan and was deeply asleep . However, it does appear that according to nursing note, the patient woke up shortly thereafter and became agitated and confused and started screaming and pulling his lines again. Unclear why it indicates that medications administered at 6:00 a.m. were ineffective as the patient was during my visit around 7:45 a.m. Nonetheless, his fighting became worse, he was out of control and required additional 2 mg IV of Haldol. Ultimately, GI team prepped the patient for EGD and propofol was administered to the patient. Vital signs and labs were reviewed by this provider and hemoglobin and hematocrit appeared as still low, 7.9 and 24.1 respectively. AST is 413 and ALT is 866. AST showing some improvement, but however, ALT is worsening. Psychiatric medications include Haldol 5 mg IV q. 6 p.r.n. with Ativan 1 mg IV q. 6 p.r.n. as well as Benadryl 25 mg IV q. 6 p.r.n., to be given together for agitation p.r.n. Seroquel 25 mg p.o. b.i.d. and 100 mg p.o. at bedtime, morphine 2 mg IV q. 4 p.r.n. IMPRESSION: As noted above, the patient has severe opiate use disorder, likely cluster B trait. Unclear if it is antisocial versus borderline or combination of both. The patient has clearly impulse control issues, which are related to those diagnoses. He does not appear to be in a manic episode. He appears to be delirious and angry and withdrawing from opiates as well as marijuana. The main issues are his pain control and delirium. RECOMMENDATIONS: We will continue with Haldol 5, Ativan 1, Benadryl 25 q. 6 p.r.n. IV for agitation. We will increase Seroquel to 50 mg b.i.d. and 150 mg at bedtime. Again, the provider has to be conservative regarding this patient as he is a medically ill patient and a lot of his agitation is secondary to lack of pain control. I strongly recommend that the medical team consider duplicating the same medications he is taking at home if this is the medical possibility. If there are not any absolute contraindication, I would consider restarting oxycodone and fentanyl for the patient in lieu of morphine and Dilaudid, which clearly is not helping the patient and causing chaos in the ICU. Psychiatry can only do so much and cannot cause the patient to be unconscious so that he does not feel his pain any longer. His pain and withdrawal must be addressed. Specifically, if you address the pain, you will likely also would address the withdrawal. Psychiatry will continue to follow up with the patient and monitor his behavior, mental status, impulse control, possibility of harming himself or others during this delirium. As I discussed with resident this morning and nursing, the patient does not have capacity to sign out AMA. In addition, the patient has been compliant with lab draws thus far and he appeared to appreciate of his medical presentation despite constantly insulting his care yesterday. Dr. Hu will continue to follow up with the patient in the a.m. and will be thoroughly appraised of this provider's recommendation. Nestor Mcqueen MD
--- NOTE | 2017-06-27 15:51 | CP.PCM.PN ---
Subjective - Date & Time of Evaluation Date of Evaluation: 06/27/17 Time of Evaluation: 10:00 - Subjective Subjective: Patient seen and examined, s/p EGD and Sigmoidoscopy, currently intubated, sedated. Objective - Vital Signs/Intake and Output Vital Signs (last 24 hours): Temp Pulse Resp BP Pulse Ox 97.8 F 63 18 138/66 100 06/27/17 15:41 06/27/17 15:41 06/27/17 15:41 06/27/17 15:41 06/27/17 13:30 Intake and Output: 06/27/17 06/27/17 06:59 18:59 Intake Total 1500 325 Output Total 1600 Balance -100 325 - Medications Medications: Current Medications Diphenhydramine HCl (Benadryl) 25 mg IVP Q6 PRN PRN Reason: Allergy symptoms Last Admin: 06/27/17 06:21 Dose: 25 mg Haloperidol Lactate (Haldol) 5 mg IVP Q6 PRN; Protocol PRN Reason: Agitation Last Admin: 06/27/17 06:19 Dose: 5 mg Hydralazine HCl (Apresoline) 10 mg IVP Q6 PRN PRN Reason: Systolic Blood Pressure > 165 Last Admin: 06/26/17 22:08 Dose: 10 mg Metronidazole (Flagyl) 500 mg in 100 mls @ 100 mls/hr IVPB Q8 NINO PRN Reason: Protocol Last Admin: 06/25/17 08:44 Dose: 100 mls/hr Pantoprazole Sodium (Protonix 40mg Ivpb) 40 mg in 100 mls @ 20 mls/hr IVPB .Q5H NNIO Last Admin: 06/27/17 01:08 Dose: 20 mls/hr Sodium Chloride (Sodium Chloride 0.9%) 1,000 mls @ 100 mls/hr IV .Q10H NINO Last Admin: 06/26/17 10:21 Dose: 100 mls/hr Propofol (Diprivan) 1,000 mg in 100 mls @ 2.722 mls/hr IV .Q24H PRN; Protocol; 5 MCG/KG/MIN PRN Reason: TITRATE PER MD ORDER Last Admin: 06/27/17 11:21 Dose: 5 mcg/kg/min, 2.722 mls/hr Dexmedetomidine HCl (Precedex 400mcg/100ml) 400 mcg in 100 mls @ 4.536 mls/hr IV .Q22H3M PRN; Protocol; 0.2 MCG/KG/HR PRN Reason: Agitation Last Admin: 06/27/17 12:52 Dose: 0.2 mcg/kg/hr, 4.536 mls/hr Insulin Human Lispro (Humalog Med) 0 units SC Q6 NINO PRN Reason: Protocol Last Admin: 06/27/17 06:27 Dose: Not Given Lorazepam (Ativan) 1 mg IVP Q6H PRN; Protocol PRN Reason: Anxiety Last Admin: 06/27/17 06:20 Dose: 1 mg Morphine Sulfate (Morphine) 2 mg IVP Q4 PRN PRN Reason: Pain, severe (8-10) Last Admin: 06/27/17 09:11 Dose: 2 mg Nicotine (Nicoderm Cq) 1 patch TD DAILY NINO Last Admin: 06/26/17 10:23 Dose: 1 patch Ondansetron HCl (Zofran Inj) 4 mg IVP Q4H PRN PRN Reason: Nausea/Vomiting Quetiapine Fumarate (Seroquel) 50 mg PO BID NINO PRN Reason: Protocol Quetiapine Fumarate (Seroquel) 150 mg PO HS NINO PRN Reason: Protocol - Labs Labs: 06/27/17 08:00 06/27/17 08:00 PT 14.1 SECONDS (9.4-12.5) H 06/27/17 08:00 INR 1.22 (0.93-1.08) H 06/27/17 08:00 APTT 25.0 Seconds (25.1-36.5) L 06/25/17 15:00 - Constitutional Appears: Non-toxic, No Acute Distress - Head Exam Head Exam: NORMAL INSPECTION - Eye Exam Eye Exam: Normal appearance - ENT Exam ENT Exam: Mucous Membranes Moist - Respiratory Exam Respiratory Exam: Clear to Ausculation Bilateral, NORMAL BREATHING PATTERN - Cardiovascular Exam Cardiovascular Exam: REGULAR RHYTHM, +S1, +S2 - GI/Abdominal Exam GI & Abdominal Exam: Soft, Normal Bowel Sounds - Extremities Exam Extremities Exam: Normal Inspection - Neurological Exam Additional comments: intubated, sedated Assessment and Plan - Assessment and Plan (Free Text) Assessment: Patient is 56 y/o M with PMH of bleeding duodenal ulcer s/p hemoclip w/ Dr. Coates (01/2017), CAD s/p CABG, PAD s/p R SFA stent, HLD, DM2, lumbosacral radiculopathy, tobacco use and chronic opioid dependence admitted with melena, and acute GIB. Pt is s/p 6u PRBC, 4u FFP, 1u Platelets transfusion thus far, HH 7.9 this morning, received another unit PRBC. Pt is s/p EGD which showed non bleeding duodenal ulcer, and Sigmoidoscopy which showed fresh blood, unclear source of colonic bleeding. Pt is currently in NM bleeding scan. Afebrile, HD stable, comfortable. CXR with adequate ETT, NGT position. GI following Acute GIB CAD CAD s/p CABG PAD s/p SFA stent ARF DM Recommend: - cont with ventilatory support, low tidal vol ventilation, obtain ABG - follow up cultures - IVF hydration - q12hr CBC - maintain 2 large bore PIVs - follow up GI - transfuse another unit of PRBC, repeat HH - follow up bleeding scan, may need IR embolization - repeat colonoscopy tomorrow after bowel prep - surgical eval - NPO - PPI BID - Hold ASA, Plavix, coumadin - GI ppx - DVT ppx, SCDs - monitor in MICU critical care time 35 minutes
[2017-06-27] MEDS: Sodium Chloride 0.9% 1,000 ML IV SCH ×2 (16:49→21:59)
--- NOTE | 2017-06-27 17:12 | NM ---
PROCEDURE: Nuclear medicine gastrointestinal bleeding scan. HISTORY: active GI bleed COMPARISON: None available. TECHNIQUE: 4 cc of patient blood was withdrawn and mixed with 31 mCi of technetium ultra tagged. Images of the abdomen and pelvis were obtained in the anterior and posterior projection at 1 min intervals over a period of 120 min. FINDINGS: There is focal abnormal extravasation of tracer was observed at the distal rectum adjacent to the anal region suggestive of active bleeding. No other active GI bleeding noted in this study. . Physiologic activity was seen in the heart, liver, spleen and blood vessels. IMPRESSION: Focal accumulation of the radiotracer at the distal rectum suspicious for active bleeding. Otherwise negative study.
[2017-06-27] MEDS ORDERED: Iohexol 350 MG/100 ML VIAL ONE ×2 (18:30→18:56)
--- NOTE | 2017-06-27 19:06 | CP.PCM.CON ---
History of Present Illness - History of Present Illness History of Present Illness: Surgical consult: Dr. Ty Reason for consult: rectal bleeding, possible neoplasm CC: syncope and melena HPI: Patient is a 56 y/o male with sig pmhx of CAD s/p CABG, PAD s/p stent placement on ASA plavix and coumadin, as well as prior upper GI bleed currently intubated and sedated in ICU found to have positive bleeding scan in the distal rectal region today. Patient history obtained mainly from EMR as patient unable to answer questions. Patient was admitted after an apparent syncopal episode and multiple episodes of melena on 06/25/17. He has had prior duodenal ulcer bleeding requiring clip in 2017. Patient underwent EGD and flex sig today with GI. No active areas seen on upper endo but gross melena unable to be lavage seen on flex sig so procedure was aborted and plan to be reattempted on 06/28. Patient remains intubated post procedure due to overall clinical state. PMHX: CAD, PAD, DMII, opioid dependence PSHX: R SFA stent, evelia, L IHR, CABG, endoscopy and colonoscopy Social Hx: Tobacco 1 ppd x 40 years. ETOH use and opioid dependence Family: unobtainable at this time Review of Systems - Review of Systems Systems not reviewed;Unavailable: Intubated Past Patient History - Infectious Disease Hx of Infectious Diseases: None - Tetanus Immunizations Tetanus Immunization: Unknown - Past Social History Smoking Status: Heavy Smoker > 10 Cigarettes Daily - CARDIAC Hx Cardiac Disorders: Yes (cabg) Hx Peripheral Vascular Disease: Yes - PULMONARY Hx Chronic Obstructive Pulmonary Disease (COPD): Yes - NEUROLOGICAL Hx Neurological Disorder: No - HEENT Hx HEENT Problems: No - RENAL Hx Chronic Kidney Disease: No - ENDOCRINE/METABOLIC Hx Diabetes Mellitus Type 2: Yes - HEMATOLOGICAL/ONCOLOGICAL Hx Anemia: Yes - INTEGUMENTARY Hx Dermatological Problems: No - MUSCULOSKELETAL/RHEUMATOLOGICAL Hx Falls: No - GASTROINTESTINAL Hx Gall Bladder Disease: Yes - GENITOURINARY/GYNECOLOGICAL Hx Genitourinary Disorders: No - PSYCHIATRIC Hx Substance Use: Yes (Opiate dependance) - SURGICAL HISTORY Hx Cardiac Catheterization: Yes Hx Cholecystectomy: Yes Hx Coronary Stent: Yes Hx Open Heart Surgery: Yes - ANESTHESIA Hx Anesthesia Reactions: Yes (WAKES UP ANGRY) Hx Malignant Hyperthermia: No Meds Allergies/Adverse Reactions: Allergies Allergy/AdvReac Type Severity Reaction Status Date / Time levofloxacin [From Levaquin] Allergy Severe URTICARIA Verified 06/24/17 19:11 Penicillins Allergy Severe RASH Verified 06/24/17 19:11 - Medications Medications: Current Medications Diphenhydramine HCl (Benadryl) 25 mg IVP Q6 PRN PRN Reason: Allergy symptoms Last Admin: 06/27/17 06:21 Dose: 25 mg Haloperidol Lactate (Haldol) 5 mg IVP Q6 PRN; Protocol PRN Reason: Agitation Last Admin: 06/27/17 06:19 Dose: 5 mg Hydralazine HCl (Apresoline) 10 mg IVP Q6 PRN PRN Reason: Systolic Blood Pressure > 165 Last Admin: 06/26/17 22:08 Dose: 10 mg Metronidazole (Flagyl) 500 mg in 100 mls @ 100 mls/hr IVPB Q8 NINO PRN Reason: Protocol Last Admin: 06/25/17 08:44 Dose: 100 mls/hr Sodium Chloride (Sodium Chloride 0.9%) 1,000 mls @ 100 mls/hr IV .Q10H NINO Last Admin: 06/27/17 16:49 Dose: 100 mls/hr Propofol (Diprivan) 1,000 mg in 100 mls @ 2.722 mls/hr IV .Q24H PRN; Protocol; 5 MCG/KG/MIN PRN Reason: TITRATE PER MD ORDER Last Admin: 06/27/17 11:21 Dose: 5 mcg/kg/min, 2.722 mls/hr Dexmedetomidine HCl (Precedex 400mcg/100ml) 400 mcg in 100 mls @ 4.536 mls/hr IV .Q22H3M PRN; Protocol; 0.2 MCG/KG/HR PRN Reason: Agitation Last Admin: 06/27/17 12:52 Dose: 0.2 mcg/kg/hr, 4.536 mls/hr Insulin Human Lispro (Humalog Med) 0 units SC Q6 NINO PRN Reason: Protocol Last Admin: 06/27/17 16:46 Dose: Not Given Lorazepam (Ativan) 1 mg IVP Q6H PRN; Protocol PRN Reason: Anxiety Last Admin: 06/27/17 06:20 Dose: 1 mg Morphine Sulfate (Morphine) 2 mg IVP Q4 NINO Nicotine (Nicoderm Cq) 1 patch TD DAILY NINO Last Admin: 06/26/17 10:23 Dose: 1 patch Ondansetron HCl (Zofran Inj) 4 mg IVP Q4H PRN PRN Reason: Nausea/Vomiting Pantoprazole Sodium (Protonix Inj) 40 mg IVP Q12 [facility] Quetiapine Fumarate (Seroquel) 50 mg PO BID NINO PRN Reason: Protocol Quetiapine Fumarate (Seroquel) 150 mg PO HS NINO PRN Reason: Protocol Physical Exam - Constitutional Appears: Non-toxic, No Acute Distress - Head Exam Head Exam: ATRAUMATIC, NORMOCEPHALIC - ENT Exam ENT Exam: Mucous Membranes Moist - Neck Exam Neck exam: Positive for: Normal Inspection - Respiratory Exam Additional comments: intubated and sedated - Cardiovascular Exam Cardiovascular Exam: REGULAR RHYTHM. absent: Tachycardia Additional comments: hypertensive - GI/Abdominal Exam GI & Abdominal Exam: Soft. absent: Distended, Tenderness - Neurological Exam Additional comments: sedated - Skin Skin Exam: Dry, Warm Results - Vital Signs Recent Vital Signs: Last Vital Signs Temp 97.2 F L 06/27/17 16:41 Pulse 59 L 06/27/17 16:41 Resp 17 06/27/17 16:41 BP 170/103 H 06/27/17 16:41 Pulse Ox 100 06/27/17 13:30 - Labs Result Diagrams: 06/27/17 08:00 06/27/17 08:00 Labs: Laboratory Results - last 24 hr 06/25/17 06/27/17 06/27/17 07:35 00:15 08:00 WBC 8.1 D RBC 3.13 L Hgb 7.9 L Hct 24.1 L MCV 77.0 L MCH 25.2 MCHC 32.8 RDW 20.8 H Plt Count 153 MPV 9.5 PT INR Sodium Potassium Chloride Carbon Dioxide Anion Gap BUN Creatinine Est GFR ( Amer) Est GFR (Non-Af Amer) POC Glucose (mg/dL) 195 H Random Glucose Calcium Total Bilirubin AST ALT Alkaline Phosphatase Total Protein Albumin Globulin Albumin/Globulin Ratio Blood Type A POSITIVE Antibody Screen Negative Crossmatch See Detail BBK History Checked Patient has bt 06/27/17 06/27/17 06/27/17 08:00 08:00 11:58 WBC RBC Hgb Hct MCV MCH MCHC RDW Plt Count MPV PT 14.1 H INR 1.22 H Sodium 143 Potassium 4.5 Chloride 110 H Carbon Dioxide 26 Anion Gap 12 BUN 36 H Creatinine 1.4 Est GFR ( Amer) > 60 Est GFR (Non-Af Amer) 52 POC Glucose (mg/dL) 95 Random Glucose 120 H Calcium 8.8 Total Bilirubin 0.6 AST 413 H D ALT 866 H Alkaline Phosphatase 83 Total Protein 5.1 L Albumin 2.7 L Globulin 2.4 Albumin/Globulin Ratio 1.1 Blood Type Antibody Screen Crossmatch BBK History Checked 06/27/17 17:59 WBC RBC Hgb Hct MCV MCH MCHC RDW Plt Count MPV PT INR Sodium Potassium Chloride Carbon Dioxide Anion Gap BUN Creatinine Est GFR ( Amer) Est GFR (Non-Af Amer) POC Glucose (mg/dL) 77 Random Glucose Calcium Total Bilirubin AST ALT Alkaline Phosphatase Total Protein Albumin Globulin Albumin/Globulin Ratio Blood Type Antibody Screen Crossmatch BBK History Checked - Impressions Impression: Nuclear bleeding scan: + distal rectal bleed CT abd/pelvis: rectal thickening concerning for neoplasm Assessment & Plan - Assessment and Plan (Free Text) Assessment: 56 y/o male with distal rectal bleeding Plan: -transfuse as needed -IR evaluation for possible embolization -f/u colonoscopy in am, if mass present will f/u biopsies -trend Hgb -hold anticoagulation in setting of current bleeding -surgical intervention pending clinical course -further recs per Dr. Krason Rodríguez PGY3 - Date & Time Date: 06/27/17 Time: 19:21
[2017-06-27 19:18] LABS: HEMOGLOBIN 9.2 g/dL (14.0-18.0); MEAN CELL VOLUME 78.9 fl (80.0-105.0); MEAN CORPUSCULAR HEMOGLOBIN 25.6 pg (25.0-35.0); MEAN CORPUSCULAR HGB CONC 32.4 g/dl (31.0-37.0); MEAN PLATELET VOLUME 9.7 fl (7.0-11.0); RBC 3.6 10^6/uL (3.5-6.1); RED CELL DISTRIBUTION WIDTH 20.3 % (11.5-14.5); WHITE BLOOD COUNT 9.1 10^3/ul (4.5-11.0)
[2017-06-27] MEDS ORDERED: Peg-Electrolyte Oral Soln 4L (Golytely) NG ONE (20:00)
--- NOTE | 2017-06-27 20:39 | CT ---
EXAM: CT Abdomen and Pelvis Without Intravenous Contrast EXAM DATE/TIME: 06/27/2017 5:57 PM CLINICAL HISTORY: The patient age is 56 years old and is male; Signs and symptoms; Other: Pre angio for positive bleeding scan; Prior surgery Facility exam id and description: Ct abdpelscon abd pelvis w/o po or iv cont TECHNIQUE: Axial computed tomography images of the abdomen and pelvis without intravenous contrast. All CT scans at this facility use one or more dose reduction techniques, viz.: automated exposure control; ma/kV adjustment per patient size (including targeted exams where dose is matched to indication; i.e. head); or iterative reconstruction technique. Coronal and sagittal reformatted images were created and reviewed. COMPARISON: CT - ABD PELVIS W/O PO OR IV CONT 2017-06-26 11:52 FINDINGS: Lower thorax: Small consolidations are identified within the dependent lower lobes bilaterally, suggestive of atelectatic change or infiltrates. ABDOMEN: Liver: There is a stable hypodense lesion within the dome of the liver measuring 1.1 cm in diameter. This is incompletely characterized without intravenous contrast. Gallbladder and bile ducts: There is dilatation of the extrahepatic bile duct measuring 1.3 cm in diameter. Surgical clips are identified within the gallbladder fossa, compatible with cholecystectomy. Pancreas: Normal contour. No ductal dilation. Spleen: Spleen measures 13.6 cm in length. There is mild splenomegaly. Adrenals: There is nodular thickening of the left adrenal gland. Mild thickening of the right adrenal gland is also visualized. These finding are similar to the prior study. Kidneys and ureters: There is a hypodense probable cyst at the upper pole the left kidney measuring 2.3 cm in diameter, which is stable. A small hypodense right renal cyst is visualized as well. Stomach and bowel: There is wall thickening of the distal rectum. Appendix: The appendix is not visualized. PELVIS: Bladder: No stones. Reproductive: The prostate is mildly enlarged. ABDOMEN and PELVIS: Intraperitoneal space: No free air. Bones/joints: Hypertrophic degenerative changes are noted within the spine. There is a small nonspecific sclerotic lesion within L1 vertebral body. Soft tissues: There is curvilinear band of hyperdensity again visualized in the right inguinal region, suggestive of postoperative change. Vasculature: There is atherosclerotic calcification of the abdominal aorta. A right femoral artery stent is visualized. There is subtle sclerosis of the left femoral artery. No abdominal aortic aneurysm. Lymph nodes: Scattered retroperitoneal lymph nodes identified, a few which are enlarged. In the left para-aortic region, there is a 1.4 x 1.2 cm lymph node, without a significant increase in size. Tubes, lines and devices: A feeding tube is identified, with the catheter within the proximal stomach. IMPRESSION: 1. A feeding tube is identified, with the catheter within the proximal stomach. Mild advancement of this catheter is recommended. 2. There is a stable hypodense lesion within the dome of the liver measuring 1.1 cm in diameter. This is incompletely characterized without intravenous contrast. 3. There is mild splenomegaly. 4. There is nodular thickening of the left adrenal gland. Mild thickening of the right adrenal gland is also visualized. These finding are similar to the prior study. 5. There is dilatation of the extrahepatic bile duct measuring 1.3 cm in diameter. 6. Scattered retroperitoneal lymph nodes identified, a few which are enlarged. There is no significant progression of these lymph nodes. 7. There is wall thickening of the distal rectum. Further clinical evaluation is recommended. 8. The prostate is mildly enlarged. 9. Small consolidations are identified within the dependent lower lobes bilaterally, suggestive of atelectatic change or infiltrates. 10. Incidental/non-acute findings are described above.
[2017-06-27] MEDS: Morphine 2 mg/ml ISec IVP SCH (20:50)
--- NOTE | 2017-06-27 20:52 | CT ---
EXAM: CT Angiography Abdomen and Pelvis With Intravenous Contrast EXAM DATE/TIME: 06/27/2017 5:52 PM CLINICAL HISTORY: The patient age is 56 years old and is male; Signs and symptoms; Other: Positive bleeding scan; Prior surgery; Surgery date: 1-6 months; Surgery type: Gastric sleeve Facility exam id and description: Ct angabpelc angio abdomen pelvis w/cont TECHNIQUE: Axial computed tomographic angiography images of the abdomen and pelvis with intravenous contrast. All CT scans at this facility use one or more dose reduction techniques, viz.: automated exposure control; ma/kV adjustment per patient size (including targeted exams where dose is matched to indication; i.e. head); or iterative reconstruction technique. MIP reconstructed images were created and reviewed. Coronal and sagittal reformatted images were created and reviewed. CONTRAST: 96 mL of OMNIPAQUE 350 administered intravenously. COMPARISON: CT - ABD PELVIS W/O PO OR IV CONT 2017-06-27 18:47 FINDINGS: Lower thorax: Small consolidations are identified within the dependent lower lobes bilaterally, suggestive of atelectatic change or infiltrates. There is mild cardiomegaly. VASCULATURE: Aorta: Atherosclerotic changes are visualized within the left common femoral and femoral arteries, with less than 50% stenoses. Mild atherosclerotic changes are visualized of the abdominal aorta. Celiac trunk and mesenteric arteries: No acute findings. No occlusion or significant stenosis. Renal arteries: No acute findings. No occlusion or significant stenosis. Iliac arteries: There is atherosclerosis of the bilateral iliac arteries, with stenoses of the bilateral internal iliac arteries. Other arteries: A right femoral artery stent is identified, without occlusion. ABDOMEN: Liver: There is a stable hypodense lesion within the dome of the liver measuring 1.1 cm in diameter. Gallbladder and bile ducts: There is dilatation of the extrahepatic bile duct measuring 1.3 cm in diameter. Surgical clips are identified within the gallbladder fossa, compatible with cholecystectomy. Pancreas: Normal contour. No ductal dilation. Spleen: Spleen measures 13.6 cm in length. There is mild splenomegaly. Adrenals: There is nodular thickening of the left adrenal gland. Mild thickening of the right adrenal gland is also visualized. These finding are similar to the prior study. Kidneys and ureters: There is a hypodense probable cyst at the upper pole the left kidney measuring 2.3 cm in diameter, which is stable. A small hypodense right renal cyst is visualized as well. No hydronephrosis. Stomach and bowel: Linear foci of hyperdensity are identified within the rectum, concerning for a GI bleed. There is wall thickening of the distal rectum. Mild residual contrast within the colon and rectum limits evaluation for a GI bleed. Scattered colonic diverticula are identified, consistent with diverticulosis. Appendix: The appendix is not visualized. PELVIS: Bladder: No stones. Reproductive: The prostate is mildly enlarged. ABDOMEN and PELVIS: Intraperitoneal space: No free air. Bones/joints: Hypertrophic degenerative changes are noted within the spine. There is a small nonspecific sclerotic lesion within L1 vertebral body. Soft tissues: There is curvilinear band of hyperdensity again visualized in the right inguinal region, suggestive of postoperative change. There is fatty infiltration/atrophy of the abdominal wall musculature. Lymph nodes: Scattered retroperitoneal lymph nodes identified, a few which are enlarged. In the left para-aortic region, there is a 1.4 x 1.2 cm lymph node, without a significant increase in size. Tubes, lines and devices: A feeding tube is identified, with the catheter within the proximal stomach. IMPRESSION: 1. Linear foci of hyperdensity are identified within the rectum, concerning for a GI bleed. 2. There is atherosclerosis of the bilateral iliac arteries, with stenoses of the bilateral internal iliac arteries. 3. Atherosclerotic changes are visualized within the left common femoral and femoral arteries, with less than 50% stenoses. 4. A feeding tube is identified, with the catheter within the proximal stomach. Mild advancement of this catheter is recommended. 5. There is a stable hypodense lesion within the dome of the liver measuring 1.1 cm in diameter. 6. There is mild splenomegaly. 7. There is nodular thickening of the left adrenal gland. Mild thickening of the right adrenal gland is also visualized. 8. There is dilatation of the extrahepatic bile duct measuring 1.3 cm in diameter. 9. Scattered retroperitoneal lymph nodes identified, a few which are enlarged. 10. There is wall thickening of the distal rectum. Further clinical evaluation is recommended. 11. The prostate is mildly enlarged. 12. Small consolidations are identified within the dependent lower lobes bilaterally, suggestive of atelectatic change or infiltrates. 13. Incidental/non-acute findings are described above.
[2017-06-27] MEDS ORDERED: Dextrose 50% SYRINGE Inj (50 ml) IVP ONE (22:36)
--- NOTE | 2017-06-27 22:36 | CP.PCM.PCO ---
<Primitivo Chambersima - Last Filed: 06/27/17 22:37> Physician Communication Note - Physician Communication Note Physician Communication Note: CT angio reviewed with IR Dr. Maguire who stated nothing to do overnight. <Prakash Red - Last Filed: 06/28/17 00:10> Attending/Attestation - Attestation I have personally seen and examined this patient.: Yes I have fully participated in the care of the patient.: Yes I have reviewed all pertinent clinical information: Yes Notes (Text): 06/28/17 00:07 Case discussed with ads radiologist regarding patient's CT Angio findings. He relayed the patient likely has a rectal bleed on CT Angio, c/w findings of large amounts of blood during patient's Colonoscopy. Attempted to discuss case with GI (Dr. Souza). Called and left a message minutes after CT Angio was read , awaiting call-back. Resident discussed the case with IR (Dr. Maguire) who relayed there is no interventional procedure to be done at this time; will continue to provide supportive care and measure serial CBC's. Patient is scheduled to have a repeat Colonoscopy after bowel prep in the AM.
[2017-06-28 00:05] LABS: HEMOGLOBIN 9.5 g/dL (14.0-18.0); MEAN CELL VOLUME 78.8 fl (80.0-105.0); MEAN CORPUSCULAR HEMOGLOBIN 25.5 pg (25.0-35.0); MEAN CORPUSCULAR HGB CONC 32.3 g/dl (31.0-37.0); MEAN PLATELET VOLUME 9.1 fl (7.0-11.0); RBC 3.73 10^6/uL (3.5-6.1); RED CELL DISTRIBUTION WIDTH 20.4 % (11.5-14.5); WHITE BLOOD COUNT 8.1 10^3/ul (4.5-11.0)
[2017-06-28] MEDS: Insulin Lispro (humaLOG) MEDIUM Coverage SC SCH ×4 (00:12→17:26)
[2017-06-28] MEDS: Morphine 2 mg/ml ISec IVP SCH ×2 (00:15→03:55)
[2017-06-28] MEDS: Propofol 10 mg/ml 1,000 MG/100 ML VIAL IV PRN ×3 (02:50→22:57)
[2017-06-28] MEDS: Dexmedetomidine 400mcg/100mL 400 MCG/100 ML BOTTLE IV PRN ×4 (02:51→22:56)
[2017-06-28] MEDS: Sodium Chloride 0.9% 1,000 ML IV SCH ×3 (06:00→10:54)
[2017-06-28 06:57] LABS: MEAN CELL VOLUME 79.6 fl (80.0-105.0); MEAN CORPUSCULAR HEMOGLOBIN 25.5 pg (25.0-35.0); MEAN PLATELET VOLUME 9.8 fl (7.0-11.0); RBC 4.86 10^6/uL (3.5-6.1); RED CELL DISTRIBUTION WIDTH 20.8 % (11.5-14.5); WHITE BLOOD COUNT 8.9 10^3/ul (4.5-11.0)
[2017-06-28 07:23] LABS: ALB/GLOB RATIO 1.2 (1.1-1.8); ALBUMIN 3.4 g/dL (3.0-4.8); ALT/SGPT 929 U/L (7-56); AST/SGOT 271 U/L (17-59); BLOOD UREA NITROGEN 21 mg/dL (7-21); CALCIUM 9.5 mg/dL (8.4-10.5); GFR AFRICAN-AMERICAN > 60; GFR NON-AFRICAN AMERICAN 57
[2017-06-28 07:26] LABS: HEMOGLOBIN 12.4 g/dL (14.0-18.0)
--- NOTE | 2017-06-28 08:33 | CON ---
DATE: 06/25/2017 HISTORY OF PRESENT ILLNESS: This patient was seen and evaluated initially on 06/25/2017 at 07:00 p.m. The patient presented with GI bleeding on 06/24 with abdominal pain, nausea and nonbilious vomiting and loose bowel movements. The patient had a near-syncopal episode. The patient had episodes of melanotic bowel movements in the hospital. The patient's INR was 5.06, it went up to 6.78. PTT was initially 35.9, then to 30.5. The patient received four units of fresh frozen plasma and five units of packed RBC. The patient has a history of paroxysmal atrial fibrillation, on Coumadin; in addition, he has a right superior femoral artery stent placement, history of coronary artery disease, status post CABG and the patient also on aspirin and Plavix. In addition, the patient has arthritis, joint pains. The patient has been taking Motrin or Advil 1 tablet everyday in the morning for the pain. PAST MEDICAL HISTORY: His other past medical history is significant as above, history of diabetes mellitus, lumbosacral radiculopathy, opioid dependence, dyslipidemia. The patient did have duodenal ulcer bleeding, for which he underwent an upper GI endoscopy and Hemoclip in 01/2017. The patient had a colonoscopy done a few months ago in [facility], had three polyps removed. PAST SURGICAL HISTORY: His other surgical history is significant for cholecystectomy and left inguinal hernia repair done in the past. SOCIAL HISTORY: He smokes 1 to 2 packs per day and also alcohol occasionally. ALLERGIES: HE IS ALLERGIC TO PENICILLIN AND LEVAQUIN. PHYSICAL EXAMINATION VITAL SIGNS: Pulse 87, blood pressure is 152/88, respirations 18, O2 saturation 97%. HEENT: Atraumatic, anicteric. NECK: Supple. HEART: S1 and S2 heard. CHEST: There is a crepitus of the chest wall noticed with breathing and status post sternotomy. ABDOMEN: Soft. Multiple scars seen. EXTREMITIES: No cyanosis. No clubbing. NEUROLOGIC: Alert, oriented. LABORATORY DATA: Hemoglobin 8.5, hematocrit 25.7, WBC is 14.8, and platelets 175,000. Chemistry showed BUN 72, creatinine is 2.9. AST 110, ALT 146. His INR is 1.52. IMPRESSION: This 56-year-old patient with multiple medical comorbidities, diabetes mellitus, chronic kidney disease, chronic pain medications, history of peptic ulcer disease, duodenal ulcer, status post clipping before, history of chronic polyp presented with gastrointestinal bleeding, coagulopathy, status post transfusion of four units of packed RBC and fresh frozen plasma. His INR is still elevated to 1.52. The patient has been on aspirin and Plavix and also having NSAIDs and Motrin on regular basis. He may have platelet dysfunction. The patient may benefit from the endoscopy, but appears hemodynamically more stable. The reasonable thing is to further correct the INR and also, consider platelet transfusion in view of the antiplatelet therapy in the case of this acute bleeding. The patient continued close followup of the hemoglobin and hematocrit. Consider upper gastrointestinal endoscopy after further optimization or if there is any acute recurrence of the bleeding with drop in blood count. The patient was strictly advised not to take other nonsteroidal antiinflammatory drugs, which could be most likely cause of previous ulcer disease. In view of the patient on anticoagulation, the NSAID could cause life-threatening complications, this was clearly explained to the patient. I had detailed discussion with the patient. The patient has been closely followed by Dr. Coates before. Presently, he does not want to see Dr. Coates and we were asked for a second opinion initially, then to further follow up the patient. ADDENDUM I came to see the patient again today for possible endoscopic evaluation. The patient did receive the platelet transfusion and his INR has improved to 1.32 and he received transfusion and got another small amount of bright maroon stool. His hemoglobin today is 8.8. The patient was upset and does not want to see me and does not want to be examined or have any evaluation done by me. I will sign off the case and I have discussed with the hospitalist, Dr. Kline and also with the geothermal electrical engineer. I will sign off the case. In spite of adequate explanation, the patient does not . Thank you very much for allowing me to participate in the care of the patient. Nuria Gupta MD
[2017-06-28] MEDS ORDERED: Propofol 10 mg/ml Inj (20 ML) ONE (09:10)
[2017-06-28] MEDS ORDERED: Midazolam 2 MG/2 ML VIAL ONE (09:10)
[2017-06-28] MEDS ORDERED: Etomidate 20 mg/10ml Inj IV ONE (09:43)
[2017-06-28] MEDS ORDERED: Phenylephrine 10 mg/ml Inj ONE (09:43)
--- NOTE | 2017-06-28 09:57 | CP.PCM.PN ---
Subjective - Date & Time of Evaluation Date of Evaluation: 06/28/17 Time of Evaluation: 09:54 - Subjective Subjective: Surgery Pt s&e. Pt had large amount of coffee ground color blood. Pt underwent COlonoscopy this AM. Shows large amount of blood clot with poor prep. Intubated and sedated. Objective - Vital Signs/Intake and Output Vital Signs (last 24 hours): Temp Pulse Resp BP Pulse Ox 98.6 F 80 17 156/81 H 100 06/27/17 19:00 06/28/17 06:10 06/27/17 19:00 06/28/17 06:00 06/28/17 06:10 Intake and Output: 06/28/17 06/28/17 06:59 18:59 Intake Total 5650 Output Total 3000 Balance 2650 - Medications Medications: Current Medications Diphenhydramine HCl (Benadryl) 25 mg IVP Q6 PRN PRN Reason: Allergy symptoms Last Admin: 06/27/17 06:21 Dose: 25 mg Haloperidol Lactate (Haldol) 5 mg IVP Q6 PRN; Protocol PRN Reason: Agitation Last Admin: 06/27/17 06:19 Dose: 5 mg Hydralazine HCl (Apresoline) 10 mg IVP Q6 PRN PRN Reason: Systolic Blood Pressure > 165 Last Admin: 06/26/17 22:08 Dose: 10 mg Metronidazole (Flagyl) 500 mg in 100 mls @ 100 mls/hr IVPB Q8 NINO PRN Reason: Protocol Last Admin: 06/25/17 08:44 Dose: 100 mls/hr Propofol (Diprivan) 1,000 mg in 100 mls @ 2.722 mls/hr IV .Q24H PRN; Protocol; 5 MCG/KG/MIN PRN Reason: TITRATE PER MD ORDER Last Admin: 06/28/17 02:50 Dose: 35 mcg/kg/min, 19.051 mls/hr Dexmedetomidine HCl (Precedex 400mcg/100ml) 400 mcg in 100 mls @ 4.536 mls/hr IV .Q22H3M PRN; Protocol; 0.2 MCG/KG/HR PRN Reason: Agitation Last Admin: 06/28/17 02:51 Dose: 0.2 mcg/kg/hr, 4.536 mls/hr Sodium Chloride (Sodium Chloride 0.9%) 1,000 mls @ 75 mls/hr IV .[id number] [facility] Insulin Human Lispro (Humalog Med) 0 units SC Q6 NINO PRN Reason: Protocol Last Admin: 06/28/17 06:33 Dose: Not Given Lorazepam (Ativan) 1 mg IVP Q6H PRN; Protocol PRN Reason: Anxiety Last Admin: 06/27/17 06:20 Dose: 1 mg Morphine Sulfate (Morphine) 2 mg IVP Q4 [facility] Last Admin: 06/28/17 03:55 Dose: 2 mg Nicotine (Nicoderm Cq) 1 patch TD DAILY [facility] Last Admin: 06/27/17 20:06 Dose: Not Given Ondansetron HCl (Zofran Inj) 4 mg IVP Q4H PRN PRN Reason: Nausea/Vomiting Pantoprazole Sodium (Protonix Inj) 40 mg IVP Q12 [facility] Last Admin: 06/27/17 21:05 Dose: 40 mg Quetiapine Fumarate (Seroquel) 50 mg PO BID [facility] PRN Reason: Protocol Last Admin: 06/27/17 20:06 Dose: Not Given Quetiapine Fumarate (Seroquel) 150 mg PO HS [facility] PRN Reason: Protocol Last Admin: 06/27/17 21:10 Dose: 150 mg - Labs Labs: 06/28/17 06:00 06/28/17 06:00 PT 14.1 SECONDS (9.4-12.5) H 06/27/17 08:00 INR 1.22 (0.93-1.08) H 06/27/17 08:00 APTT 25.0 Seconds (25.1-36.5) L 06/25/17 15:00 - Constitutional Appears: In Acute Distress - Head Exam Head Exam: ATRAUMATIC, NORMAL INSPECTION, NORMOCEPHALIC - ENT Exam Additional comments: INtubated. - Neck Exam Neck Exam: Normal Inspection - Respiratory Exam Additional comments: INtubatd - Cardiovascular Exam Cardiovascular Exam: REGULAR RHYTHM, +S1, +S2 - GI/Abdominal Exam GI & Abdominal Exam: Soft, Normal Bowel Sounds - Rectal Exam Rectal Exam: Bloody Stool Additional comments: Large amount of dark liquid stool noted - Exam Exam: NORMAL INSPECTION - Extremities Exam Extremities Exam: Normal Inspection. absent: Joint Swelling, Pedal Edema - Neurological Exam Neurological Exam: absent: Alert, Awake - Skin Skin Exam: Dry, Intact, Warm Assessment and Plan - Assessment and Plan (Free Text) Assessment: 56 y/o male with distal rectal bleeding COlonoscopy : large amount of dark blood clot. Poor prep EGD: gatritis Plan: -transfuse as needed -IR evaluation for possible embolization -trend Hgb -hold anticoagulation in setting of current bleeding -surgical intervention pending clinical course -further recs per Dr. Ty
--- NOTE | 2017-06-28 09:59 | PN ---
DATE: 06/27/2017 SUBJECTIVE: The patient underwent upper endoscopy and the findings are consistent with a nodule found in the esophagus, biopsied; gastritis, biopsied; and granular mucosa in the duodenal bulb. Normal second part of duodenum. One duodenal ulcer with clean base. The patient was intubated in the endoscopy suite and was transferred back to the ICU. No reported hypotension or ventricular arrhythmia. The patient is still experiencing melena. OBJECTIVE: VITAL SIGNS: Blood pressure 138/77, heart rate 124. There is no temperature for today so far. HEENT: [place] conjunctivae. CHEST: Clear. HEART: Heart sounds are regular. EXTREMITIES: No edema. LABORATORY DATA: Hemoglobin and hematocrit, 7.9 and 24.1. White count and platelets counts are within normal limits. SMA-7; sodium 146, potassium 4.5, chloride 110, CO2 of 26, glucose 120, BUN 36, creatinine 1.4. Chest x-ray, I think the patient has done, but is not accessible on internet database yet. ASSESSMENT: 1. Recurrent melena. 2. Status post iatrogenic coagulopathy. 3. History of passive nature of the lesion and history of coronary artery disease and peripheral vascular disease, status post coronary artery bypass surgery and stenting to the superficial right femoral artery in 2014. RECOMMENDATIONS: Case was discussed with the project coordinator rn. Patient will be maintained on IV hydralazine 10 mg q. 6 hours p.r.n., IV Flagyl 500 mg intravenous q. 8 hours, Precedex infusion, and Protonix infusion. The patient will undergo bleeding scan and if there is an identifiable source of bleeding, the patient will be referred to intervention radiologist and in the meantime, oral antiplatelets and anticoagulations are absolutely contraindicated for now. Colton Hdz MD
--- NOTE | 2017-06-28 11:19 | CP.CCUPN ---
<Vlad Gallardo - Last Filed: 06/28/17 11:25> CCU Subjective - Physician Review Subjective (Free Text): Patient seen and examined at bedside. Patient intubated and sedated. Will have colonoscopy done this morning. Denies chest pain, shortness of breath, nausea, vomiting, diarrhea, fever, chills. CCU Objective - Vital Signs / Intake & Output Intake and Output (Last 8hrs): Intake & Output 06/27/17 06/28/17 06/28/17 22:59 06:59 14:59 Intake Total 5375 5200 Output Total 1950 3000 Balance 3425 2200 Weight 197 lb 3 oz Intake: IV 2725 1700 Left Antecubital 1950 1440 Left Forearm 700 Left Hand 60 Oral 1950 Blood Product 650 Red Blood Cells Cpd As1 325 Lr Unit [id number] Red Blood Cells Cpd As1 325 Lr Unit [id number] Other 50 3500 Red Blood Cells Cpd As1 50 Lr Unit [id number] Output: Urine 1950 3000 Condom 3000 Urine, Voided 1950 Other: # Bowel Movements 2 - Physical Exam Head: Positive for: Atraumatic, Normocephalic Pupils: Positive for: PERRL Extroacular Muscles: Positive for: EOMI Conjunctiva: Positive for: Normal Mouth: Positive for: Moist Mucous Membranes Respiratory/Chest: Positive for: Clear to Auscultation, Good Air Exchange. Negative for: Respiratory Distress, Accessory Muscle Use Cardiovascular: Positive for: Regular Rate and Rhythm, Normal S1, S2. Negative for: Murmurs Abdomen: Positive for: Normal Bowel Sounds. Negative for: Tenderness, Distention, Peritoneal Signs Upper Extremity: Positive for: Normal Inspection. Negative for: Cyanosis, Edema Lower Extremity: Positive for: Normal Inspection. Negative for: Edema Neurological: Positive for: GCS=15, CN II-XII Intact, Speech Normal Skin: Positive for: Warm, Dry. Negative for: Rashes Psychiatric: Positive for: Alert, Oriented x 3, Normal Insight, Normal Concentration - Medications Active Medications: Active Medications Generic Name Dose Route Start Last Admin Trade Name Freq PRN Reason Stop Dose Admin Diphenhydramine HCl 25 mg 06/27/17 00:26 06/27/17 06:21 Benadryl IVP 25 mg Q6 PRN Administration Allergy symptoms Haloperidol Lactate 5 mg 06/27/17 00:24 06/27/17 06:19 Haldol IVP 5 mg Q6 PRN Administration Agitation Protocol Hydralazine HCl 10 mg 06/25/17 03:32 06/26/17 22:08 Apresoline IVP 10 mg Q6 PRN Administration Systolic Blood Pressure > 165 Metronidazole 500 mg in 100 mls @ 100 mls/hr 06/24/17 23:45 06/25/17 08:44 Flagyl IVPB 100 mls/hr Q8 NINO Administration Protocol Propofol 1,000 mg in 100 mls @ 2.722 mls/hr 06/27/17 11:14 06/28/17 02:50 Diprivan IV 35 mcg/kg/min .Q24H PRN 19.051 mls/hr TITRATE PER MD ORDER Administration Protocol 5 MCG/KG/MIN Dexmedetomidine HCl 400 mcg in 100 mls @ 4.536 mls/hr 06/27/17 12:20 02:51 Precedex 400mcg/100ml IV 0.2 mcg/kg/hr .Q22H3M PRN 4.536 mls/hr Agitation Administration Protocol 0.2 MCG/KG/HR Sodium Chloride 1,000 mls @ 75 mls/hr 06/28/17 09:32 Sodium Chloride 0.9% IV .[id number] [facility] Insulin Human Lispro 0 units 06/25/17 00:00 06/28/17 06:33 Humalog Med SC Not Given Q6 [facility] Protocol Lorazepam 1 mg 06/27/17 00:26 06/27/17 06:20 Ativan IVP 1 mg Q6H PRN Administration Anxiety Protocol Mesalamine 4 gm 06/28/17 22:00 Rowasa Enema [facility] Morphine Sulfate 2 mg 06/28/17 10:41 Morphine IVP Q3H PRN Pain, Mild (1-3) Nicotine 1 patch 06/26/17 10:00 06/27/17 20:06 Nicoderm Cq TD Not Given DAILY [facility] Ondansetron HCl 4 mg 06/24/17 23:46 Zofran Inj IVP Q4H PRN Nausea/Vomiting Quetiapine Fumarate 50 mg 06/27/17 12:45 06/27/17 20:06 Seroquel PO Not Given BID [facility] Protocol Quetiapine Fumarate 150 mg 06/27/17 12:45 06/27/17 21:10 Seroquel PO 150 mg HS NINO Administration Protocol - Patient Studies Lab Studies: Lab Studies 06/28/17 06/28/17 06/28/17 Range/Units 07:25 06:28 06:00 WBC 8.9 (4.5-11.0) 10^3/ul RBC 4.86 (3.5-6.1) 10^6/uL Hgb 12.4 L D (14.0-18.0) g/dL Hct 38.7 L (42.0-52.0) % MCV 79.6 L (80.0-105.0) fl MCH 25.5 (25.0-35.0) pg MCHC 32.0 (31.0-37.0) g/dl RDW 20.8 H (11.5-14.5) % Plt Count 175 (120.0-450.0) 10^3/uL MPV 9.8 (7.0-11.0) fl Sodium (132-148) mmol/L Potassium (3.6-5.0) mmol/L Chloride (98-107) mmol/L Carbon Dioxide (21-33) mmol/L Anion Gap (10-20) BUN (7-21) mg/dL Creatinine (0.8-1.5) mg/dl Est GFR ( Amer) Est GFR (Non-Af Amer) POC Glucose (mg/dL) 70 74 (65-110) mg/dL Random Glucose (70-110) mg/dL Calcium (8.4-10.5) mg/dL Total Bilirubin (0.2-1.3) mg/dL AST (17-59) U/L ALT (7-56) U/L Alkaline Phosphatase (38-126) U/L Total Protein (5.8-8.3) g/dL Albumin (3.0-4.8) g/dL Globulin gm/dL Albumin/Globulin Ratio (1.1-1.8) Blood Type Antibody Screen Crossmatch BBK History Checked 06/28/17 06/28/17 06/27/17 Range/Units 06:00 00:09 23:50 WBC (4.5-11.0) 10^3/ul RBC (3.5-6.1) 10^6/uL Hgb (14.0-18.0) g/dL Hct (42.0-52.0) % MCV (80.0-105.0) fl MCH (25.0-35.0) pg MCHC (31.0-37.0) g/dl RDW (11.5-14.5) % Plt Count (120.0-450.0) 10^3/uL MPV (7.0-11.0) fl Sodium 145 (132-148) mmol/L Potassium 4.4 (3.6-5.0) mmol/L Chloride 110 H (98-107) mmol/L Carbon Dioxide 25 (21-33) mmol/L Anion Gap 15 (10-20) BUN 21 (7-21) mg/dL Creatinine 1.3 (0.8-1.5) mg/dl Est GFR ( Amer) > 60 Est GFR (Non-Af Amer) 57 POC Glucose (mg/dL) 132 H (65-110) mg/dL Random Glucose 81 (70-110) mg/dL Calcium 9.5 (8.4-10.5) mg/dL Total Bilirubin 0.7 (0.2-1.3) mg/dL AST 271 H D (17-59) U/L ALT 929 H (7-56) U/L Alkaline Phosphatase 128 H D (38-126) U/L Total Protein 6.2 (5.8-8.3) g/dL Albumin 3.4 (3.0-4.8) g/dL Globulin 2.8 gm/dL Albumin/Globulin Ratio 1.2 (1.1-1.8) Blood Type A POSITIVE Antibody Screen Negative Crossmatch See Detail BBK History Checked Patient has bt 06/27/17 06/27/17 06/27/17 Range/Units 23:50 22:31 18:45 WBC 8.1 9.1 (4.5-11.0) 10^3/ul RBC 3.73 3.60 (3.5-6.1) 10^6/uL Hgb 9.5 L 9.2 L (14.0-18.0) g/dL Hct 29.4 L 28.4 L (42.0-52.0) % MCV 78.8 L 78.9 L (80.0-105.0) fl MCH 25.5 25.6 (25.0-35.0) pg MCHC 32.3 32.4 (31.0-37.0) g/dl RDW 20.4 H 20.3 H (11.5-14.5) % Plt Count 145 147 (120.0-450.0) 10^3/uL MPV 9.1 9.7 (7.0-11.0) fl Sodium (132-148) mmol/L Potassium (3.6-5.0) mmol/L Chloride (98-107) mmol/L Carbon Dioxide (21-33) mmol/L Anion Gap (10-20) BUN (7-21) mg/dL Creatinine (0.8-1.5) mg/dl Est GFR ( Amer) Est GFR (Non-Af Amer) POC Glucose (mg/dL) 65 (65-110) mg/dL Random Glucose (70-110) mg/dL Calcium (8.4-10.5) mg/dL Total Bilirubin (0.2-1.3) mg/dL AST (17-59) U/L ALT (7-56) U/L Alkaline Phosphatase (38-126) U/L Total Protein (5.8-8.3) g/dL Albumin (3.0-4.8) g/dL Globulin gm/dL Albumin/Globulin Ratio (1.1-1.8) Blood Type Antibody Screen Crossmatch BBK History Checked 06/27/17 06/27/17 06/25/17 Range/Units 17:59 11:58 07:35 WBC (4.5-11.0) 10^3/ul RBC (3.5-6.1) 10^6/uL Hgb (14.0-18.0) g/dL Hct (42.0-52.0) % MCV (80.0-105.0) fl MCH (25.0-35.0) pg MCHC (31.0-37.0) g/dl RDW (11.5-14.5) % Plt Count (120.0-450.0) 10^3/uL MPV (7.0-11.0) fl Sodium (132-148) mmol/L Potassium (3.6-5.0) mmol/L Chloride (98-107) mmol/L Carbon Dioxide (21-33) mmol/L Anion Gap (10-20) BUN (7-21) mg/dL Creatinine (0.8-1.5) mg/dl Est GFR ( Amer) Est GFR (Non-Af Amer) POC Glucose (mg/dL) 77 95 (65-110) mg/dL Random Glucose (70-110) mg/dL Calcium (8.4-10.5) mg/dL Total Bilirubin (0.2-1.3) mg/dL AST (17-59) U/L ALT (7-56) U/L Alkaline Phosphatase (38-126) U/L Total Protein (5.8-8.3) g/dL Albumin (3.0-4.8) g/dL Globulin gm/dL Albumin/Globulin Ratio (1.1-1.8) Blood Type A POSITIVE Antibody Screen Negative Crossmatch See Detail BBK History Checked Patient has bt Laboratory Results - last 24 hr 06/25/17 06/27/17 06/27/17 07:35 11:58 17:59 WBC RBC Hgb Hct MCV MCH MCHC RDW Plt Count MPV Sodium Potassium Chloride Carbon Dioxide Anion Gap BUN Creatinine Est GFR ( Amer) Est GFR (Non-Af Amer) POC Glucose (mg/dL) 95 77 Random Glucose Calcium Total Bilirubin AST ALT Alkaline Phosphatase Total Protein Albumin Globulin Albumin/Globulin Ratio Blood Type A POSITIVE Antibody Screen Negative Crossmatch See Detail BBK History Checked Patient has bt 06/27/17 06/27/17 06/27/17 18:45 22:31 23:50 WBC 9.1 8.1 RBC 3.60 3.73 Hgb 9.2 L 9.5 L Hct 28.4 L 29.4 L MCV 78.9 L 78.8 L MCH 25.6 25.5 MCHC 32.4 32.3 RDW 20.3 H 20.4 H Plt Count 147 145 MPV 9.7 9.1 Sodium Potassium Chloride Carbon Dioxide Anion Gap BUN Creatinine Est GFR ( Amer) Est GFR (Non-Af Amer) POC Glucose (mg/dL) 65 Random Glucose Calcium Total Bilirubin AST ALT Alkaline Phosphatase Total Protein Albumin Globulin Albumin/Globulin Ratio Blood Type Antibody Screen Crossmatch BBK History Checked 06/27/17 06/28/17 06/28/17 23:50 00:09 06:00 WBC RBC Hgb Hct MCV MCH MCHC RDW Plt Count MPV Sodium 145 Potassium 4.4 Chloride 110 H Carbon Dioxide 25 Anion Gap 15 BUN 21 Creatinine 1.3 Est GFR ( Amer) > 60 Est GFR (Non-Af Amer) 57 POC Glucose (mg/dL) 132 H Random Glucose 81 Calcium 9.5 Total Bilirubin 0.7 AST 271 H D ALT 929 H Alkaline Phosphatase 128 H D Total Protein 6.2 Albumin 3.4 Globulin 2.8 Albumin/Globulin Ratio 1.2 Blood Type A POSITIVE Antibody Screen Negative Crossmatch See Detail BBK History Checked Patient has bt 06/28/17 06/28/17 06/28/17 06:00 06:28 07:25 WBC 8.9 RBC 4.86 Hgb 12.4 L D Hct 38.7 L MCV 79.6 L MCH 25.5 MCHC 32.0 RDW 20.8 H Plt Count 175 MPV 9.8 Sodium Potassium Chloride Carbon Dioxide Anion Gap BUN Creatinine Est GFR ( Amer) Est GFR (Non-Af Amer) POC Glucose (mg/dL) 74 70 Random Glucose Calcium Total Bilirubin AST ALT Alkaline Phosphatase Total Protein Albumin Globulin Albumin/Globulin Ratio Blood Type Antibody Screen Crossmatch BBK History Checked Fingerstick Blood Sugar Results: 74 Assessment/Plan - Assessment and Plan (Free Text) Plan: 56 y/o M with PMH of bleeding duodenal ulcer s/p hemoclip, CAD s/p CABG, PAD s/ p R SFA stent, HLD, DM2, lumbosacral radiculopathy, tobacco use and chronic opioid dependence presents with lower GI bleed. Patient had positive bleeding scan yesterday and had EGD/colonoscopy today. EGD demonstrated clean base duodenal ulcer. Colonoscopy demonstrated diverticulosis with no signs of active bleeding. Will continue to monitor patient in the ICU. Neuro Sedated on precedex and propofol Cardio Hemodynamically stable NS @75 Maintain MAP >65 Pulm Intubated VAP Bundle maintain SaO2 > 90% GI IV protonix HG stable, recheck in afternoon Recheck Hg this afternoon Acute transaminitis likely secondary to shock, improving Trend LFTs Zofran Flagyl on hold GI consulted Heme/ID Hg stable Afebrile, no leukocytosis Cultures negative Maintain normothermia Nephro Continue IVF Monitor electrolytes, replenish as needed Maintain euvolemia Endo ISS Maintain euglycemia Psych Haldol, Benadryl, and Ativan as per psychiatrist Likely opioid withdrawal Sami, PGY-2 <Will Campos - Last Filed: 06/28/17 12:38> CCU Objective - Vital Signs / Intake & Output Vital Signs (Last 4 hours): Vital Signs Temp Pulse BP Pulse Ox 06/28/17 09:51 97.6 F 64 110/76 100 Intake and Output (Last 8hrs): Intake & Output 06/27/17 06/28/17 06/28/17 22:59 06:59 14:59 Intake Total 5375 5200 140 Output Total 1950 3000 Balance 3425 2200 140 Weight 197 lb 3 oz Intake: IV 2725 1700 140 Left Antecubital 1950 1440 Left Forearm 700 Left Hand 60 Oral 1950 Blood Product 650 Red Blood Cells Cpd As1 325 Lr Unit [id number] Red Blood Cells Cpd As1 325 Lr Unit [id number] Other 50 3500 Red Blood Cells Cpd As1 50 Lr Unit [id number] Output: Urine 1950 3000 Condom 3000 Urine, Voided 1950 Other: # Bowel Movements 2 - Medications Active Medications: Active Medications Generic Name Dose Route Start Last Admin Trade Name Freq PRN Reason Stop Dose Admin Diphenhydramine HCl 25 mg 06/27/17 00:26 06/27/17 06:21 Benadryl IVP 25 mg Q6 PRN Administration Allergy symptoms Haloperidol Lactate 5 mg 06/27/17 00:24 06/27/17 06:19 Haldol IVP 5 mg Q6 PRN Administration Agitation Protocol Hydralazine HCl 10 mg 06/25/17 03:32 06/26/17 22:08 Apresoline IVP 10 mg Q6 PRN Administration Systolic Blood Pressure > 165 Metronidazole 500 mg in 100 mls @ 100 mls/hr 06/24/17 23:45 06/25/17 08:44 Flagyl IVPB 100 mls/hr Q8 NINO Administration Protocol Propofol 1,000 mg in 100 mls @ 2.722 mls/hr 06/27/17 11:14 06/28/17 11:00 Diprivan IV 35 mcg/kg/min .Q24H PRN 19.051 mls/hr TITRATE PER MD ORDER Titration Protocol 5 MCG/KG/MIN Dexmedetomidine HCl 400 mcg in 100 mls @ 4.536 mls/hr 06/27/17 12:20 11:46 Precedex 400mcg/100ml IV 0.2 mcg/kg/hr .Q22H3M PRN 4.536 mls/hr Agitation Administration Protocol 0.2 MCG/KG/HR Sodium Chloride 1,000 mls @ 75 mls/hr 06/28/17 09:32 06/28/17 10:54 Sodium Chloride 0.9% IV 75 mls/hr .[id number] NINO Administration Insulin Human Lispro 0 units 06/25/17 00:00 06/28/17 06:33 Humalog Med SC Not Given Q6 NINO Protocol Lorazepam 1 mg 06/27/17 00:26 06/27/17 06:20 Ativan IVP 1 mg Q6H PRN Administration Anxiety Protocol Mesalamine 4 gm 06/28/17 22:00 Rowasa Enema RC HS [facility] Morphine Sulfate 2 mg 06/28/17 10:41 Morphine IVP Q3H PRN Pain, Mild (1-3) Nicotine 1 patch 06/26/17 10:00 06/28/17 10:50 Nicoderm Cq TD 1 patch DAILY NINO Administration Ondansetron HCl 4 mg 06/24/17 23:46 Zofran Inj IVP Q4H PRN Nausea/Vomiting Pantoprazole Sodium 40 mg 06/29/17 10:00 Protonix Inj IVP DAILY NINO Quetiapine Fumarate 50 mg 06/27/17 12:45 06/28/17 11:52 Seroquel PO Not Given BID NINO Protocol Quetiapine Fumarate 150 mg 06/27/17 12:45 06/27/17 21:10 Seroquel PO 150 mg HS NINO Administration Protocol - Patient Studies Lab Studies: Lab Studies 06/28/17 06/28/17 06/28/17 Range/Units 12:00 11:50 11:50 WBC 10.8 D (4.5-11.0) 10^3/ul RBC 3.99 (3.5-6.1) 10^6/uL Hgb 10.0 L D (14.0-18.0) g/dL Hct 31.5 L (42.0-52.0) % MCV 78.9 L (80.0-105.0) fl MCH 25.1 (25.0-35.0) pg MCHC 31.7 (31.0-37.0) g/dl RDW 20.6 H (11.5-14.5) % Plt Count 156 (120.0-450.0) 10^3/uL MPV 9.4 (7.0-11.0) fl PT 13.3 H (9.4-12.5) SECONDS INR 1.15 H (0.93-1.08) pCO2 35 (35-45) mm/Hg pO2 80.0 (80-100) mm/Hg HCO3 21.2 (21-28) mmol/L ABG pH 7.39 (7.35-7.45) ABG Total CO2 22.3 (22-28) mmol.L ABG O2 Saturation 97.6 (95-98) % ABG O2 Content 13.1 L (15-23) ML/dl ABG Base Excess -3.3 L (-2.0-3.0) mmol/L ABG Hemoglobin 9.7 L (11.7-17.4) g/dL ABG Carboxyhemoglobin 1.5 (0.5-1.5) % POC ABG HHb (Measured) 2.3 (0-5) % ABG Methemoglobin 0.9 (0.0-3.0) % ABG O2 Capacity 13.4 L (16-24) mL/dl Hgb O2 Saturation 95.3 (95.0-98.0) % FiO2 40.0 % Sodium (132-148) mmol/L Potassium (3.6-5.0) mmol/L Chloride (98-107) mmol/L Carbon Dioxide (21-33) mmol/L Anion Gap (10-20) BUN (7-21) mg/dL Creatinine (0.8-1.5) mg/dl Est GFR ( Amer) Est GFR (Non-Af Amer) POC Glucose (mg/dL) (65-110) mg/dL Random Glucose (70-110) mg/dL Calcium (8.4-10.5) mg/dL Total Bilirubin (0.2-1.3) mg/dL AST (17-59) U/L ALT (7-56) U/L Alkaline Phosphatase (38-126) U/L Total Protein (5.8-8.3) g/dL Albumin (3.0-4.8) g/dL Globulin gm/dL Albumin/Globulin Ratio (1.1-1.8) Blood Type Antibody Screen Crossmatch BBK History Checked 06/28/17 06/28/17 06/28/17 Range/Units 07:25 06:28 06:00 WBC 8.9 (4.5-11.0) 10^3/ul RBC 4.86 (3.5-6.1) 10^6/uL Hgb 12.4 L D (14.0-18.0) g/dL Hct 38.7 L (42.0-52.0) % MCV 79.6 L (80.0-105.0) fl MCH 25.5 (25.0-35.0) pg MCHC 32.0 (31.0-37.0) g/dl RDW 20.8 H (11.5-14.5) % Plt Count 175 (120.0-450.0) 10^3/uL MPV 9.8 (7.0-11.0) fl PT (9.4-12.5) SECONDS INR (0.93-1.08) pCO2 (35-45) mm/Hg pO2 (80-100) mm/Hg HCO3 (21-28) mmol/L ABG pH (7.35-7.45) ABG Total CO2 (22-28) mmol.L ABG O2 Saturation (95-98) % ABG O2 Content (15-23) ML/dl ABG Base Excess (-2.0-3.0) mmol/L ABG Hemoglobin (11.7-17.4) g/dL ABG Carboxyhemoglobin (0.5-1.5) % POC ABG HHb (Measured) (0-5) % ABG Methemoglobin (0.0-3.0) % ABG O2 Capacity (16-24) mL/dl Hgb O2 Saturation (95.0-98.0) % FiO2 % Sodium (132-148) mmol/L Potassium (3.6-5.0) mmol/L Chloride (98-107) mmol/L Carbon Dioxide (21-33) mmol/L Anion Gap (10-20) BUN (7-21) mg/dL Creatinine (0.8-1.5) mg/dl Est GFR ( Amer) Est GFR (Non-Af Amer) POC Glucose (mg/dL) 70 74 (65-110) mg/dL Random Glucose (70-110) mg/dL Calcium (8.4-10.5) mg/dL Total Bilirubin (0.2-1.3) mg/dL AST (17-59) U/L ALT (7-56) U/L Alkaline Phosphatase (38-126) U/L Total Protein (5.8-8.3) g/dL Albumin (3.0-4.8) g/dL Globulin gm/dL Albumin/Globulin Ratio (1.1-1.8) Blood Type Antibody Screen Crossmatch BBK History Checked 06/28/17 06/28/17 06/27/17 Range/Units 06:00 00:09 23:50 WBC (4.5-11.0) 10^3/ul RBC (3.5-6.1) 10^6/uL Hgb (14.0-18.0) g/dL Hct (42.0-52.0) % MCV (80.0-105.0) fl MCH (25.0-35.0) pg MCHC (31.0-37.0) g/dl RDW (11.5-14.5) % Plt Count (120.0-450.0) 10^3/uL MPV (7.0-11.0) fl PT (9.4-12.5) SECONDS INR (0.93-1.08) pCO2 (35-45) mm/Hg pO2 (80-100) mm/Hg HCO3 (21-28) mmol/L ABG pH (7.35-7.45) ABG Total CO2 (22-28) mmol.L ABG O2 Saturation (95-98) % ABG O2 Content (15-23) ML/dl ABG Base Excess (-2.0-3.0) mmol/L ABG Hemoglobin (11.7-17.4) g/dL ABG Carboxyhemoglobin (0.5-1.5) % POC ABG HHb (Measured) (0-5) % ABG Methemoglobin (0.0-3.0) % ABG O2 Capacity (16-24) mL/dl Hgb O2 Saturation (95.0-98.0) % FiO2 % Sodium 145 (132-148) mmol/L Potassium 4.4 (3.6-5.0) mmol/L Chloride 110 H (98-107) mmol/L Carbon Dioxide 25 (21-33) mmol/L Anion Gap 15 (10-20) BUN 21 (7-21) mg/dL Creatinine 1.3 (0.8-1.5) mg/dl Est GFR ( Amer) > 60 Est GFR (Non-Af Amer) 57 POC Glucose (mg/dL) 132 H (65-110) mg/dL Random Glucose 81 (70-110) mg/dL Calcium 9.5 (8.4-10.5) mg/dL Total Bilirubin 0.7 (0.2-1.3) mg/dL AST 271 H D (17-59) U/L ALT 929 H (7-56) U/L Alkaline Phosphatase 128 H D (38-126) U/L Total Protein 6.2 (5.8-8.3) g/dL Albumin 3.4 (3.0-4.8) g/dL Globulin 2.8 gm/dL Albumin/Globulin Ratio 1.2 (1.1-1.8) Blood Type A POSITIVE Antibody Screen Negative Crossmatch See Detail BBK History Checked Patient has bt 06/27/17 06/27/17 06/27/17 Range/Units 23:50 22:31 18:45 WBC 8.1 9.1 (4.5-11.0) 10^3/ul RBC 3.73 3.60 (3.5-6.1) 10^6/uL Hgb 9.5 L 9.2 L (14.0-18.0) g/dL Hct 29.4 L 28.4 L (42.0-52.0) % MCV 78.8 L 78.9 L (80.0-105.0) fl MCH 25.5 25.6 (25.0-35.0) pg MCHC 32.3 32.4 (31.0-37.0) g/dl RDW 20.4 H 20.3 H (11.5-14.5) % Plt Count 145 147 (120.0-450.0) 10^3/uL MPV 9.1 9.7 (7.0-11.0) fl PT (9.4-12.5) SECONDS INR (0.93-1.08) pCO2 (35-45) mm/Hg pO2 (80-100) mm/Hg HCO3 (21-28) mmol/L ABG pH (7.35-7.45) ABG Total CO2 (22-28) mmol.L ABG O2 Saturation (95-98) % ABG O2 Content (15-23) ML/dl ABG Base Excess (-2.0-3.0) mmol/L ABG Hemoglobin (11.7-17.4) g/dL ABG Carboxyhemoglobin (0.5-1.5) % POC ABG HHb (Measured) (0-5) % ABG Methemoglobin (0.0-3.0) % ABG O2 Capacity (16-24) mL/dl Hgb O2 Saturation (95.0-98.0) % FiO2 % Sodium (132-148) mmol/L Potassium (3.6-5.0) mmol/L Chloride (98-107) mmol/L Carbon Dioxide (21-33) mmol/L Anion Gap (10-20) BUN (7-21) mg/dL Creatinine (0.8-1.5) mg/dl Est GFR ( Amer) Est GFR (Non-Af Amer) POC Glucose (mg/dL) 65 (65-110) mg/dL Random Glucose (70-110) mg/dL Calcium (8.4-10.5) mg/dL Total Bilirubin (0.2-1.3) mg/dL AST (17-59) U/L ALT (7-56) U/L Alkaline Phosphatase (38-126) U/L Total Protein (5.8-8.3) g/dL Albumin (3.0-4.8) g/dL Globulin gm/dL Albumin/Globulin Ratio (1.1-1.8) Blood Type Antibody Screen Crossmatch BBK History Checked 06/27/17 06/25/17 Range/Units 17:59 07:35 WBC (4.5-11.0) 10^3/ul RBC (3.5-6.1) 10^6/uL Hgb (14.0-18.0) g/dL Hct (42.0-52.0) % MCV (80.0-105.0) fl MCH (25.0-35.0) pg MCHC (31.0-37.0) g/dl RDW (11.5-14.5) % Plt Count (120.0-450.0) 10^3/uL MPV (7.0-11.0) fl PT (9.4-12.5) SECONDS INR (0.93-1.08) pCO2 (35-45) mm/Hg pO2 (80-100) mm/Hg HCO3 (21-28) mmol/L ABG pH (7.35-7.45) ABG Total CO2 (22-28) mmol.L ABG O2 Saturation (95-98) % ABG O2 Content (15-23) ML/dl ABG Base Excess (-2.0-3.0) mmol/L ABG Hemoglobin (11.7-17.4) g/dL ABG Carboxyhemoglobin (0.5-1.5) % POC ABG HHb (Measured) (0-5) % ABG Methemoglobin (0.0-3.0) % ABG O2 Capacity (16-24) mL/dl Hgb O2 Saturation (95.0-98.0) % FiO2 % Sodium (132-148) mmol/L Potassium (3.6-5.0) mmol/L Chloride (98-107) mmol/L Carbon Dioxide (21-33) mmol/L Anion Gap (10-20) BUN (7-21) mg/dL Creatinine (0.8-1.5) mg/dl Est GFR ( Amer) Est GFR (Non-Af Amer) POC Glucose (mg/dL) 77 (65-110) mg/dL Random Glucose (70-110) mg/dL Calcium (8.4-10.5) mg/dL Total Bilirubin (0.2-1.3) mg/dL AST (17-59) U/L ALT (7-56) U/L Alkaline Phosphatase (38-126) U/L Total Protein (5.8-8.3) g/dL Albumin (3.0-4.8) g/dL Globulin gm/dL Albumin/Globulin Ratio (1.1-1.8) Blood Type A POSITIVE Antibody Screen Negative Crossmatch See Detail BBK History Checked Patient has bt Laboratory Results - last 24 hr 06/25/17 06/27/17 06/27/17 07:35 17:59 18:45 WBC 9.1 RBC 3.60 Hgb 9.2 L Hct 28.4 L MCV 78.9 L MCH 25.6 MCHC 32.4 RDW 20.3 H Plt Count 147 MPV 9.7 PT INR pCO2 pO2 HCO3 ABG pH ABG Total CO2 ABG O2 Saturation ABG O2 Content ABG Base Excess ABG Hemoglobin ABG Carboxyhemoglobin POC ABG HHb (Measured) ABG Methemoglobin ABG O2 Capacity Hgb O2 Saturation FiO2 Sodium Potassium Chloride Carbon Dioxide Anion Gap BUN Creatinine Est GFR ( Amer) Est GFR (Non-Af Amer) POC Glucose (mg/dL) 77 Random Glucose Calcium Total Bilirubin AST ALT Alkaline Phosphatase Total Protein Albumin Globulin Albumin/Globulin Ratio Blood Type A POSITIVE Antibody Screen Negative Crossmatch See Detail BBK History Checked Patient has bt 06/27/17 06/27/17 06/27/17 22:31 23:50 23:50 WBC 8.1 RBC 3.73 Hgb 9.5 L Hct 29.4 L MCV 78.8 L MCH 25.5 MCHC 32.3 RDW 20.4 H Plt Count 145 MPV 9.1 PT INR pCO2 pO2 HCO3 ABG pH ABG Total CO2 ABG O2 Saturation ABG O2 Content ABG Base Excess ABG Hemoglobin ABG Carboxyhemoglobin POC ABG HHb (Measured) ABG Methemoglobin ABG O2 Capacity Hgb O2 Saturation FiO2 Sodium Potassium Chloride Carbon Dioxide Anion Gap BUN Creatinine Est GFR ( Amer) Est GFR (Non-Af Amer) POC Glucose (mg/dL) 65 Random Glucose Calcium Total Bilirubin AST ALT Alkaline Phosphatase Total Protein Albumin Globulin Albumin/Globulin Ratio Blood Type A POSITIVE Antibody Screen Negative Crossmatch See Detail BBK History Checked Patient has bt 06/28/17 06/28/17 06/28/17 00:09 06:00 06:00 WBC 8.9 RBC 4.86 Hgb 12.4 L D Hct 38.7 L MCV 79.6 L MCH 25.5 MCHC 32.0 RDW 20.8 H Plt Count 175 MPV 9.8 PT INR pCO2 pO2 HCO3 ABG pH ABG Total CO2 ABG O2 Saturation ABG O2 Content ABG Base Excess ABG Hemoglobin ABG Carboxyhemoglobin POC ABG HHb (Measured) ABG Methemoglobin ABG O2 Capacity Hgb O2 Saturation FiO2 Sodium 145 Potassium 4.4 Chloride 110 H Carbon Dioxide 25 Anion Gap 15 BUN 21 Creatinine 1.3 Est GFR ( Amer) > 60 Est GFR (Non-Af Amer) 57 POC Glucose (mg/dL) 132 H Random Glucose 81 Calcium 9.5 Total Bilirubin 0.7 AST 271 H D ALT 929 H Alkaline Phosphatase 128 H D Total Protein 6.2 Albumin 3.4 Globulin 2.8 Albumin/Globulin Ratio 1.2 Blood Type Antibody Screen Crossmatch BBK History Checked 06/28/17 06/28/17 06/28/17 06:28 07:25 11:50 WBC RBC Hgb Hct MCV MCH MCHC RDW Plt Count MPV PT 13.3 H INR 1.15 H pCO2 pO2 HCO3 ABG pH ABG Total CO2 ABG O2 Saturation ABG O2 Content ABG Base Excess ABG Hemoglobin ABG Carboxyhemoglobin POC ABG HHb (Measured) ABG Methemoglobin ABG O2 Capacity Hgb O2 Saturation FiO2 Sodium Potassium Chloride Carbon Dioxide Anion Gap BUN Creatinine Est GFR ( Amer) Est GFR (Non-Af Amer) POC Glucose (mg/dL) 74 70 Random Glucose Calcium Total Bilirubin AST ALT Alkaline Phosphatase Total Protein Albumin Globulin Albumin/Globulin Ratio Blood Type Antibody Screen Crossmatch BBK History Checked 06/28/17 06/28/17 11:50 12:00 WBC 10.8 D RBC 3.99 Hgb 10.0 L D Hct 31.5 L MCV 78.9 L MCH 25.1 MCHC 31.7 RDW 20.6 H Plt Count 156 MPV 9.4 PT INR pCO2 35 pO2 80.0 HCO3 21.2 ABG pH 7.39 ABG Total CO2 22.3 ABG O2 Saturation 97.6 ABG O2 Content 13.1 L ABG Base Excess -3.3 L ABG Hemoglobin 9.7 L ABG Carboxyhemoglobin 1.5 POC ABG HHb (Measured) 2.3 ABG Methemoglobin 0.9 ABG O2 Capacity 13.4 L Hgb O2 Saturation 95.3 FiO2 40.0 Sodium Potassium Chloride Carbon Dioxide Anion Gap BUN Creatinine Est GFR ( Amer) Est GFR (Non-Af Amer) POC Glucose (mg/dL) Random Glucose Calcium Total Bilirubin AST ALT Alkaline Phosphatase Total Protein Albumin Globulin Albumin/Globulin Ratio Blood Type Antibody Screen Crossmatch BBK History Checked Attending/Attestation - Attestation I have personally seen and examined this patient.: Yes I have fully participated in the care of the patient.: Yes I have reviewed all pertinent clinical information: Yes Notes (Text): 06/28/17 12:30 The patient was seen and examined at the bedside. Patient care was discussed with resident and ICU team in MDR rounds. Medical records, lab studies, and imaging were reviewed and management issues were discussed and formulated. Last 24H events reviewed. Agree with above treatment plans as outlined in 's note with addition of the following: Acute Respiratory Failure \ Hypoxemia \ Anemia \ GI bleed \ DIEUDONNE \ Elevated LFT \ DM -hemodynamic monitoring to maintain MAP>65 -mechanical ventilation and o2 supplementation to maintain Spo2 >90 Pao2>60 -monitor for TV 6ml\kg IBW and plateau pressure <30 -ABG reviewed; we will start PS trial and weaning as tolerated -f\u Bun\Cr and U\o -GI team f\u for colonoscopy today -f\u serial LFT, consider abdominal US -pt needs further investigation into possible neoplastic process once he is stabilized -continue PPi IV -f\u serial H\H; pt is s\p 7 units PRBC -monitor INR -monitor and replace e-lites -NPO diet and aspiration precautions -ISS and BGM monitoring -resume cardiac meds when ok by GI team -surgical team and IR team f\u -DVT \ PUD prophylaxis CCM f\u 36min
[2017-06-28 12:04] LABS: ARTERIAL BLOOD GAS HCO3 21.2 mmol/L (21-28); ARTERIAL BLOOD GAS HEMOGLOBIN 9.7 g/dL (11.7-17.4); ARTERIAL BLOOD GAS O2 CAPACITY 13.4 mL/dl (16-24); ARTERIAL BLOOD GAS O2 CONTENT 13.1 ML/dl (15-23); ARTERIAL BLOOD GAS O2 SAT 97.6 % (95-98); ARTERIAL BLOOD GAS PCO2 35 mm/Hg (35-45); ARTERIAL BLOOD GAS PH 7.39 (7.35-7.45); ARTERIAL BLOOD GAS TCO2 22.3 mmol.L (22-28)
[2017-06-28 12:26] LABS: MEAN CELL VOLUME 78.9 fl (80.0-105.0); MEAN CORPUSCULAR HEMOGLOBIN 25.1 pg (25.0-35.0); MEAN CORPUSCULAR HGB CONC 31.7 g/dl (31.0-37.0); MEAN PLATELET VOLUME 9.4 fl (7.0-11.0); RBC 3.99 10^6/uL (3.5-6.1); RED CELL DISTRIBUTION WIDTH 20.6 % (11.5-14.5); WHITE BLOOD COUNT 10.8 10^3/ul (4.5-11.0)
[2017-06-28 12:29] LABS: INR 1.15 (0.93-1.08); PROTHROMBIN TIME 13.3 SECONDS (9.4-12.5)
[2017-06-28 12:57] LABS: IRON 14 ug/dL (45-180)
[2017-06-28 13:06] LABS: % IRON SATURATION 5 % (20-55); TOTAL IRON BINDING CAPACITY 302 ug/dL (261-462)
--- NOTE | 2017-06-28 13:31 | CP.PCM.PN ---
<Arvind Craig - Last Filed: 06/28/17 13:43> Subjective - Date & Time of Evaluation Date of Evaluation: 06/28/17 Time of Evaluation: 13:13 - Subjective Subjective: Medicine Progress Note: Patient seen and examined in ICU. Patient currently intubated on sedation. No acute events noted overnight by nursing staff. Objective - Vital Signs/Intake and Output Vital Signs (last 24 hours): Temp Pulse Resp BP Pulse Ox 97.6 F 64 17 110/76 100 06/28/17 09:51 06/28/17 09:51 06/27/17 19:00 06/28/17 09:51 06/28/17 09:51 Intake and Output: 06/28/17 06/28/17 06:59 18:59 Intake Total 5650 140 Output Total 3000 Balance 2650 140 - Medications Medications: Current Medications Diphenhydramine HCl (Benadryl) 25 mg IVP Q6 PRN PRN Reason: Allergy symptoms Last Admin: 06/27/17 06:21 Dose: 25 mg Haloperidol Lactate (Haldol) 5 mg IVP Q6 PRN; Protocol PRN Reason: Agitation Last Admin: 06/27/17 06:19 Dose: 5 mg Hydralazine HCl (Apresoline) 10 mg IVP Q6 PRN PRN Reason: Systolic Blood Pressure > 165 Last Admin: 06/26/17 22:08 Dose: 10 mg Metronidazole (Flagyl) 500 mg in 100 mls @ 100 mls/hr IVPB Q8 NINO PRN Reason: Protocol Last Admin: 06/25/17 08:44 Dose: 100 mls/hr Propofol (Diprivan) 1,000 mg in 100 mls @ 2.722 mls/hr IV .Q24H PRN; Protocol; 5 MCG/KG/MIN PRN Reason: TITRATE PER MD ORDER Last Titration: 06/28/17 11:00 Dose: 35 mcg/kg/min, 19.051 mls/hr Dexmedetomidine HCl (Precedex 400mcg/100ml) 400 mcg in 100 mls @ 4.536 mls/hr IV .Q22H3M PRN; Protocol; 0.2 MCG/KG/HR PRN Reason: Agitation Last Admin: 06/28/17 11:46 Dose: 0.2 mcg/kg/hr, 4.536 mls/hr Sodium Chloride (Sodium Chloride 0.9%) 1,000 mls @ 75 mls/hr IV .[id number] [facility] Last Admin: 06/28/17 10:54 Dose: 75 mls/hr Insulin Human Lispro (Humalog Med) 0 units SC Q6 NINO PRN Reason: Protocol Last Admin: 06/28/17 06:33 Dose: Not Given Lorazepam (Ativan) 1 mg IVP Q6H PRN; Protocol PRN Reason: Anxiety Last Admin: 06/27/17 06:20 Dose: 1 mg Mesalamine (Rowasa Enema) 4 gm RC HS [facility] Morphine Sulfate (Morphine) 2 mg IVP Q3H PRN PRN Reason: Pain, Mild (1-3) Nicotine (Nicoderm Cq) 1 patch TD DAILY [facility] Last Admin: 06/28/17 10:50 Dose: 1 patch Ondansetron HCl (Zofran Inj) 4 mg IVP Q4H PRN PRN Reason: Nausea/Vomiting Pantoprazole Sodium (Protonix Inj) 40 mg IVP DAILY [facility] Quetiapine Fumarate (Seroquel) 50 mg PO BID [facility] PRN Reason: Protocol Last Admin: 06/28/17 11:52 Dose: Not Given Quetiapine Fumarate (Seroquel) 150 mg PO HS [facility] PRN Reason: Protocol Last Admin: 06/27/17 21:10 Dose: 150 mg - Labs Labs: 06/28/17 11:50 06/28/17 06:00 PT 13.3 SECONDS (9.4-12.5) H 06/28/17 11:50 INR 1.15 (0.93-1.08) H 06/28/17 11:50 APTT 25.0 Seconds (25.1-36.5) L 06/25/17 15:00 - Head Exam Head Exam: ATRAUMATIC, NORMOCEPHALIC - Eye Exam Eye Exam: absent: Conjunctival injection, Scleral icterus Pupil Exam: NORMAL ACCOMODATION, PERRL. absent: Fixed, Irregular, Miosis, Mydriatic, Unequal - ENT Exam ENT Exam: Mucous Membranes Moist Additional comments: ET tube in place in oropharynx - Respiratory Exam Respiratory Exam: Clear to Ausculation Bilateral. absent: Rales, Rhonchi, Wheezes - Cardiovascular Exam Cardiovascular Exam: REGULAR RHYTHM, RRR, +S1, +S2 - GI/Abdominal Exam GI & Abdominal Exam: Soft, Normal Bowel Sounds. absent: Distended, Firm, Tenderness - Extremities Exam Extremities Exam: Normal Capillary Refill. absent: Calf Tenderness, Joint Swelling, Pedal Edema, Tenderness - Skin Skin Exam: Dry, Intact, Normal Color, Warm Assessment and Plan - Assessment and Plan (Free Text) Assessment: 56 year old male with a past medical history significant for bleeding duodenal ulcer s/p hemoclip (Coates 01/2017), CAD s/p CABG, PAD s/p R SFA stent, HLD, DM2, lumbosacral radiculopathy, tobacco use and chronic opioid dependence with non- bloody and non-bilious nausea/vomiting for three days and two episodes of melena. Patient is currently under ICU level care for acute drop in hemoglobin. Plan: 1. Acute Symptomatic Anemia with suspected GI Hemorrhage -Flexible Sigmoidoscopy showed 8mm pedunculated polyp of hepatic flexure, diverticulosis of the sigmoid colon, non-bleeding internal hemorrhoids and one area ulcerated mucosa in the rectum with contact bleeding consistent with proctitis -EGD showed nodule in esophagus, gastritis, granular mucosa in the duodenal bulb and one duodenal ulcer with clean base with biopsies pending -CT Angio of Abdomen/Pelvis showed linear foci of hyperdensity within the rectum and wall thickening of the distal rectum -GI Bleed Scan showed findings suspicious for active bleeding in the distal rectum -Stool and C. Diff cultures pending -H/H stable at 12.4/38.7 s/p transfusion of seven units of pRBC's -Started daily Rowasa enemas -Continue Protonix 40mg IVP daily -Continue Zofran 4mg IVP Q4 PRN for N/V -Continue Normal Saline at 75mls/hr -Continue ventilator and sedation management per ICU -Continue to monitor anemia with daily CBC's -GI, Surgery, IR and ICU consulted, all recommendations appreciated 2. Transaminitis -Hepatitis panel, Autoimmune Hepatitis, Hemachromatosis and Florian's Disease work-up pending -Avoid use of hepatotoxic agents when possible -Continue to monitor with daily CMP's -GI consulted, all recommendations appreciated 3. Supratherapeutic INR -Resolved -Continue to hold anticoagulants in setting of GI hemorrhage -Continue to monitor with daily INR -Cardiology consulted, all recommendations appreciated 4. DIEUDONNE -Resolved -Continue to monitor with daily CMP's 5. Hyperkalemia -Resolved -Calcium Gluconate given on admission -Continue to monitor with daily CMP's 6. Chronic Opioid Dependence -Continue Morphine 2mg IVP Q3 PRN -Continue PRN Haldol, Ativan, and Benadryl for agitation -Continue Seroquel -Continue to monitor for signs of withdrawal -Psych consulted, all recommendations appreciated 7. History of CAD and PAD -Anticoagulation and Antiplatelets currently held in setting of GI hemorrhage -Cardiology consulted, all recommendations appreciated 8. History of DM2 -ISS-Medium and Accuchecks ACHS -Currently NPO 9. History of Tobacco Abuse -Continue Nicoderm CQ GI Prophylaxis: Protonix DVT Prophylaxis: SCD's Patient seen and case discussed with attending, Dr. Yoon. <Shaina Yoon - Last Filed: 06/28/17 16:37> Objective - Vital Signs/Intake and Output Vital Signs (last 24 hours): Temp Pulse Resp BP Pulse Ox 97.6 F 57 L 17 166/84 H 100 06/28/17 09:51 06/28/17 16:18 06/27/17 19:00 06/28/17 16:18 06/28/17 09:51 Intake and Output: 06/28/17 06/28/17 06:59 18:59 Intake Total 5650 220 Output Total 3000 Balance 2650 220 - Medications Medications: Current Medications Diphenhydramine HCl (Benadryl) 25 mg IVP Q6 PRN PRN Reason: Allergy symptoms Last Admin: 06/27/17 06:21 Dose: 25 mg Haloperidol Lactate (Haldol) 5 mg IVP Q6 PRN; Protocol PRN Reason: Agitation Last Admin: 06/27/17 06:19 Dose: 5 mg Hydralazine HCl (Apresoline) 10 mg IVP Q6 PRN PRN Reason: Systolic Blood Pressure > 165 Last Admin: 06/28/17 16:18 Dose: 10 mg Metronidazole (Flagyl) 500 mg in 100 mls @ 100 mls/hr IVPB Q8 NINO PRN Reason: Protocol Last Admin: 06/25/17 08:44 Dose: 100 mls/hr Propofol (Diprivan) 1,000 mg in 100 mls @ 2.722 mls/hr IV .Q24H PRN; Protocol; 5 MCG/KG/MIN PRN Reason: TITRATE PER MD ORDER Last Admin: 06/28/17 15:59 Dose: 35 mcg/kg/min, 19.051 mls/hr Dexmedetomidine HCl (Precedex 400mcg/100ml) 400 mcg in 100 mls @ 4.536 mls/hr IV .Q22H3M PRN; Protocol; 0.2 MCG/KG/HR PRN Reason: Agitation Last Admin: 06/28/17 11:46 Dose: 0.2 mcg/kg/hr, 4.536 mls/hr Sodium Chloride (Sodium Chloride 0.9%) 1,000 mls @ 75 mls/hr IV .[id number] NINO Last Admin: 06/28/17 10:54 Dose: 75 mls/hr Insulin Human Lispro (Humalog Med) 0 units SC Q6 NINO PRN Reason: Protocol Last Admin: 06/28/17 12:02 Dose: Not Given Lorazepam (Ativan) 1 mg IVP Q6H PRN; Protocol PRN Reason: Anxiety Last Admin: 06/27/17 06:20 Dose: 1 mg Mesalamine (Rowasa Enema) 4 gm RC HS [facility] Morphine Sulfate (Morphine) 2 mg IVP Q3H PRN PRN Reason: Pain, Mild (1-3) Nicotine (Nicoderm Cq) 1 patch TD DAILY [facility] Last Admin: 06/28/17 10:50 Dose: 1 patch Ondansetron HCl (Zofran Inj) 4 mg IVP Q4H PRN PRN Reason: Nausea/Vomiting Pantoprazole Sodium (Protonix Inj) 40 mg IVP DAILY [facility] Quetiapine Fumarate (Seroquel) 50 mg PO BID NINO PRN Reason: Protocol Last Admin: 06/28/17 11:52 Dose: Not Given Quetiapine Fumarate (Seroquel) 150 mg PO HS NINO PRN Reason: Protocol Last Admin: 06/27/17 21:10 Dose: 150 mg - Labs Labs: 06/28/17 11:50 06/28/17 06:00 PT 13.3 SECONDS (9.4-12.5) H 06/28/17 11:50 INR 1.15 (0.93-1.08) H 06/28/17 11:50 APTT 25.0 Seconds (25.1-36.5) L 06/25/17 15:00 Attending/Attestation - Attestation I have personally seen and examined this patient.: Yes I have fully participated in the care of the patient.: Yes I have reviewed all pertinent clinical information, including history, physical exam and plan: Yes Notes (Text): 06/28/17 16:30 Attending note; Patient seen and examined with resident in ICU. Patient is intubated and sedated. Vitals stable. Patient is a 56-year-old male with PMH of bleeding duodenal ulcer s/p hemoclip, CAD s/p CABG, peripheral arterial disease s/p R SFA stent, hyperlipidemia, diabetes, lumbosacral radiculopathy, tobacco use and chronic opioid dependence presents with lower GI bleed. Patient received multiple units of blood transfusion, FFP and platelet transfusion. Hemoglobin is 10.0. Status post EGD yesterday. Showed Gastritis and the duodenal ulcer with clean base. Sigmoidoscopy showed diffuse blood. on protonix drip. Bleeding scan is positive for possible bleed at the rectal area. CT angios showed hyperdensity in the rectal area. Case discussed with interventional radiologist and GI in detail yesterday. Repeat colonoscopy today. Elevated LFTs; secondary to hemodynamic changes/shock liver. Improving slowly History of coronary artery disease; cardiology evaluation appreciated. Currently aspirin, Plavix and Coumadin on hold. INR is 1.2. acute renal insufficiency; resolved. Mostly secondary to GI bleed/volume loss/ prerenal state. continue Precedex and propofol for sedation. monitor the patient closely in ICU.
--- NOTE | 2017-06-28 13:41 | PN ---
DATE: 06/28/2017 CARDIOLOGY FOLLOWUP SUBJECTIVE: The patient is currently intubated, is undergoing invasive GI workup. PHYSICAL EXAMINATION VITAL SIGNS: Blood pressure is 156/81, heart rate is in the 60s. NECK: Negative JVD. LUNGS: Without rales. HEART: S1, S2. EXTREMITIES: Without edema. LABORATORY DATA: Troponin is 0.04. Hemoglobin is 12.4. IMPRESSION 1. Gastrointestinal bleed, likely lower gastrointestinal bleed. 2. History of coronary artery bypass surgery. 3. Coronary artery disease. 4. Stable angina. 5. History of paroxysmal atrial fibrillation. Given these findings, the patient's cardiac status is stable so far. Awaiting results of his endoscopy and colonoscopy. Sky Molina MD
[2017-06-28 16:22] LABS: IMMUNOGLOBULIN A 169.9 mg/dL (70.0-400.0); IMMUNOGLOBULIN G 627.1 mg/dL (700.0-1600.0); IMMUNOGLOBULIN M 55.7 mg/dL (40.0-230.0)
--- NOTE | 2017-06-28 16:46 | CP.PCM.PCO ---
Addendum Addendum: 06/28/17 16:45 pt was intubated, this leader writer was not able to interview pt, d/w medical authorization specialist and RN please let me know when pt is extubated.
[2017-06-28 21:46] LABS: HEPATITIS B SURFACE AG Negative (NEGATIVE)
[2017-06-28 21:51] LABS: HEPATITIS A IGM NEGATIVE (NEGATIVE); HEPATITIS B CORE AB NEGATIVE (NEGATIVE)
[2017-06-28 22:03] LABS: HEPATITIS C ANTIBODY NEGATIVE (NEGATIVE)
[2017-06-28 22:06] LABS: HEMOGLOBIN 10.5 g/dL (14.0-18.0); MEAN CELL VOLUME 78.7 fl (80.0-105.0); MEAN CORPUSCULAR HEMOGLOBIN 25.2 pg (25.0-35.0); MEAN PLATELET VOLUME 9.4 fl (7.0-11.0); RBC 4.17 10^6/uL (3.5-6.1); RED CELL DISTRIBUTION WIDTH 20.7 % (11.5-14.5)
[2017-06-29] MEDS: Propofol 10 mg/ml 1,000 MG/100 ML VIAL IV PRN (04:11)
[2017-06-29 05:54] LABS: ARTERIAL BLOOD GAS HCO3 17.1 mmol/L (21-28); ARTERIAL BLOOD GAS HEMOGLOBIN 12.2 g/dL (11.7-17.4); ARTERIAL BLOOD GAS O2 CAPACITY 17.2 mL/dl (16-24); ARTERIAL BLOOD GAS O2 SAT 98.7 % (95-98); ARTERIAL BLOOD GAS PCO2 27 mm/Hg (35-45); ARTERIAL BLOOD GAS PH 7.41 (7.35-7.45); ARTERIAL BLOOD GAS TCO2 17.9 mmol.L (22-28)
[2017-06-29] MEDS: Sodium Chloride 0.9% 1,000 ML IV SCH (06:09)
[2017-06-29 06:44] LABS: BASO # 0.01 K/mm3 (0.0-2.0); BASO % 0.1 % (0.0-3.0); EOS # 0.1 (0.0-0.7); EOS % 0.7 % (1.5-5.0); GRAN # 11.98 (1.4-6.5); GRAN % 87.4 % (50.0-68.0); HEMOGLOBIN 11.4 g/dL (14.0-18.0); LYMPH # 0.6 (1.2-3.4); LYMPH % 4.6 % (22.0-35.0); MEAN CELL VOLUME 79.3 fl (80.0-105.0); MEAN CORPUSCULAR HEMOGLOBIN 25.1 pg (25.0-35.0); MEAN CORPUSCULAR HGB CONC 31.7 g/dl (31.0-37.0); MEAN PLATELET VOLUME 9.8 fl (7.0-11.0); MONO % 7.2 % (1.0-6.0); PLATELET COUNT 226 10^3/uL (120.0-450.0); RBC 4.54 10^6/uL (3.5-6.1); WHITE BLOOD COUNT 13.7 10^3/ul (4.5-11.0)
[2017-06-29 07:52] LABS: ALB/GLOB RATIO 1.1 (1.1-1.8); ALT/SGPT 569 U/L (7-56); AST/SGOT 89 U/L (17-59); BLOOD UREA NITROGEN 15 mg/dL (7-21); CALCIUM 8.9 mg/dL (8.4-10.5); GFR AFRICAN-AMERICAN > 60; GFR NON-AFRICAN AMERICAN 57
--- NOTE | 2017-06-29 08:00 | CP.PCM.PN ---
<Maxine Lopes - Last Filed: 06/29/17 13:17> Subjective - Date & Time of Evaluation Date of Evaluation: 06/29/17 Time of Evaluation: 07:00 - Subjective Subjective: GI Fellow PGY4 Progress Note Pt seen and evaluated at bedside, pt is intubated and sedated. Per nursing no events overnight, no lower GI bleeding noted after colonoscopy. Pt was given his Rowasa enema. ROS: A 12pt ROS was unable to be obtained. Objective - Vital Signs/Intake and Output Vital Signs (last 24 hours): Temp Pulse Resp BP Pulse Ox 101.1 F H 117 H 23 137/77 98 06/29/17 04:17 06/29/17 03:30 06/29/17 00:19 06/29/17 03:00 06/29/17 03:30 Intake and Output: 06/29/17 06/29/17 06:59 18:59 Intake Total 300 Balance 300 - Medications Medications: Current Medications Acetaminophen (Tylenol 325mg Tab) 650 mg PO Q4H PRN PRN Reason: Fever >100.4 F Diphenhydramine HCl (Benadryl) 25 mg IVP Q6 PRN PRN Reason: Allergy symptoms Last Admin: 06/27/17 06:21 Dose: 25 mg Haloperidol Lactate (Haldol) 5 mg IVP Q6 PRN; Protocol PRN Reason: Agitation Last Admin: 06/27/17 06:19 Dose: 5 mg Hydralazine HCl (Apresoline) 10 mg IVP Q6 PRN PRN Reason: Systolic Blood Pressure > 165 Last Admin: 06/28/17 16:18 Dose: 10 mg Metronidazole (Flagyl) 500 mg in 100 mls @ 100 mls/hr IVPB Q8 NINO PRN Reason: Protocol Last Admin: 06/25/17 08:44 Dose: 100 mls/hr Propofol (Diprivan) 1,000 mg in 100 mls @ 2.722 mls/hr IV .Q24H PRN; Protocol; 5 MCG/KG/MIN PRN Reason: TITRATE PER MD ORDER Last Admin: 06/29/17 04:11 Dose: 35 mcg/kg/min, 19.051 mls/hr Dexmedetomidine HCl (Precedex 400mcg/100ml) 400 mcg in 100 mls @ 4.536 mls/hr IV .Q22H3M PRN; Protocol; 0.2 MCG/KG/HR PRN Reason: Agitation Last Admin: 06/28/17 22:56 Dose: 0.2 mcg/kg/hr, 4.536 mls/hr Sodium Chloride (Sodium Chloride 0.9%) 1,000 mls @ 75 mls/hr IV .[id number] [facility] Last Admin: 06/29/17 06:09 Dose: 75 mls/hr Insulin Human Lispro (Humalog Med) 0 units SC Q6 NINO PRN Reason: Protocol Last Admin: 06/28/17 17:26 Dose: Not Given Lorazepam (Ativan) 1 mg IVP Q6H PRN; Protocol PRN Reason: Anxiety Last Admin: 06/29/17 02:52 Dose: 1 mg Mesalamine (Rowasa Enema) 4 gm RC HS [facility] Last Admin: 06/29/17 00:11 Dose: 4 gm Morphine Sulfate (Morphine) 2 mg IVP Q3H PRN PRN Reason: Pain, Mild (1-3) Nicotine (Nicoderm Cq) 1 patch TD DAILY [facility] Last Admin: 06/28/17 10:50 Dose: 1 patch Ondansetron HCl (Zofran Inj) 4 mg IVP Q4H PRN PRN Reason: Nausea/Vomiting Pantoprazole Sodium (Protonix Inj) 40 mg IVP DAILY [facility] Quetiapine Fumarate (Seroquel) 50 mg PO BID [facility] PRN Reason: Protocol Last Admin: 06/28/17 17:28 Dose: Not Given Quetiapine Fumarate (Seroquel) 150 mg PO HS [facility] PRN Reason: Protocol Last Admin: 06/28/17 22:18 Dose: Not Given - Labs Labs: 06/29/17 05:35 06/29/17 05:35 PT 13.3 SECONDS (9.4-12.5) H 06/28/17 11:50 INR 1.15 (0.93-1.08) H 06/28/17 11:50 APTT 25.0 Seconds (25.1-36.5) L 06/25/17 15:00 - Constitutional Appears: Agitated, Chronically Ill - Head Exam Head Exam: ATRAUMATIC, NORMAL INSPECTION, NORMOCEPHALIC - Eye Exam Eye Exam: Normal appearance, PERRL - ENT Exam ENT Exam: Mucous Membranes Dry Additional comments: ETT - Neck Exam Neck Exam: Full ROM - Respiratory Exam Respiratory Exam: Decreased Breath Sounds, Respiratory Distress Additional comments: VDRF - Cardiovascular Exam Cardiovascular Exam: Tachycardia - GI/Abdominal Exam GI & Abdominal Exam: Soft, Normal Bowel Sounds. absent: Distended, Firm, Guarding, Tenderness - Extremities Exam Extremities Exam: Full ROM, Normal Inspection. absent: Pedal Edema - Psychiatric Exam Psychiatric exam: Agitated - Skin Skin Exam: Dry, Intact, Normal Color, Warm Assessment and Plan - Assessment and Plan (Free Text) Assessment: Marco A Fuentes is a 56M w/ hx of bleeding duodenal ulcer s/p hemoclip w/ Dr. Coates (01/2017), CAD s/p CABG, PAD s/p R SFA stent, HLD, DM2, lumbosacral radiculopathy, tobacco use and chronic opioid dependence presents who presented with anemia and melena. 1. Lower GI bleed 2. Anemia 3. Melena 4. Ulcerated Proctitis in rectum 5. Transaminemia likely 2/2 ischemic hepatitis; r/o viral and autoimmune etiology 6. Supratherapeutic INR-normalized s/p FFP 7. Duodenal ulcer clean base 8. Hx of narcotic use 9. hx of CAD s/p CABG on apirin/plavix at home Plan: -s/p push enteroscopy and colonoscopy which showed ulcerated rectum and diverticulosis with no active bleeding, no upper GI bleeding with examination of jejunum and terminal ileum -Proctitis of rectum, recommend canasa suppository which are not available so Rowasa enema daily -continue PPI daily, no upper GI bleed -Can start tube feeds if pt will not be extubated -s/p 7 units of PRBC, 3U FFP, 1U Platelets -H/H stable with no further lower GI bleeding -check INR, CBC in the AM -maintain 2 large IVs -continue IV fluids -LFTs improving likely shock liver, hepatitis viral serologies neg and autoimmune pending -pt will need repeat colonoscopy to eval rectum and biopsies to r/o UC -Case was discussed with pt's after procedure yesterday and primary team -Will continue to follow pt closely <Alvin Felder - Last Filed: 06/29/17 14:00> Objective - Vital Signs/Intake and Output Vital Signs (last 24 hours): Temp Pulse Resp BP Pulse Ox 101.1 F H 119 H 23 145/79 100 06/29/17 04:17 06/29/17 08:00 06/29/17 00:19 06/29/17 05:00 06/29/17 08:00 Intake and Output: 06/29/17 06/29/17 06:59 18:59 Intake Total 1450 105 Output Total 1325 Balance 125 105 - Medications Medications: Current Medications Acetaminophen (Tylenol 325mg Tab) 650 mg PO Q4H PRN PRN Reason: Fever >100.4 F Diphenhydramine HCl (Benadryl) 25 mg IVP Q6 PRN PRN Reason: Allergy symptoms Last Admin: 06/27/17 06:21 Dose: 25 mg Haloperidol Lactate (Haldol) 5 mg IVP Q6 PRN; Protocol PRN Reason: Agitation Last Admin: 06/27/17 06:19 Dose: 5 mg Hydralazine HCl (Apresoline) 10 mg IVP Q6 PRN PRN Reason: Systolic Blood Pressure > 165 Last Admin: 06/28/17 16:18 Dose: 10 mg Metronidazole (Flagyl) 500 mg in 100 mls @ 100 mls/hr IVPB Q8 NINO PRN Reason: Protocol Last Admin: 06/25/17 08:44 Dose: 100 mls/hr Propofol (Diprivan) 1,000 mg in 100 mls @ 2.722 mls/hr IV .Q24H PRN; Protocol; 5 MCG/KG/MIN PRN Reason: TITRATE PER MD ORDER Last Titration: 06/29/17 08:55 Dose: 0 mcg/kg/min, 0 mls/hr Dexmedetomidine HCl (Precedex 400mcg/100ml) 400 mcg in 100 mls @ 4.536 mls/hr IV .Q22H3M PRN; Protocol; 0.2 MCG/KG/HR PRN Reason: Agitation Last Titration: 06/29/17 08:00 Dose: 0.2 mcg/kg/hr, 4.536 mls/hr Sodium Chloride (Sodium Chloride 0.9%) 1,000 mls @ 75 mls/hr IV .[id number] INNO Last Admin: 06/29/17 06:09 Dose: 75 mls/hr Aztreonam (Azactam 2 Gm) 100 mls @ 100 mls/hr IVPB Q8 NINO PRN Reason: Protocol Stop: 07/06/17 08:31 Last Admin: 06/29/17 10:02 Dose: 100 mls/hr Insulin Human Lispro (Humalog Med) 0 units SC Q6 NINO PRN Reason: Protocol Last Admin: 06/28/17 17:26 Dose: Not Given Lorazepam (Ativan) 1 mg IVP Q6H PRN; Protocol PRN Reason: Anxiety Last Admin: 06/29/17 02:52 Dose: 1 mg Mesalamine (Rowasa Enema) 4 gm RC HS [facility] Last Admin: 06/29/17 00:11 Dose: 4 gm Morphine Sulfate (Morphine) 2 mg IVP Q3H PRN PRN Reason: Pain, Mild (1-3) Nicotine (Nicoderm Cq) 1 patch TD DAILY [facility] Last Admin: 06/29/17 09:59 Dose: 1 patch Ondansetron HCl (Zofran Inj) 4 mg IVP Q4H PRN PRN Reason: Nausea/Vomiting Pantoprazole Sodium (Protonix Inj) 40 mg IVP DAILY [facility] Last Admin: 06/29/17 10:00 Dose: 40 mg Quetiapine Fumarate (Seroquel) 50 mg PO BID [facility] PRN Reason: Protocol Last Admin: 06/29/17 09:12 Dose: Not Given Quetiapine Fumarate (Seroquel) 150 mg PO HS [facility] PRN Reason: Protocol Last Admin: 06/28/17 22:18 Dose: Not Given - Labs Labs: 06/29/17 05:35 06/29/17 05:35 PT 13.7 SECONDS (9.4-12.5) H 06/29/17 09:40 INR 1.19 (0.93-1.08) H 06/29/17 09:40 APTT 25.0 Seconds (25.1-36.5) L 06/25/17 15:00 Attending/Attestation - Attestation I have personally seen and examined this patient.: Yes I have fully participated in the care of the patient.: Yes I have reviewed all pertinent clinical information, including history, physical exam and plan: Yes Notes (Text): 06/29/17 13:58 56 year old male with h/o PUD, CAD s/p CABG, PVD, HLD, DM, Opiate dependence a/ w lower gi bleeding due to rectal ulcer. Endoscopic evaluation showed evidence of ulceration in the colon/rectum. Monitor for recurrent bleeding. Topical 5- asa therapy.
--- NOTE | 2017-06-29 08:16 | CP.PCM.PN ---
Subjective - Date & Time of Evaluation Date of Evaluation: 06/29/17 Time of Evaluation: 08:12 - Subjective Subjective: Surgery: Dr. Ty Pt seen and examined. No acute events overnight. No episodes of further bleeding. Remains intubated. Is arousable. Objective - Vital Signs/Intake and Output Vital Signs (last 24 hours): Temp Pulse Resp BP Pulse Ox 101.1 F H 119 H 23 145/79 100 06/29/17 04:17 06/29/17 08:00 06/29/17 00:19 06/29/17 05:00 06/29/17 08:00 Intake and Output: 06/29/17 06/29/17 06:59 18:59 Intake Total 1450 Output Total 1325 Balance 125 - Medications Medications: Current Medications Acetaminophen (Tylenol 325mg Tab) 650 mg PO Q4H PRN PRN Reason: Fever >100.4 F Diphenhydramine HCl (Benadryl) 25 mg IVP Q6 PRN PRN Reason: Allergy symptoms Last Admin: 06/27/17 06:21 Dose: 25 mg Haloperidol Lactate (Haldol) 5 mg IVP Q6 PRN; Protocol PRN Reason: Agitation Last Admin: 06/27/17 06:19 Dose: 5 mg Hydralazine HCl (Apresoline) 10 mg IVP Q6 PRN PRN Reason: Systolic Blood Pressure > 165 Last Admin: 06/28/17 16:18 Dose: 10 mg Metronidazole (Flagyl) 500 mg in 100 mls @ 100 mls/hr IVPB Q8 NINO PRN Reason: Protocol Last Admin: 06/25/17 08:44 Dose: 100 mls/hr Propofol (Diprivan) 1,000 mg in 100 mls @ 2.722 mls/hr IV .Q24H PRN; Protocol; 5 MCG/KG/MIN PRN Reason: TITRATE PER MD ORDER Last Admin: 06/29/17 04:11 Dose: 35 mcg/kg/min, 19.051 mls/hr Dexmedetomidine HCl (Precedex 400mcg/100ml) 400 mcg in 100 mls @ 4.536 mls/hr IV .Q22H3M PRN; Protocol; 0.2 MCG/KG/HR PRN Reason: Agitation Last Admin: 06/28/17 22:56 Dose: 0.2 mcg/kg/hr, 4.536 mls/hr Sodium Chloride (Sodium Chloride 0.9%) 1,000 mls @ 75 mls/hr IV .[id number] [facility] Last Admin: 06/29/17 06:09 Dose: 75 mls/hr Insulin Human Lispro (Humalog Med) 0 units SC Q6 NINO PRN Reason: Protocol Last Admin: 06/28/17 17:26 Dose: Not Given Lorazepam (Ativan) 1 mg IVP Q6H PRN; Protocol PRN Reason: Anxiety Last Admin: 06/29/17 02:52 Dose: 1 mg Mesalamine (Rowasa Enema) 4 gm RC HS [facility] Last Admin: 06/29/17 00:11 Dose: 4 gm Morphine Sulfate (Morphine) 2 mg IVP Q3H PRN PRN Reason: Pain, Mild (1-3) Nicotine (Nicoderm Cq) 1 patch TD DAILY [facility] Last Admin: 06/28/17 10:50 Dose: 1 patch Ondansetron HCl (Zofran Inj) 4 mg IVP Q4H PRN PRN Reason: Nausea/Vomiting Pantoprazole Sodium (Protonix Inj) 40 mg IVP DAILY [facility] Quetiapine Fumarate (Seroquel) 50 mg PO BID [facility] PRN Reason: Protocol Last Admin: 06/28/17 17:28 Dose: Not Given Quetiapine Fumarate (Seroquel) 150 mg PO [facility] PRN Reason: Protocol Last Admin: 06/28/17 22:18 Dose: Not Given - Labs Labs: 06/29/17 05:35 06/29/17 05:35 PT 13.3 SECONDS (9.4-12.5) H 06/28/17 11:50 INR 1.15 (0.93-1.08) H 06/28/17 11:50 APTT 25.0 Seconds (25.1-36.5) L 06/25/17 15:00 - Constitutional Appears: Non-toxic, No Acute Distress - Head Exam Head Exam: ATRAUMATIC, NORMOCEPHALIC - Eye Exam Eye Exam: EOMI - ENT Exam ENT Exam: Mucous Membranes Moist - Neck Exam Neck Exam: Full ROM - Respiratory Exam Additional comments: intubated - GI/Abdominal Exam GI & Abdominal Exam: Soft. absent: Distended, Firm, Guarding, Rigid, Tenderness , Rebound - Extremities Exam Extremities Exam: absent: Pedal Edema - Neurological Exam Neurological Exam: Alert, Awake, Oriented x3 Assessment and Plan - Assessment and Plan (Free Text) Assessment: 56M w. lower GI bleed Plan: -No further episodes of bleeding -H/H stable, continue to trend, transfuse PRN -no plans for surgical intervention at this time -will continue to follow -d/w attending Zemaitis PGY3
[2017-06-29] MEDS ORDERED: Vancomycin 1.5 GM in Sodium Chloride 0.9% 500 ML IVPB ONE (08:24)
[2017-06-29 08:50] LABS: CERULOPLASMIN 27 mg/dL (18-36)
[2017-06-29 08:56] LABS: BAND 2 % (0-2); LYMPHOCYTE 7 % (22.0-35.0); MONOCYTE 7 % (1.0-6.0); NEUTROPHIL 85 % (50.0-70.0)
[2017-06-29 08:57] LABS: ANISOCYTOSIS 1+; HYPOCHROMIA 1+; MICROCYTOSIS 1+; PLATELET ESTIMATE NORMAL (NORMAL)
[2017-06-29 09:59] LABS: INR 1.19 (0.93-1.08); PROTHROMBIN TIME 13.7 SECONDS (9.4-12.5)
[2017-06-29] MEDS: Aztreonam 2 Gm in NS 100mL 100 ML IVPB SCH ×3 (10:02→21:51)
--- NOTE | 2017-06-29 10:35 | CP.PCM.CON ---
History of Present Illness - History of Present Illness History of Present Illness: 56 year old male with PMH of diverticulitis in the past, CAD S/P CAG and S/P PCI , S/P cholecystectomy, HTN, dyslipidemia, peripheral arterial disease on the right lower extremity, history of opioid dependence, [place] [facility] [place] and was found to have melena and lower GI bleed. The patient also developed respiratory failure and is currently intubated and on the ventilator. The patient is planned for colonscopy. The patient developed fevers his morning and also has increased leukocytosis. Infectious diseases consult is requested to further evaluate and manage. Currently the patient is still intubated and full ROS is unobtainable. Review of Systems - Review of Systems All systems: reviewed and no additional remarkable complaints except (as per HPI ) Past Patient History - Infectious Disease Hx of Infectious Diseases: None - Tetanus Immunizations Tetanus Immunization: Unknown - Past Social History Smoking Status: Heavy Smoker > 10 Cigarettes Daily - CARDIAC Hx Cardiac Disorders: Yes (cabg) Hx Peripheral Vascular Disease: Yes - PULMONARY Hx Chronic Obstructive Pulmonary Disease (COPD): Yes - NEUROLOGICAL Hx Neurological Disorder: No - HEENT Hx HEENT Problems: No - RENAL Hx Chronic Kidney Disease: No - ENDOCRINE/METABOLIC Hx Diabetes Mellitus Type 2: Yes - HEMATOLOGICAL/ONCOLOGICAL Hx Blood Transfusions: Yes (01/17/17) Hx Blood Transfusion Reaction: No - INTEGUMENTARY Hx Dermatological Problems: No - MUSCULOSKELETAL/RHEUMATOLOGICAL Hx Falls: No - GASTROINTESTINAL Hx Gall Bladder Disease: Yes - GENITOURINARY/GYNECOLOGICAL Hx Genitourinary Disorders: No - PSYCHIATRIC Hx Substance Use: Yes (Opiate dependance) - SURGICAL HISTORY Hx Surgeries: Yes - ANESTHESIA Hx Anesthesia Reactions: Yes (WAKES UP ANGRY) Hx Malignant Hyperthermia: No Meds Allergies/Adverse Reactions: Allergies Allergy/AdvReac Type Severity Reaction Status Date / Time levofloxacin [From Levaquin] Allergy Severe URTICARIA Verified 06/24/17 19:11 Penicillins Allergy Severe RASH Verified 06/24/17 19:11 - Medications Medications: Current Medications Acetaminophen (Tylenol 325mg Tab) 650 mg PO Q4H PRN PRN Reason: Fever >100.4 F Diphenhydramine HCl (Benadryl) 25 mg IVP Q6 PRN PRN Reason: Allergy symptoms Last Admin: 06/27/17 06:21 Dose: 25 mg Haloperidol Lactate (Haldol) 5 mg IVP Q6 PRN; Protocol PRN Reason: Agitation Last Admin: 06/27/17 06:19 Dose: 5 mg Hydralazine HCl (Apresoline) 10 mg IVP Q6 PRN PRN Reason: Systolic Blood Pressure > 165 Last Admin: 06/28/17 16:18 Dose: 10 mg Metronidazole (Flagyl) 500 mg in 100 mls @ 100 mls/hr IVPB Q8 NINO PRN Reason: Protocol Last Admin: 06/25/17 08:44 Dose: 100 mls/hr Propofol (Diprivan) 1,000 mg in 100 mls @ 2.722 mls/hr IV .Q24H PRN; Protocol; 5 MCG/KG/MIN PRN Reason: TITRATE PER MD ORDER Last Admin: 06/29/17 04:11 Dose: 35 mcg/kg/min, 19.051 mls/hr Dexmedetomidine HCl (Precedex 400mcg/100ml) 400 mcg in 100 mls @ 4.536 mls/hr IV .Q22H3M PRN; Protocol; 0.2 MCG/KG/HR PRN Reason: Agitation Last Admin: 06/28/17 22:56 Dose: 0.2 mcg/kg/hr, 4.536 mls/hr Sodium Chloride (Sodium Chloride 0.9%) 1,000 mls @ 75 mls/hr IV .[id number] [facility] Last Admin: 06/29/17 06:09 Dose: 75 mls/hr Insulin Human Lispro (Humalog Med) 0 units SC Q6 NINO PRN Reason: Protocol Last Admin: 06/28/17 17:26 Dose: Not Given Lorazepam (Ativan) 1 mg IVP Q6H PRN; Protocol PRN Reason: Anxiety Last Admin: 06/29/17 02:52 Dose: 1 mg Mesalamine (Rowasa Enema) 4 gm RC HS [facility] Last Admin: 06/29/17 00:11 Dose: 4 gm Morphine Sulfate (Morphine) 2 mg IVP Q3H PRN PRN Reason: Pain, Mild (1-3) Nicotine (Nicoderm Cq) 1 patch TD DAILY [facility] Last Admin: 06/28/17 10:50 Dose: 1 patch Ondansetron HCl (Zofran Inj) 4 mg IVP Q4H PRN PRN Reason: Nausea/Vomiting Pantoprazole Sodium (Protonix Inj) 40 mg IVP DAILY [facility] Quetiapine Fumarate (Seroquel) 50 mg PO BID [facility] PRN Reason: Protocol Last Admin: 06/28/17 17:28 Dose: Not Given Quetiapine Fumarate (Seroquel) 150 mg PO HS [facility] PRN Reason: Protocol Last Admin: 06/28/17 22:18 Dose: Not Given Physical Exam - Constitutional Appears: Other (intubated and sedated) - Head Exam Head Exam: NORMAL INSPECTION - ENT Exam Additional comments: ET tube in place - Neck Exam Neck exam: Negative for: Meningismus - Respiratory Exam Respiratory Exam: Decreased Breath Sounds, Rales (scattered) - Cardiovascular Exam Cardiovascular Exam: +S1, +S2 - GI/Abdominal Exam GI & Abdominal Exam: Soft. absent: Tenderness Results - Vital Signs Recent Vital Signs: Last Vital Signs Temp 101.1 F H 06/29/17 04:17 Pulse 119 H 06/29/17 08:00 Resp 23 06/29/17 00:19 BP 145/79 06/29/17 05:00 Pulse Ox 100 06/29/17 08:00 - Labs Result Diagrams: 06/29/17 05:35 06/29/17 05:35 Labs: Laboratory Results - last 24 hr 06/28/17 06/28/17 06/28/17 11:23 11:23 11:31 WBC RBC Hgb Hct MCV MCH MCHC RDW Plt Count MPV Gran % Lymph % (Auto) Glenn % (Auto) Eos % (Auto) Baso % (Auto) Gran # Lymph # (Auto) Glenn # (Auto) Eos # (Auto) Baso # (Auto) PT INR pCO2 pO2 HCO3 ABG pH ABG Total CO2 ABG O2 Saturation ABG O2 Content ABG Base Excess ABG Hemoglobin ABG Carboxyhemoglobin POC ABG HHb (Measured) ABG Methemoglobin ABG O2 Capacity Hgb O2 Saturation FiO2 Sodium Potassium Chloride Carbon Dioxide Anion Gap BUN Creatinine Est GFR ( Amer) Est GFR (Non-Af Amer) POC Glucose (mg/dL) 93 Random Glucose Calcium Iron TIBC % Saturation Ferritin 23.6 Total Bilirubin AST ALT Alkaline Phosphatase Total Protein Albumin Globulin Albumin/Globulin Ratio IgG 627.1 L IgA 169.9 IgM 55.7 Hepatitis A IgM Ab Hep Bs Antigen Hep B Core IgM Ab Hepatitis C Antibody 06/28/17 06/28/17 06/28/17 11:50 11:50 12:00 WBC 10.8 D RBC 3.99 Hgb 10.0 L D Hct 31.5 L MCV 78.9 L MCH 25.1 MCHC 31.7 RDW 20.6 H Plt Count 156 MPV 9.4 Gran % Lymph % (Auto) Glenn % (Auto) Eos % (Auto) Baso % (Auto) Gran # Lymph # (Auto) Glenn # (Auto) Eos # (Auto) Baso # (Auto) PT 13.3 H INR 1.15 H pCO2 35 pO2 80.0 HCO3 21.2 ABG pH 7.39 ABG Total CO2 22.3 ABG O2 Saturation 97.6 ABG O2 Content 13.1 L ABG Base Excess -3.3 L ABG Hemoglobin 9.7 L ABG Carboxyhemoglobin 1.5 POC ABG HHb (Measured) 2.3 ABG Methemoglobin 0.9 ABG O2 Capacity 13.4 L Hgb O2 Saturation 95.3 FiO2 40.0 Sodium Potassium Chloride Carbon Dioxide Anion Gap BUN Creatinine Est GFR ( Amer) Est GFR (Non-Af Amer) POC Glucose (mg/dL) Random Glucose Calcium Iron TIBC % Saturation Ferritin Total Bilirubin AST ALT Alkaline Phosphatase Total Protein Albumin Globulin Albumin/Globulin Ratio IgG IgA IgM Hepatitis A IgM Ab Hep Bs Antigen Hep B Core IgM Ab Hepatitis C Antibody 06/28/17 06/28/17 06/28/17 13:48 16:12 21:53 WBC RBC Hgb Hct MCV MCH MCHC RDW Plt Count MPV Gran % Lymph % (Auto) Glenn % (Auto) Eos % (Auto) Baso % (Auto) Gran # Lymph # (Auto) Glenn # (Auto) Eos # (Auto) Baso # (Auto) PT INR pCO2 pO2 HCO3 ABG pH ABG Total CO2 ABG O2 Saturation ABG O2 Content ABG Base Excess ABG Hemoglobin ABG Carboxyhemoglobin POC ABG HHb (Measured) ABG Methemoglobin ABG O2 Capacity Hgb O2 Saturation FiO2 Sodium Potassium Chloride Carbon Dioxide Anion Gap BUN Creatinine Est GFR ( Amer) Est GFR (Non-Af Amer) POC Glucose (mg/dL) 106 98 Random Glucose Calcium Iron TIBC % Saturation Ferritin Total Bilirubin AST ALT Alkaline Phosphatase Total Protein Albumin Globulin Albumin/Globulin Ratio IgG IgA IgM Hepatitis A IgM Ab Negative Hep Bs Antigen Negative Hep B Core IgM Ab Negative Hepatitis C Antibody Negative 06/28/17 06/28/17 06/29/17 21:58 Unknown 05:35 WBC 10.0 13.7 H D RBC 4.17 4.54 Hgb 10.5 L 11.4 L Hct 32.8 L 36.0 L MCV 78.7 L 79.3 L MCH 25.2 25.1 MCHC 32.0 31.7 RDW 20.7 H 21.0 H Plt Count 177 226 MPV 9.4 9.8 Gran % 87.4 H Lymph % (Auto) 4.6 L Glenn % (Auto) 7.2 H Eos % (Auto) 0.7 L Baso % (Auto) 0.1 Gran # 11.98 H Lymph # (Auto) 0.6 L Glenn # (Auto) 1.0 H Eos # (Auto) 0.1 Baso # (Auto) 0.01 PT INR pCO2 pO2 HCO3 ABG pH ABG Total CO2 ABG O2 Saturation ABG O2 Content ABG Base Excess ABG Hemoglobin ABG Carboxyhemoglobin POC ABG HHb (Measured) ABG Methemoglobin ABG O2 Capacity Hgb O2 Saturation FiO2 Sodium Potassium Chloride Carbon Dioxide Anion Gap BUN Creatinine Est GFR ( Amer) Est GFR (Non-Af Amer) POC Glucose (mg/dL) Random Glucose Calcium Iron 14 L TIBC 302 % Saturation 5 L Ferritin Total Bilirubin AST ALT Alkaline Phosphatase Total Protein Albumin Globulin Albumin/Globulin Ratio IgG IgA IgM Hepatitis A IgM Ab Hep Bs Antigen Hep B Core IgM Ab Hepatitis C Antibody 06/29/17 06/29/17 05:35 05:45 WBC RBC Hgb Hct MCV MCH MCHC RDW Plt Count MPV Gran % Lymph % (Auto) Glenn % (Auto) Eos % (Auto) Baso % (Auto) Gran # Lymph # (Auto) Glenn # (Auto) Eos # (Auto) Baso # (Auto) PT INR pCO2 27 L pO2 181.0 H HCO3 17.1 L ABG pH 7.41 ABG Total CO2 17.9 L ABG O2 Saturation 98.7 H ABG O2 Content 17.0 ABG Base Excess -6.2 L ABG Hemoglobin 12.2 ABG Carboxyhemoglobin 1.1 POC ABG HHb (Measured) 1.3 ABG Methemoglobin 0.8 ABG O2 Capacity 17.2 Hgb O2 Saturation 96.7 FiO2 40.0 Sodium 143 Potassium 4.0 Chloride 111 H Carbon Dioxide 18 L Anion Gap 18 BUN 15 Creatinine 1.3 Est GFR ( Amer) > 60 Est GFR (Non-Af Amer) 57 POC Glucose (mg/dL) Random Glucose 104 Calcium 8.9 Iron TIBC % Saturation Ferritin Total Bilirubin 0.7 AST 89 H D ALT 569 H Alkaline Phosphatase 109 Total Protein 5.7 L Albumin 3.0 Globulin 2.7 Albumin/Globulin Ratio 1.1 IgG IgA IgM Hepatitis A IgM Ab Hep Bs Antigen Hep B Core IgM Ab Hepatitis C Antibody Assessment & Plan - Assessment and Plan (Free Text) Plan: Assessment systemic inflammatory response syndrome, R/O severe sepsis with VDRF and acute on chronic renal failure due to HCAP acute GI bleed, lower with duodenal ulcer history of acute sigmoid diverticulitis with acute gastroenteritis Acute on chronic renal failure history of diverticulitis in the past CAD S/P CAG and S/P PCI S/P cholecystectomy, HTN dyslipidemia peripheral arterial disease on the right lower extremity Plan started patient on a dose of IV Vancomycin and started Azactam, Flagyl pending blood, sputum cx, urine cx, PCT and CXR this morning will monitor clinically
--- NOTE | 2017-06-29 11:08 | CP.CCUPN ---
<Hugo Krishna - Last Filed: 06/29/17 11:14> CCU Subjective - Physician Review Subjective (Free Text): Patient seen and examined bedside in the ICU. Patient had temp of 101.1 overnight. Patient sedated and intubated. unable to obtain ROS. 06/29/17 11:10 06/29/17 11:16 CCU Objective - Vital Signs / Intake & Output Vital Signs (Last 4 hours): Vital Signs Pulse Pulse Ox 06/29/17 08:00 119 H 100 06/29/17 07:50 120 H 99 06/29/17 07:40 118 H 99 06/29/17 07:30 118 H 99 06/29/17 07:20 116 H 99 06/29/17 07:10 114 H 99 Intake and Output (Last 8hrs): Intake & Output 06/28/17 06/29/17 06/29/17 22:59 06:59 14:59 Intake Total 380 1250 90 Output Total 1325 Balance 380 -75 90 Intake: IV 380 1250 90 Left Antecubital 960 Left Hand 190 Oral 0 Output: Urine 1325 Condom 1325 Other: # Bowel Movements 0 - Physical Exam Head: Positive for: Atraumatic, Normocephalic Pupils: Positive for: PERRL Extroacular Muscles: Positive for: EOMI Conjunctiva: Positive for: Normal Mouth: Positive for: Moist Mucous Membranes Respiratory/Chest: Positive for: Clear to Auscultation, Good Air Exchange. Negative for: Respiratory Distress, Accessory Muscle Use Cardiovascular: Positive for: Regular Rate and Rhythm, Normal S1, S2. Negative for: Murmurs Abdomen: Positive for: Normal Bowel Sounds. Negative for: Distention, Peritoneal Signs Upper Extremity: Positive for: Normal Inspection. Negative for: Cyanosis, Edema Lower Extremity: Positive for: Normal Inspection. Negative for: Edema Skin: Positive for: Warm, Dry. Negative for: Rashes - Medications Active Medications: Active Medications Generic Name Dose Route Start Last Admin Trade Name Freq PRN Reason Stop Dose Admin Acetaminophen 650 mg 06/29/17 06:00 Tylenol 325mg Tab PO Q4H PRN Fever >100.4 F Diphenhydramine HCl 25 mg 06/27/17 00:26 06/27/17 06:21 Benadryl IVP 25 mg Q6 PRN Administration Allergy symptoms Haloperidol Lactate 5 mg 06/27/17 00:24 06/27/17 06:19 Haldol IVP 5 mg Q6 PRN Administration Agitation Protocol Hydralazine HCl 10 mg 06/25/17 03:32 06/28/17 16:18 Apresoline IVP 10 mg Q6 PRN Administration Systolic Blood Pressure > 165 Metronidazole 500 mg in 100 mls @ 100 mls/hr 06/24/17 23:45 06/25/17 08:44 Flagyl IVPB 100 mls/hr Q8 NINO Administration Protocol Propofol 1,000 mg in 100 mls @ 2.722 mls/hr 06/27/17 11:14 06/29/17 08:45 Diprivan IV 5 mcg/kg/min .Q24H PRN 2.722 mls/hr TITRATE PER MD ORDER Titration Protocol 5 MCG/KG/MIN Dexmedetomidine HCl 400 mcg in 100 mls @ 4.536 mls/hr 06/27/17 12:20 08:00 Precedex 400mcg/100ml IV 0.2 mcg/kg/hr .Q22H3M PRN 4.536 mls/hr Agitation Titration Protocol 0.2 MCG/KG/HR Sodium Chloride 1,000 mls @ 75 mls/hr 06/28/17 09:32 06/29/17 06:09 Sodium Chloride 0.9% IV 75 mls/hr .[id number] NINO Administration Aztreonam 100 mls @ 100 mls/hr 06/29/17 08:30 06/29/17 10:02 Azactam 2 Gm IVPB 07/06/17 08:31 100 mls/hr Q8 NINO Administration Protocol Insulin Human Lispro 0 units 06/25/17 00:00 06/28/17 17:26 Humalog Med SC Not Given Q6 NINO Protocol Lorazepam 1 mg 06/27/17 00:26 06/29/17 02:52 Ativan IVP 1 mg Q6H PRN Administration Anxiety Protocol Mesalamine 4 gm 06/28/17 22:00 06/29/17 00:11 Rowasa Enema RC 4 gm HS NINO Administration Morphine Sulfate 2 mg 06/28/17 10:41 Morphine IVP Q3H PRN Pain, Mild (1-3) Nicotine 1 patch 06/26/17 10:00 06/29/17 09:59 Nicoderm Cq TD 1 patch DAILY NINO Administration Ondansetron HCl 4 mg 06/24/17 23:46 Zofran Inj IVP Q4H PRN Nausea/Vomiting Pantoprazole Sodium 40 mg 06/29/17 10:00 06/29/17 10:00 Protonix Inj IVP 40 mg DAILY NINO Administration Quetiapine Fumarate 50 mg 06/27/17 12:45 06/29/17 09:12 Seroquel PO Not Given BID [facility] Protocol Quetiapine Fumarate 150 mg 06/27/17 12:45 06/28/17 22:18 Seroquel PO Not Given HS [facility] Protocol - Patient Studies Lab Studies: Lab Studies 06/29/17 06/29/17 06/29/17 Range/Units 09:40 08:00 05:45 WBC (4.5-11.0) 10^3/ul RBC (3.5-6.1) 10^6/uL Hgb (14.0-18.0) g/dL Hct (42.0-52.0) % MCV (80.0-105.0) fl MCH (25.0-35.0) pg MCHC (31.0-37.0) g/dl RDW (11.5-14.5) % Plt Count (120.0-450.0) 10^3/uL MPV (7.0-11.0) fl Gran % (50.0-68.0) % Lymph % (Auto) (22.0-35.0) % [place] % (Auto) (1.0-6.0) % Eos % (Auto) (1.5-5.0) % Baso % (Auto) (0.0-3.0) % Gran # (1.4-6.5) Lymph # (Auto) (1.2-3.4) [place] # (Auto) (0.1-0.6) Eos # (Auto) (0.0-0.7) Baso # (Auto) (0.0-2.0) K/mm3 Neutrophils % (Manual) (50.0-70.0) % Band Neutrophils % (0-2) % Lymphocytes % (Manual) (22.0-35.0) % Monocytes % (Manual) (1.0-6.0) % Platelet Evaluation (NORMAL) Hypochromasia Anisocytosis (manual) Microcytosis (manual) PT 13.7 H (9.4-12.5) SECONDS INR 1.19 H (0.93-1.08) pCO2 27 L (35-45) mm/Hg pO2 181.0 H (80-100) mm/Hg HCO3 17.1 L (21-28) mmol/L ABG pH 7.41 (7.35-7.45) ABG Total CO2 17.9 L (22-28) mmol.L ABG O2 Saturation 98.7 H (95-98) % ABG O2 Content 17.0 (15-23) ML/dl ABG Base Excess -6.2 L (-2.0-3.0) mmol/L ABG Hemoglobin 12.2 (11.7-17.4) g/dL ABG Carboxyhemoglobin 1.1 (0.5-1.5) % POC ABG HHb (Measured) 1.3 (0-5) % ABG Methemoglobin 0.8 (0.0-3.0) % ABG O2 Capacity 17.2 (16-24) mL/dl Hgb O2 Saturation 96.7 (95.0-98.0) % FiO2 40.0 % Sodium (132-148) mmol/L Potassium (3.6-5.0) mmol/L Chloride (98-107) mmol/L Carbon Dioxide (21-33) mmol/L Anion Gap (10-20) BUN (7-21) mg/dL Creatinine (0.8-1.5) mg/dl Est GFR ( Amer) Est GFR (Non-Af Amer) POC Glucose (mg/dL) (65-110) mg/dL Random Glucose (70-110) mg/dL Lactic Acid 0.7 (0.7-2.1) mmol/L Calcium (8.4-10.5) mg/dL Iron (45-180) ug/dL TIBC (261-462) ug/dL % Saturation (20-55) % Ferritin ng/mL Total Bilirubin (0.2-1.3) mg/dL AST (17-59) U/L ALT (7-56) U/L Alkaline Phosphatase (38-126) U/L Total Protein (5.8-8.3) g/dL Albumin (3.0-4.8) g/dL Globulin gm/dL Albumin/Globulin Ratio (1.1-1.8) Ceruloplasmin (18-36) mg/dL IgG (700.0-1600.0) mg/dL IgA (70.0-400.0) mg/dL IgM (40.0-230.0) mg/dL Hepatitis A IgM Ab (NEGATIVE) Hep Bs Antigen (NEGATIVE) Hep B Core IgM Ab (NEGATIVE) Hepatitis C Antibody (NEGATIVE) 06/29/17 06/29/17 06/28/17 Range/Units 05:35 05:35 Unknown WBC 13.7 H D (4.5-11.0) 10^3/ul RBC 4.54 (3.5-6.1) 10^6/uL Hgb 11.4 L (14.0-18.0) g/dL Hct 36.0 L (42.0-52.0) % MCV 79.3 L (80.0-105.0) fl MCH 25.1 (25.0-35.0) pg MCHC 31.7 (31.0-37.0) g/dl RDW 21.0 H (11.5-14.5) % Plt Count 226 (120.0-450.0) 10^3/uL MPV 9.8 (7.0-11.0) fl Gran % 87.4 H (50.0-68.0) % Lymph % (Auto) 4.6 L (22.0-35.0) % [place] % (Auto) 7.2 H (1.0-6.0) % Eos % (Auto) 0.7 L (1.5-5.0) % Baso % (Auto) 0.1 (0.0-3.0) % Gran # 11.98 H (1.4-6.5) Lymph # (Auto) 0.6 L (1.2-3.4) [place] # (Auto) 1.0 H (0.1-0.6) Eos # (Auto) 0.1 (0.0-0.7) Baso # (Auto) 0.01 (0.0-2.0) K/mm3 Neutrophils % (Manual) 85 H (50.0-70.0) % Band Neutrophils % 2 (0-2) % Lymphocytes % (Manual) 7 L (22.0-35.0) % Monocytes % (Manual) 7 H (1.0-6.0) % Platelet Evaluation Normal (NORMAL) Hypochromasia 1+ Anisocytosis (manual) 1+ Microcytosis (manual) 1+ PT (9.4-12.5) SECONDS INR (0.93-1.08) pCO2 (35-45) mm/Hg pO2 (80-100) mm/Hg HCO3 (21-28) mmol/L ABG pH (7.35-7.45) ABG Total CO2 (22-28) mmol.L ABG O2 Saturation (95-98) % ABG O2 Content (15-23) ML/dl ABG Base Excess (-2.0-3.0) mmol/L ABG Hemoglobin (11.7-17.4) g/dL ABG Carboxyhemoglobin (0.5-1.5) % POC ABG HHb (Measured) (0-5) % ABG Methemoglobin (0.0-3.0) % ABG O2 Capacity (16-24) mL/dl Hgb O2 Saturation (95.0-98.0) % FiO2 % Sodium 143 (132-148) mmol/L Potassium 4.0 (3.6-5.0) mmol/L Chloride 111 H (98-107) mmol/L Carbon Dioxide 18 L (21-33) mmol/L Anion Gap 18 (10-20) BUN 15 (7-21) mg/dL Creatinine 1.3 (0.8-1.5) mg/dl Est GFR ( Amer) > 60 Est GFR (Non-Af Amer) 57 POC Glucose (mg/dL) (65-110) mg/dL Random Glucose 104 (70-110) mg/dL Lactic Acid (0.7-2.1) mmol/L Calcium 8.9 (8.4-10.5) mg/dL Iron 14 L (45-180) ug/dL TIBC 302 (261-462) ug/dL % Saturation 5 L (20-55) % Ferritin ng/mL Total Bilirubin 0.7 (0.2-1.3) mg/dL AST 89 H D (17-59) U/L ALT 569 H (7-56) U/L Alkaline Phosphatase 109 (38-126) U/L Total Protein 5.7 L (5.8-8.3) g/dL Albumin 3.0 (3.0-4.8) g/dL Globulin 2.7 gm/dL Albumin/Globulin Ratio 1.1 (1.1-1.8) Ceruloplasmin (18-36) mg/dL IgG (700.0-1600.0) mg/dL IgA (70.0-400.0) mg/dL IgM (40.0-230.0) mg/dL Hepatitis A IgM Ab (NEGATIVE) Hep Bs Antigen (NEGATIVE) Hep B Core IgM Ab (NEGATIVE) Hepatitis C Antibody (NEGATIVE) 06/28/17 06/28/17 06/28/17 Range/Units 21:58 21:53 16:12 WBC 10.0 (4.5-11.0) 10^3/ul RBC 4.17 (3.5-6.1) 10^6/uL Hgb 10.5 L (14.0-18.0) g/dL Hct 32.8 L (42.0-52.0) % MCV 78.7 L (80.0-105.0) fl MCH 25.2 (25.0-35.0) pg MCHC 32.0 (31.0-37.0) g/dl RDW 20.7 H (11.5-14.5) % Plt Count 177 (120.0-450.0) 10^3/uL MPV 9.4 (7.0-11.0) fl Gran % (50.0-68.0) % Lymph % (Auto) (22.0-35.0) % [place] % (Auto) (1.0-6.0) % Eos % (Auto) (1.5-5.0) % Baso % (Auto) (0.0-3.0) % Gran # (1.4-6.5) Lymph # (Auto) (1.2-3.4) [place] # (Auto) (0.1-0.6) Eos # (Auto) (0.0-0.7) Baso # (Auto) (0.0-2.0) K/mm3 Neutrophils % (Manual) (50.0-70.0) % Band Neutrophils % (0-2) % Lymphocytes % (Manual) (22.0-35.0) % Monocytes % (Manual) (1.0-6.0) % Platelet Evaluation (NORMAL) Hypochromasia Anisocytosis (manual) Microcytosis (manual) PT (9.4-12.5) SECONDS INR (0.93-1.08) pCO2 (35-45) mm/Hg pO2 (80-100) mm/Hg HCO3 (21-28) mmol/L ABG pH (7.35-7.45) ABG Total CO2 (22-28) mmol.L ABG O2 Saturation (95-98) % ABG O2 Content (15-23) ML/dl ABG Base Excess (-2.0-3.0) mmol/L ABG Hemoglobin (11.7-17.4) g/dL ABG Carboxyhemoglobin (0.5-1.5) % POC ABG HHb (Measured) (0-5) % ABG Methemoglobin (0.0-3.0) % ABG O2 Capacity (16-24) mL/dl Hgb O2 Saturation (95.0-98.0) % FiO2 % Sodium (132-148) mmol/L Potassium (3.6-5.0) mmol/L Chloride (98-107) mmol/L Carbon Dioxide (21-33) mmol/L Anion Gap (10-20) BUN (7-21) mg/dL Creatinine (0.8-1.5) mg/dl Est GFR ( Amer) Est GFR (Non-Af Amer) POC Glucose (mg/dL) 98 106 (65-110) mg/dL Random Glucose (70-110) mg/dL Lactic Acid (0.7-2.1) mmol/L Calcium (8.4-10.5) mg/dL Iron (45-180) ug/dL TIBC (261-462) ug/dL % Saturation (20-55) % Ferritin ng/mL Total Bilirubin (0.2-1.3) mg/dL AST (17-59) U/L ALT (7-56) U/L Alkaline Phosphatase (38-126) U/L Total Protein (5.8-8.3) g/dL Albumin (3.0-4.8) g/dL Globulin gm/dL Albumin/Globulin Ratio (1.1-1.8) Ceruloplasmin (18-36) mg/dL IgG (700.0-1600.0) mg/dL IgA (70.0-400.0) mg/dL IgM (40.0-230.0) mg/dL Hepatitis A IgM Ab (NEGATIVE) Hep Bs Antigen (NEGATIVE) Hep B Core IgM Ab (NEGATIVE) Hepatitis C Antibody (NEGATIVE) 06/28/17 06/28/17 06/28/17 Range/Units 13:48 12:00 11:50 WBC 10.8 D (4.5-11.0) 10^3/ul RBC 3.99 (3.5-6.1) 10^6/uL Hgb 10.0 L D (14.0-18.0) g/dL Hct 31.5 L (42.0-52.0) % MCV 78.9 L (80.0-105.0) fl MCH 25.1 (25.0-35.0) pg MCHC 31.7 (31.0-37.0) g/dl RDW 20.6 H (11.5-14.5) % Plt Count 156 (120.0-450.0) 10^3/uL MPV 9.4 (7.0-11.0) fl Gran % (50.0-68.0) % Lymph % (Auto) (22.0-35.0) % [place] % (Auto) (1.0-6.0) % Eos % (Auto) (1.5-5.0) % Baso % (Auto) (0.0-3.0) % Gran # (1.4-6.5) Lymph # (Auto) (1.2-3.4) [place] # (Auto) (0.1-0.6) Eos # (Auto) (0.0-0.7) Baso # (Auto) (0.0-2.0) K/mm3 Neutrophils % (Manual) (50.0-70.0) % Band Neutrophils % (0-2) % Lymphocytes % (Manual) (22.0-35.0) % Monocytes % (Manual) (1.0-6.0) % Platelet Evaluation (NORMAL) Hypochromasia Anisocytosis (manual) Microcytosis (manual) PT (9.4-12.5) SECONDS INR (0.93-1.08) pCO2 35 (35-45) mm/Hg pO2 80.0 (80-100) mm/Hg HCO3 21.2 (21-28) mmol/L ABG pH 7.39 (7.35-7.45) ABG Total CO2 22.3 (22-28) mmol.L ABG O2 Saturation 97.6 (95-98) % ABG O2 Content 13.1 L (15-23) ML/dl ABG Base Excess -3.3 L (-2.0-3.0) mmol/L ABG Hemoglobin 9.7 L (11.7-17.4) g/dL ABG Carboxyhemoglobin 1.5 (0.5-1.5) % POC ABG HHb (Measured) 2.3 (0-5) % ABG Methemoglobin 0.9 (0.0-3.0) % ABG O2 Capacity 13.4 L (16-24) mL/dl Hgb O2 Saturation 95.3 (95.0-98.0) % FiO2 40.0 % Sodium (132-148) mmol/L Potassium (3.6-5.0) mmol/L Chloride (98-107) mmol/L Carbon Dioxide (21-33) mmol/L Anion Gap (10-20) BUN (7-21) mg/dL Creatinine (0.8-1.5) mg/dl Est GFR ( Amer) Est GFR (Non-Af Amer) POC Glucose (mg/dL) (65-110) mg/dL Random Glucose (70-110) mg/dL Lactic Acid (0.7-2.1) mmol/L Calcium (8.4-10.5) mg/dL Iron (45-180) ug/dL TIBC (261-462) ug/dL % Saturation (20-55) % Ferritin ng/mL Total Bilirubin (0.2-1.3) mg/dL AST (17-59) U/L ALT (7-56) U/L Alkaline Phosphatase (38-126) U/L Total Protein (5.8-8.3) g/dL Albumin (3.0-4.8) g/dL Globulin gm/dL Albumin/Globulin Ratio (1.1-1.8) Ceruloplasmin (18-36) mg/dL IgG (700.0-1600.0) mg/dL IgA (70.0-400.0) mg/dL IgM (40.0-230.0) mg/dL Hepatitis A IgM Ab Negative (NEGATIVE) Hep Bs Antigen Negative (NEGATIVE) Hep B Core IgM Ab Negative (NEGATIVE) Hepatitis C Antibody Negative (NEGATIVE) 06/28/17 06/28/17 06/28/17 Range/Units 11:50 11:31 11:23 WBC (4.5-11.0) 10^3/ul RBC (3.5-6.1) 10^6/uL Hgb (14.0-18.0) g/dL Hct (42.0-52.0) % MCV (80.0-105.0) fl MCH (25.0-35.0) pg MCHC (31.0-37.0) g/dl RDW (11.5-14.5) % Plt Count (120.0-450.0) 10^3/uL MPV (7.0-11.0) fl Gran % (50.0-68.0) % Lymph % (Auto) (22.0-35.0) % [place] % (Auto) (1.0-6.0) % Eos % (Auto) (1.5-5.0) % Baso % (Auto) (0.0-3.0) % Gran # (1.4-6.5) Lymph # (Auto) (1.2-3.4) [place] # (Auto) (0.1-0.6) Eos # (Auto) (0.0-0.7) Baso # (Auto) (0.0-2.0) K/mm3 Neutrophils % (Manual) (50.0-70.0) % Band Neutrophils % (0-2) % Lymphocytes % (Manual) (22.0-35.0) % Monocytes % (Manual) (1.0-6.0) % Platelet Evaluation (NORMAL) Hypochromasia Anisocytosis (manual) Microcytosis (manual) PT 13.3 H (9.4-12.5) SECONDS INR 1.15 H (0.93-1.08) pCO2 (35-45) mm/Hg pO2 (80-100) mm/Hg HCO3 (21-28) mmol/L ABG pH (7.35-7.45) ABG Total CO2 (22-28) mmol.L ABG O2 Saturation (95-98) % ABG O2 Content (15-23) ML/dl ABG Base Excess (-2.0-3.0) mmol/L ABG Hemoglobin (11.7-17.4) g/dL ABG Carboxyhemoglobin (0.5-1.5) % POC ABG HHb (Measured) (0-5) % ABG Methemoglobin (0.0-3.0) % ABG O2 Capacity (16-24) mL/dl Hgb O2 Saturation (95.0-98.0) % FiO2 % Sodium (132-148) mmol/L Potassium (3.6-5.0) mmol/L Chloride (98-107) mmol/L Carbon Dioxide (21-33) mmol/L Anion Gap (10-20) BUN (7-21) mg/dL Creatinine (0.8-1.5) mg/dl Est GFR ( Amer) Est GFR (Non-Af Amer) POC Glucose (mg/dL) 93 (65-110) mg/dL Random Glucose (70-110) mg/dL Lactic Acid (0.7-2.1) mmol/L Calcium (8.4-10.5) mg/dL Iron (45-180) ug/dL TIBC (261-462) ug/dL % Saturation (20-55) % Ferritin ng/mL Total Bilirubin (0.2-1.3) mg/dL AST (17-59) U/L ALT (7-56) U/L Alkaline Phosphatase (38-126) U/L Total Protein (5.8-8.3) g/dL Albumin (3.0-4.8) g/dL Globulin gm/dL Albumin/Globulin Ratio (1.1-1.8) Ceruloplasmin 27 (18-36) mg/dL IgG (700.0-1600.0) mg/dL IgA (70.0-400.0) mg/dL IgM (40.0-230.0) mg/dL Hepatitis A IgM Ab (NEGATIVE) Hep Bs Antigen (NEGATIVE) Hep B Core IgM Ab (NEGATIVE) Hepatitis C Antibody (NEGATIVE) 06/28/17 06/28/17 Range/Units 11:23 11:23 WBC (4.5-11.0) 10^3/ul RBC (3.5-6.1) 10^6/uL Hgb (14.0-18.0) g/dL Hct (42.0-52.0) % MCV (80.0-105.0) fl MCH (25.0-35.0) pg MCHC (31.0-37.0) g/dl RDW (11.5-14.5) % Plt Count (120.0-450.0) 10^3/uL MPV (7.0-11.0) fl Gran % (50.0-68.0) % Lymph % (Auto) (22.0-35.0) % [place] % (Auto) (1.0-6.0) % Eos % (Auto) (1.5-5.0) % Baso % (Auto) (0.0-3.0) % Gran # (1.4-6.5) Lymph # (Auto) (1.2-3.4) [place] # (Auto) (0.1-0.6) Eos # (Auto) (0.0-0.7) Baso # (Auto) (0.0-2.0) K/mm3 Neutrophils % (Manual) (50.0-70.0) % Band Neutrophils % (0-2) % Lymphocytes % (Manual) (22.0-35.0) % Monocytes % (Manual) (1.0-6.0) % Platelet Evaluation (NORMAL) Hypochromasia Anisocytosis (manual) Microcytosis (manual) PT (9.4-12.5) SECONDS INR (0.93-1.08) pCO2 (35-45) mm/Hg pO2 (80-100) mm/Hg HCO3 (21-28) mmol/L ABG pH (7.35-7.45) ABG Total CO2 (22-28) mmol.L ABG O2 Saturation (95-98) % ABG O2 Content (15-23) ML/dl ABG Base Excess (-2.0-3.0) mmol/L ABG Hemoglobin (11.7-17.4) g/dL ABG Carboxyhemoglobin (0.5-1.5) % POC ABG HHb (Measured) (0-5) % ABG Methemoglobin (0.0-3.0) % ABG O2 Capacity (16-24) mL/dl Hgb O2 Saturation (95.0-98.0) % FiO2 % Sodium (132-148) mmol/L Potassium (3.6-5.0) mmol/L Chloride (98-107) mmol/L Carbon Dioxide (21-33) mmol/L Anion Gap (10-20) BUN (7-21) mg/dL Creatinine (0.8-1.5) mg/dl Est GFR ( Amer) Est GFR (Non-Af Amer) POC Glucose (mg/dL) (65-110) mg/dL Random Glucose (70-110) mg/dL Lactic Acid (0.7-2.1) mmol/L Calcium (8.4-10.5) mg/dL Iron (45-180) ug/dL TIBC (261-462) ug/dL % Saturation (20-55) % Ferritin 23.6 ng/mL Total Bilirubin (0.2-1.3) mg/dL AST (17-59) U/L ALT (7-56) U/L Alkaline Phosphatase (38-126) U/L Total Protein (5.8-8.3) g/dL Albumin (3.0-4.8) g/dL Globulin gm/dL Albumin/Globulin Ratio (1.1-1.8) Ceruloplasmin (18-36) mg/dL IgG 627.1 L (700.0-1600.0) mg/dL IgA 169.9 (70.0-400.0) mg/dL IgM 55.7 (40.0-230.0) mg/dL Hepatitis A IgM Ab (NEGATIVE) Hep Bs Antigen (NEGATIVE) Hep B Core IgM Ab (NEGATIVE) Hepatitis C Antibody (NEGATIVE) Laboratory Results - last 24 hr 06/28/17 06/28/17 06/28/17 11:23 11:23 11:23 WBC RBC Hgb Hct MCV MCH MCHC RDW Plt Count MPV Gran % Lymph % (Auto) [place] % (Auto) Eos % (Auto) Baso % (Auto) Gran # Lymph # (Auto) [place] # (Auto) Eos # (Auto) Baso # (Auto) Neutrophils % (Manual) Band Neutrophils % Lymphocytes % (Manual) Monocytes % (Manual) Platelet Evaluation Hypochromasia Anisocytosis (manual) Microcytosis (manual) PT INR pCO2 pO2 HCO3 ABG pH ABG Total CO2 ABG O2 Saturation ABG O2 Content ABG Base Excess ABG Hemoglobin ABG Carboxyhemoglobin POC ABG HHb (Measured) ABG Methemoglobin ABG O2 Capacity Hgb O2 Saturation FiO2 Sodium Potassium Chloride Carbon Dioxide Anion Gap BUN Creatinine Est GFR ( Amer) Est GFR (Non-Af Amer) POC Glucose (mg/dL) Random Glucose Lactic Acid Calcium Iron TIBC % Saturation Ferritin 23.6 Total Bilirubin AST ALT Alkaline Phosphatase Total Protein Albumin Globulin Albumin/Globulin Ratio Ceruloplasmin 27 IgG 627.1 L IgA 169.9 IgM 55.7 Hepatitis A IgM Ab Hep Bs Antigen Hep B Core IgM Ab Hepatitis C Antibody 06/28/17 06/28/17 06/28/17 11:31 11:50 11:50 WBC 10.8 D RBC 3.99 Hgb 10.0 L D Hct 31.5 L MCV 78.9 L MCH 25.1 MCHC 31.7 RDW 20.6 H Plt Count 156 MPV 9.4 Gran % Lymph % (Auto) [place] % (Auto) Eos % (Auto) Baso % (Auto) Gran # Lymph # (Auto) [place] # (Auto) Eos # (Auto) Baso # (Auto) Neutrophils % (Manual) Band Neutrophils % Lymphocytes % (Manual) Monocytes % (Manual) Platelet Evaluation Hypochromasia Anisocytosis (manual) Microcytosis (manual) PT 13.3 H INR 1.15 H pCO2 pO2 HCO3 ABG pH ABG Total CO2 ABG O2 Saturation ABG O2 Content ABG Base Excess ABG Hemoglobin ABG Carboxyhemoglobin POC ABG HHb (Measured) ABG Methemoglobin ABG O2 Capacity Hgb O2 Saturation FiO2 Sodium Potassium Chloride Carbon Dioxide Anion Gap BUN Creatinine Est GFR ( Amer) Est GFR (Non-Af Amer) POC Glucose (mg/dL) 93 Random Glucose Lactic Acid Calcium Iron TIBC % Saturation Ferritin Total Bilirubin AST ALT Alkaline Phosphatase Total Protein Albumin Globulin Albumin/Globulin Ratio Ceruloplasmin IgG IgA IgM Hepatitis A IgM Ab Hep Bs Antigen Hep B Core IgM Ab Hepatitis C Antibody 0306/28/17 06/28/17 12:00 13:48 16:12 WBC RBC Hgb Hct MCV MCH MCHC RDW Plt Count MPV Gran % Lymph % (Auto) [place] % (Auto) Eos % (Auto) Baso % (Auto) Gran # Lymph # (Auto) [place] # (Auto) Eos # (Auto) Baso # (Auto) Neutrophils % (Manual) Band Neutrophils % Lymphocytes % (Manual) Monocytes % (Manual) Platelet Evaluation Hypochromasia Anisocytosis (manual) Microcytosis (manual) PT INR pCO2 35 pO2 80.0 HCO3 21.2 ABG pH 7.39 ABG Total CO2 22.3 ABG O2 Saturation 97.6 ABG O2 Content 13.1 L ABG Base Excess -3.3 L ABG Hemoglobin 9.7 L ABG Carboxyhemoglobin 1.5 POC ABG HHb (Measured) 2.3 ABG Methemoglobin 0.9 ABG O2 Capacity 13.4 L Hgb O2 Saturation 95.3 FiO2 40.0 Sodium Potassium Chloride Carbon Dioxide Anion Gap BUN Creatinine Est GFR ( Amer) Est GFR (Non-Af Amer) POC Glucose (mg/dL) 106 Random Glucose Lactic Acid Calcium Iron TIBC % Saturation Ferritin Total Bilirubin AST ALT Alkaline Phosphatase Total Protein Albumin Globulin Albumin/Globulin Ratio Ceruloplasmin IgG IgA IgM Hepatitis A IgM Ab Negative Hep Bs Antigen Negative Hep B Core IgM Ab Negative Hepatitis C Antibody Negative 06/28/17 06/28/17 06/28/17 21:53 21:58 Unknown WBC 10.0 RBC 4.17 Hgb 10.5 L Hct 32.8 L MCV 78.7 L MCH 25.2 MCHC 32.0 RDW 20.7 H Plt Count 177 MPV 9.4 Gran % Lymph % (Auto) [place] % (Auto) Eos % (Auto) Baso % (Auto) Gran # Lymph # (Auto) [place] # (Auto) Eos # (Auto) Baso # (Auto) Neutrophils % (Manual) Band Neutrophils % Lymphocytes % (Manual) Monocytes % (Manual) Platelet Evaluation Hypochromasia Anisocytosis (manual) Microcytosis (manual) PT INR pCO2 pO2 HCO3 ABG pH ABG Total CO2 ABG O2 Saturation ABG O2 Content ABG Base Excess ABG Hemoglobin ABG Carboxyhemoglobin POC ABG HHb (Measured) ABG Methemoglobin ABG O2 Capacity Hgb O2 Saturation FiO2 Sodium Potassium Chloride Carbon Dioxide Anion Gap BUN Creatinine Est GFR ( Amer) Est GFR (Non-Af Amer) POC Glucose (mg/dL) 98 Random Glucose Lactic Acid Calcium Iron 14 L TIBC 302 % Saturation 5 L Ferritin Total Bilirubin AST ALT Alkaline Phosphatase Total Protein Albumin Globulin Albumin/Globulin Ratio Ceruloplasmin IgG IgA IgM Hepatitis A IgM Ab Hep Bs Antigen Hep B Core IgM Ab Hepatitis C Antibody 06/29/17 06/29/17 06/29/17 05:35 05:35 05:45 WBC 13.7 H D RBC 4.54 Hgb 11.4 L Hct 36.0 L MCV 79.3 L MCH 25.1 MCHC 31.7 RDW 21.0 H Plt Count 226 MPV 9.8 Gran % 87.4 H Lymph % (Auto) 4.6 L [place] % (Auto) 7.2 H Eos % (Auto) 0.7 L Baso % (Auto) 0.1 Gran # 11.98 H Lymph # (Auto) 0.6 L [place] # (Auto) 1.0 H Eos # (Auto) 0.1 Baso # (Auto) 0.01 Neutrophils % (Manual) 85 H Band Neutrophils % 2 Lymphocytes % (Manual) 7 L Monocytes % (Manual) 7 H Platelet Evaluation Normal Hypochromasia 1+ Anisocytosis (manual) 1+ Microcytosis (manual) 1+ PT INR pCO2 27 L pO2 181.0 H HCO3 17.1 L ABG pH 7.41 ABG Total CO2 17.9 L ABG O2 Saturation 98.7 H ABG O2 Content 17.0 ABG Base Excess -6.2 L ABG Hemoglobin 12.2 ABG Carboxyhemoglobin 1.1 POC ABG HHb (Measured) 1.3 ABG Methemoglobin 0.8 ABG O2 Capacity 17.2 Hgb O2 Saturation 96.7 FiO2 40.0 Sodium 143 Potassium 4.0 Chloride 111 H Carbon Dioxide 18 L Anion Gap 18 BUN 15 Creatinine 1.3 Est GFR ( Amer) > 60 Est GFR (Non-Af Amer) 57 POC Glucose (mg/dL) Random Glucose 104 Lactic Acid Calcium 8.9 Iron TIBC % Saturation Ferritin Total Bilirubin 0.7 AST 89 H D ALT 569 H Alkaline Phosphatase 109 Total Protein 5.7 L Albumin 3.0 Globulin 2.7 Albumin/Globulin Ratio 1.1 Ceruloplasmin IgG IgA IgM Hepatitis A IgM Ab Hep Bs Antigen Hep B Core IgM Ab Hepatitis C Antibody 06/29/17 06/29/17 08:00 09:40 WBC RBC Hgb Hct MCV MCH MCHC RDW Plt Count MPV Gran % Lymph % (Auto) [place] % (Auto) Eos % (Auto) Baso % (Auto) Gran # Lymph # (Auto) [place] # (Auto) Eos # (Auto) Baso # (Auto) Neutrophils % (Manual) Band Neutrophils % Lymphocytes % (Manual) Monocytes % (Manual) Platelet Evaluation Hypochromasia Anisocytosis (manual) Microcytosis (manual) PT 13.7 H INR 1.19 H pCO2 pO2 HCO3 ABG pH ABG Total CO2 ABG O2 Saturation ABG O2 Content ABG Base Excess ABG Hemoglobin ABG Carboxyhemoglobin POC ABG HHb (Measured) ABG Methemoglobin ABG O2 Capacity Hgb O2 Saturation FiO2 Sodium Potassium Chloride Carbon Dioxide Anion Gap BUN Creatinine Est GFR ( Amer) Est GFR (Non-Af Amer) POC Glucose (mg/dL) Random Glucose Lactic Acid 0.7 Calcium Iron TIBC % Saturation Ferritin Total Bilirubin AST ALT Alkaline Phosphatase Total Protein Albumin Globulin Albumin/Globulin Ratio Ceruloplasmin IgG IgA IgM Hepatitis A IgM Ab Hep Bs Antigen Hep B Core IgM Ab Hepatitis C Antibody Fingerstick Blood Sugar Results: 110 Review of Systems - Review of Systems Review of Systems: unable to obtain due to intubated status Critical Care Progress Note - Nutrition Nutrition: Nutrition Category Date Time Status NPO Diet [DIET] Diets 06/28/17 Dinner Ordered Assessment/Plan - Assessment and Plan (Free Text) Assessment: 56 y/o M with PMH of bleeding duodenal ulcer s/p hemoclip, CAD s/p CABG, PAD s/ p R SFA stent, HLD, DM2, lumbosacral radiculopathy, tobacco use and chronic opioid dependence presents with lower GI bleed. Patient had positive bleeding scan and had EGD/colonoscopy twice. EGD demonstrated clean base duodenal ulcer. Colonoscopy demonstrated diverticulosis with no signs of active bleeding. Will continue to monitor patient in the ICU. Patient had 101.1 fever overnight. Will extubate patient today. Plan: Neuro Sedated on precedex and propofol will extubate today Cardio Hemodynamically stable NS @75 Maintain MAP >65 Pulm Intubated, will extubate VAP Bundle maintain SaO2 > 90% chest xray no acute issues GI IV protonix HG stable, recheck in afternoon Recheck Hg this afternoon Acute transaminitis likely secondary to shock, improving Trend LFTs [facility] consulted Heme/ID Hg stable 101.1 fever repeat cultures pending ID consulted continue abx Maintain normothermia Nephro Continue IVF Monitor electrolytes, replenish as needed Maintain euvolemia Endo ISS Maintain euglycemia Psych Haldol, Benadryl, and Ativan as per psychiatrist Likely opioid withdrawal <Will Campos - Last Filed: 06/29/17 13:44> CCU Objective - Vital Signs / Intake & Output Intake and Output (Last 8hrs): Intake & Output 06/28/17 06/29/17 06/29/17 22:59 06:59 14:59 Intake Total 380 1250 90 Output Total 1325 Balance 380 -75 90 Intake: IV 380 1250 90 Left Antecubital 960 Left Hand 190 Oral 0 Output: Urine 1325 Condom 1325 Other: # Bowel Movements 0 - Medications Active Medications: Active Medications Generic Name Dose Route Start Last Admin Trade Name Freq PRN Reason Stop Dose Admin Acetaminophen 650 mg 06/29/17 06:00 Tylenol 325mg Tab PO Q4H PRN Fever >100.4 F Diphenhydramine HCl 25 mg 06/27/17 00:26 06/27/17 06:21 Benadryl IVP 25 mg Q6 PRN Administration Allergy symptoms Haloperidol Lactate 5 mg 06/27/17 00:24 06/27/17 06:19 Haldol IVP 5 mg Q6 PRN Administration Agitation Protocol Hydralazine HCl 10 mg 06/25/17 03:32 06/28/17 16:18 Apresoline IVP 10 mg Q6 PRN Administration Systolic Blood Pressure > 165 Metronidazole 500 mg in 100 mls @ 100 mls/hr 06/24/17 23:45 06/25/17 08:44 Flagyl IVPB 100 mls/hr Q8 NINO Administration Protocol Propofol 1,000 mg in 100 mls @ 2.722 mls/hr 06/27/17 11:14 06/29/17 08:45 Diprivan IV 5 mcg/kg/min .Q24H PRN 2.722 mls/hr TITRATE PER MD ORDER Titration Protocol 5 MCG/KG/MIN Dexmedetomidine HCl 400 mcg in 100 mls @ 4.536 mls/hr 06/27/17 12:20 08:00 Precedex 400mcg/100ml IV 0.2 mcg/kg/hr .Q22H3M PRN 4.536 mls/hr Agitation Titration Protocol 0.2 MCG/KG/HR Sodium Chloride 1,000 mls @ 75 mls/hr 06/28/17 09:32 06/29/17 06:09 Sodium Chloride 0.9% IV 75 mls/hr .[id number] NINO Administration Aztreonam 100 mls @ 100 mls/hr 06/29/17 08:30 06/29/17 10:02 Azactam 2 Gm IVPB 07/06/17 08:31 100 mls/hr Q8 NINO Administration Protocol Insulin Human Lispro 0 units 06/25/17 00:00 06/28/17 17:26 Humalog Med SC Not Given Q6 NINO Protocol Lorazepam 1 mg 06/27/17 00:26 06/29/17 02:52 Ativan IVP 1 mg Q6H PRN Administration Anxiety Protocol Mesalamine 4 gm 06/28/17 22:00 06/29/17 00:11 Rowasa Enema RC 4 gm HS NINO Administration Morphine Sulfate 2 mg 06/28/17 10:41 Morphine IVP Q3H PRN Pain, Mild (1-3) Nicotine 1 patch 06/26/17 10:00 06/29/17 09:59 Nicoderm Cq TD 1 patch DAILY NINO Administration Ondansetron HCl 4 mg 06/24/17 23:46 Zofran Inj IVP Q4H PRN Nausea/Vomiting Pantoprazole Sodium 40 mg 06/29/17 10:00 06/29/17 10:00 Protonix Inj IVP 40 mg DAILY NINO Administration Quetiapine Fumarate 50 mg 06/27/17 12:45 06/29/17 09:12 Seroquel PO Not Given BID NINO Protocol Quetiapine Fumarate 150 mg 06/27/17 12:45 06/28/17 22:18 Seroquel PO Not Given HS NINO Protocol - Patient Studies Lab Studies: Lab Studies 06/29/17 06/29/17 06/29/17 Range/Units 09:40 08:00 08:00 WBC (4.5-11.0) 10^3/ul RBC (3.5-6.1) 10^6/uL Hgb (14.0-18.0) g/dL Hct (42.0-52.0) % MCV (80.0-105.0) fl MCH (25.0-35.0) pg MCHC (31.0-37.0) g/dl RDW (11.5-14.5) % Plt Count (120.0-450.0) 10^3/uL MPV (7.0-11.0) fl Gran % (50.0-68.0) % Lymph % (Auto) (22.0-35.0) % [place] % (Auto) (1.0-6.0) % Eos % (Auto) (1.5-5.0) % Baso % (Auto) (0.0-3.0) % Gran # (1.4-6.5) Lymph # (Auto) (1.2-3.4) [place] # (Auto) (0.1-0.6) Eos # (Auto) (0.0-0.7) Baso # (Auto) (0.0-2.0) K/mm3 Neutrophils % (Manual) (50.0-70.0) % Band Neutrophils % (0-2) % Lymphocytes % (Manual) (22.0-35.0) % Monocytes % (Manual) (1.0-6.0) % Platelet Evaluation (NORMAL) Hypochromasia Anisocytosis (manual) Microcytosis (manual) PT 13.7 H (9.4-12.5) SECONDS INR 1.19 H (0.93-1.08) pCO2 (35-45) mm/Hg pO2 (80-100) mm/Hg HCO3 (21-28) mmol/L ABG pH (7.35-7.45) ABG Total CO2 (22-28) mmol.L ABG O2 Saturation (95-98) % ABG O2 Content (15-23) ML/dl ABG Base Excess (-2.0-3.0) mmol/L ABG Hemoglobin (11.7-17.4) g/dL ABG Carboxyhemoglobin (0.5-1.5) % POC ABG HHb (Measured) (0-5) % ABG Methemoglobin (0.0-3.0) % ABG O2 Capacity (16-24) mL/dl Hgb O2 Saturation (95.0-98.0) % FiO2 % Sodium (132-148) mmol/L Potassium (3.6-5.0) mmol/L Chloride (98-107) mmol/L Carbon Dioxide (21-33) mmol/L Anion Gap (10-20) BUN (7-21) mg/dL Creatinine (0.8-1.5) mg/dl Est GFR ( Amer) Est GFR (Non-Af Amer) POC Glucose (mg/dL) (65-110) mg/dL Random Glucose (70-110) mg/dL Lactic Acid 0.7 (0.7-2.1) mmol/L Calcium (8.4-10.5) mg/dL Ferritin ng/mL Total Bilirubin (0.2-1.3) mg/dL AST (17-59) U/L ALT (7-56) U/L Alkaline Phosphatase (38-126) U/L Total Protein (5.8-8.3) g/dL Albumin (3.0-4.8) g/dL Globulin gm/dL Albumin/Globulin Ratio (1.1-1.8) Ceruloplasmin (18-36) mg/dL Procalcitonin 0.16 L (0.19-0.49) NG/ML IgG (700.0-1600.0) mg/dL IgA (70.0-400.0) mg/dL IgM (40.0-230.0) mg/dL Hepatitis A IgM Ab (NEGATIVE) Hep Bs Antigen (NEGATIVE) Hep B Core IgM Ab (NEGATIVE) Hepatitis C Antibody (NEGATIVE) 06/29/17 06/29/17 06/29/17 Range/Units 05:45 05:35 05:35 WBC 13.7 H D (4.5-11.0) 10^3/ul RBC 4.54 (3.5-6.1) 10^6/uL Hgb 11.4 L (14.0-18.0) g/dL Hct 36.0 L (42.0-52.0) % MCV 79.3 L (80.0-105.0) fl MCH 25.1 (25.0-35.0) pg MCHC 31.7 (31.0-37.0) g/dl RDW 21.0 H (11.5-14.5) % Plt Count 226 (120.0-450.0) 10^3/uL MPV 9.8 (7.0-11.0) fl Gran % 87.4 H (50.0-68.0) % Lymph % (Auto) 4.6 L (22.0-35.0) % [place] % (Auto) 7.2 H (1.0-6.0) % Eos % (Auto) 0.7 L (1.5-5.0) % Baso % (Auto) 0.1 (0.0-3.0) % Gran # 11.98 H (1.4-6.5) Lymph # (Auto) 0.6 L (1.2-3.4) [place] # (Auto) 1.0 H (0.1-0.6) Eos # (Auto) 0.1 (0.0-0.7) Baso # (Auto) 0.01 (0.0-2.0) K/mm3 Neutrophils % (Manual) 85 H (50.0-70.0) % Band Neutrophils % 2 (0-2) % Lymphocytes % (Manual) 7 L (22.0-35.0) % Monocytes % (Manual) 7 H (1.0-6.0) % Platelet Evaluation Normal (NORMAL) Hypochromasia 1+ Anisocytosis (manual) 1+ Microcytosis (manual) 1+ PT (9.4-12.5) SECONDS INR (0.93-1.08) pCO2 27 L (35-45) mm/Hg pO2 181.0 H (80-100) mm/Hg HCO3 17.1 L (21-28) mmol/L ABG pH 7.41 (7.35-7.45) ABG Total CO2 17.9 L (22-28) mmol.L ABG O2 Saturation 98.7 H (95-98) % ABG O2 Content 17.0 (15-23) ML/dl ABG Base Excess -6.2 L (-2.0-3.0) mmol/L ABG Hemoglobin 12.2 (11.7-17.4) g/dL ABG Carboxyhemoglobin 1.1 (0.5-1.5) % POC ABG HHb (Measured) 1.3 (0-5) % ABG Methemoglobin 0.8 (0.0-3.0) % ABG O2 Capacity 17.2 (16-24) mL/dl Hgb O2 Saturation 96.7 (95.0-98.0) % FiO2 40.0 % Sodium 143 (132-148) mmol/L Potassium 4.0 (3.6-5.0) mmol/L Chloride 111 H (98-107) mmol/L Carbon Dioxide 18 L (21-33) mmol/L Anion Gap 18 (10-20) BUN 15 (7-21) mg/dL Creatinine 1.3 (0.8-1.5) mg/dl Est GFR ( Amer) > 60 Est GFR (Non-Af Amer) 57 POC Glucose (mg/dL) (65-110) mg/dL Random Glucose 104 (70-110) mg/dL Lactic Acid (0.7-2.1) mmol/L Calcium 8.9 (8.4-10.5) mg/dL Ferritin ng/mL Total Bilirubin 0.7 (0.2-1.3) mg/dL AST 89 H D (17-59) U/L ALT 569 H (7-56) U/L Alkaline Phosphatase 109 (38-126) U/L Total Protein 5.7 L (5.8-8.3) g/dL Albumin 3.0 (3.0-4.8) g/dL Globulin 2.7 gm/dL Albumin/Globulin Ratio 1.1 (1.1-1.8) Ceruloplasmin (18-36) mg/dL Procalcitonin (0.19-0.49) NG/ML IgG (700.0-1600.0) mg/dL IgA (70.0-400.0) mg/dL IgM (40.0-230.0) mg/dL Hepatitis A IgM Ab (NEGATIVE) Hep Bs Antigen (NEGATIVE) Hep B Core IgM Ab (NEGATIVE) Hepatitis C Antibody (NEGATIVE) 06/28/17 06/28/17 06/28/17 Range/Units 21:58 21:53 16:12 WBC 10.0 (4.5-11.0) 10^3/ul RBC 4.17 (3.5-6.1) 10^6/uL Hgb 10.5 L (14.0-18.0) g/dL Hct 32.8 L (42.0-52.0) % MCV 78.7 L (80.0-105.0) fl MCH 25.2 (25.0-35.0) pg MCHC 32.0 (31.0-37.0) g/dl RDW 20.7 H (11.5-14.5) % Plt Count 177 (120.0-450.0) 10^3/uL MPV 9.4 (7.0-11.0) fl Gran % (50.0-68.0) % Lymph % (Auto) (22.0-35.0) % [place] % (Auto) (1.0-6.0) % Eos % (Auto) (1.5-5.0) % Baso % (Auto) (0.0-3.0) % Gran # (1.4-6.5) Lymph # (Auto) (1.2-3.4) [place] # (Auto) (0.1-0.6) Eos # (Auto) (0.0-0.7) Baso # (Auto) (0.0-2.0) K/mm3 Neutrophils % (Manual) (50.0-70.0) % Band Neutrophils % (0-2) % Lymphocytes % (Manual) (22.0-35.0) % Monocytes % (Manual) (1.0-6.0) % Platelet Evaluation (NORMAL) Hypochromasia Anisocytosis (manual) Microcytosis (manual) PT (9.4-12.5) SECONDS INR (0.93-1.08) pCO2 (35-45) mm/Hg pO2 (80-100) mm/Hg HCO3 (21-28) mmol/L ABG pH (7.35-7.45) ABG Total CO2 (22-28) mmol.L ABG O2 Saturation (95-98) % ABG O2 Content (15-23) ML/dl ABG Base Excess (-2.0-3.0) mmol/L ABG Hemoglobin (11.7-17.4) g/dL ABG Carboxyhemoglobin (0.5-1.5) % POC ABG HHb (Measured) (0-5) % ABG Methemoglobin (0.0-3.0) % ABG O2 Capacity (16-24) mL/dl Hgb O2 Saturation (95.0-98.0) % FiO2 % Sodium (132-148) mmol/L Potassium (3.6-5.0) mmol/L Chloride (98-107) mmol/L Carbon Dioxide (21-33) mmol/L Anion Gap (10-20) BUN (7-21) mg/dL Creatinine (0.8-1.5) mg/dl Est GFR ( Amer) Est GFR (Non-Af Amer) POC Glucose (mg/dL) 98 106 (65-110) mg/dL Random Glucose (70-110) mg/dL Lactic Acid (0.7-2.1) mmol/L Calcium (8.4-10.5) mg/dL Ferritin ng/mL Total Bilirubin (0.2-1.3) mg/dL AST (17-59) U/L ALT (7-56) U/L Alkaline Phosphatase (38-126) U/L Total Protein (5.8-8.3) g/dL Albumin (3.0-4.8) g/dL Globulin gm/dL Albumin/Globulin Ratio (1.1-1.8) Ceruloplasmin (18-36) mg/dL Procalcitonin (0.19-0.49) NG/ML IgG (700.0-1600.0) mg/dL IgA (70.0-400.0) mg/dL IgM (40.0-230.0) mg/dL Hepatitis A IgM Ab (NEGATIVE) Hep Bs Antigen (NEGATIVE) Hep B Core IgM Ab (NEGATIVE) Hepatitis C Antibody (NEGATIVE) 06/28/17 06/28/17 06/28/17 Range/Units 13:48 11:31 11:23 WBC (4.5-11.0) 10^3/ul RBC (3.5-6.1) 10^6/uL Hgb (14.0-18.0) g/dL Hct (42.0-52.0) % MCV (80.0-105.0) fl MCH (25.0-35.0) pg MCHC (31.0-37.0) g/dl RDW (11.5-14.5) % Plt Count (120.0-450.0) 10^3/uL MPV (7.0-11.0) fl Gran % (50.0-68.0) % Lymph % (Auto) (22.0-35.0) % [place] % (Auto) (1.0-6.0) % Eos % (Auto) (1.5-5.0) % Baso % (Auto) (0.0-3.0) % Gran # (1.4-6.5) Lymph # (Auto) (1.2-3.4) [place] # (Auto) (0.1-0.6) Eos # (Auto) (0.0-0.7) Baso # (Auto) (0.0-2.0) K/mm3 Neutrophils % (Manual) (50.0-70.0) % Band Neutrophils % (0-2) % Lymphocytes % (Manual) (22.0-35.0) % Monocytes % (Manual) (1.0-6.0) % Platelet Evaluation (NORMAL) Hypochromasia Anisocytosis (manual) Microcytosis (manual) PT (9.4-12.5) SECONDS INR (0.93-1.08) pCO2 (35-45) mm/Hg pO2 (80-100) mm/Hg HCO3 (21-28) mmol/L ABG pH (7.35-7.45) ABG Total CO2 (22-28) mmol.L ABG O2 Saturation (95-98) % ABG O2 Content (15-23) ML/dl ABG Base Excess (-2.0-3.0) mmol/L ABG Hemoglobin (11.7-17.4) g/dL ABG Carboxyhemoglobin (0.5-1.5) % POC ABG HHb (Measured) (0-5) % ABG Methemoglobin (0.0-3.0) % ABG O2 Capacity (16-24) mL/dl Hgb O2 Saturation (95.0-98.0) % FiO2 % Sodium (132-148) mmol/L Potassium (3.6-5.0) mmol/L Chloride (98-107) mmol/L Carbon Dioxide (21-33) mmol/L Anion Gap (10-20) BUN (7-21) mg/dL Creatinine (0.8-1.5) mg/dl Est GFR ( Amer) Est GFR (Non-Af Amer) POC Glucose (mg/dL) 93 (65-110) mg/dL Random Glucose (70-110) mg/dL Lactic Acid (0.7-2.1) mmol/L Calcium (8.4-10.5) mg/dL Ferritin ng/mL Total Bilirubin (0.2-1.3) mg/dL AST (17-59) U/L ALT (7-56) U/L Alkaline Phosphatase (38-126) U/L Total Protein (5.8-8.3) g/dL Albumin (3.0-4.8) g/dL Globulin gm/dL Albumin/Globulin Ratio (1.1-1.8) Ceruloplasmin 27 (18-36) mg/dL Procalcitonin (0.19-0.49) NG/ML IgG (700.0-1600.0) mg/dL IgA (70.0-400.0) mg/dL IgM (40.0-230.0) mg/dL Hepatitis A IgM Ab Negative (NEGATIVE) Hep Bs Antigen Negative (NEGATIVE) Hep B Core IgM Ab Negative (NEGATIVE) Hepatitis C Antibody Negative (NEGATIVE) 06/28/17 06/28/17 Range/Units 11:23 11:23 WBC (4.5-11.0) 10^3/ul RBC (3.5-6.1) 10^6/uL Hgb (14.0-18.0) g/dL Hct (42.0-52.0) % MCV (80.0-105.0) fl MCH (25.0-35.0) pg MCHC (31.0-37.0) g/dl RDW (11.5-14.5) % Plt Count (120.0-450.0) 10^3/uL MPV (7.0-11.0) fl Gran % (50.0-68.0) % Lymph % (Auto) (22.0-35.0) % [place] % (Auto) (1.0-6.0) % Eos % (Auto) (1.5-5.0) % Baso % (Auto) (0.0-3.0) % Gran # (1.4-6.5) Lymph # (Auto) (1.2-3.4) [place] # (Auto) (0.1-0.6) Eos # (Auto) (0.0-0.7) Baso # (Auto) (0.0-2.0) K/mm3 Neutrophils % (Manual) (50.0-70.0) % Band Neutrophils % (0-2) % Lymphocytes % (Manual) (22.0-35.0) % Monocytes % (Manual) (1.0-6.0) % Platelet Evaluation (NORMAL) Hypochromasia Anisocytosis (manual) Microcytosis (manual) PT (9.4-12.5) SECONDS INR (0.93-1.08) pCO2 (35-45) mm/Hg pO2 (80-100) mm/Hg HCO3 (21-28) mmol/L ABG pH (7.35-7.45) ABG Total CO2 (22-28) mmol.L ABG O2 Saturation (95-98) % ABG O2 Content (15-23) ML/dl ABG Base Excess (-2.0-3.0) mmol/L ABG Hemoglobin (11.7-17.4) g/dL ABG Carboxyhemoglobin (0.5-1.5) % POC ABG HHb (Measured) (0-5) % ABG Methemoglobin (0.0-3.0) % ABG O2 Capacity (16-24) mL/dl Hgb O2 Saturation (95.0-98.0) % FiO2 % Sodium (132-148) mmol/L Potassium (3.6-5.0) mmol/L Chloride (98-107) mmol/L Carbon Dioxide (21-33) mmol/L Anion Gap (10-20) BUN (7-21) mg/dL Creatinine (0.8-1.5) mg/dl Est GFR ( Amer) Est GFR (Non-Af Amer) POC Glucose (mg/dL) (65-110) mg/dL Random Glucose (70-110) mg/dL Lactic Acid (0.7-2.1) mmol/L Calcium (8.4-10.5) mg/dL Ferritin 23.6 ng/mL Total Bilirubin (0.2-1.3) mg/dL AST (17-59) U/L ALT (7-56) U/L Alkaline Phosphatase (38-126) U/L Total Protein (5.8-8.3) g/dL Albumin (3.0-4.8) g/dL Globulin gm/dL Albumin/Globulin Ratio (1.1-1.8) Ceruloplasmin (18-36) mg/dL Procalcitonin (0.19-0.49) NG/ML IgG 627.1 L (700.0-1600.0) mg/dL IgA 169.9 (70.0-400.0) mg/dL IgM 55.7 (40.0-230.0) mg/dL Hepatitis A IgM Ab (NEGATIVE) Hep Bs Antigen (NEGATIVE) Hep B Core IgM Ab (NEGATIVE) Hepatitis C Antibody (NEGATIVE) Laboratory Results - last 24 hr 06/28/17 06/28/17 06/28/17 11:23 11:23 11:23 WBC RBC Hgb Hct MCV MCH MCHC RDW Plt Count MPV Gran % Lymph % (Auto) [place] % (Auto) Eos % (Auto) Baso % (Auto) Gran # Lymph # (Auto) [place] # (Auto) Eos # (Auto) Baso # (Auto) Neutrophils % (Manual) Band Neutrophils % Lymphocytes % (Manual) Monocytes % (Manual) Platelet Evaluation Hypochromasia Anisocytosis (manual) Microcytosis (manual) PT INR pCO2 pO2 HCO3 ABG pH ABG Total CO2 ABG O2 Saturation ABG O2 Content ABG Base Excess ABG Hemoglobin ABG Carboxyhemoglobin POC ABG HHb (Measured) ABG Methemoglobin ABG O2 Capacity Hgb O2 Saturation FiO2 Sodium Potassium Chloride Carbon Dioxide Anion Gap BUN Creatinine Est GFR ( Amer) Est GFR (Non-Af Amer) POC Glucose (mg/dL) Random Glucose Lactic Acid Calcium Ferritin 23.6 Total Bilirubin AST ALT Alkaline Phosphatase Total Protein Albumin Globulin Albumin/Globulin Ratio Ceruloplasmin 27 Procalcitonin IgG 627.1 L IgA 169.9 IgM 55.7 Hepatitis A IgM Ab Hep Bs Antigen Hep B Core IgM Ab Hepatitis C Antibody 06/28/17 06/28/17 06/28/17 11:31 13:48 16:12 WBC RBC Hgb Hct MCV MCH MCHC RDW Plt Count MPV Gran % Lymph % (Auto) [place] % (Auto) Eos % (Auto) Baso % (Auto) Gran # Lymph # (Auto) [place] # (Auto) Eos # (Auto) Baso # (Auto) Neutrophils % (Manual) Band Neutrophils % Lymphocytes % (Manual) Monocytes % (Manual) Platelet Evaluation Hypochromasia Anisocytosis (manual) Microcytosis (manual) PT INR pCO2 pO2 HCO3 ABG pH ABG Total CO2 ABG O2 Saturation ABG O2 Content ABG Base Excess ABG Hemoglobin ABG Carboxyhemoglobin POC ABG HHb (Measured) ABG Methemoglobin ABG O2 Capacity Hgb O2 Saturation FiO2 Sodium Potassium Chloride Carbon Dioxide Anion Gap BUN Creatinine Est GFR ( Amer) Est GFR (Non-Af Amer) POC Glucose (mg/dL) 93 106 Random Glucose Lactic Acid Calcium Ferritin Total Bilirubin AST ALT Alkaline Phosphatase Total Protein Albumin Globulin Albumin/Globulin Ratio Ceruloplasmin Procalcitonin IgG IgA IgM Hepatitis A IgM Ab Negative Hep Bs Antigen Negative Hep B Core IgM Ab Negative Hepatitis C Antibody Negative 06/28/17 06/28/17 06/29/17 21:53 21:58 05:35 WBC 10.0 13.7 H D RBC 4.17 4.54 Hgb 10.5 L 11.4 L Hct 32.8 L 36.0 L MCV 78.7 L 79.3 L MCH 25.2 25.1 MCHC 32.0 31.7 RDW 20.7 H 21.0 H Plt Count 177 226 MPV 9.4 9.8 Gran % 87.4 H Lymph % (Auto) 4.6 L [place] % (Auto) 7.2 H Eos % (Auto) 0.7 L Baso % (Auto) 0.1 Gran # 11.98 H Lymph # (Auto) 0.6 L [place] # (Auto) 1.0 H Eos # (Auto) 0.1 Baso # (Auto) 0.01 Neutrophils % (Manual) 85 H Band Neutrophils % 2 Lymphocytes % (Manual) 7 L Monocytes % (Manual) 7 H Platelet Evaluation Normal Hypochromasia 1+ Anisocytosis (manual) 1+ Microcytosis (manual) 1+ PT INR pCO2 pO2 HCO3 ABG pH ABG Total CO2 ABG O2 Saturation ABG O2 Content ABG Base Excess ABG Hemoglobin ABG Carboxyhemoglobin POC ABG HHb (Measured) ABG Methemoglobin ABG O2 Capacity Hgb O2 Saturation FiO2 Sodium Potassium Chloride Carbon Dioxide Anion Gap BUN Creatinine Est GFR ( Amer) Est GFR (Non-Af Amer) POC Glucose (mg/dL) 98 Random Glucose Lactic Acid Calcium Ferritin Total Bilirubin AST ALT Alkaline Phosphatase Total Protein Albumin Globulin Albumin/Globulin Ratio Ceruloplasmin Procalcitonin IgG IgA IgM Hepatitis A IgM Ab Hep Bs Antigen Hep B Core IgM Ab Hepatitis C Antibody 06/29/17 06/29/17 06/29/17 05:35 05:45 08:00 WBC RBC Hgb Hct MCV MCH MCHC RDW Plt Count MPV Gran % Lymph % (Auto) [place] % (Auto) Eos % (Auto) Baso % (Auto) Gran # Lymph # (Auto) [place] # (Auto) Eos # (Auto) Baso # (Auto) Neutrophils % (Manual) Band Neutrophils % Lymphocytes % (Manual) Monocytes % (Manual) Platelet Evaluation Hypochromasia Anisocytosis (manual) Microcytosis (manual) PT INR pCO2 27 L pO2 181.0 H HCO3 17.1 L ABG pH 7.41 ABG Total CO2 17.9 L ABG O2 Saturation 98.7 H ABG O2 Content 17.0 ABG Base Excess -6.2 L ABG Hemoglobin 12.2 ABG Carboxyhemoglobin 1.1 POC ABG HHb (Measured) 1.3 ABG Methemoglobin 0.8 ABG O2 Capacity 17.2 Hgb O2 Saturation 96.7 FiO2 40.0 Sodium 143 Potassium 4.0 Chloride 111 H Carbon Dioxide 18 L Anion Gap 18 BUN 15 Creatinine 1.3 Est GFR ( Amer) > 60 Est GFR (Non-Af Amer) 57 POC Glucose (mg/dL) Random Glucose 104 Lactic Acid Calcium 8.9 Ferritin Total Bilirubin 0.7 AST 89 H D ALT 569 H Alkaline Phosphatase 109 Total Protein 5.7 L Albumin 3.0 Globulin 2.7 Albumin/Globulin Ratio 1.1 Ceruloplasmin Procalcitonin 0.16 L IgG IgA IgM Hepatitis A IgM Ab Hep Bs Antigen Hep B Core IgM Ab Hepatitis C Antibody 06/29/17 06/29/17 08:00 09:40 WBC RBC Hgb Hct MCV MCH MCHC RDW Plt Count MPV Gran % Lymph % (Auto) [place] % (Auto) Eos % (Auto) Baso % (Auto) Gran # Lymph # (Auto) [place] # (Auto) Eos # (Auto) Baso # (Auto) Neutrophils % (Manual) Band Neutrophils % Lymphocytes % (Manual) Monocytes % (Manual) Platelet Evaluation Hypochromasia Anisocytosis (manual) Microcytosis (manual) PT 13.7 H INR 1.19 H pCO2 pO2 HCO3 ABG pH ABG Total CO2 ABG O2 Saturation ABG O2 Content ABG Base Excess ABG Hemoglobin ABG Carboxyhemoglobin POC ABG HHb (Measured) ABG Methemoglobin ABG O2 Capacity Hgb O2 Saturation FiO2 Sodium Potassium Chloride Carbon Dioxide Anion Gap BUN Creatinine Est GFR ( Amer) Est GFR (Non-Af Amer) POC Glucose (mg/dL) Random Glucose Lactic Acid 0.7 Calcium Ferritin Total Bilirubin AST ALT Alkaline Phosphatase Total Protein Albumin Globulin Albumin/Globulin Ratio Ceruloplasmin Procalcitonin IgG IgA IgM Hepatitis A IgM Ab Hep Bs Antigen Hep B Core IgM Ab Hepatitis C Antibody Critical Care Progress Note - Nutrition Nutrition: Nutrition Category Date Time Status NPO Diet [DIET] Diets 06/28/17 Dinner Ordered Attending/Attestation - Attestation I have personally seen and examined this patient.: Yes I have fully participated in the care of the patient.: Yes I have reviewed all pertinent clinical information: Yes Notes (Text): 06/29/17 13:41 The patient was seen and examined at the bedside. Patient care was discussed with resident and ICU team in MDR rounds. Medical records, lab studies, and imaging were reviewed and management issues were discussed and formulated. Last 24H events reviewed. Agree with above treatment plans as outlined in 's note with addition of the following: Acute Respiratory Failure \ Hypoxemia \ Anemia \ GI bleed \ DIEUDONNE \ Elevated LFT \ DM \ CAD -hemodynamic monitoring to maintain MAP>65 -mechanical ventilation and o2 supplementation to maintain Spo2 >90 Pao2>60 -monitor for TV 6ml\kg IBW and plateau pressure <30 -PS trial this morning with PS 7 and Peep 5 tolerated well -ABG and CXR reviewed; we proceed with extubation -f\u Bun\Cr and U\o -GI team following s\p colonoscopy yesterday; no active bleed was seen -f\u serial LFT -pt needs further investigation into possible neoplastic process -continue PPi IV -f\u serial H\H; pt is s\p 7 units PRBC -monitor INR -monitor and replace e-lites -NPO diet and aspiration precautions -ISS and BGM monitoring -resume cardiac meds when ok by GI team -surgical team and IR team f\u -DVT \ PUD prophylaxis CCM f\u 35min
--- NOTE | 2017-06-29 12:07 | RAD ---
HISTORY: Intubated COMPARISON: No prior. FINDINGS: LUNGS: No active pulmonary disease. PLEURA: No significant pleural effusion identified, no pneumothorax apparent. CARDIOVASCULAR: Normal. OSSEOUS STRUCTURES: No significant abnormalities. VISUALIZED UPPER ABDOMEN: Normal. OTHER FINDINGS: None. IMPRESSION: The endotracheal tube is in satisfactory position
[2017-06-29] MEDS: Insulin Lispro (humaLOG) MEDIUM Coverage SC SCH ×2 (12:20→18:30)
--- NOTE | 2017-06-29 13:45 | CP.PCM.PN ---
<Arvind Craig - Last Filed: 06/29/17 14:21> Subjective - Date & Time of Evaluation Date of Evaluation: 06/29/17 Time of Evaluation: 13:40 - Subjective Subjective: Medicine Progress Note: Patient seen and examined in ICU. Patient currently intubated on sedation. Patient was noted to have a fever to 101.1, tachycardia and leukocytosis. Objective - Vital Signs/Intake and Output Vital Signs (last 24 hours): Temp Pulse Resp BP Pulse Ox 101.1 F H 119 H 23 145/79 100 06/29/17 04:17 06/29/17 08:00 06/29/17 00:19 06/29/17 05:00 06/29/17 08:00 Intake and Output: 06/29/17 06/29/17 06:59 18:59 Intake Total 1450 90 Output Total 1325 Balance 125 90 - Medications Medications: Current Medications Acetaminophen (Tylenol 325mg Tab) 650 mg PO Q4H PRN PRN Reason: Fever >100.4 F Diphenhydramine HCl (Benadryl) 25 mg IVP Q6 PRN PRN Reason: Allergy symptoms Last Admin: 06/27/17 06:21 Dose: 25 mg Haloperidol Lactate (Haldol) 5 mg IVP Q6 PRN; Protocol PRN Reason: Agitation Last Admin: 06/27/17 06:19 Dose: 5 mg Hydralazine HCl (Apresoline) 10 mg IVP Q6 PRN PRN Reason: Systolic Blood Pressure > 165 Last Admin: 06/28/17 16:18 Dose: 10 mg Metronidazole (Flagyl) 500 mg in 100 mls @ 100 mls/hr IVPB Q8 [facility]INO PRN Reason: Protocol Last Admin: 06/25/17 08:44 Dose: 100 mls/hr Propofol (Diprivan) 1,000 mg in 100 mls @ 2.722 mls/hr IV .Q24H PRN; Protocol; 5 MCG/KG/MIN PRN Reason: TITRATE PER MD ORDER Last Titration: 06/29/17 08:45 Dose: 5 mcg/kg/min, 2.722 mls/hr Dexmedetomidine HCl (Precedex 400mcg/100ml) 400 mcg in 100 mls @ 4.536 mls/hr IV .Q22H3M PRN; Protocol; 0.2 MCG/KG/HR PRN Reason: Agitation Last Titration: 06/29/17 08:00 Dose: 0.2 mcg/kg/hr, 4.536 mls/hr Sodium Chloride (Sodium Chloride 0.9%) 1,000 mls @ 75 mls/hr IV .[id number] [facility] Last Admin: 06/29/17 06:09 Dose: 75 mls/hr Aztreonam (Azactam 2 Gm) 100 mls @ 100 mls/hr IVPB Q8 NINO PRN Reason: Protocol Stop: 07/06/17 08:31 Last Admin: 06/29/17 10:02 Dose: 100 mls/hr Insulin Human Lispro (Humalog Med) 0 units SC Q6 NINO PRN Reason: Protocol Last Admin: 06/28/17 17:26 Dose: Not Given Lorazepam (Ativan) 1 mg IVP Q6H PRN; Protocol PRN Reason: Anxiety Last Admin: 06/29/17 02:52 Dose: 1 mg Mesalamine (Rowasa Enema) 4 gm RC HS [facility] Last Admin: 06/29/17 00:11 Dose: 4 gm Morphine Sulfate (Morphine) 2 mg IVP Q3H PRN PRN Reason: Pain, Mild (1-3) Nicotine (Nicoderm Cq) 1 patch TD DAILY [facility] Last Admin: 06/29/17 09:59 Dose: 1 patch Ondansetron HCl (Zofran Inj) 4 mg IVP Q4H PRN PRN Reason: Nausea/Vomiting Pantoprazole Sodium (Protonix Inj) 40 mg IVP DAILY [facility] Last Admin: 06/29/17 10:00 Dose: 40 mg Quetiapine Fumarate (Seroquel) 50 mg PO BID [facility] PRN Reason: Protocol Last Admin: 06/29/17 09:12 Dose: Not Given Quetiapine Fumarate (Seroquel) 150 mg PO HS [facility] PRN Reason: Protocol Last Admin: 06/28/17 22:18 Dose: Not Given - Labs Labs: 06/29/17 05:35 06/29/17 05:35 PT 13.7 SECONDS (9.4-12.5) H 06/29/17 09:40 INR 1.19 (0.93-1.08) H 06/29/17 09:40 APTT 25.0 Seconds (25.1-36.5) L 06/25/17 15:00 - Head Exam Head Exam: ATRAUMATIC, NORMOCEPHALIC - Eye Exam Eye Exam: EOMI, Normal appearance Pupil Exam: NORMAL ACCOMODATION, PERRL - ENT Exam ENT Exam: Mucous Membranes Moist Additional comments: ETT in place - Neck Exam Neck Exam: absent: Lymphadenopathy - Respiratory Exam Respiratory Exam: Clear to Ausculation Bilateral. absent: NORMAL BREATHING PATTERN (VDRF) - Cardiovascular Exam Cardiovascular Exam: REGULAR RHYTHM, RRR, +S1, +S2 - GI/Abdominal Exam GI & Abdominal Exam: Soft, Normal Bowel Sounds. absent: Tenderness - Extremities Exam Extremities Exam: Normal Capillary Refill. absent: Calf Tenderness, Joint Swelling, Pedal Edema - Skin Skin Exam: Dry, Intact, Normal Color, Warm Assessment and Plan - Assessment and Plan (Free Text) Assessment: 56 year old male with a past medical history significant for bleeding duodenal ulcer s/p hemoclip ([place] 01/2017), CAD s/p CABG, PAD s/p R SFA stent, HLD, DM2, lumbosacral radiculopathy, tobacco use and chronic opioid dependence with non- bloody and non-bilious nausea/vomiting for three days and two episodes of melena. Patient is currently under ICU level care for acute drop in hemoglobin. Patient developed SIRS with undetermined source overnight. ID was consulted and started Flagyl and Azactam. Plan: 1. Acute Symptomatic Anemia with suspected GI Hemorrhage -Flexible Sigmoidoscopy showed 8mm pedunculated polyp of hepatic flexure, diverticulosis of the sigmoid colon, non-bleeding internal hemorrhoids and one area ulcerated mucosa in the rectum with contact bleeding consistent with proctitis -EGD showed nodule in esophagus, gastritis, granular mucosa in the duodenal bulb and one duodenal ulcer with clean base with biopsies pending -CT Angio of Abdomen/Pelvis showed linear foci of hyperdensity within the rectum and wall thickening of the distal rectum -GI Bleed Scan showed findings suspicious for active bleeding in the distal rectum -Stool and C. Diff cultures pending -H/H stable at 11.4/36.0 s/p transfusion of seven units of pRBC's -Continue daily Rowasa enemas -Continue Protonix 40mg IVP daily -Continue Zofran 4mg IVP Q4 PRN for N/V -Continue Normal Saline at 75mls/hr -Continue ventilator and sedation management per ICU -Continue to monitor anemia with daily CBC's -GI, Surgery, IR and ICU consulted, all recommendations appreciated 2. Transaminitis -Autoimmune Hepatitis, Hemachromatosis and Florian's Disease work-up pending -Hepatitis panel negative -Avoid use of hepatotoxic agents when possible -Continue to monitor with daily CMP's -GI consulted, all recommendations appreciated 3. SIRS of Undetermined Source -Febrile to 101.1 with tachycardia and leukocytosis of 13.7 but without tachypnea or lactic acidosis -Chest X-Ray without active pulmonary disease and UA pending -Procalcitonin low at 0.16 -Blood, urine and sputum cultures pending -Given one dose of IV Vancomycin -Started on IV Azactam and Flagyl -ID consulted, all recommendations pending 4. Supratherapeutic INR -Resolved -Continue to hold anticoagulants in setting of GI hemorrhage -Continue to monitor with daily INR -Cardiology consulted, all recommendations appreciated 5. DIEUDONNE -Resolved -Continue to monitor with daily CMP's 6. Hyperkalemia -Resolved -Calcium Gluconate given on admission -Continue to monitor with daily CMP's 7. Chronic Opioid Dependence -Continue Morphine 2mg IVP Q3 PRN -Continue PRN Haldol, Ativan, and Benadryl for agitation -Continue Seroquel -Continue to monitor for signs of withdrawal -Psych consulted, all recommendations appreciated 8. History of CAD and PAD -Anticoagulation and antiplatelets currently held in setting of GI hemorrhage -Cardiology consulted, all recommendations appreciated 9. History of DM2 -ISS-Medium and Accuchecks ACHS -Currently NPO 10. History of Tobacco Abuse -Continue Nicoderm CQ GI Prophylaxis: Protonix DVT Prophylaxis: SCD's Patient seen and case discussed with attending, Dr. Yoon. <Shaina Yoon - Last Filed: 06/29/17 14:36> Objective - Vital Signs/Intake and Output Vital Signs (last 24 hours): Temp Pulse Resp BP Pulse Ox 101.1 F H 119 H 23 145/79 100 06/29/17 04:17 06/29/17 08:00 06/29/17 00:19 06/29/17 05:00 06/29/17 08:00 Intake and Output: 06/29/17 06/29/17 06:59 18:59 Intake Total 1450 105 Output Total 1325 Balance 125 105 - Medications Medications: Current Medications Acetaminophen (Tylenol 325mg Tab) 650 mg PO Q4H PRN PRN Reason: Fever >100.4 F Diphenhydramine HCl (Benadryl) 25 mg IVP Q6 PRN PRN Reason: Allergy symptoms Last Admin: 06/27/17 06:21 Dose: 25 mg Haloperidol Lactate (Haldol) 5 mg IVP Q6 PRN; Protocol PRN Reason: Agitation Last Admin: 06/27/17 06:19 Dose: 5 mg Hydralazine HCl (Apresoline) 10 mg IVP Q6 PRN PRN Reason: Systolic Blood Pressure > 165 Last Admin: 06/28/17 16:18 Dose: 10 mg Metronidazole (Flagyl) 500 mg in 100 mls @ 100 mls/hr IVPB Q8 [facility] PRN Reason: Protocol Last Admin: 06/25/17 08:44 Dose: 100 mls/hr Propofol (Diprivan) 1,000 mg in 100 mls @ 2.722 mls/hr IV .Q24H PRN; Protocol; 5 MCG/KG/MIN PRN Reason: TITRATE PER MD ORDER Last Titration: 06/29/17 08:55 Dose: 0 mcg/kg/min, 0 mls/hr Dexmedetomidine HCl (Precedex 400mcg/100ml) 400 mcg in 100 mls @ 4.536 mls/hr IV .Q22H3M PRN; Protocol; 0.2 MCG/KG/HR PRN Reason: Agitation Last Titration: 06/29/17 08:00 Dose: 0.2 mcg/kg/hr, 4.536 mls/hr Sodium Chloride (Sodium Chloride 0.9%) 1,000 mls @ 75 mls/hr IV .[id number] [facility] Last Admin: 06/29/17 06:09 Dose: 75 mls/hr Aztreonam (Azactam 2 Gm) 100 mls @ 100 mls/hr IVPB Q8 [facility] PRN Reason: Protocol Stop: 07/06/17 08:31 Last Admin: 06/29/17 10:02 Dose: 100 mls/hr Insulin Human Lispro (Humalog Med) 0 units SC Q6 [facility] PRN Reason: Protocol Last Admin: 06/28/17 17:26 Dose: Not Given Lorazepam (Ativan) 1 mg IVP Q6H PRN; Protocol PRN Reason: Anxiety Last Admin: 06/29/17 02:52 Dose: 1 mg Mesalamine (Rowasa Enema) 4 gm RC HS [facility] Last Admin: 06/29/17 00:11 Dose: 4 gm Morphine Sulfate (Morphine) 2 mg IVP Q3H PRN PRN Reason: Pain, Mild (1-3) Nicotine (Nicoderm Cq) 1 patch TD DAILY [facility] Last Admin: 06/29/17 09:59 Dose: 1 patch Ondansetron HCl (Zofran Inj) 4 mg IVP Q4H PRN PRN Reason: Nausea/Vomiting Pantoprazole Sodium (Protonix Inj) 40 mg IVP DAILY [facility] Last Admin: 06/29/17 10:00 Dose: 40 mg Quetiapine Fumarate (Seroquel) 50 mg PO BID [facility] PRN Reason: Protocol Last Admin: 06/29/17 09:12 Dose: Not Given Quetiapine Fumarate (Seroquel) 150 mg PO HS [facility] PRN Reason: Protocol Last Admin: 06/28/17 22:18 Dose: Not Given - Labs Labs: 06/29/17 05:35 06/29/17 05:35 PT 13.7 SECONDS (9.4-12.5) H 06/29/17 09:40 INR 1.19 (0.93-1.08) H 06/29/17 09:40 APTT 25.0 Seconds (25.1-36.5) L 06/25/17 15:00 Attending/Attestation - Attestation I have personally seen and examined this patient.: Yes I have fully participated in the care of the patient.: Yes I have reviewed all pertinent clinical information, including history, physical exam and plan: Yes Notes (Text): 06/29/17 14:32 Attending note; Patient seen and examined with resident in ICU. Patient is intubated and sedated. Patient had MAXIMUM TEMPERATURE of 101 this morning. Patient is a 56-year-old male with PMH of bleeding duodenal ulcer s/p hemoclip, CAD s/p CABG, peripheral arterial disease s/p R SFA stent, hyperlipidemia, diabetes, lumbosacral radiculopathy, tobacco use and chronic opioid dependence presents with lower GI bleed. Patient received multiple units of blood transfusion, FFP and platelet transfusion. Hemoglobin is 11.4 today. Status post EGD yesterday. Showed Gastritis and the duodenal ulcer with clean base. colonoscopy showed 8mm polyp at hepatic flexure and internal hemorrhoids. No biopsies taken. on IV protonix. Elevated LFTs; secondary to hemodynamic changes/shock liver. Improving slowly. History of coronary artery disease; cardiology evaluation appreciated. Currently aspirin, Plavix and Coumadin on hold. acute renal insufficiency; resolved. Mostly secondary to GI bleed/volume loss/ prerenal state. weaning trial today. History of chronic opiate abuse and psychiatric disorder. Continue morphine when necessary. history of smoking; Continue NicoDerm patch. monitor the patient closely in ICU.
[2017-06-29] MEDS: metroNIDAZOLE IV 500 mg/100 ml 500 MG/100 ML BAG IVPB SCH ×2 (15:15→21:52)
--- NOTE | 2017-06-29 17:08 | CP.PCM.PCO ---
Physician Communication Note - Physician Communication Note Physician Communication Note: still intubated, please reconsult when is able to participate in interview
[2017-06-29] MEDS ORDERED: HYDROmorphone 2 mg/ml ISec IVP STA (18:50)
--- NOTE | 2017-06-29 20:46 | PN ---
DATE: 06/29/2017 CARDIOLOGY FOLLOWUP SUBJECTIVE: The patient is lethargic, but extubated today. PHYSICAL EXAMINATION: VITAL SIGNS: Blood pressure is 145/80, heart rate is 100. NECK: Negative JVD. LUNGS: Decreased breath sounds. HEART: Reveals S1, S2. EXTREMITIES: Without edema. LABORATORY DATA: Hemoglobin is 11.4. Chemistries: BUN and creatinine unremarkable. IMPRESSION: 1. Status post gastrointestinal bleed. 2. History of coronary artery bypass surgery. 3. Coronary artery disease. 4. Stable angina. 5. History of paroxysmal atrial fibrillation. PLAN: Given these findings, the patient tolerated his invasive GI workup and is currently extubated. We will follow his hemoglobin carefully. Sky Molina MD
[2017-06-29] MEDS: Morphine 2 mg/ml ISec IVP PRN (21:54)
[2017-06-30] MEDS ORDERED: Dextrose 5%/0.45% NS 1,000 ML IV SCH (00:30)
[2017-06-30] MEDS: Morphine 2 mg/ml ISec IVP PRN ×7 (02:53→22:32)
[2017-06-30 05:55] LABS: ARTERIAL BLOOD GAS HCO3 16.7 mmol/L (21-28); ARTERIAL BLOOD GAS HEMOGLOBIN 9.9 g/dL (11.7-17.4); ARTERIAL BLOOD GAS O2 CAPACITY 13.6 mL/dl (16-24); ARTERIAL BLOOD GAS O2 CONTENT 13.3 ML/dl (15-23); ARTERIAL BLOOD GAS O2 SAT 97.7 % (95-98); ARTERIAL BLOOD GAS PCO2 24 mm/Hg (35-45); ARTERIAL BLOOD GAS PH 7.45 (7.35-7.45); ARTERIAL BLOOD GAS TCO2 17.4 mmol.L (22-28)
[2017-06-30 06:57] LABS: BASO # 0.01 K/mm3 (0.0-2.0); BASO % 0.1 % (0.0-3.0); EOS # 0.1 (0.0-0.7); EOS % 0.9 % (1.5-5.0); GRAN # 7.12 (1.4-6.5); GRAN % 78.1 % (50.0-68.0); LYMPH # 1.1 (1.2-3.4); LYMPH % 11.8 % (22.0-35.0); MEAN CELL VOLUME 79.4 fl (80.0-105.0); MEAN CORPUSCULAR HEMOGLOBIN 25.1 pg (25.0-35.0); MEAN CORPUSCULAR HGB CONC 31.5 g/dl (31.0-37.0); MEAN PLATELET VOLUME 9.4 fl (7.0-11.0); MONO # 0.8 (0.1-0.6); MONO % 9.1 % (1.0-6.0); RBC 3.99 10^6/uL (3.5-6.1); RED CELL DISTRIBUTION WIDTH 20.7 % (11.5-14.5); WHITE BLOOD COUNT 9.1 10^3/ul (4.5-11.0)
[2017-06-30 07:18] LABS: INR 1.14 (0.93-1.08); PROTHROMBIN TIME 13.1 SECONDS (9.4-12.5)
[2017-06-30 07:41] LABS: ALB/GLOB RATIO 1.1 (1.1-1.8); ALBUMIN 2.8 g/dL (3.0-4.8); ALT/SGPT 374 U/L (7-56); AST/SGOT 55 U/L (17-59); BLOOD UREA NITROGEN 15 mg/dL (7-21); CALCIUM 9.2 mg/dL (8.4-10.5); GFR AFRICAN-AMERICAN > 60; GFR NON-AFRICAN AMERICAN > 60
--- NOTE | 2017-06-30 07:47 | CP.PCM.PN ---
Subjective - Date & Time of Evaluation Date of Evaluation: 06/30/17 Time of Evaluation: 07:41 - Subjective Subjective: Patient seen and examined. Patient extubated. Requesting food. Denies any rectal bleeding. Objective - Vital Signs/Intake and Output Vital Signs (last 24 hours): Temp Pulse Resp BP Pulse Ox 101.1 F H 86 23 145/79 100 06/29/17 04:17 06/29/17 14:00 06/29/17 00:19 06/29/17 05:00 06/29/17 08:00 - Medications Medications: Current Medications Acetaminophen (Tylenol 325mg Tab) 650 mg PO Q4H PRN PRN Reason: Pain, severe (8-10) Last Admin: 06/29/17 16:37 Dose: 650 mg Diphenhydramine HCl (Benadryl) 25 mg IVP Q6 PRN PRN Reason: Allergy symptoms Last Admin: 06/27/17 06:21 Dose: 25 mg Haloperidol Lactate (Haldol) 5 mg IVP Q6 PRN; Protocol PRN Reason: Agitation Last Admin: 06/27/17 06:19 Dose: 5 mg Hydralazine HCl (Apresoline) 10 mg IVP Q6 PRN PRN Reason: Systolic Blood Pressure > 165 Last Admin: 06/28/17 16:18 Dose: 10 mg Metronidazole (Flagyl) 500 mg in 100 mls @ 100 mls/hr IVPB Q8 NINO PRN Reason: Protocol Last Admin: 06/29/17 21:52 Dose: 100 mls/hr Aztreonam (Azactam 2 Gm) 100 mls @ 100 mls/hr IVPB Q8 NINO PRN Reason: Protocol Stop: 07/06/17 08:31 Last Admin: 06/29/17 21:51 Dose: 100 mls/hr Dextrose/Sodium Chloride (Dextrose 5%/0.45% Ns 1000 Ml) 1,000 mls @ 50 mls/hr IV .Q20H [facility] Last Admin: 06/30/17 00:58 Dose: 50 mls/hr Insulin Human Lispro (Humalog Med) 0 units SC Q6 [facility] PRN Reason: Protocol Last Admin: 06/29/17 18:30 Dose: Not Given Lorazepam (Ativan) 1 mg IVP Q6H PRN; Protocol PRN Reason: Anxiety Last Admin: 06/29/17 02:52 Dose: 1 mg Mesalamine (Rowasa Enema) 4 gm RC HS [facility] Last Admin: 06/29/17 00:11 Dose: 4 gm Morphine Sulfate (Morphine) 2 mg IVP Q3H PRN PRN Reason: Pain, severe (8-10) Last Admin: 06/30/17 07:38 Dose: 2 mg Nicotine (Nicoderm Cq) 1 patch TD DAILY [facility] Last Admin: 06/29/17 09:59 Dose: 1 patch Ondansetron HCl (Zofran Inj) 4 mg IVP Q4H PRN PRN Reason: Nausea/Vomiting Pantoprazole Sodium (Protonix Inj) 40 mg IVP DAILY [facility] Last Admin: 06/29/17 10:00 Dose: 40 mg Quetiapine Fumarate (Seroquel) 50 mg PO BID [facility] PRN Reason: Protocol Last Admin: 06/29/17 19:00 Dose: 50 mg Quetiapine Fumarate (Seroquel) 150 mg PO HS [facility] PRN Reason: Protocol Last Admin: 06/29/17 21:53 Dose: 150 mg - Labs Labs: 06/30/17 05:40 06/29/17 05:35 PT 13.1 SECONDS (9.4-12.5) H 06/30/17 05:40 INR 1.14 (0.93-1.08) H 06/30/17 05:40 APTT 25.0 Seconds (25.1-36.5) L 06/25/17 15:00 - Constitutional Appears: No Acute Distress - Head Exam Head Exam: NORMOCEPHALIC - Eye Exam Eye Exam: Normal appearance - ENT Exam ENT Exam: Mucous Membranes Moist - Respiratory Exam Respiratory Exam: NORMAL BREATHING PATTERN - Cardiovascular Exam Cardiovascular Exam: +S1, +S2 - GI/Abdominal Exam GI & Abdominal Exam: Soft. absent: Distended, Tenderness - Neurological Exam Neurological Exam: Alert, Awake, Oriented x3 - Skin Skin Exam: Dry, Intact, Warm Assessment and Plan - Assessment and Plan (Free Text) Assessment: 56M w. lower GI bleed; resolved Plan: -No further episodes of bleeding -Hgb 10, no tachycardia -transfuse PRN -no plans for acute surgical intervention at this time -Diet per GI recs -will continue to follow -further recs per Dr. Karson Stern PGY2
--- NOTE | 2017-06-30 09:16 | CP.PCM.PN ---
Addendum entered and electronically signed by Maxine Lopes DO 06/30/17 10:38: Okay to start OAC therapy. Original Note: <Maxine Lopes - Last Filed: 06/30/17 09:24> Subjective - Date & Time of Evaluation Date of Evaluation: 06/30/17 Time of Evaluation: 07:00 - Subjective Subjective: GI Fellow PGY4 Progress Note Pt seen and evaluated at bedside, pt extubated yesterday. Per nursing no events overnight, no lower GI bleeding noted after colonoscopy. Pt was given his Rowasa enema. ROS: A 12pt ROS was unable to be obtained. Objective - Vital Signs/Intake and Output Vital Signs (last 24 hours): Temp Pulse Resp BP Pulse Ox 101.1 F H 114 H 82 H 143/87 99 06/29/17 04:17 06/30/17 08:40 06/30/17 08:01 06/30/17 08:01 06/30/17 08:40 - Medications Medications: Current Medications Acetaminophen (Tylenol 325mg Tab) 650 mg PO Q4H PRN PRN Reason: Pain, severe (8-10) Last Admin: 06/29/17 16:37 Dose: 650 mg Diphenhydramine HCl (Benadryl) 25 mg IVP Q6 PRN PRN Reason: Allergy symptoms Last Admin: 06/27/17 06:21 Dose: 25 mg Haloperidol Lactate (Haldol) 5 mg IVP Q6 PRN; Protocol PRN Reason: Agitation Last Admin: 06/27/17 06:19 Dose: 5 mg Hydralazine HCl (Apresoline) 10 mg IVP Q6 PRN PRN Reason: Systolic Blood Pressure > 165 Last Admin: 06/28/17 16:18 Dose: 10 mg Metronidazole (Flagyl) 500 mg in 100 mls @ 100 mls/hr IVPB Q8 NINO PRN Reason: Protocol Last Admin: 06/29/17 21:52 Dose: 100 mls/hr Aztreonam (Azactam 2 Gm) 100 mls @ 100 mls/hr IVPB Q8 NINO PRN Reason: Protocol Stop: 07/06/17 08:31 Last Admin: 06/29/17 21:51 Dose: 100 mls/hr Dextrose/Sodium Chloride (Dextrose 5%/0.45% Ns 1000 Ml) 1,000 mls @ 50 mls/hr IV .Q20H [facility] Last Admin: 06/30/17 00:58 Dose: 50 mls/hr Linezolid (Zyvox 600mg/300ml D5w) 600 mg in 300 mls @ 200 mls/hr IVPB Q12 NINO PRN Reason: Protocol Stop: 07/07/17 10:01 Insulin Human Lispro (Humalog Med) 0 units SC Q6 NINO PRN Reason: Protocol Last Admin: 06/29/17 18:30 Dose: Not Given Lorazepam (Ativan) 1 mg IVP Q6H PRN; Protocol PRN Reason: Anxiety Last Admin: 06/29/17 02:52 Dose: 1 mg Mesalamine (Rowasa Enema) 4 gm RC HS [facility] Last Admin: 06/29/17 00:11 Dose: 4 gm Morphine Sulfate (Morphine) 2 mg IVP Q3H PRN PRN Reason: Pain, severe (8-10) Last Admin: 06/30/17 07:38 Dose: 2 mg Nicotine (Nicoderm Cq) 1 patch TD DAILY [facility] Last Admin: 06/29/17 09:59 Dose: 1 patch Ondansetron HCl (Zofran Inj) 4 mg IVP Q4H PRN PRN Reason: Nausea/Vomiting Pantoprazole Sodium (Protonix Inj) 40 mg IVP DAILY [facility] Last Admin: 06/29/17 10:00 Dose: 40 mg Quetiapine Fumarate (Seroquel) 50 mg PO BID [facility] PRN Reason: Protocol Last Admin: 06/29/17 19:00 Dose: 50 mg Quetiapine Fumarate (Seroquel) 150 mg PO [facility] PRN Reason: Protocol Last Admin: 06/29/17 21:53 Dose: 150 mg - Labs Labs: 06/30/17 05:40 06/30/17 05:40 PT 13.1 SECONDS (9.4-12.5) H 06/30/17 05:40 INR 1.14 (0.93-1.08) H 06/30/17 05:40 APTT 25.0 Seconds (25.1-36.5) L 06/25/17 15:00 - Constitutional Appears: Non-toxic, No Acute Distress - Head Exam Head Exam: ATRAUMATIC, NORMAL INSPECTION, NORMOCEPHALIC - Eye Exam Eye Exam: EOMI, Normal appearance, PERRL - ENT Exam ENT Exam: Mucous Membranes Moist - Neck Exam Neck Exam: Normal Inspection - Respiratory Exam Respiratory Exam: Clear to Ausculation Bilateral, NORMAL BREATHING PATTERN - Cardiovascular Exam Cardiovascular Exam: REGULAR RHYTHM, +S1, +S2 - GI/Abdominal Exam GI & Abdominal Exam: Soft, Normal Bowel Sounds. absent: Distended, Rigid, Tenderness, Organomegaly - Rectal Exam Rectal Exam: Deferred - Extremities Exam Extremities Exam: Full ROM, Normal Inspection - Back Exam Back Exam: NORMAL INSPECTION - Neurological Exam Neurological Exam: Alert, Awake, Oriented x3 - Psychiatric Exam Psychiatric exam: Normal Affect, Normal Mood - Skin Skin Exam: Dry, Intact, Normal Color, Warm Assessment and Plan - Assessment and Plan (Free Text) Assessment: Marco A Fuentes is a 56M w/ hx of bleeding duodenal ulcer s/p hemoclip w/ Dr. Coates (01/2017), CAD s/p CABG, PAD s/p R SFA stent, HLD, DM2, lumbosacral radiculopathy, tobacco use and chronic opioid dependence presents who presented with anemia and melena. 1. Lower GI bleed 2. Anemia 3. Melena 4. Ulcerated Proctitis in rectum 5. Transaminemia likely 2/2 ischemic hepatitis 6. Supratherapeutic INR-normalized s/p FFP 7. Duodenal ulcer clean base 8. Hx of narcotic use 9. hx of CAD s/p CABG on apirin/plavix at home Plan: -s/p push enteroscopy and colonoscopy which showed ulcerated rectum and diverticulosis with no active bleeding, no upper GI bleeding with examination of jejunum and terminal ileum -Proctitis of rectum, recommend canasa suppository which are not available so Rowasa enema daily -continue PPI daily, no upper GI bleed -s/p 7 units of PRBC, 3U FFP, 1U Platelets -H/H stable with no further lower GI bleeding -LFTs improving likely shock liver, hepatitis viral serologies neg and autoimmune neg -pt will need repeat colonoscopy to eval rectum and biopsies to r/o UC -Please call with any questions or concerns <Sunday Souza - Last Filed: 06/30/17 11:28> Objective - Vital Signs/Intake and Output Vital Signs (last 24 hours): Temp Pulse Resp BP Pulse Ox 101.1 F H 109 H 82 H 143/87 100 06/29/17 04:17 06/30/17 10:44 06/30/17 08:01 06/30/17 10:44 06/30/17 10:01 - Medications Medications: Current Medications Acetaminophen (Tylenol 325mg Tab) 650 mg PO Q4H PRN PRN Reason: Pain, severe (8-10) Last Admin: 06/29/17 16:37 Dose: 650 mg Diphenhydramine HCl (Benadryl) 25 mg IVP Q6 PRN PRN Reason: Allergy symptoms Last Admin: 06/27/17 06:21 Dose: 25 mg Haloperidol Lactate (Haldol) 5 mg IVP Q6 PRN; Protocol PRN Reason: Agitation Last Admin: 06/27/17 06:19 Dose: 5 mg Hydralazine HCl (Apresoline) 10 mg IVP Q6 PRN PRN Reason: Systolic Blood Pressure > 165 Last Admin: 06/28/17 16:18 Dose: 10 mg Metronidazole (Flagyl) 500 mg in 100 mls @ 100 mls/hr IVPB Q8 NINO PRN Reason: Protocol Last Admin: 06/29/17 21:52 Dose: 100 mls/hr Aztreonam (Azactam 2 Gm) 100 mls @ 100 mls/hr IVPB Q8 NINO PRN Reason: Protocol Stop: 07/06/17 08:31 Last Admin: 06/29/17 21:51 Dose: 100 mls/hr Linezolid (Zyvox 600mg/300ml D5w) 600 mg in 300 mls @ 200 mls/hr IVPB Q12 NINO PRN Reason: Protocol Stop: 07/07/17 10:01 Last Admin: 06/30/17 10:17 Dose: 200 mls/hr Insulin Human Lispro (Humalog Med) 0 units SC Q6 NINO PRN Reason: Protocol Last Admin: 06/29/17 18:30 Dose: Not Given Lorazepam (Ativan) 1 mg IVP Q6H PRN; Protocol PRN Reason: Anxiety Last Admin: 06/29/17 02:52 Dose: 1 mg Mesalamine (Rowasa Enema) 4 gm RC HS NINO Last Admin: 06/29/17 00:11 Dose: 4 gm Morphine Sulfate (Morphine) 2 mg IVP Q3H PRN PRN Reason: Pain, severe (8-10) Last Admin: 06/30/17 10:37 Dose: 2 mg Nicotine (Nicoderm Cq) 1 patch TD DAILY [facility] Last Admin: 06/30/17 10:16 Dose: 1 patch Ondansetron HCl (Zofran Inj) 4 mg IVP Q4H PRN PRN Reason: Nausea/Vomiting Pantoprazole Sodium (Protonix Inj) 40 mg IVP DAILY [facility] Last Admin: 06/30/17 10:16 Dose: 40 mg Quetiapine Fumarate (Seroquel) 50 mg PO BID NINO PRN Reason: Protocol Last Admin: 06/30/17 10:17 Dose: 50 mg Quetiapine Fumarate (Seroquel) 150 mg PO HS [facility] PRN Reason: Protocol Last Admin: 06/29/17 21:53 Dose: 150 mg Sotalol HCl (Betapace) 80 mg PO BID [facility] Last Admin: 06/30/17 10:44 Dose: 80 mg - Labs Labs: 06/30/17 05:40 06/30/17 05:40 PT 13.1 SECONDS (9.4-12.5) H 06/30/17 05:40 INR 1.14 (0.93-1.08) H 06/30/17 05:40 APTT 25.0 Seconds (25.1-36.5) L 06/25/17 15:00 Attending/Attestation - Attestation I have personally seen and examined this patient.: Yes I have fully participated in the care of the patient.: Yes I have reviewed all pertinent clinical information, including history, physical exam and plan: Yes Notes (Text): 06/30/17 11:26 56 year old male with h/o PUD, CAD s/p CABG, PVD, HLD, DM, Opiate dependence a/ w lower GI bleeding due to rectal ulcer. Endoscopic evaluation showed evidence of ulceration in the colon/rectum. Monitor for recurrent bleeding. Topical 5- asa therapy. Can get regular diet as tolerated. PPi daily po. Continue rowasa enema and change to canasa suppository upon discharge. As there was no evidence of active upper GIB there is no contraindication to anti coagulation or anti platelet. Discussed with nutritional yeast supervisor. Thank you for letting us participate in the care of your patient
[2017-06-30] MEDS ORDERED: Potassium Chloride 20 mEq ER Tab PO STA (09:17)
[2017-06-30] MEDS: Linezolid 600 mg in D5W 300 ml 600 MG/300 ML BAG IVPB SCH ×2 (10:17→23:42)
--- NOTE | 2017-06-30 10:34 | RAD ---
HISTORY: Intubated COMPARISON: June 29, 2017. FINDINGS: LUNGS: No active pulmonary disease. PLEURA: No significant pleural effusion identified, no pneumothorax apparent. CARDIOVASCULAR: No radiographic findings to suggest acute or significant cardiovascular disease. Incidental Finding(s): Postoperative changes related to sternotomy. OSSEOUS STRUCTURES: No significant abnormalities. VISUALIZED UPPER ABDOMEN: Normal. OTHER FINDINGS: Removal of support apparatus since the prior study: Endotracheal tube IMPRESSION: No active disease.
--- NOTE | 2017-06-30 10:41 | CP.CCUPN ---
<Vlad Gallardo - Last Filed: 06/30/17 10:42> CCU Subjective - Physician Review Subjective (Free Text): Patient seen and examined at bedside. Patient resting comfortably in bed. No bloody bowel movements overnight. Denies chest pain, shortness of breath, nausea , vomiting, diarrhea, fever, chills. CCU Objective - Vital Signs / Intake & Output Vital Signs (Last 4 hours): Vital Signs Pulse Resp BP Pulse Ox 06/30/17 10:01 107/42 L 100 06/30/17 10:00 80 L 06/30/17 09:50 98 06/30/17 09:40 98 06/30/17 09:30 98 06/30/17 09:20 98 06/30/17 09:10 99 06/30/17 09:00 112 H 152/67 H 96 06/30/17 08:50 107 H 100 06/30/17 08:40 114 H 99 06/30/17 08:30 98 06/30/17 08:20 98 06/30/17 08:10 98 06/30/17 08:01 109 H 82 H 143/87 98 06/30/17 08:00 111 H 24 97 06/30/17 07:50 105 H 22 96 06/30/17 07:40 116 H 14 124/83 98 06/30/17 07:39 114 H 20 - Physical Exam Head: Positive for: Atraumatic, Normocephalic Pupils: Positive for: PERRL Extroacular Muscles: Positive for: EOMI Conjunctiva: Positive for: Normal Mouth: Positive for: Moist Mucous Membranes Respiratory/Chest: Positive for: Clear to Auscultation, Good Air Exchange. Negative for: Respiratory Distress, Accessory Muscle Use Cardiovascular: Positive for: Regular Rate and Rhythm, Normal S1, S2. Negative for: Murmurs Abdomen: Positive for: Normal Bowel Sounds. Negative for: Tenderness, Distention, Peritoneal Signs Upper Extremity: Positive for: Normal Inspection. Negative for: Cyanosis, Edema Lower Extremity: Positive for: Normal Inspection. Negative for: Edema Neurological: Positive for: GCS=15, CN II-XII Intact, Speech Normal Skin: Positive for: Warm, Dry, Normal Color. Negative for: Rashes Psychiatric: Positive for: Alert, Oriented x 3, Normal Insight, Normal Concentration - Medications Active Medications: Active Medications Generic Name Dose Route Start Last Admin Trade Name Freq PRN Reason Stop Dose Admin Acetaminophen 650 mg 06/29/17 16:36 06/29/17 16:37 Tylenol 325mg Tab PO 650 mg Q4H PRN Administration Pain, severe (8-10) Diphenhydramine HCl 25 mg 06/27/17 00:26 06/27/17 06:21 Benadryl IVP 25 mg Q6 PRN Administration Allergy symptoms Haloperidol Lactate 5 mg 06/27/17 00:24 06/27/17 06:19 Haldol IVP 5 mg Q6 PRN Administration Agitation Protocol Hydralazine HCl 10 mg 06/25/17 03:32 06/28/17 16:18 Apresoline IVP 10 mg Q6 PRN Administration Systolic Blood Pressure > 165 Metronidazole 500 mg in 100 mls @ 100 mls/hr 06/24/17 23:45 06/29/17 21:52 Flagyl IVPB 100 mls/hr Q8 NINO Administration Protocol Aztreonam 100 mls @ 100 mls/hr 06/29/17 08:30 06/29/17 21:51 Azactam 2 Gm IVPB 07/06/17 08:31 100 mls/hr Q8 NINO Administration Protocol Dextrose/Sodium Chloride 1,000 mls @ 50 mls/hr 06/30/17 00:30 06/30/17 00:58 Dextrose 5%/0.45% Ns 1000 Ml IV 50 mls/hr .Q20H NINO Administration Linezolid 600 mg in 300 mls @ 200 mls/hr 06/30/17 10:00 06/30/17 10:17 Zyvox 600mg/300ml D5w IVPB 07/07/17 10:01 200 mls/hr Q12 NION Administration Protocol Insulin Human Lispro 0 units 06/25/17 00:00 06/29/17 18:30 Humalog Med SC Not Given Q6 NINO Protocol Lorazepam 1 mg 06/27/17 00:26 06/29/17 02:52 Ativan IVP 1 mg Q6H PRN Administration Anxiety Protocol Mesalamine 4 gm 06/28/17 22:00 06/29/17 00:11 Rowasa Enema RC 4 gm HS NINO Administration Morphine Sulfate 2 mg 06/30/17 07:29 06/30/17 07:38 Morphine IVP 2 mg Q3H PRN Administration Pain, severe (8-10) Nicotine 1 patch 06/26/17 10:00 06/30/17 10:16 Nicoderm Cq TD 1 patch DAILY NINO Administration Ondansetron HCl 4 mg 06/24/17 23:46 Zofran Inj IVP Q4H PRN Nausea/Vomiting Pantoprazole Sodium 40 mg 06/29/17 10:00 06/30/17 10:16 Protonix Inj IVP 40 mg DAILY NINO Administration Quetiapine Fumarate 50 mg 06/27/17 12:45 06/30/17 10:17 Seroquel PO 50 mg BID NNIO Administration Protocol Quetiapine Fumarate 150 mg 06/27/17 12:45 06/29/17 21:53 Seroquel PO 150 mg HS NINO Administration Protocol Sotalol HCl 80 mg 06/30/17 10:30 Betapace PO BID NINO - Patient Studies Lab Studies: Microbiology Studies 06/29/17 06:45 Blood Culture - Preliminary Blood NO GROWTH AFTER 24 HOURS Lab Studies 06/30/17 06/30/17 06/30/17 Range/Units 06:30 05:45 05:42 WBC (4.5-11.0) 10^3/ul RBC (3.5-6.1) 10^6/uL Hgb (14.0-18.0) g/dL Hct (42.0-52.0) % MCV (80.0-105.0) fl MCH (25.0-35.0) pg MCHC (31.0-37.0) g/dl RDW (11.5-14.5) % Plt Count (120.0-450.0) 10^3/uL MPV (7.0-11.0) fl Gran % (50.0-68.0) % Lymph % (Auto) (22.0-35.0) % [place] % (Auto) (1.0-6.0) % Eos % (Auto) (1.5-5.0) % Baso % (Auto) (0.0-3.0) % Gran # (1.4-6.5) Lymph # (Auto) (1.2-3.4) [place] # (Auto) (0.1-0.6) Eos # (Auto) (0.0-0.7) Baso # (Auto) (0.0-2.0) K/mm3 PT (9.4-12.5) SECONDS INR (0.93-1.08) pCO2 24 L (35-45) mm/Hg pO2 78.0 L (80-100) mm/Hg HCO3 16.7 L (21-28) mmol/L ABG pH 7.45 (7.35-7.45) ABG Total CO2 17.4 L (22-28) mmol.L ABG O2 Saturation 97.7 (95-98) % ABG O2 Content 13.3 L (15-23) ML/dl ABG Base Excess -6.0 L (-2.0-3.0) mmol/L ABG Hemoglobin 9.9 L (11.7-17.4) g/dL ABG Carboxyhemoglobin 2.1 H (0.5-1.5) % POC ABG HHb (Measured) 2.2 (0-5) % ABG Methemoglobin 0.7 (0.0-3.0) % ABG O2 Capacity 13.6 L (16-24) mL/dl Hgb O2 Saturation 95.0 (95.0-98.0) % FiO2 21.0 % Sodium (132-148) mmol/L Potassium (3.6-5.0) mmol/L Chloride (98-107) mmol/L Carbon Dioxide (21-33) mmol/L Anion Gap (10-20) BUN (7-21) mg/dL Creatinine (0.8-1.5) mg/dl Est GFR ( Amer) Est GFR (Non-Af Amer) POC Glucose (mg/dL) 109 (65-110) mg/dL Random Glucose (70-110) mg/dL Calcium (8.4-10.5) mg/dL Phosphorus 3.1 (2.5-4.5) mg/dL Magnesium 1.9 (1.7-2.2) mg/dL Total Bilirubin (0.2-1.3) mg/dL AST (17-59) U/L ALT (7-56) U/L Alkaline Phosphatase (38-126) U/L Total Protein (5.8-8.3) g/dL Albumin (3.0-4.8) g/dL Globulin gm/dL Albumin/Globulin Ratio (1.1-1.8) Procalcitonin (0.19-0.49) NG/ML MOISE Screen (Negative) MOISE Titer MOISE Titer 2 MOISE Pattern MOISE Pattern 2 Anti-Mitochondrial Ab (Negative) Smooth Muscle Ab Titer Anti-Smooth Muscle Ab (Negative) Crossmatch 06/30/17 06/30/17 06/30/17 Range/Units 05:40 05:40 05:40 WBC 9.1 D (4.5-11.0) 10^3/ul RBC 3.99 (3.5-6.1) 10^6/uL Hgb 10.0 L (14.0-18.0) g/dL Hct 31.7 L (42.0-52.0) % MCV 79.4 L (80.0-105.0) fl MCH 25.1 (25.0-35.0) pg MCHC 31.5 (31.0-37.0) g/dl RDW 20.7 H (11.5-14.5) % Plt Count 188 (120.0-450.0) 10^3/uL MPV 9.4 (7.0-11.0) fl Gran % 78.1 H (50.0-68.0) % Lymph % (Auto) 11.8 L (22.0-35.0) % [place] % (Auto) 9.1 H (1.0-6.0) % Eos % (Auto) 0.9 L (1.5-5.0) % Baso % (Auto) 0.1 (0.0-3.0) % Gran # 7.12 H (1.4-6.5) Lymph # (Auto) 1.1 L (1.2-3.4) [place] # (Auto) 0.8 H (0.1-0.6) Eos # (Auto) 0.1 (0.0-0.7) Baso # (Auto) 0.01 (0.0-2.0) K/mm3 PT 13.1 H (9.4-12.5) SECONDS INR 1.14 H (0.93-1.08) pCO2 (35-45) mm/Hg pO2 (80-100) mm/Hg HCO3 (21-28) mmol/L ABG pH (7.35-7.45) ABG Total CO2 (22-28) mmol.L ABG O2 Saturation (95-98) % ABG O2 Content (15-23) ML/dl ABG Base Excess (-2.0-3.0) mmol/L ABG Hemoglobin (11.7-17.4) g/dL ABG Carboxyhemoglobin (0.5-1.5) % POC ABG HHb (Measured) (0-5) % ABG Methemoglobin (0.0-3.0) % ABG O2 Capacity (16-24) mL/dl Hgb O2 Saturation (95.0-98.0) % FiO2 % Sodium 142 (132-148) mmol/L Potassium 3.6 (3.6-5.0) mmol/L Chloride 112 H (98-107) mmol/L Carbon Dioxide 18 L (21-33) mmol/L Anion Gap 16 (10-20) BUN 15 (7-21) mg/dL Creatinine 1.1 (0.8-1.5) mg/dl Est GFR ( Amer) > 60 Est GFR (Non-Af Amer) > 60 POC Glucose (mg/dL) (65-110) mg/dL Random Glucose 102 (70-110) mg/dL Calcium 9.2 (8.4-10.5) mg/dL Phosphorus (2.5-4.5) mg/dL Magnesium (1.7-2.2) mg/dL Total Bilirubin 0.6 (0.2-1.3) mg/dL AST 55 (17-59) U/L ALT 374 H (7-56) U/L Alkaline Phosphatase 99 (38-126) U/L Total Protein 5.4 L (5.8-8.3) g/dL Albumin 2.8 L (3.0-4.8) g/dL Globulin 2.7 gm/dL Albumin/Globulin Ratio 1.1 (1.1-1.8) Procalcitonin (0.19-0.49) NG/ML MOISE Screen (Negative) MOISE Titer MOISE Titer 2 MOISE Pattern MOISE Pattern 2 Anti-Mitochondrial Ab (Negative) Smooth Muscle Ab Titer Anti-Smooth Muscle Ab (Negative) Crossmatch 06/30/17 06/29/17 06/29/17 Range/Units 00:23 17:56 11:40 WBC (4.5-11.0) 10^3/ul RBC (3.5-6.1) 10^6/uL Hgb (14.0-18.0) g/dL Hct (42.0-52.0) % MCV (80.0-105.0) fl MCH (25.0-35.0) pg MCHC (31.0-37.0) g/dl RDW (11.5-14.5) % Plt Count (120.0-450.0) 10^3/uL MPV (7.0-11.0) fl Gran % (50.0-68.0) % Lymph % (Auto) (22.0-35.0) % [place] % (Auto) (1.0-6.0) % Eos % (Auto) (1.5-5.0) % Baso % (Auto) (0.0-3.0) % Gran # (1.4-6.5) Lymph # (Auto) (1.2-3.4) [place] # (Auto) (0.1-0.6) Eos # (Auto) (0.0-0.7) Baso # (Auto) (0.0-2.0) K/mm3 PT (9.4-12.5) SECONDS INR (0.93-1.08) pCO2 (35-45) mm/Hg pO2 (80-100) mm/Hg HCO3 (21-28) mmol/L ABG pH (7.35-7.45) ABG Total CO2 (22-28) mmol.L ABG O2 Saturation (95-98) % ABG O2 Content (15-23) ML/dl ABG Base Excess (-2.0-3.0) mmol/L ABG Hemoglobin (11.7-17.4) g/dL ABG Carboxyhemoglobin (0.5-1.5) % POC ABG HHb (Measured) (0-5) % ABG Methemoglobin (0.0-3.0) % ABG O2 Capacity (16-24) mL/dl Hgb O2 Saturation (95.0-98.0) % FiO2 % Sodium (132-148) mmol/L Potassium (3.6-5.0) mmol/L Chloride (98-107) mmol/L Carbon Dioxide (21-33) mmol/L Anion Gap (10-20) BUN (7-21) mg/dL Creatinine (0.8-1.5) mg/dl Est GFR ( Amer) Est GFR (Non-Af Amer) POC Glucose (mg/dL) 86 99 95 (65-110) mg/dL Random Glucose (70-110) mg/dL Calcium (8.4-10.5) mg/dL Phosphorus (2.5-4.5) mg/dL Magnesium (1.7-2.2) mg/dL Total Bilirubin (0.2-1.3) mg/dL AST (17-59) U/L ALT (7-56) U/L Alkaline Phosphatase (38-126) U/L Total Protein (5.8-8.3) g/dL Albumin (3.0-4.8) g/dL Globulin gm/dL Albumin/Globulin Ratio (1.1-1.8) Procalcitonin (0.19-0.49) NG/ML MOISE Screen (Negative) MOISE Titer MOISE Titer 2 MOISE Pattern MOISE Pattern 2 Anti-Mitochondrial Ab (Negative) Smooth Muscle Ab Titer Anti-Smooth Muscle Ab (Negative) Crossmatch 06/29/17 06/28/17 06/25/17 Range/Units 08:00 11:23 07:35 WBC (4.5-11.0) 10^3/ul RBC (3.5-6.1) 10^6/uL Hgb (14.0-18.0) g/dL Hct (42.0-52.0) % MCV (80.0-105.0) fl MCH (25.0-35.0) pg MCHC (31.0-37.0) g/dl RDW (11.5-14.5) % Plt Count (120.0-450.0) 10^3/uL MPV (7.0-11.0) fl Gran % (50.0-68.0) % Lymph % (Auto) (22.0-35.0) % [place] % (Auto) (1.0-6.0) % Eos % (Auto) (1.5-5.0) % Baso % (Auto) (0.0-3.0) % Gran # (1.4-6.5) Lymph # (Auto) (1.2-3.4) [place] # (Auto) (0.1-0.6) Eos # (Auto) (0.0-0.7) Baso # (Auto) (0.0-2.0) K/mm3 PT (9.4-12.5) SECONDS INR (0.93-1.08) pCO2 (35-45) mm/Hg pO2 (80-100) mm/Hg HCO3 (21-28) mmol/L ABG pH (7.35-7.45) ABG Total CO2 (22-28) mmol.L ABG O2 Saturation (95-98) % ABG O2 Content (15-23) ML/dl ABG Base Excess (-2.0-3.0) mmol/L ABG Hemoglobin (11.7-17.4) g/dL ABG Carboxyhemoglobin (0.5-1.5) % POC ABG HHb (Measured) (0-5) % ABG Methemoglobin (0.0-3.0) % ABG O2 Capacity (16-24) mL/dl Hgb O2 Saturation (95.0-98.0) % FiO2 % Sodium (132-148) mmol/L Potassium (3.6-5.0) mmol/L Chloride (98-107) mmol/L Carbon Dioxide (21-33) mmol/L Anion Gap (10-20) BUN (7-21) mg/dL Creatinine (0.8-1.5) mg/dl Est GFR ( Amer) Est GFR (Non-Af Amer) POC Glucose (mg/dL) (65-110) mg/dL Random Glucose (70-110) mg/dL Calcium (8.4-10.5) mg/dL Phosphorus (2.5-4.5) mg/dL Magnesium (1.7-2.2) mg/dL Total Bilirubin (0.2-1.3) mg/dL AST (17-59) U/L ALT (7-56) U/L Alkaline Phosphatase (38-126) U/L Total Protein (5.8-8.3) g/dL Albumin (3.0-4.8) g/dL Globulin gm/dL Albumin/Globulin Ratio (1.1-1.8) Procalcitonin 0.16 L (0.19-0.49) NG/ML MOISE Screen Negative (Negative) MOISE Titer TEST NOT PERFORMED MOISE Titer 2 TEST NOT PERFORMED MOISE Pattern TEST NOT PERFORMED MOISE Pattern 2 TEST NOT PERFORMED Anti-Mitochondrial Ab Negative (Negative) Smooth Muscle Ab Titer TEST NOT PERFORMED Anti-Smooth Muscle Ab Negative (Negative) Crossmatch See Detail Laboratory Results - last 24 hr 06/25/17 06/28/17 06/29/17 07:35 11:23 08:00 WBC RBC Hgb Hct MCV MCH MCHC RDW Plt Count MPV Gran % Lymph % (Auto) [place] % (Auto) Eos % (Auto) Baso % (Auto) Gran # Lymph # (Auto) [place] # (Auto) Eos # (Auto) Baso # (Auto) PT INR pCO2 pO2 HCO3 ABG pH ABG Total CO2 ABG O2 Saturation ABG O2 Content ABG Base Excess ABG Hemoglobin ABG Carboxyhemoglobin POC ABG HHb (Measured) ABG Methemoglobin ABG O2 Capacity Hgb O2 Saturation FiO2 Sodium Potassium Chloride Carbon Dioxide Anion Gap BUN Creatinine Est GFR ( Amer) Est GFR (Non-Af Amer) POC Glucose (mg/dL) Random Glucose Calcium Phosphorus Magnesium Total Bilirubin AST ALT Alkaline Phosphatase Total Protein Albumin Globulin Albumin/Globulin Ratio Procalcitonin 0.16 L MOISE Screen Negative MOISE Titer TEST NOT PERFORMED MOISE Titer 2 TEST NOT PERFORMED MOISE Pattern TEST NOT PERFORMED MOISE Pattern 2 TEST NOT PERFORMED Anti-Mitochondrial Ab Negative Smooth Muscle Ab Titer TEST NOT PERFORMED Anti-Smooth Muscle Ab Negative Crossmatch See Detail 06/29/17 06/29/17 06/30/17 11:40 17:56 00:23 WBC RBC Hgb Hct MCV MCH MCHC RDW Plt Count MPV Gran % Lymph % (Auto) [place] % (Auto) Eos % (Auto) Baso % (Auto) Gran # Lymph # (Auto) [place] # (Auto) Eos # (Auto) Baso # (Auto) PT INR pCO2 pO2 HCO3 ABG pH ABG Total CO2 ABG O2 Saturation ABG O2 Content ABG Base Excess ABG Hemoglobin ABG Carboxyhemoglobin POC ABG HHb (Measured) ABG Methemoglobin ABG O2 Capacity Hgb O2 Saturation FiO2 Sodium Potassium Chloride Carbon Dioxide Anion Gap BUN Creatinine Est GFR ( Amer) Est GFR (Non-Af Amer) POC Glucose (mg/dL) 95 99 86 Random Glucose Calcium Phosphorus Magnesium Total Bilirubin AST ALT Alkaline Phosphatase Total Protein Albumin Globulin Albumin/Globulin Ratio Procalcitonin MOISE Screen MOISE Titer MOISE Titer 2 MOISE Pattern MOISE Pattern 2 Anti-Mitochondrial Ab Smooth Muscle Ab Titer Anti-Smooth Muscle Ab Crossmatch 06/30/17 06/30/17 06/30/17 05:40 05:40 05:40 WBC 9.1 D RBC 3.99 Hgb 10.0 L Hct 31.7 L MCV 79.4 L MCH 25.1 MCHC 31.5 RDW 20.7 H Plt Count 188 MPV 9.4 Gran % 78.1 H Lymph % (Auto) 11.8 L [place] % (Auto) 9.1 H Eos % (Auto) 0.9 L Baso % (Auto) 0.1 Gran # 7.12 H Lymph # (Auto) 1.1 L [place] # (Auto) 0.8 H Eos # (Auto) 0.1 Baso # (Auto) 0.01 PT 13.1 H INR 1.14 H pCO2 pO2 HCO3 ABG pH ABG Total CO2 ABG O2 Saturation ABG O2 Content ABG Base Excess ABG Hemoglobin ABG Carboxyhemoglobin POC ABG HHb (Measured) ABG Methemoglobin ABG O2 Capacity Hgb O2 Saturation FiO2 Sodium 142 Potassium 3.6 Chloride 112 H Carbon Dioxide 18 L Anion Gap 16 BUN 15 Creatinine 1.1 Est GFR ( Amer) > 60 Est GFR (Non-Af Amer) > 60 POC Glucose (mg/dL) Random Glucose 102 Calcium 9.2 Phosphorus Magnesium Total Bilirubin 0.6 AST 55 ALT 374 H Alkaline Phosphatase 99 Total Protein 5.4 L Albumin 2.8 L Globulin 2.7 Albumin/Globulin Ratio 1.1 Procalcitonin MOISE Screen MOISE Titer MOISE Titer 2 MOISE Pattern MOISE Pattern 2 Anti-Mitochondrial Ab Smooth Muscle Ab Titer Anti-Smooth Muscle Ab Crossmatch 06/30/17 06/30/17 06/30/17 05:42 05:45 06:30 WBC RBC Hgb Hct MCV MCH MCHC RDW Plt Count MPV Gran % Lymph % (Auto) [place] % (Auto) Eos % (Auto) Baso % (Auto) Gran # Lymph # (Auto) [place] # (Auto) Eos # (Auto) Baso # (Auto) PT INR pCO2 24 L pO2 78.0 L HCO3 16.7 L ABG pH 7.45 ABG Total CO2 17.4 L ABG O2 Saturation 97.7 ABG O2 Content 13.3 L ABG Base Excess -6.0 L ABG Hemoglobin 9.9 L ABG Carboxyhemoglobin 2.1 H POC ABG HHb (Measured) 2.2 ABG Methemoglobin 0.7 ABG O2 Capacity 13.6 L Hgb O2 Saturation 95.0 FiO2 21.0 Sodium Potassium Chloride Carbon Dioxide Anion Gap BUN Creatinine Est GFR ( Amer) Est GFR (Non-Af Amer) POC Glucose (mg/dL) 109 Random Glucose Calcium Phosphorus 3.1 Magnesium 1.9 Total Bilirubin AST ALT Alkaline Phosphatase Total Protein Albumin Globulin Albumin/Globulin Ratio Procalcitonin MOISE Screen MOISE Titer MOISE Titer 2 MOISE Pattern MOISE Pattern 2 Anti-Mitochondrial Ab Smooth Muscle Ab Titer Anti-Smooth Muscle Ab Crossmatch Fingerstick Blood Sugar Results: 95 Critical Care Progress Note - Nutrition Nutrition: Nutrition Category Date Time Status Liquid Diet [DIET] Diets 06/30/17 Breakfast Ordered Assessment/Plan - Assessment and Plan (Free Text) Plan: 56 y/o M with PMH of bleeding duodenal ulcer s/p hemoclip, CAD s/p CABG, PAD s/ p R SFA stent, HLD, DM2, lumbosacral radiculopathy, tobacco use and chronic opioid dependence presents with GI bleed likely secondary to coagulopathy. Patient alert and oriented today. Patient will be started on diet as per GI and continue with Enemas. Patient will be transferred to remote telemetry. Neuro AAOX3 Cardio Hemodynamically stable IVF stopped Maintain MAP >65 Pulm maintain SaO2 > 90% GI IV protonix HG stable Trend LFTs Liquid diet, advance as tolerated Zofran GI consulted Heme/ID Afebrile, no leukocytosis Aztreonam and Linezolid Cultures pending Maintain normothermia Nephro Continue IVF Monitor electrolytes, replenish as needed Maintain euvolemia Endo ISS Maintain euglycemia Psych Haldol, Benadryl, and Ativan as per psychiatrist Likely opioid withdrawal Sami, PGY-2 <Will Campos - Last Filed: 06/30/17 12:14> CCU Objective - Vital Signs / Intake & Output Vital Signs (Last 4 hours): Vital Signs Pulse BP Pulse Ox 06/30/17 12:00 146/66 03/21/18 11:59 97 06/30/17 11:50 98 06/30/17 11:40 99 06/30/17 11:30 98 06/30/17 11:20 99 06/30/17 11:10 99 06/30/17 11:01 152/61 H 98 06/30/17 11:00 99 06/30/17 10:50 100 06/30/17 10:44 109 H 143/87 06/30/17 10:40 99 06/30/17 10:30 99 06/30/17 10:20 98 06/30/17 10:10 99 06/30/17 10:01 107/42 L 100 06/30/17 10:00 109 H 80 L 06/30/17 09:50 98 06/30/17 09:40 98 06/30/17 09:30 98 06/30/17 09:20 98 06/30/17 09:10 99 06/30/17 09:00 112 H 152/67 H 96 06/30/17 08:50 107 H 100 06/30/17 08:40 114 H 99 06/30/17 08:30 98 06/30/17 08:20 98 - Medications Active Medications: Active Medications Generic Name Dose Route Start Last Admin Trade Name Freq PRN Reason Stop Dose Admin Acetaminophen 650 mg 06/29/17 16:36 06/29/17 16:37 Tylenol 325mg Tab PO 650 mg Q4H PRN Administration Pain, severe (8-10) Diphenhydramine HCl 25 mg 06/27/17 00:26 06/27/17 06:21 Benadryl IVP 25 mg Q6 PRN Administration Allergy symptoms Haloperidol Lactate 5 mg 06/27/17 00:24 06/27/17 06:19 Haldol IVP 5 mg Q6 PRN Administration Agitation Protocol Hydralazine HCl 10 mg 06/25/17 03:32 06/28/17 16:18 Apresoline IVP 10 mg Q6 PRN Administration Systolic Blood Pressure > 165 Metronidazole 500 mg in 100 mls @ 100 mls/hr 06/24/17 23:45 06/29/17 21:52 Flagyl IVPB 100 mls/hr Q8 NINO Administration Protocol Aztreonam 100 mls @ 100 mls/hr 06/29/17 08:30 06/29/17 21:51 Azactam 2 Gm IVPB 07/06/17 08:31 100 mls/hr Q8 NINO Administration Protocol Linezolid 600 mg in 300 mls @ 200 mls/hr 06/30/17 10:00 06/30/17 10:17 Zyvox 600mg/300ml D5w IVPB 07/07/17 10:01 200 mls/hr Q12 NINO Administration Protocol Insulin Human Lispro 0 units 06/25/17 00:00 06/29/17 18:30 Humalog Med SC Not Given Q6 NINO Protocol Lorazepam 1 mg 06/27/17 00:26 06/29/17 02:52 Ativan IVP 1 mg Q6H PRN Administration Anxiety Protocol Mesalamine 4 gm 06/28/17 22:00 06/29/17 00:11 Rowasa Enema RC 4 gm HS NINO Administration Morphine Sulfate 2 mg 06/30/17 07:29 06/30/17 10:37 Morphine IVP 2 mg Q3H PRN Administration Pain, severe (8-10) Nicotine 1 patch 06/26/17 10:00 06/30/17 10:16 Nicoderm Cq TD 1 patch DAILY NINO Administration Ondansetron HCl 4 mg 06/24/17 23:46 Zofran Inj IVP Q4H PRN Nausea/Vomiting Pantoprazole Sodium 40 mg 06/29/17 10:00 06/30/17 10:16 Protonix Inj IVP 40 mg DAILY NINO Administration Quetiapine Fumarate 50 mg 06/27/17 12:45 06/30/17 10:17 Seroquel PO 50 mg BID NINO Administration Protocol Quetiapine Fumarate 150 mg 06/27/17 12:45 06/29/17 21:53 Seroquel PO 150 mg HS NINO Administration Protocol Sotalol HCl 80 mg 06/30/17 10:30 06/30/17 10:44 Betapace PO 80 mg BID NINO Administration - Patient Studies Lab Studies: Microbiology Studies 06/29/17 06:45 Blood Culture - Preliminary Blood NO GROWTH AFTER 24 HOURS Lab Studies 06/30/17 06/30/17 06/30/17 Range/Units 11:40 06:30 05:45 WBC (4.5-11.0) 10^3/ul RBC (3.5-6.1) 10^6/uL Hgb (14.0-18.0) g/dL Hct (42.0-52.0) % MCV (80.0-105.0) fl MCH (25.0-35.0) pg MCHC (31.0-37.0) g/dl RDW (11.5-14.5) % Plt Count (120.0-450.0) 10^3/uL MPV (7.0-11.0) fl Gran % (50.0-68.0) % Lymph % (Auto) (22.0-35.0) % [place] % (Auto) (1.0-6.0) % Eos % (Auto) (1.5-5.0) % Baso % (Auto) (0.0-3.0) % Gran # (1.4-6.5) Lymph # (Auto) (1.2-3.4) [place] # (Auto) (0.1-0.6) Eos # (Auto) (0.0-0.7) Baso # (Auto) (0.0-2.0) K/mm3 PT (9.4-12.5) SECONDS INR (0.93-1.08) pCO2 24 L (35-45) mm/Hg pO2 78.0 L (80-100) mm/Hg HCO3 16.7 L (21-28) mmol/L ABG pH 7.45 (7.35-7.45) ABG Total CO2 17.4 L (22-28) mmol.L ABG O2 Saturation 97.7 (95-98) % ABG O2 Content 13.3 L (15-23) ML/dl ABG Base Excess -6.0 L (-2.0-3.0) mmol/L ABG Hemoglobin 9.9 L (11.7-17.4) g/dL ABG Carboxyhemoglobin 2.1 H (0.5-1.5) % POC ABG HHb (Measured) 2.2 (0-5) % ABG Methemoglobin 0.7 (0.0-3.0) % ABG O2 Capacity 13.6 L (16-24) mL/dl Hgb O2 Saturation 95.0 (95.0-98.0) % FiO2 21.0 % Sodium (132-148) mmol/L Potassium (3.6-5.0) mmol/L Chloride (98-107) mmol/L Carbon Dioxide (21-33) mmol/L Anion Gap (10-20) BUN (7-21) mg/dL Creatinine (0.8-1.5) mg/dl Est GFR ( Amer) Est GFR (Non-Af Amer) POC Glucose (mg/dL) 259 H (65-110) mg/dL Random Glucose (70-110) mg/dL Calcium (8.4-10.5) mg/dL Phosphorus 3.1 (2.5-4.5) mg/dL Magnesium 1.9 (1.7-2.2) mg/dL Total Bilirubin (0.2-1.3) mg/dL AST (17-59) U/L ALT (7-56) U/L Alkaline Phosphatase (38-126) U/L Total Protein (5.8-8.3) g/dL Albumin (3.0-4.8) g/dL Globulin gm/dL Albumin/Globulin Ratio (1.1-1.8) Procalcitonin (0.19-0.49) NG/ML MOISE Screen (Negative) MOISE Titer MOISE Titer 2 MOISE Pattern MOISE Pattern 2 Anti-Mitochondrial Ab (Negative) Smooth Muscle Ab Titer Anti-Smooth Muscle Ab (Negative) Crossmatch 06/30/17 06/30/17 06/30/17 Range/Units 05:42 05:40 05:40 WBC (4.5-11.0) 10^3/ul RBC (3.5-6.1) 10^6/uL Hgb (14.0-18.0) g/dL Hct (42.0-52.0) % MCV (80.0-105.0) fl MCH (25.0-35.0) pg MCHC (31.0-37.0) g/dl RDW (11.5-14.5) % Plt Count (120.0-450.0) 10^3/uL MPV (7.0-11.0) fl Gran % (50.0-68.0) % Lymph % (Auto) (22.0-35.0) % [place] % (Auto) (1.0-6.0) % Eos % (Auto) (1.5-5.0) % Baso % (Auto) (0.0-3.0) % Gran # (1.4-6.5) Lymph # (Auto) (1.2-3.4) [place] # (Auto) (0.1-0.6) Eos # (Auto) (0.0-0.7) Baso # (Auto) (0.0-2.0) K/mm3 PT 13.1 H (9.4-12.5) SECONDS INR 1.14 H (0.93-1.08) pCO2 (35-45) mm/Hg pO2 (80-100) mm/Hg HCO3 (21-28) mmol/L ABG pH (7.35-7.45) ABG Total CO2 (22-28) mmol.L ABG O2 Saturation (95-98) % ABG O2 Content (15-23) ML/dl ABG Base Excess (-2.0-3.0) mmol/L ABG Hemoglobin (11.7-17.4) g/dL ABG Carboxyhemoglobin (0.5-1.5) % POC ABG HHb (Measured) (0-5) % ABG Methemoglobin (0.0-3.0) % ABG O2 Capacity (16-24) mL/dl Hgb O2 Saturation (95.0-98.0) % FiO2 % Sodium 142 (132-148) mmol/L Potassium 3.6 (3.6-5.0) mmol/L Chloride 112 H (98-107) mmol/L Carbon Dioxide 18 L (21-33) mmol/L Anion Gap 16 (10-20) BUN 15 (7-21) mg/dL Creatinine 1.1 (0.8-1.5) mg/dl Est GFR ( Amer) > 60 Est GFR (Non-Af Amer) > 60 POC Glucose (mg/dL) 109 (65-110) mg/dL Random Glucose 102 (70-110) mg/dL Calcium 9.2 (8.4-10.5) mg/dL Phosphorus (2.5-4.5) mg/dL Magnesium (1.7-2.2) mg/dL Total Bilirubin 0.6 (0.2-1.3) mg/dL AST 55 (17-59) U/L ALT 374 H (7-56) U/L Alkaline Phosphatase 99 (38-126) U/L Total Protein 5.4 L (5.8-8.3) g/dL Albumin 2.8 L (3.0-4.8) g/dL Globulin 2.7 gm/dL Albumin/Globulin Ratio 1.1 (1.1-1.8) Procalcitonin (0.19-0.49) NG/ML MOISE Screen (Negative) MOISE Titer MOISE Titer 2 MOISE Pattern MOISE Pattern 2 Anti-Mitochondrial Ab (Negative) Smooth Muscle Ab Titer Anti-Smooth Muscle Ab (Negative) Crossmatch 06/30/17 06/30/17 06/29/17 Range/Units 05:40 00:23 17:56 WBC 9.1 D (4.5-11.0) 10^3/ul RBC 3.99 (3.5-6.1) 10^6/uL Hgb 10.0 L (14.0-18.0) g/dL Hct 31.7 L (42.0-52.0) % MCV 79.4 L (80.0-105.0) fl MCH 25.1 (25.0-35.0) pg MCHC 31.5 (31.0-37.0) g/dl RDW 20.7 H (11.5-14.5) % Plt Count 188 (120.0-450.0) 10^3/uL MPV 9.4 (7.0-11.0) fl Gran % 78.1 H (50.0-68.0) % Lymph % (Auto) 11.8 L (22.0-35.0) % [place] % (Auto) 9.1 H (1.0-6.0) % Eos % (Auto) 0.9 L (1.5-5.0) % Baso % (Auto) 0.1 (0.0-3.0) % Gran # 7.12 H (1.4-6.5) Lymph # (Auto) 1.1 L (1.2-3.4) [place] # (Auto) 0.8 H (0.1-0.6) Eos # (Auto) 0.1 (0.0-0.7) Baso # (Auto) 0.01 (0.0-2.0) K/mm3 PT (9.4-12.5) SECONDS INR (0.93-1.08) pCO2 (35-45) mm/Hg pO2 (80-100) mm/Hg HCO3 (21-28) mmol/L ABG pH (7.35-7.45) ABG Total CO2 (22-28) mmol.L ABG O2 Saturation (95-98) % ABG O2 Content (15-23) ML/dl ABG Base Excess (-2.0-3.0) mmol/L ABG Hemoglobin (11.7-17.4) g/dL ABG Carboxyhemoglobin (0.5-1.5) % POC ABG HHb (Measured) (0-5) % ABG Methemoglobin (0.0-3.0) % ABG O2 Capacity (16-24) mL/dl Hgb O2 Saturation (95.0-98.0) % FiO2 % Sodium (132-148) mmol/L Potassium (3.6-5.0) mmol/L Chloride (98-107) mmol/L Carbon Dioxide (21-33) mmol/L Anion Gap (10-20) BUN (7-21) mg/dL Creatinine (0.8-1.5) mg/dl Est GFR ( Amer) Est GFR (Non-Af Amer) POC Glucose (mg/dL) 86 99 (65-110) mg/dL Random Glucose (70-110) mg/dL Calcium (8.4-10.5) mg/dL Phosphorus (2.5-4.5) mg/dL Magnesium (1.7-2.2) mg/dL Total Bilirubin (0.2-1.3) mg/dL AST (17-59) U/L ALT (7-56) U/L Alkaline Phosphatase (38-126) U/L Total Protein (5.8-8.3) g/dL Albumin (3.0-4.8) g/dL Globulin gm/dL Albumin/Globulin Ratio (1.1-1.8) Procalcitonin (0.19-0.49) NG/ML MOISE Screen (Negative) MOISE Titer MOISE Titer 2 MOISE Pattern MOISE Pattern 2 Anti-Mitochondrial Ab (Negative) Smooth Muscle Ab Titer Anti-Smooth Muscle Ab (Negative) Crossmatch 06/29/17 06/29/17 06/28/17 Range/Units 11:40 08:00 11:23 WBC (4.5-11.0) 10^3/ul RBC (3.5-6.1) 10^6/uL Hgb (14.0-18.0) g/dL Hct (42.0-52.0) % MCV (80.0-105.0) fl MCH (25.0-35.0) pg MCHC (31.0-37.0) g/dl RDW (11.5-14.5) % Plt Count (120.0-450.0) 10^3/uL MPV (7.0-11.0) fl Gran % (50.0-68.0) % Lymph % (Auto) (22.0-35.0) % [place] % (Auto) (1.0-6.0) % Eos % (Auto) (1.5-5.0) % Baso % (Auto) (0.0-3.0) % Gran # (1.4-6.5) Lymph # (Auto) (1.2-3.4) [place] # (Auto) (0.1-0.6) Eos # (Auto) (0.0-0.7) Baso # (Auto) (0.0-2.0) K/mm3 PT (9.4-12.5) SECONDS INR (0.93-1.08) pCO2 (35-45) mm/Hg pO2 (80-100) mm/Hg HCO3 (21-28) mmol/L ABG pH (7.35-7.45) ABG Total CO2 (22-28) mmol.L ABG O2 Saturation (95-98) % ABG O2 Content (15-23) ML/dl ABG Base Excess (-2.0-3.0) mmol/L ABG Hemoglobin (11.7-17.4) g/dL ABG Carboxyhemoglobin (0.5-1.5) % POC ABG HHb (Measured) (0-5) % ABG Methemoglobin (0.0-3.0) % ABG O2 Capacity (16-24) mL/dl Hgb O2 Saturation (95.0-98.0) % FiO2 % Sodium (132-148) mmol/L Potassium (3.6-5.0) mmol/L Chloride (98-107) mmol/L Carbon Dioxide (21-33) mmol/L Anion Gap (10-20) BUN (7-21) mg/dL Creatinine (0.8-1.5) mg/dl Est GFR ( Amer) Est GFR (Non-Af Amer) POC Glucose (mg/dL) 95 (65-110) mg/dL Random Glucose (70-110) mg/dL Calcium (8.4-10.5) mg/dL Phosphorus (2.5-4.5) mg/dL Magnesium (1.7-2.2) mg/dL Total Bilirubin (0.2-1.3) mg/dL AST (17-59) U/L ALT (7-56) U/L Alkaline Phosphatase (38-126) U/L Total Protein (5.8-8.3) g/dL Albumin (3.0-4.8) g/dL Globulin gm/dL Albumin/Globulin Ratio (1.1-1.8) Procalcitonin 0.16 L (0.19-0.49) NG/ML MOISE Screen Negative (Negative) MOISE Titer TEST NOT PERFORMED MOISE Titer 2 TEST NOT PERFORMED MOISE Pattern TEST NOT PERFORMED MOISE Pattern 2 TEST NOT PERFORMED Anti-Mitochondrial Ab Negative (Negative) Smooth Muscle Ab Titer TEST NOT PERFORMED Anti-Smooth Muscle Ab Negative (Negative) Crossmatch 06/25/17 Range/Units 07:35 WBC (4.5-11.0) 10^3/ul RBC (3.5-6.1) 10^6/uL Hgb (14.0-18.0) g/dL Hct (42.0-52.0) % MCV (80.0-105.0) fl MCH (25.0-35.0) pg MCHC (31.0-37.0) g/dl RDW (11.5-14.5) % Plt Count (120.0-450.0) 10^3/uL MPV (7.0-11.0) fl Gran % (50.0-68.0) % Lymph % (Auto) (22.0-35.0) % [place] % (Auto) (1.0-6.0) % Eos % (Auto) (1.5-5.0) % Baso % (Auto) (0.0-3.0) % Gran # (1.4-6.5) Lymph # (Auto) (1.2-3.4) [place] # (Auto) (0.1-0.6) Eos # (Auto) (0.0-0.7) Baso # (Auto) (0.0-2.0) K/mm3 PT (9.4-12.5) SECONDS INR (0.93-1.08) pCO2 (35-45) mm/Hg pO2 (80-100) mm/Hg HCO3 (21-28) mmol/L ABG pH (7.35-7.45) ABG Total CO2 (22-28) mmol.L ABG O2 Saturation (95-98) % ABG O2 Content (15-23) ML/dl ABG Base Excess (-2.0-3.0) mmol/L ABG Hemoglobin (11.7-17.4) g/dL ABG Carboxyhemoglobin (0.5-1.5) % POC ABG HHb (Measured) (0-5) % ABG Methemoglobin (0.0-3.0) % ABG O2 Capacity (16-24) mL/dl Hgb O2 Saturation (95.0-98.0) % FiO2 % Sodium (132-148) mmol/L Potassium (3.6-5.0) mmol/L Chloride (98-107) mmol/L Carbon Dioxide (21-33) mmol/L Anion Gap (10-20) BUN (7-21) mg/dL Creatinine (0.8-1.5) mg/dl Est GFR ( Amer) Est GFR (Non-Af Amer) POC Glucose (mg/dL) (65-110) mg/dL Random Glucose (70-110) mg/dL Calcium (8.4-10.5) mg/dL Phosphorus (2.5-4.5) mg/dL Magnesium (1.7-2.2) mg/dL Total Bilirubin (0.2-1.3) mg/dL AST (17-59) U/L ALT (7-56) U/L Alkaline Phosphatase (38-126) U/L Total Protein (5.8-8.3) g/dL Albumin (3.0-4.8) g/dL Globulin gm/dL Albumin/Globulin Ratio (1.1-1.8) Procalcitonin (0.19-0.49) NG/ML MOISE Screen (Negative) MOISE Titer MOISE Titer 2 MOISE Pattern MOISE Pattern 2 Anti-Mitochondrial Ab (Negative) Smooth Muscle Ab Titer Anti-Smooth Muscle Ab (Negative) Crossmatch See Detail Laboratory Results - last 24 hr 06/25/17 06/28/17 06/29/17 07:35 11:23 08:00 WBC RBC Hgb Hct MCV MCH MCHC RDW Plt Count MPV Gran % Lymph % (Auto) [place] % (Auto) Eos % (Auto) Baso % (Auto) Gran # Lymph # (Auto) [place] # (Auto) Eos # (Auto) Baso # (Auto) PT INR pCO2 pO2 HCO3 ABG pH ABG Total CO2 ABG O2 Saturation ABG O2 Content ABG Base Excess ABG Hemoglobin ABG Carboxyhemoglobin POC ABG HHb (Measured) ABG Methemoglobin ABG O2 Capacity Hgb O2 Saturation FiO2 Sodium Potassium Chloride Carbon Dioxide Anion Gap BUN Creatinine Est GFR ( Amer) Est GFR (Non-Af Amer) POC Glucose (mg/dL) Random Glucose Calcium Phosphorus Magnesium Total Bilirubin AST ALT Alkaline Phosphatase Total Protein Albumin Globulin Albumin/Globulin Ratio Procalcitonin 0.16 L MOISE Screen Negative MOISE Titer TEST NOT PERFORMED MOISE Titer 2 TEST NOT PERFORMED MOISE Pattern TEST NOT PERFORMED MOISE Pattern 2 TEST NOT PERFORMED Anti-Mitochondrial Ab Negative Smooth Muscle Ab Titer TEST NOT PERFORMED Anti-Smooth Muscle Ab Negative Crossmatch See Detail 06/29/17 06/29/17 06/30/17 11:40 17:56 00:23 WBC RBC Hgb Hct MCV MCH MCHC RDW Plt Count MPV Gran % Lymph % (Auto) [place] % (Auto) Eos % (Auto) Baso % (Auto) Gran # Lymph # (Auto) [place] # (Auto) Eos # (Auto) Baso # (Auto) PT INR pCO2 pO2 HCO3 ABG pH ABG Total CO2 ABG O2 Saturation ABG O2 Content ABG Base Excess ABG Hemoglobin ABG Carboxyhemoglobin POC ABG HHb (Measured) ABG Methemoglobin ABG O2 Capacity Hgb O2 Saturation FiO2 Sodium Potassium Chloride Carbon Dioxide Anion Gap BUN Creatinine Est GFR ( Amer) Est GFR (Non-Af Amer) POC Glucose (mg/dL) 95 99 86 Random Glucose Calcium Phosphorus Magnesium Total Bilirubin AST ALT Alkaline Phosphatase Total Protein Albumin Globulin Albumin/Globulin Ratio Procalcitonin MOISE Screen MOISE Titer MOISE Titer 2 MOISE Pattern MOISE Pattern 2 Anti-Mitochondrial Ab Smooth Muscle Ab Titer Anti-Smooth Muscle Ab Crossmatch 06/30/17 06/30/17 06/30/17 05:40 05:40 05:40 WBC 9.1 D RBC 3.99 Hgb 10.0 L Hct 31.7 L MCV 79.4 L MCH 25.1 MCHC 31.5 RDW 20.7 H Plt Count 188 MPV 9.4 Gran % 78.1 H Lymph % (Auto) 11.8 L [place] % (Auto) 9.1 H Eos % (Auto) 0.9 L Baso % (Auto) 0.1 Gran # 7.12 H Lymph # (Auto) 1.1 L [place] # (Auto) 0.8 H Eos # (Auto) 0.1 Baso # (Auto) 0.01 PT 13.1 H INR 1.14 H pCO2 pO2 HCO3 ABG pH ABG Total CO2 ABG O2 Saturation ABG O2 Content ABG Base Excess ABG Hemoglobin ABG Carboxyhemoglobin POC ABG HHb (Measured) ABG Methemoglobin ABG O2 Capacity Hgb O2 Saturation FiO2 Sodium 142 Potassium 3.6 Chloride 112 H Carbon Dioxide 18 L Anion Gap 16 BUN 15 Creatinine 1.1 Est GFR ( Amer) > 60 Est GFR (Non-Af Amer) > 60 POC Glucose (mg/dL) Random Glucose 102 Calcium 9.2 Phosphorus Magnesium Total Bilirubin 0.6 AST 55 ALT 374 H Alkaline Phosphatase 99 Total Protein 5.4 L Albumin 2.8 L Globulin 2.7 Albumin/Globulin Ratio 1.1 Procalcitonin MOISE Screen MOISE Titer MOISE Titer 2 MOISE Pattern MOISE Pattern 2 Anti-Mitochondrial Ab Smooth Muscle Ab Titer Anti-Smooth Muscle Ab Crossmatch 06/30/17 06/30/17 06/30/17 05:42 05:45 06:30 WBC RBC Hgb Hct MCV MCH MCHC RDW Plt Count MPV Gran % Lymph % (Auto) [place] % (Auto) Eos % (Auto) Baso % (Auto) Gran # Lymph # (Auto) [place] # (Auto) Eos # (Auto) Baso # (Auto) PT INR pCO2 24 L pO2 78.0 L HCO3 16.7 L ABG pH 7.45 ABG Total CO2 17.4 L ABG O2 Saturation 97.7 ABG O2 Content 13.3 L ABG Base Excess -6.0 L ABG Hemoglobin 9.9 L ABG Carboxyhemoglobin 2.1 H POC ABG HHb (Measured) 2.2 ABG Methemoglobin 0.7 ABG O2 Capacity 13.6 L Hgb O2 Saturation 95.0 FiO2 21.0 Sodium Potassium Chloride Carbon Dioxide Anion Gap BUN Creatinine Est GFR ( Amer) Est GFR (Non-Af Amer) POC Glucose (mg/dL) 109 Random Glucose Calcium Phosphorus 3.1 Magnesium 1.9 Total Bilirubin AST ALT Alkaline Phosphatase Total Protein Albumin Globulin Albumin/Globulin Ratio Procalcitonin MOISE Screen MOISE Titer MOISE Titer 2 MOISE Pattern MOISE Pattern 2 Anti-Mitochondrial Ab Smooth Muscle Ab Titer Anti-Smooth Muscle Ab Crossmatch 06/30/17 11:40 WBC RBC Hgb Hct MCV MCH MCHC RDW Plt Count MPV Gran % Lymph % (Auto) [place] % (Auto) Eos % (Auto) Baso % (Auto) Gran # Lymph # (Auto) [place] # (Auto) Eos # (Auto) Baso # (Auto) PT INR pCO2 pO2 HCO3 ABG pH ABG Total CO2 ABG O2 Saturation ABG O2 Content ABG Base Excess ABG Hemoglobin ABG Carboxyhemoglobin POC ABG HHb (Measured) ABG Methemoglobin ABG O2 Capacity Hgb O2 Saturation FiO2 Sodium Potassium Chloride Carbon Dioxide Anion Gap BUN Creatinine Est GFR ( Amer) Est GFR (Non-Af Amer) POC Glucose (mg/dL) 259 H Random Glucose Calcium Phosphorus Magnesium Total Bilirubin AST ALT Alkaline Phosphatase Total Protein Albumin Globulin Albumin/Globulin Ratio Procalcitonin MOISE Screen MOISE Titer MOISE Titer 2 MOISE Pattern MOISE Pattern 2 Anti-Mitochondrial Ab Smooth Muscle Ab Titer Anti-Smooth Muscle Ab Crossmatch Critical Care Progress Note - Nutrition Nutrition: Nutrition Category Date Time Status Heart Healthy Diet [DIET] Diets 06/30/17 Lunch Ordered Attending/Attestation - Attestation I have personally seen and examined this patient.: Yes I have fully participated in the care of the patient.: Yes I have reviewed all pertinent clinical information: Yes Notes (Text): 06/30/17 12:13 The patient was seen and examined at the bedside. Patient care was discussed with resident and ICU team in MDR rounds. Medical records, lab studies, and imaging were reviewed and management issues were discussed and formulated. Last 24H events reviewed. Agree with above treatment plans as outlined in 's note with addition of the following: Acute Respiratory Failure \ Hypoxemia \ Anemia \ GI bleed \ DIEUDONNE \ Elevated LFT \ DM \ CAD -hemodynamic monitoring to maintain MAP>65 -o2 supplementation to maintain Spo2 >90 Pao2>60 -s\ p extubation yesterday; comfortable on NC -f\u Bun\Cr and U\o -GI team following ; no active bleed was seen overnight -f\u serial LFT -continue PPi -f\u serial H\H; and monitor for bleed -monitor INR -monitor and replace e-lites -PO diet as per GI team and aspiration precautions -ISS and BGM monitoring -resume cardiac meds -surgical team and IR team f\u -PT\OT for OOB -DVT \ PUD prophylaxis CCM f\u 30min
--- NOTE | 2017-06-30 11:42 | CP.PCM.PN ---
<Arvind Craig - Last Filed: 06/30/17 11:30> Subjective - Date & Time of Evaluation Date of Evaluation: 06/30/17 Time of Evaluation: 11:30 - Subjective Subjective: Medicine Progress Note: Patient seen and examined at bedside in ICU. Patient was extubated yesterday and is now awake and alert to person, place, time and event. He reports that he is ready to try PO intake as he is without abdominal pain at this time. He otherwise has no acute complaints and denies any fever, chills, headache, chest pain, SOB, cough, abdominal pain, N/V/D/C, pain with urination, changes in urinary frequency, skin changes or any numbness/tingling/weakness of any extremity. Objective - Vital Signs/Intake and Output Vital Signs (last 24 hours): Temp Pulse Resp BP Pulse Ox 101.1 F H 109 H 82 H 143/87 100 06/29/17 04:17 06/30/17 10:44 06/30/17 08:01 06/30/17 10:44 06/30/17 10:01 - Medications Medications: Current Medications Acetaminophen (Tylenol 325mg Tab) 650 mg PO Q4H PRN PRN Reason: Pain, severe (8-10) Last Admin: 06/29/17 16:37 Dose: 650 mg Diphenhydramine HCl (Benadryl) 25 mg IVP Q6 PRN PRN Reason: Allergy symptoms Last Admin: 06/27/17 06:21 Dose: 25 mg Haloperidol Lactate (Haldol) 5 mg IVP Q6 PRN; Protocol PRN Reason: Agitation Last Admin: 06/27/17 06:19 Dose: 5 mg Hydralazine HCl (Apresoline) 10 mg IVP Q6 PRN PRN Reason: Systolic Blood Pressure > 165 Last Admin: 06/28/17 16:18 Dose: 10 mg Metronidazole (Flagyl) 500 mg in 100 mls @ 100 mls/hr IVPB Q8 NINO PRN Reason: Protocol Last Admin: 06/29/17 21:52 Dose: 100 mls/hr Aztreonam (Azactam 2 Gm) 100 mls @ 100 mls/hr IVPB Q8 NINO PRN Reason: Protocol Stop: 07/06/17 08:31 Last Admin: 03/20/18 21:51 Dose: 100 mls/hr Linezolid (Zyvox 600mg/300ml D5w) 600 mg in 300 mls @ 200 mls/hr IVPB Q12 NINO PRN Reason: Protocol Stop: 07/07/17 10:01 Last Admin: 06/30/17 10:17 Dose: 200 mls/hr Insulin Human Lispro (Humalog Med) 0 units SC Q6 NINO PRN Reason: Protocol Last Admin: 06/29/17 18:30 Dose: Not Given Lorazepam (Ativan) 1 mg IVP Q6H PRN; Protocol PRN Reason: Anxiety Last Admin: 06/29/17 02:52 Dose: 1 mg Mesalamine (Rowasa Enema) 4 gm RC HS [facility] Last Admin: 06/29/17 00:11 Dose: 4 gm Morphine Sulfate (Morphine) 2 mg IVP Q3H PRN PRN Reason: Pain, severe (8-10) Last Admin: 06/30/17 10:37 Dose: 2 mg Nicotine (Nicoderm Cq) 1 patch TD DAILY [facility] Last Admin: 06/30/17 10:16 Dose: 1 patch Ondansetron HCl (Zofran Inj) 4 mg IVP Q4H PRN PRN Reason: Nausea/Vomiting Pantoprazole Sodium (Protonix Inj) 40 mg IVP DAILY [facility] Last Admin: 06/30/17 10:16 Dose: 40 mg Quetiapine Fumarate (Seroquel) 50 mg PO BID [facility] PRN Reason: Protocol Last Admin: 06/30/17 10:17 Dose: 50 mg Quetiapine Fumarate (Seroquel) 150 mg PO HS [facility] PRN Reason: Protocol Last Admin: 06/29/17 21:53 Dose: 150 mg Sotalol HCl (Betapace) 80 mg PO BID [facility] Last Admin: 06/30/17 10:44 Dose: 80 mg - Labs Labs: 06/30/17 05:40 06/30/17 05:40 PT 13.1 SECONDS (9.4-12.5) H 06/30/17 05:40 INR 1.14 (0.93-1.08) H 06/30/17 05:40 APTT 25.0 Seconds (25.1-36.5) L 06/25/17 15:00 - Constitutional Appears: Non-toxic, No Acute Distress - Head Exam Head Exam: ATRAUMATIC, NORMOCEPHALIC - Eye Exam Eye Exam: EOMI, Normal appearance Pupil Exam: NORMAL ACCOMODATION, PERRL - ENT Exam ENT Exam: Mucous Membranes Moist, Normal Exam - Neck Exam Neck Exam: Full ROM, Normal Inspection. absent: Lymphadenopathy - Respiratory Exam Respiratory Exam: Clear to Ausculation Bilateral, NORMAL BREATHING PATTERN. absent: Accessory Muscle Use, Rales, Rhonchi, Wheezes, Respiratory Distress - Cardiovascular Exam Cardiovascular Exam: Tachycardia, REGULAR RHYTHM, +S1, +S2. absent: Bradycardia , Clicks, Diastolic murmur, Gallop, Irregular Rhythm, JVD, RRR, Rubs, +S4, Murmur - GI/Abdominal Exam GI & Abdominal Exam: Soft, Normal Bowel Sounds. absent: Distended, Firm, Guarding, Rigid, Tenderness, Rebound - Extremities Exam Extremities Exam: Full ROM, Normal Capillary Refill, Normal Inspection. absent : Calf Tenderness, Joint Swelling, Pedal Edema, Tenderness - Neurological Exam Neurological Exam: Alert, Awake, CN II-XII Intact, Normal Gait, Oriented x3 - Psychiatric Exam Psychiatric exam: Normal Affect, Normal Mood - Skin Skin Exam: Dry, Intact, Normal Color, Warm Assessment and Plan - Assessment and Plan (Free Text) Assessment: 56 year old male with a past medical history significant for bleeding duodenal ulcer s/p hemoclip ([place] 01/2017), CAD s/p CABG, PAD s/p R SFA stent, HLD, DM2, lumbosacral radiculopathy, tobacco use and chronic opioid dependence with non- bloody and non-bilious nausea/vomiting for three days and two episodes of melena. Patient is currently under ICU level care for acute drop in hemoglobin. Patient developed SIRS with undetermined source overnight. ID was consulted and started Zyvox, Flagyl and Azactam. Plan: 1. Acute Symptomatic Anemia with suspected GI Hemorrhage -Flexible Sigmoidoscopy showed 8mm pedunculated polyp of hepatic flexure, diverticulosis of the sigmoid colon, non-bleeding internal hemorrhoids and one area ulcerated mucosa in the rectum with contact bleeding consistent with proctitis -EGD showed nodule in esophagus, gastritis, granular mucosa in the duodenal bulb and one duodenal ulcer with clean base with biopsies pending -CT Angio of Abdomen/Pelvis showed linear foci of hyperdensity within the rectum and wall thickening of the distal rectum -GI Bleed Scan showed findings suspicious for active bleeding in the distal rectum -Stool and C. Diff cultures pending -H/H stable at 10.0/31.7 s/p transfusion of seven units of pRBC's -Continue daily Rowasa enemas -Continue Protonix 40mg IVP daily -Continue Zofran 4mg IVP Q4 PRN for N/V -Continue Normal Saline at 75mls/hr -Continue to monitor anemia with daily CBC's -GI, Surgery, IR and ICU consulted, all recommendations appreciated 2. Transaminitis -Improving -Autoimmune Hepatitis, Hemachromatosis and Florian's Disease work-up pending -Hepatitis panel negative -Avoid use of hepatotoxic agents when possible -Continue to monitor with daily CMP's -GI consulted, all recommendations appreciated 3. SIRS of Undetermined Source -Continued tachycardia but afebrile for 24 hours and without leukocytosis, tachypnea or lactic acidosis -Chest X-Ray without active pulmonary disease and UA pending -Procalcitonin low at 0.16 -Blood cultures negative for 24 hours with urine and sputum cultures pending -Given one dose of IV Vancomycin -Continue IV Zyvox, Azactam and Flagyl -ID consulted, all recommendations pending 4. Supratherapeutic INR -Resolved -Continue to hold anticoagulants in setting of GI hemorrhage -Continue to monitor with daily INR -Cardiology consulted, all recommendations appreciated 5. Chronic Opioid Dependence -Continue Morphine 2mg IVP Q3 PRN -Continue PRN Haldol, Ativan, and Benadryl for agitation -Continue Seroquel -Continue to monitor for signs of withdrawal -Psych consulted, all recommendations appreciated 6. History of CAD and PAD -Anticoagulation and antiplatelets currently held in setting of GI hemorrhage -Cardiology consulted, all recommendations appreciated 7. History of DM2 -ISS-Medium and Accuchecks ACHS -Currently NPO 8. History of Tobacco Abuse -Continue Nicoderm CQ GI Prophylaxis: Protonix DVT Prophylaxis: SCD's Patient seen and case discussed with attending, Dr. oYon. <Shaina Yoon - Last Filed: 06/30/17 12:12> Objective - Vital Signs/Intake and Output Vital Signs (last 24 hours): Temp Pulse Resp BP Pulse Ox 101.1 F H 109 H 82 H 146/66 97 06/29/17 04:17 06/30/17 10:44 06/30/17 08:01 06/30/17 12:00 06/30/17 11:59 - Medications Medications: Current Medications Acetaminophen (Tylenol 325mg Tab) 650 mg PO Q4H PRN PRN Reason: Pain, severe (8-10) Last Admin: 06/29/17 16:37 Dose: 650 mg Diphenhydramine HCl (Benadryl) 25 mg IVP Q6 PRN PRN Reason: Allergy symptoms Last Admin: 06/27/17 06:21 Dose: 25 mg Haloperidol Lactate (Haldol) 5 mg IVP Q6 PRN; Protocol PRN Reason: Agitation Last Admin: 06/27/17 06:19 Dose: 5 mg Hydralazine HCl (Apresoline) 10 mg IVP Q6 PRN PRN Reason: Systolic Blood Pressure > 165 Last Admin: 06/28/17 16:18 Dose: 10 mg Metronidazole (Flagyl) 500 mg in 100 mls @ 100 mls/hr IVPB Q8 NINO PRN Reason: Protocol Last Admin: 06/29/17 21:52 Dose: 100 mls/hr Aztreonam (Azactam 2 Gm) 100 mls @ 100 mls/hr IVPB Q8 NINO PRN Reason: Protocol Stop: 07/06/17 08:31 Last Admin: 06/29/17 21:51 Dose: 100 mls/hr Linezolid (Zyvox 600mg/300ml D5w) 600 mg in 300 mls @ 200 mls/hr IVPB Q12 NINO PRN Reason: Protocol Stop: 07/07/17 10:01 Last Admin: 06/30/17 10:17 Dose: 200 mls/hr Insulin Human Lispro (Humalog Med) 0 units SC Q6 NINO PRN Reason: Protocol Last Admin: 06/29/17 18:30 Dose: Not Given Lorazepam (Ativan) 1 mg IVP Q6H PRN; Protocol PRN Reason: Anxiety Last Admin: 06/29/17 02:52 Dose: 1 mg Mesalamine (Rowasa Enema) 4 gm RC HS NINO Last Admin: 06/29/17 00:11 Dose: 4 gm Morphine Sulfate (Morphine) 2 mg IVP Q3H PRN PRN Reason: Pain, severe (8-10) Last Admin: 06/30/17 10:37 Dose: 2 mg Nicotine (Nicoderm Cq) 1 patch TD DAILY [facility] Last Admin: 06/30/17 10:16 Dose: 1 patch Ondansetron HCl (Zofran Inj) 4 mg IVP Q4H PRN PRN Reason: Nausea/Vomiting Pantoprazole Sodium (Protonix Inj) 40 mg IVP DAILY [facility] Last Admin: 06/30/17 10:16 Dose: 40 mg Quetiapine Fumarate (Seroquel) 50 mg PO BID NINO PRN Reason: Protocol Last Admin: 06/30/17 10:17 Dose: 50 mg Quetiapine Fumarate (Seroquel) 150 mg PO HS NINO PRN Reason: Protocol Last Admin: 06/29/17 21:53 Dose: 150 mg Sotalol HCl (Betapace) 80 mg PO BID [facility] Last Admin: 06/30/17 10:44 Dose: 80 mg - Labs Labs: 06/30/17 05:40 06/30/17 05:40 PT 13.1 SECONDS (9.4-12.5) H 06/30/17 05:40 INR 1.14 (0.93-1.08) H 06/30/17 05:40 APTT 25.0 Seconds (25.1-36.5) L 06/25/17 15:00 Attending/Attestation - Attestation I have personally seen and examined this patient.: Yes I have fully participated in the care of the patient.: Yes I have reviewed all pertinent clinical information, including history, physical exam and plan: Yes Notes (Text): 06/30/17 12:06 Attending note; Patient seen and examined with resident in ICU. Patient is currently extubated. Alert and awake. Denies any GI bleeding. Denies any abdominal pain, nausea, vomiting. Patient is a 56-year-old male with PMH of bleeding duodenal ulcer s/p hemoclip in 01/26, CAD s/p CABG, peripheral arterial disease s/p R SFA stent, hyperlipidemia, diabetes, lumbosacral radiculopathy, tobacco use and chronic opioid dependence presents with lower GI bleed. Patient received multiple units of blood transfusion, FFP and platelet transfusion. Hemoglobin is 10 today. Status post EGD yesterday. Showed Gastritis and the duodenal ulcer with clean base. colonoscopy showed 8mm polyp at hepatic flexure and internal hemorrhoids. No biopsies taken. on po protonix. GI evaluation appreciated. We'll start regular diet. History of coronary artery disease; cardiology evaluation appreciated. Currently aspirin and Coumadin on hold. Started on sotalol. History of chronic opiate abuse and psychiatric disorder. Will continue by mouth opiates. Patient is strongly advised to taper and discontinue opiates. Patient is not interested at this time. history of smoking; Continue NicoDerm patch. Episode of fever yesterday; currently afebrile and nontoxic. ID evaluation appreciated. On is azactam, Flagyl and Zyvox. Blood culture is negative. Chest x-rays negative. Transfer to telemetry today. 06/30/17 12:07 06/30/17 12:10 06/30/17 12:11
[2017-06-30] MEDS: Insulin Lispro (humaLOG) MEDIUM Coverage SC SCH ×2 (12:21→18:56)
[2017-06-30] MEDS: metroNIDAZOLE IV 500 mg/100 ml 500 MG/100 ML BAG IVPB SCH ×2 (13:39→22:35)
--- NOTE | 2017-06-30 14:03 | CP.PCM.PN ---
Subjective - Date & Time of Evaluation Date of Evaluation: 06/30/17 Time of Evaluation: 09:30 - Subjective Subjective: Patient is now extubated but developed fever this morning, breathing well, not in distress. Objective - Vital Signs/Intake and Output Vital Signs (last 24 hours): Temp Pulse Resp BP Pulse Ox 101.1 F H 109 H 82 H 146/66 97 06/29/17 04:17 06/30/17 10:44 06/30/17 08:01 06/30/17 12:00 06/30/17 11:59 - Medications Medications: Current Medications Acetaminophen (Tylenol 325mg Tab) 650 mg PO Q4H PRN PRN Reason: Pain, severe (8-10) Last Admin: 06/29/17 16:37 Dose: 650 mg Diphenhydramine HCl (Benadryl) 25 mg IVP Q6 PRN PRN Reason: Allergy symptoms Last Admin: 06/27/17 06:21 Dose: 25 mg Haloperidol Lactate (Haldol) 5 mg IVP Q6 PRN; Protocol PRN Reason: Agitation Last Admin: 06/27/17 06:19 Dose: 5 mg Hydralazine HCl (Apresoline) 10 mg IVP Q6 PRN PRN Reason: Systolic Blood Pressure > 165 Last Admin: 06/28/17 16:18 Dose: 10 mg Metronidazole (Flagyl) 500 mg in 100 mls @ 100 mls/hr IVPB Q8 NINO PRN Reason: Protocol Last Admin: 06/30/17 13:39 Dose: 100 mls/hr Aztreonam (Azactam 2 Gm) 100 mls @ 100 mls/hr IVPB Q8 NINO PRN Reason: Protocol Stop: 07/06/17 08:31 Last Admin: 06/29/17 21:51 Dose: 100 mls/hr Linezolid (Zyvox 600mg/300ml D5w) 600 mg in 300 mls @ 200 mls/hr IVPB Q12 NINO PRN Reason: Protocol Stop: 07/07/17 10:01 Last Admin: 06/30/17 10:17 Dose: 200 mls/hr Insulin Human Lispro (Humalog Med) 0 units SC Q6 NINO PRN Reason: Protocol Last Admin: 06/30/17 12:21 Dose: 5 units Lorazepam (Ativan) 1 mg IVP Q6H PRN; Protocol PRN Reason: Anxiety Last Admin: 06/29/17 02:52 Dose: 1 mg Mesalamine (Rowasa Enema) 4 gm RC [facility] Last Admin: 06/29/17 00:11 Dose: 4 gm Morphine Sulfate (Morphine) 2 mg IVP Q3H PRN PRN Reason: Pain, severe (8-10) Last Admin: 06/30/17 13:35 Dose: 2 mg Nicotine (Nicoderm Cq) 1 patch TD DAILY [facility] Last Admin: 06/30/17 10:16 Dose: 1 patch Ondansetron HCl (Zofran Inj) 4 mg IVP Q4H PRN PRN Reason: Nausea/Vomiting Pantoprazole Sodium (Protonix Inj) 40 mg IVP DAILY [facility] Last Admin: 06/30/17 10:16 Dose: 40 mg Quetiapine Fumarate (Seroquel) 50 mg PO BID [facility] PRN Reason: Protocol Last Admin: 06/30/17 10:17 Dose: 50 mg Quetiapine Fumarate (Seroquel) 150 mg PO [facility] PRN Reason: Protocol Last Admin: 06/29/17 21:53 Dose: 150 mg Sotalol HCl (Betapace) 80 mg PO BID [facility] Last Admin: 06/30/17 10:44 Dose: 80 mg - Labs Labs: 06/30/17 05:40 06/30/17 05:40 PT 13.1 SECONDS (9.4-12.5) H 06/30/17 05:40 INR 1.14 (0.93-1.08) H 06/30/17 05:40 APTT 25.0 Seconds (25.1-36.5) L 06/25/17 15:00 - Constitutional Appears: Chronically Ill - Head Exam Head Exam: NORMAL INSPECTION - ENT Exam ENT Exam: Mucous Membranes Moist - Neck Exam Neck Exam: absent: Meningismus - Respiratory Exam Respiratory Exam: Decreased Breath Sounds - Cardiovascular Exam Cardiovascular Exam: +S1, +S2 - GI/Abdominal Exam GI & Abdominal Exam: Soft. absent: Tenderness Assessment and Plan - Assessment and Plan (Free Text) Plan: Assessment systemic inflammatory response syndrome, R/O severe sepsis S/P VDRF and acute on chronic renal failure due to HCAP acute GI bleed, lower with duodenal ulcer history of acute sigmoid diverticulitis with acute gastroenteritis Acute on chronic renal failure history of diverticulitis in the past CAD S/P CAG and S/P PCI S/P cholecystectomy, HTN dyslipidemia peripheral arterial disease on the right lower extremity Plan continue Azactam, Flagyl and added Zyvox and will repeat septic work up, rapid Influenza test; follow up repeat CXR as well will continue to monitor clinically
[2017-06-30] MEDS: Aztreonam 2 Gm in NS 100mL 100 ML IVPB SCH ×2 (14:33→21:27)
--- NOTE | 2017-06-30 15:30 | PN ---
DATE: 06/30/2017 CARDIOLOGY FOLLOWUP SUBJECTIVE: The patient is in bed without shortness of breath, without chest pain. PHYSICAL EXAMINATION VITAL SIGNS: Blood pressure is 107/42, the heart rates in the 80s. NECK: Negative JVD. LUNGS: Without rales. HEART: Reveals S1, S2. EXTREMITIES: Without edema. LABORATORY DATA: Hemoglobin is stable at 10.0. Chemistries: BUN and creatinine unremarkable. IMPRESSION: 1. Status post gastrointestinal bleed. 2. Stable angina. 3. Coronary artery disease. 4. History of coronary artery bypass surgery. 5. History of paroxysmal atrial fibrillation. PLAN: Given these findings, the patient will not be able to be anticoagulated for his paroxysmal atrial fibrillation. We will try to keep the patient in normal sinus rhythm. We will add sotalol to his regimen. Sky Molina MD
[2017-06-30 16:38] LABS: URINE BILIRUBIN NEGATIVE (NEGATIVE); URINE BLOOD NEGATIVE (NEGATIVE); URINE GLUCOSE (UA) >=1000 mg/dL (NEGATIVE); URINE LEUKOCYTE ESTERASE NEGATIVE Leu/uL (NEGATIVE); URINE PROTEIN NEGATIVE mg/dL (<30 mg/dL); URINE UROBILINOGEN 0.2 E.U./dL (<1 E.U./dL)
[2017-06-30 16:43] LABS: URINE APPEARANCE CLEAR (CLEAR); URINE COLOR YELLOW (YELLOW)
[2017-07-01 01:57] VITALS: RESP 20; TEMP 98.3
[2017-07-01] MEDS: Morphine 2 mg/ml ISec IVP PRN ×3 (02:38→09:43)
[2017-07-01] MEDS: metroNIDAZOLE IV 500 mg/100 ml 500 MG/100 ML BAG IVPB SCH (05:25)
[2017-07-01] MEDS: Aztreonam 2 Gm in NS 100mL 100 ML IVPB SCH (06:38)
[2017-07-01] MEDS: Insulin Lispro (humaLOG) MEDIUM Coverage SC SCH ×2 (06:41)
[2017-07-01] MEDS: Linezolid 600 mg in D5W 300 ml 600 MG/300 ML BAG IVPB SCH (09:42)
[2017-07-01 10:08] VITALS: PULSE 88; O2SAT 98
[2017-07-01 10:09] VITALS: BP 137/89
--- NOTE | 2017-07-01 12:08 | PN ---
DATE: 07/01/2017 SUBJECTIVE: The patient remains in normal sinus rhythm. He is ambulating without symptoms. PHYSICAL EXAMINATION: VITAL SIGNS: Blood pressure is 137/73, heart rate in the 80s. NECK: Negative JVD. LUNGS: Without rales. HEART: S1 and S2. EXTREMITIES: Without edema. LABORATORY DATA: Hemoglobin was not drawn today. Glucose is 219. IMPRESSION: 1. Status post gastrointestinal bleed. 2. Peripheral vascular disease. 3. Paroxysmal atrial fibrillation. 4. Coronary artery disease. 5. History of percutaneous transluminal coronary angioplasty and stent in the past. Given the patient's inability to take anticoagulation for his paroxysmal AFib, the patient has been placed on sotalol in an attempt to keep him in normal sinus rhythm. He has tolerated the medication. I have discussed in a very strong way with the patient about his need to stop smoking given his progressive peripheral vascular disease and coronary artery disease. The patient seems to understand. The patient is scheduled for discharge today. Sky Molina MD
[2017-07-02] MEDS ORDERED: Pantoprazole 40 mg EC Tab PO SCH (07:30)
--- NOTE | 2017-07-02 11:52 | CP.PCM.CON ---
Past Patient History - Infectious Disease Hx of Infectious Diseases: None - Tetanus Immunizations Tetanus Immunization: Unknown - Past Social History Smoking Status: Heavy Smoker > 10 Cigarettes Daily - CARDIAC Hx Cardiac Disorders: Yes (cabg) Hx Peripheral Vascular Disease: Yes - PULMONARY Hx Chronic Obstructive Pulmonary Disease (COPD): Yes - NEUROLOGICAL Hx Neurological Disorder: No - HEENT Hx HEENT Problems: No - RENAL Hx Chronic Kidney Disease: No - ENDOCRINE/METABOLIC Hx Diabetes Mellitus Type 2: Yes - HEMATOLOGICAL/ONCOLOGICAL Hx Blood Transfusions: Yes (01/17/17) Hx Blood Transfusion Reaction: No - INTEGUMENTARY Hx Dermatological Problems: No - MUSCULOSKELETAL/RHEUMATOLOGICAL Hx Falls: No - GASTROINTESTINAL Hx Gall Bladder Disease: Yes - GENITOURINARY/GYNECOLOGICAL Hx Genitourinary Disorders: No - PSYCHIATRIC Hx Substance Use: Yes (Opiate dependance) - SURGICAL HISTORY Hx Surgeries: Yes - ANESTHESIA Hx Anesthesia Reactions: Yes (WAKES UP ANGRY) Hx Malignant Hyperthermia: No Meds Home Medications: Home Medication List Medication Instructions Recorded Confirmed Type Atorvastatin Calcium 40 mg PO DAILY #14 tablet 07/01/17 Rx Furosemide [Lasix] 20 mg PO DAILY #14 tab 07/01/17 Rx Glipizide [Glipizide Xl] 10 mg PO DAILY #14 tab.er.24 07/01/17 Rx Mesalamine [Canasa] 1,000 mg RC HS #14 sup 07/01/17 Rx Ondansetron [Zofran Tab] 4 mg PO QID PRN #10 tab 07/01/17 Rx Sotalol [Betapace] 80 mg PO BID #28 tab 07/01/17 Rx Allergies/Adverse Reactions: Allergies Allergy/AdvReac Type Severity Reaction Status Date / Time levofloxacin [From Levaquin] Allergy Severe URTICARIA Verified 06/24/17 19:11 Penicillins Allergy Severe RASH Verified 06/24/17 19:11 Results - Vital Signs Recent Vital Signs: Last Vital Signs Temp 98.3 F 07/01/17 10:07 Pulse 88 07/01/17 10:07 Resp 20 07/01/17 10:07 BP 137/89 07/01/17 10:07 Pulse Ox 98 07/01/17 10:07 - Labs Result Diagrams: 06/30/17 05:40 06/30/17 05:40 Assessment & Plan - Assessment and Plan (Free Text) Assessment: This case was discussed with Dr. Souza and Dr. Zhou. No IR intervention was indicated at the time. - Date & Time Date: 07/05/17 Time: 09:00
--- NOTE | 2017-07-02 13:53 | CP.PCM.DIS ---
Provider - Provider Date of Admission: 06/24/17 23:19 Attending physician: Shaina Yoon MD Primary care physician: Noah Busch MD Consults: Psych: Fritz ICU: Karlene GI: Abelardo Gupta Cardio: Jesse Surgery: Karson ID: Mark IR: Ting Time Spent in preparation of Discharge (in minutes): 57 Diagnosis - Discharge Diagnosis (1) Acute kidney injury Status: Acute (2) Gastrointestinal hemorrhage Status: Acute Hospital Course - Lab Results Lab Results: Micro Results 06/30/17 16:28 Urine,Clean Catch Urine Culture - Preliminary Gram Positive Cocci 06/29/17 06:45 Blood Blood Culture - Preliminary NO GROWTH AFTER 3 DAYS 06/25/17 04:00 Urine,Clean Catch Urine Culture - Final No Growth (<1,000 CFU/ML) Most Recent Lab Values WBC 9.1 10^3/ul (4.5-11.0) D 06/30/17 05:40 RBC 3.99 10^6/uL (3.5-6.1) 06/30/17 05:40 Hgb 10.0 g/dL (14.0-18.0) L 06/30/17 05:40 Hct 31.7 % (42.0-52.0) L 06/30/17 05:40 MCV 79.4 fl (80.0-105.0) L 06/30/17 05:40 MCH 25.1 pg (25.0-35.0) 06/30/17 05:40 MCHC 31.5 g/dl (31.0-37.0) 06/30/17 05:40 RDW 20.7 % (11.5-14.5) H 06/30/17 05:40 Plt Count 188 10^3/uL (120.0-450.0) 06/30/17 05:40 MPV 9.4 fl (7.0-11.0) 06/30/17 05:40 Gran % 78.1 % (50.0-68.0) H 06/30/17 05:40 Lymph % (Auto) 11.8 % (22.0-35.0) L 06/30/17 05:40 [place] % (Auto) 9.1 % (1.0-6.0) H 06/30/17 05:40 Eos % (Auto) 0.9 % (1.5-5.0) L 06/30/17 05:40 Baso % (Auto) 0.1 % (0.0-3.0) 06/30/17 05:40 Gran # 7.12 (1.4-6.5) H 06/30/17 05:40 Lymph # (Auto) 1.1 (1.2-3.4) L 06/30/17 05:40 [place] # (Auto) 0.8 (0.1-0.6) H 06/30/17 05:40 Eos # (Auto) 0.1 (0.0-0.7) 06/30/17 05:40 Baso # (Auto) 0.01 K/mm3 (0.0-2.0) 06/30/17 05:40 Neutrophils % (Manual) 85 % (50.0-70.0) H 06/29/17 05:35 Band Neutrophils % 2 % (0-2) 06/29/17 05:35 Lymphocytes % (Manual) 7 % (22.0-35.0) L 06/29/17 05:35 Monocytes % (Manual) 7 % (1.0-6.0) H 06/29/17 05:35 Platelet Evaluation Normal (NORMAL) 06/29/17 05:35 Hypochromasia 1+ 06/29/17 05:35 Anisocytosis (manual) 1+ 06/29/17 05:35 Microcytosis (manual) 1+ 06/29/17 05:35 Retic Count 1.70 % (0.5-1.5) H 06/24/17 20:06 PT 13.1 SECONDS (9.4-12.5) H 06/30/17 05:40 INR 1.14 (0.93-1.08) H 06/30/17 05:40 APTT 25.0 Seconds (25.1-36.5) L 06/25/17 15:00 pCO2 24 mm/Hg (35-45) L 06/30/17 05:45 pO2 78.0 mm/Hg (80-100) L 06/30/17 05:45 HCO3 16.7 mmol/L (21-28) L 06/30/17 05:45 ABG pH 7.45 (7.35-7.45) 06/30/17 05:45 ABG Total CO2 17.4 mmol.L (22-28) L 06/30/17 05:45 ABG O2 Saturation 97.7 % (95-98) 06/30/17 05:45 ABG O2 Content 13.3 ML/dl (15-23) L 06/30/17 05:45 ABG Base Excess -6.0 mmol/L (-2.0-3.0) L 06/30/17 05:45 ABG Hemoglobin 9.9 g/dL (11.7-17.4) L 06/30/17 05:45 ABG Carboxyhemoglobin 2.1 % (0.5-1.5) H 06/30/17 05:45 POC ABG HHb (Measured) 2.2 % (0-5) 06/30/17 05:45 ABG Methemoglobin 0.7 % (0.0-3.0) 06/30/17 05:45 ABG O2 Capacity 13.6 mL/dl (16-24) L 06/30/17 05:45 ABG Potassium 5.2 mmol/L (3.6-5.2) 06/25/17 07:00 VBG pH 7.40 (7.32-7.43) 06/25/17 15:00 VBG pCO2 44.0 (40-60) 06/25/17 15:00 VBG HCO3 27.3 mmol/l (21-28) 06/25/17 15:00 VBG Total CO2 28.7 mmol.L (22-28) H 06/25/17 15:00 VBG O2 Sat (Calc) 99.4 % (40-65) H 06/25/17 15:00 VBG Base Excess 2.0 mmol/L (0.0-2.0) 06/25/17 15:00 VBG Potassium 4.5 mmol/L (3.6-5.2) 06/25/17 15:00 Hgb O2 Saturation 95.0 % (95.0-98.0) 06/30/17 05:45 Sodium 134.0 mmol/L (132-148) 06/25/17 15:00 Chloride 104.0 mmol/L (98-107) 06/25/17 15:00 Glucose 205 mg/dl (75-110) H 06/25/17 15:00 Lactate 2.6 mmol/L (0.7-2.1) H 06/25/17 15:00 FiO2 21.0 % 06/30/17 05:45 Sodium 142 mmol/L (132-148) 06/30/17 05:40 Potassium 3.6 mmol/L (3.6-5.0) 06/30/17 05:40 Chloride 112 mmol/L (98-107) H 06/30/17 05:40 Carbon Dioxide 18 mmol/L (21-33) L 06/30/17 05:40 Anion Gap 16 (10-20) 06/30/17 05:40 BUN 15 mg/dL (7-21) 06/30/17 05:40 Creatinine 1.1 mg/dl (0.8-1.5) 06/30/17 05:40 Est GFR ( Amer) > 60 06/30/17 05:40 Est GFR (Non-Af Amer) > 60 06/30/17 05:40 POC Glucose (mg/dL) 219 mg/dL (65-110) H 07/01/17 06:01 Random Glucose 102 mg/dL (70-110) 06/30/17 05:40 Hemoglobin A1c 7.3 % (4.2-6.5) H 06/24/17 20:06 Serum Osmolality 312 mosm/kg (272-300) H 06/24/17 20:06 Lactic Acid 0.7 mmol/L (0.7-2.1) 06/29/17 08:00 Calcium 9.2 mg/dL (8.4-10.5) 06/30/17 05:40 Phosphorus 3.1 mg/dL (2.5-4.5) 06/30/17 06:30 Magnesium 1.9 mg/dL (1.7-2.2) 06/30/17 06:30 Iron 14 ug/dL (45-180) L 06/28/17 Unknown TIBC 302 ug/dL (261-462) 06/28/17 Unknown % Saturation 5 % (20-55) L 06/28/17 Unknown Transferrin 324.36 mg/dL (206-381) 06/24/17 20:06 Ferritin 23.6 ng/mL 06/28/17 11:23 Total Bilirubin 0.6 mg/dL (0.2-1.3) 06/30/17 05:40 AST 55 U/L (17-59) 06/30/17 05:40 ALT 374 U/L (7-56) H 06/30/17 05:40 Alkaline Phosphatase 99 U/L (38-126) 06/30/17 05:40 Lactate Dehydrogenase 323 U/L (333-699) L 06/24/17 20:06 Total Creatine Kinase 44 U/L (35-230) 06/24/17 20:06 Troponin I 0.04 ng/mL D 06/24/17 20:06 NT-Pro-B Natriuret Pep 765 pg/mL (0-450) H 06/24/17 20:13 Total Protein 5.4 g/dL (5.8-8.3) L 06/30/17 05:40 Albumin 2.8 g/dL (3.0-4.8) L 06/30/17 05:40 Globulin 2.7 gm/dL 06/30/17 05:40 Albumin/Globulin Ratio 1.1 (1.1-1.8) 06/30/17 05:40 Ceruloplasmin 27 mg/dL (18-36) 06/28/17 11:23 Lipase 157 U/L (23-300) 06/24/17 20:06 Vitamin B12 568 pg/mL (239-931) 06/24/17 20:06 Folate 15.8 ng/mL 06/24/17 20:06 RBC Folate 1992 ng/mL RBC (>280) 06/25/17 05:00 Procalcitonin 0.11 NG/ML (0.19-0.49) L 06/30/17 09:14 Arterial Blood Potassium 5.2 mmol/L (3.6-5.2) 06/25/17 07:00 Venous Blood Potassium 4.5 mmol/L (3.6-5.2) 06/25/17 15:00 Urine Color Yellow (YELLOW) 06/30/17 16:28 Urine Appearance Clear (CLEAR) 06/30/17 16:28 Urine pH 6.0 (4.7-8.0) 06/30/17 16:28 Ur Specific [place] 1.025 (1.005-1.035) 06/30/17 16:28 Urine Protein Negative mg/dL (<30 mg/dL) 06/30/17 16:28 Urine Glucose (UA) >=1000 mg/dL (NEGATIVE) 06/30/17 16:28 Urine Ketones 15 mg/dL (NEGATIVE) H 06/30/17 16:28 Urine Blood Negative (NEGATIVE) 06/30/17 16:28 Urine Nitrate Negative (NEGATIVE) 06/30/17 16:28 Urine Bilirubin Negative (NEGATIVE) 06/30/17 16:28 Urine Urobilinogen 0.2 E.U./dL (<1 E.U./dL) 06/30/17 16:28 Ur Leukocyte Esterase Negative Sayda/uL (NEGATIVE) 06/30/17 16:28 Alcohol, Quantitative < 10 mg/dL (0-10) 06/24/17 20:06 IgG 627.1 mg/dL (700.0-1600.0) L 06/28/17 11:23 IgA 169.9 mg/dL (70.0-400.0) 06/28/17 11:23 IgM 55.7 mg/dL (40.0-230.0) 06/28/17 11:23 MOISE Screen Negative (Negative) 06/28/17 11:23 MOISE Titer TEST NOT PERFORMED 06/28/17 11:23 MOISE Titer 2 TEST NOT PERFORMED 06/28/17 11:23 MOISE Pattern TEST NOT PERFORMED 06/28/17 11:23 MOISE Pattern 2 TEST NOT PERFORMED 06/28/17 11:23 Anti-Mitochondrial Ab Negative (Negative) 06/28/17 11:23 Smooth Muscle Ab Titer TEST NOT PERFORMED 06/28/17 11:23 Anti-Smooth Muscle Ab Negative (Negative) 06/28/17 11:23 Hepatitis A IgM Ab Negative (NEGATIVE) 06/28/17 13:48 Hep Bs Antigen Negative (NEGATIVE) 06/28/17 13:48 Hep B Core IgM Ab Negative (NEGATIVE) 06/28/17 13:48 Hepatitis C Antibody Negative (NEGATIVE) 06/28/17 13:48 Influenza Typ A,B (EIA) Negative for flu a/b (NEGATIVE) 06/30/17 19:38 Blood Type A POSITIVE 06/27/17 23:50 Antibody Screen Negative 06/27/17 23:50 Crossmatch See Detail 06/27/17 23:50 BBK History Checked Patient has bt 06/27/17 23:50 - Hospital Course Hospital Course: 56 year old male with a past medical history significant for bleeding duodenal ulcer s/p hemoclip (Coates 01/2017), CAD s/p CABG, PAD s/p R SFA stent, HLD, DM2, lumbosacral radiculopathy, tobacco use and chronic opioid dependence with non- bloody and non-bilious nausea/vomiting for three days and two episodes of melena. He was found to have an acute drop in hemoglobin shortly after admission. Patient was placed under ICU level care for acute drop in hemoglobin and was transfused seven units of pRBC's total during his admission. His INR was supratherapeutic and was given vitamin K, FFP and platelets for this. GI, IR and surgery were consulted. GI Bleed Scan showed findings suspicious for active bleeding in the distal rectum. CT Angio of Abdomen/Pelvis showed linear foci of hyperdensity within the rectum and wall thickening of the distal rectum. EGD showed nodule in esophagus, gastritis, granular mucosa in the duodenal bulb and one duodenal ulcer with clean base with biopsies and Flexible Sigmoidoscopy showed 8mm pedunculated polyp o. f hepatic flexure, diverticulosis of the sigmoid colon, non-bleeding internal hemorrhoids and one area ulcerated mucosa in the rectum with contact bleeding consistent with proctitis. Patient was started on daily Rowasa enema's. His diet was advanced until he was tolerating regular consistency diet. He was found to have elevated LFT's. All work up was negative and this improved with IVF. Patient developed SIRS with undetermined source overnight. ID was consulted and started Zyvox, Flagyl and Azactam. Patient was given morphine PRN for chronic opioid dependence and PRN Haldol, Ativan, and Benadryl for agitation. ISS-Medium and Accuchecks ACHS were started for his DM2. Nicoderm CQ was started for his tobacco abuse history. Anticoagulation and antiplatelets were held in setting of GI hemorrhage. Patient was discharged on 07/01/17 with the following instructions: Please follow up with primary care doctor within one week to discuss post hospitalization follow up. Please follow up with your transportation operations manager within one week to discuss post hospitalization follow up. Please follow up with your intensivist within one week to discuss post hospitalization follow up. Please STOP TAKING ASPIRIN, PLAVIX and COUMADIN until approved by your primary care doctor, GI doctor and Computer Technology Instructor. Please STOP SMOKING TOBACCO and MARIJUANA Please take all medications as prescribed If your symptoms worsen or persist, please seek emergency medication attention. - Date & Time of H&P Date of H&P: 06/25/17 Time of H&P: 00:13 Discharge Exam - Head Exam Head Exam: NORMAL INSPECTION - Eye Exam Eye Exam: EOMI, Normal appearance Pupil Exam: NORMAL ACCOMODATION, PERRL - ENT Exam ENT Exam: Mucous Membranes Moist, Normal Exam - Neck Exam Neck exam: Full Rom, Normal Inspection - Respiratory Exam Respiratory Exam: Clear to PA & Lateral, NORMAL BREATHING PATTERN, UNREMARKABLE - Cardiovascular Exam Cardiovascular Exam: REGULAR RHYTHM - GI/Abdominal Exam GI & Abdominal Exam: Normal Bowel Sounds, Soft, Unremarkable. absent: Tenderness - Extremities Exam Extremities exam: full ROM, normal capillary refill, normal inspection, pedal pulses present - Neurological Exam Neurological exam: Alert, CN II-XII Intact, Normal Gait, Oriented x3, Reflexes Normal - Psychiatric Exam Psychiatric exam: Normal Affect, Normal Mood - Skin Skin Exam: Dry, Intact, Normal Color, Warm Discharge Plan - Discharge Medications Prescriptions: Atorvastatin Calcium 40 mg PO DAILY #14 tablet Furosemide [Lasix] 20 mg PO DAILY #14 tab Glipizide [Glipizide Xl] 10 mg PO DAILY #14 tab.er.24 Mesalamine [Canasa] 1,000 mg RC HS #14 sup Ondansetron [Zofran Tab] 4 mg PO QID PRN #10 tab PRN Reason: Nausea/Vomiting Sotalol [Betapace] 80 mg PO BID #28 tab - Follow Up Plan Condition: GOOD Disposition: HOME/ ROUTINE Instructions: Acute Abdomen (Belly Pain), Adult (DC), Gastrointestinal Bleeding (DC), Acute Kidney Failure (DC), Drug Abuse and Drug Addiction (DC), Marijuana Use and Addiction, Quitting Smoking, Narcotic Overdose (DC), Opioid Use Disorder, Weaning Patients Off of Pain Drugs Additional Instructions: Please follow up with primary care doctor within one week to discuss post hospitalization follow up. Please follow up with your transportation operations manager within one week to discuss post hospitalization follow up. Please follow up with your intensivist within one week to discuss post hospitalization follow up. Please STOP TAKING ASPIRIN, PLAVIX and COUMADIN until approved by your primary care doctor, GI doctor and Computer Technology Instructor. Please STOP SMOKING TOBACCO and MARIJUANA Please take all medications as prescribed If your symptoms worsen or persist, please seek emergency medication attention. Referrals: Terry Coates MD [Staff Provider] - Fernando Zhou MD [Staff Provider] - Noah Bucsh MD [Primary Care Provider] - Nuria Gupta MD [Medical Doctor] - Sky Molina MD [Staff Provider] -
== END 2017-07-01 11:18 | disposition home or self-care (01) | DRG 393 ==
LOC: ED 18:47 → ERH 23:19 → ICU 06-25 06:23 → 3RNO 06-30 13:23
PROVIDERS: ADMIT Hospitalist; ATTEND Internal Medicine
PROC: 06HY33Z Insertion of Infusion Device into Lower Vein, Percutaneous Approach (ICD-10-PCS; 2017-06-25)
PROC: 30233N1 Transfusion of Nonautologous Red Blood Cells into Peripheral Vein, Percutaneous Approach (ICD-10-PCS; 2017-06-25)
PROC: 30233K1 Transfusion of Nonautologous Frozen Plasma into Peripheral Vein, Percutaneous Approach (ICD-10-PCS; 2017-06-25)
PROC: 6A550Z2 Pheresis of Platelets, Single (ICD-10-PCS; 2017-06-26)
PROC: 0BH17EZ Insertion of Endotracheal Airway into Trachea, Via Natural or Artificial Opening (ICD-10-PCS; 2017-06-27)
PROC: 0DB68ZX Excision of Stomach, Via Natural or Artificial Opening Endoscopic, Diagnostic (ICD-10-PCS; 2017-06-27)
PROC: 0DJD8ZZ Inspection of Lower Intestinal Tract, Via Natural or Artificial Opening Endoscopic (ICD-10-PCS; 2017-06-27)
PROC: 0DB48ZX Excision of Esophagogastric Junction, Via Natural or Artificial Opening Endoscopic, Diagnostic (ICD-10-PCS; principal; 2017-06-27 10:00)
PROC: 5A1945Z Respiratory Ventilation, 24-96 Consecutive Hours (ICD-10-PCS; 2017-06-27 10:00)
PROC: 0DJ08ZZ Inspection of Upper Intestinal Tract, Via Natural or Artificial Opening Endoscopic (ICD-10-PCS; 2017-06-28)
PROC: 0DJD8ZZ Inspection of Lower Intestinal Tract, Via Natural or Artificial Opening Endoscopic (ICD-10-PCS; 2017-06-28)
DX: K62.6 Ulcer of anus and rectum (principal); R57.8 Other shock; J96.01 Acute respiratory failure with hypoxia; K92.1 Melena; K72.00 Acute and subacute hepatic failure without coma; N17.9 Acute kidney failure, unspecified; D62 Acute posthemorrhagic anemia; D68.69 Other thrombophilia; F11.23 Opioid dependence with withdrawal; R65.10 Systemic inflammatory response syndrome (SIRS) of non-infectious origin without acute organ dysfunction; E11.22 Type 2 diabetes mellitus with diabetic chronic kidney disease; E86.0 Dehydration; I48.0 Paroxysmal atrial fibrillation; E11.51 Type 2 diabetes mellitus with diabetic peripheral angiopathy without gangrene; E78.5 Hyperlipidemia, unspecified; I25.118 Atherosclerotic heart disease of native coronary artery with other forms of angina pectoris; M54.17 Radiculopathy, lumbosacral region; J44.9 Chronic obstructive pulmonary disease, unspecified; F12.288 Cannabis dependence with other cannabis-induced disorder; I12.9 Hypertensive chronic kidney disease with stage 1 through stage 4 chronic kidney disease, or unspecified chronic kidney disease; E78.00 Pure hypercholesterolemia, unspecified; E11.65 Type 2 diabetes mellitus with hyperglycemia; K29.70 Gastritis, unspecified, without bleeding; K63.5 Polyp of colon; K57.30 Diverticulosis of large intestine without perforation or abscess without bleeding; E87.5 Hyperkalemia; K26.9 Duodenal ulcer, unspecified as acute or chronic, without hemorrhage or perforation; T45.515A Adverse effect of anticoagulants, initial encounter; F17.200 Nicotine dependence, unspecified, uncomplicated; Z95.820 Peripheral vascular angioplasty status with implants and grafts; Z95.5 Presence of coronary angioplasty implant and graft; Z95.1 Presence of aortocoronary bypass graft; Z88.0 Allergy status to penicillin; Z79.84 Long term (current) use of oral hypoglycemic drugs; Z79.02 Long term (current) use of antithrombotics/antiplatelets; Z79.01 Long term (current) use of anticoagulants; Z78.1 Physical restraint status; K64.1 Second degree hemorrhoids

== ENCOUNTER 2017-11-16 10:15 | Inpatient (IN) | payer MEDICARE ==
[2017-11-16] MEDS ORDERED: Sodium Chloride 0.9% 500 ML IV STA (10:44)
[2017-11-16] MEDS ORDERED: Sodium Chloride 0.9% 1,000 ML IV SCH (10:45)
[2017-11-16 10:56] LABS: BASO # 0.01 K/mm3 (0.0-2.0); BASO % 0.1 % (0.0-3.0); EOS % 0.3 % (1.5-5.0); GRAN % 79.2 % (50.0-68.0); HEMOGLOBIN 13.1 g/dL (14.0-18.0); LYMPH # 1.4 (1.2-3.4); LYMPH % 14.9 % (22.0-35.0); MEAN CELL VOLUME 68.6 fl (80.0-105.0); MEAN CORPUSCULAR HEMOGLOBIN 21.3 pg (25.0-35.0); MEAN CORPUSCULAR HGB CONC 31.1 g/dl (31.0-37.0); MONO # 0.5 (0.1-0.6); MONO % 5.5 % (1.0-6.0); PLATELET COUNT 194 10^3/uL (120.0-450.0); RBC 6.14 10^6/uL (3.5-6.1); RED CELL DISTRIBUTION WIDTH 20.6 % (11.5-14.5); WHITE BLOOD COUNT 9.1 10^3/ul (4.5-11.0)
[2017-11-16 11:03] LABS: INR 1.06; PROTHROMBIN TIME 12.2 SECONDS (9.4-12.5)
[2017-11-16 11:04] LABS: ALB/GLOB RATIO 1.4 (1.1-1.8); ALT/SGPT 51 U/L (7-56); AST/SGOT 25 U/L (17-59); BLOOD UREA NITROGEN 38 mg/dL (7-21); CALCIUM 8.9 mg/dL (8.4-10.5); GFR AFRICAN-AMERICAN 54; GFR NON-AFRICAN AMERICAN 44
[2017-11-16 11:05] LABS: PARTIAL THROMBOPLASTIN TIME 33.8 Seconds (25.1-36.5)
[2017-11-16 11:15] LABS: TROPONIN I < 0.01 ng/mL
[2017-11-16] MEDS ORDERED: Morphine 2 mg/ml ISec IVP STA (11:34)
--- NOTE | 2017-11-16 11:35 | RAD ---
Date of service: 11/16/2017 HISTORY: admission COMPARISON: 06/30/2017 FINDINGS: LUNGS: No active pulmonary disease. PLEURA: No significant pleural effusion identified, no pneumothorax apparent. CARDIOVASCULAR: CABG. Sternotomy wires. Normal heart size. OSSEOUS STRUCTURES: No significant abnormalities. VISUALIZED UPPER ABDOMEN: Normal. OTHER FINDINGS: None. IMPRESSION: No active disease.
[2017-11-16] MEDS ORDERED: oxyCODONE 30 mg Immediate Release Tab PO STA (12:36)
--- NOTE | 2017-11-16 13:14 | ED PDOC ---
Arrival/HPI - General Chief Complaint: Lower Extremity Problem/Injury Time Seen by Provider: 11/16/17 10:22 Historian: Patient, Other (Dr. Sky Cabello) - History of Present Illness Narrative History of Present Illness (Text): 11/16/17 13:12 Patient is a 57 yo male past medical history of diabetes, peripheral vascular disease with history of stent to right lower extremity, presents to the Emergency Department with history of right leg pain with exertion for past " five days". Patient saw Dr. Sky Cabello for outpatient studies and reportedly had abnormal LAURA. Due to PRIOR history of GI bleeding, patient was sent for evaluation and admission by vascular physician. Patient currently denies any shortness of breath or dark or bloody stools. Patient denies chest pain or shortness of breath. Denies lightheadedness or dizziness. Patient states he has chronic pain to back and legs, back pain not different in location or character. 11/16/17 13:31 Time/Duration: Prior to Arrival, Other (5 days ago) Symptom Onset: Gradual Past Medical History - Infectious Disease Hx of Infectious Diseases: None - Tetanus Immunization Tetanus Immunization: Unknown - Cardiac Hx Cardiac Disorders: Yes (cabg) Hx Peripheral Vascular Disease: Yes - Pulmonary Hx Chronic Obstructive Pulmonary Disease (COPD): Yes - Neurological Hx Neurological Disorder: No - HEENT Hx HEENT Disorder: No - Renal Hx Renal Disorder: No - Endocrine/Metabolic Hx Diabetes Mellitus Type 2: Yes - Hematological/Oncological Hx Blood Transfusions: Yes (01/17/17) Hx Blood Transfusion Reaction: No - Integumentary Hx Dermatological Disorder: No - Musculoskeletal/Rheumatological Hx Falls: No - Gastrointestinal Hx Gall Bladder Disease: Yes - Genitourinary/Gynecological Hx Genitourinary Disorders: No - Psychiatric Hx Emotional Abuse: No Hx Physical Abuse: No Hx Substance Use: Yes (Opiate dependance) - Past Surgical History Past Surgical History: Non-Contributing - Surgical History Hx Cardiac Catheterization: Yes Hx Cholecystectomy: Yes Hx Coronary Stent: Yes Hx Open Heart Surgery: Yes - Anesthesia Hx Anesthesia: Yes Hx Anesthesia Reactions: Yes (WAKES UP ANGRY) Hx Malignant Hyperthermia: No - Suicidal Assessment Feels Threatened In Home Enviroment: No Family/Social History Family/Social History: Unknown Family HX Smoking Status: Heavy Smoker > 10 Cigarettes Daily Hx Alcohol Use: No Hx Substance Use: Yes (Opiate dependance) Substance used: Percocet; Oxycontin -- off the street Hx Substance Use Treatment: No Allergies/Home Meds Allergies/Adverse Reactions: Allergies levofloxacin [From Levaquin] Allergy (Severe, Verified 11/16/17 10:28) URTICARIA Penicillins Allergy (Severe, Verified 11/16/17 10:28) RASH Home Medications: Home Meds Medication Instructions Recorded Confirmed Fentanyl [Duragesic Patch] 25 mg TD Q72 07/01/17 11/16/17 oxyCODONE [oxyCODONE Immediate 30 mg PO Q8 07/01/17 11/16/17 Release Tab] Lactobacillus Combination No.8 1 each PO DAILY 11/16/17 11/16/17 [Adult Probiotic] Metoprolol Succinate [Toprol Xl] 50 mg PO DAILY 11/16/17 11/16/17 Pantoprazole [Protonix] 40 mg PO DAILY 11/16/17 11/16/17 Review of Systems - Review of Systems Constitutional: absent: Fatigue, Fevers ENT: absent: Hearing Changes Respiratory: absent: SOB Cardiovascular: absent: Chest Pain, Orthopnea Gastrointestinal: absent: Abdominal Pain, Hematochezia, Hematemesis Genitourinary Male: absent: Dysuria, Hematuria Musculoskeletal: Back Pain, Other (leg pain). absent: Neck Pain Skin: absent: Rash Neurological: absent: Headache, Dizziness Hemo/Lymphatic: absent: Easy Bleeding Psychiatric: absent: Depression Physical Exam Vital Signs Reviewed: Yes Vital Signs Temp Pulse Resp BP Pulse Ox 11/16/17 11:34 64 17 127/66 98 11/16/17 10:21 99 F 76 18 97/65 L 96 Temperature: Afebrile Appearance: Positive for: Uncomfortable Pain Distress: Mild Mental Status: Positive for: Alert and Oriented X 3 - Systems Exam Head: Present: Atraumatic Pupils: Present: PERRL Mouth: Present: Dry Pharnyx: No: ERYTHEMA Nose (Internal): Present: Normal Inspection Neck: No: Meningeal Signs Respiratory/Chest: Present: Clear to Auscultation. No: Respiratory Distress Cardiovascular: Present: Regular Rate and Rhythm Abdomen: Present: Normal Bowel Sounds. No: Tenderness, Distention, Peritoneal Signs Back: No: CVA Tenderness Upper Extremity: No: Cyanosis Lower Extremity: Present: Other (no acute edema, no cyanosis, patient with diminished pulses to right lower extremity, no knee pain) Neurological: Present: Motor Func Grossly Intact, Normal Sensory Function Skin: Present: Other (no cyanosis, right foot somewhat cooler to touch but not pale) Psychiatric: Present: Alert. No: Depressed Mood Medical Decision Making ED Course and Treatment: 11/16/17 13:48 Patient seen and evaluated upon arrival. Symptoms of pain for five days, not acutely worse over past five days but persistent. Discussed case with Dr. Sky Cabello directly who reviewed LAURA studies and past history. Currently patient reports same pain for past 5 days. He was taking Oxycodone PRIOR to this new onset of pain, states he has chornic pain as well. No active bleeding or melena noted or reported currently. Initial Hgb reviewed. Creatinine noted to be mildly elevated. K mildly elevated, no arrhthmias noted. Labs reviewed with Dr. Neo Busch for further follow-up although patient currently with no chest pain or sob or arrhythmia. BP improved from initial triage, patient denies chest pain or lightheadedness or dizziness. IV fluids given. Patient admitted to Dr. Neo Wright's service. 11/16/17 13:53 Due to history reportedly of recent severe GI bleeding, anticoagulation as per admitting team at this time pending consultations. - Lab Interpretations Lab Results: 11/16/17 10:45 11/16/17 10:45 Lab Results 11/16/17 10:45: PT 12.2, INR 1.06, APTT 33.8 11/16/17 10:45: WBC 9.1, RBC 6.14 H, Hgb 13.1 L D, Hct 42.1, MCV 68.6 L D, MCH 21.3 L, MCHC 31.1, RDW 20.6 H, Plt Count 194, Gran % 79.2 H, Lymph % (Auto) 14.9 L, [place] % (Auto) 5.5, Eos % (Auto) 0.3 L, Baso % (Auto) 0.1, Gran # 7.20 H , Lymph # (Auto) 1.4, [place] # (Auto) 0.5, Eos # (Auto) 0.0, Baso # (Auto) 0.01 11/16/17 10:45: Sodium 137, Potassium 5.4 H, Chloride 106, Carbon Dioxide 18 L, Anion Gap 18, BUN 38 H, Creatinine 1.6 H, Est GFR ( Amer) 54, Est GFR ( Non-Af Amer) 44, Random Glucose 282 H, Calcium 8.9, Total Bilirubin 0.4, AST 25 , ALT 51, Alkaline Phosphatase 180 H D, Lactate Dehydrogenase 383, Total Creatine Kinase 54, Troponin I < 0.01 D, Total Protein 7.0, Albumin 4.0, Globulin 2.9, Albumin/Globulin Ratio 1.4 11/16/17 10:41: Blood Type A POSITIVE, Antibody Screen Negative, BBK History Checked Patient has bt - RAD Interpretation Radiology Orders: 11/16/17 10:44 CHEST PORTABLE [RAD] Stat - EKG Interpretation EKG Interpretation (Text): 11/16/17 13:47 EKG at 1045 normal sinus rhythm rate of 67 with left axis deviation, Interpreted by ED Physician: Yes Type: 12 lead EKG - Medication Orders Current Medication Orders: Alprazolam (Xanax) 2 mg PO HS NINO PRN Reason: Protocol Atorvastatin Calcium (Lipitor) 40 mg PO DAILY NINO Glipizide (Glucotrol Xl) 10 mg PO DAILY NINO Sodium Chloride (Sodium Chloride 0.9%) 1,000 mls @ 80 mls/hr IV .[id number] NINO Last Admin: 11/16/17 11:41 Dose: 80 mls/hr eMAR Start Stop Document 11/16/17 11:41 [facility] [place]Rec: 11/16/17 11:41 [facility] [place] [id number][place] Intravenous Solution Start Date 11/16/17 Start Time 11:41 Insulin Human Regular (Humulin R Med) 0 units SC ACHS NINO PRN Reason: Protocol Metoprolol Succinate (Toprol Xl) 50 mg PO DAILY NINO Oxycodone HCl (Oxycodone Immediate Release Tab) 20 mg PO BID NINO Pantoprazole Sodium (Protonix Ec Tab) 40 mg PO DAILY NINO Discontinued Medications Sodium Chloride (Sodium Chloride 0.9%) 500 mls @ 1,000 mls/hr IV .Q30M STA Stop: 11/16/17 11:13 Last Admin: 11/16/17 11:01 Dose: 1,000 mls/hr eMAR Start Stop Document 11/16/17 11:01 [facility] [place]Rec: 11/16/17 11:01 [facility] [place] [id number]) Intravenous Solution Start Date 11/16/17 Start Time 11:01 End Date 11/16/17 End time 11:31 Total Infusion Time 30 Morphine Sulfate (Morphine) 2 mg IVP STAT STA Stop: 11/16/17 11:35 Last Admin: 11/16/17 11:38 Dose: 2 mg MAR Pain Assessment Document 11/16/17 11:38 [facility] (Rec: 11/16/17 11:38 [facility] [id number]) Pain Reassessment Is this a pain reassessment? No Sleep Is patient sleeping during reassessment? No Presence of Pain Presence of Pain Yes Pain Scale Used Pain Scale Used Numeric Location Left, Right or Bilateral Right Pain Location Body Site Leg Description Intensity of Pain at present 6 IVP Administration Document 11/16/17 11:38 [facility] (Rec: 11/16/17 11:38 [facility] [id number]) Charges for Administration # of IVP Administrations 1 Oxycodone HCl (Oxycodone Immediate Release Tab) 30 mg PO STAT STA Stop: 11/16/17 12:37 Last Admin: 11/16/17 13:00 Dose: 30 mg MAR Pain Assessment Document 11/16/17 13:00 [facility] (Rec: 11/16/17 13:00 [facility] [id number]) Pain Reassessment Is this a pain reassessment? Yes Sleep Is patient sleeping during reassessment? No Presence of Pain Presence of Pain Yes Pain Scale Used Pain Scale Used Numeric Location Pain Location Body Site Leg Description Description Constant Intensity of Pain at present 7 Disposition/Present on Arrival - Present on Arrival Any Indicators Present on Arrival: Yes History of DVT/PE: Yes History of Uncontrolled Diabetes: No Urinary Catheter: No History of Decub. Ulcer: No History Surgical Site Infection Following: CABG - Mediastinitis - Disposition Have Diagnosis and Disposition been Completed?: Yes Diagnosis: Renal insufficiency, Peripheral arterial disease Disposition: HOSPITALIZED Disposition Time: 10:00 Patient Plan: Admission Patient Problems: Current Active Problems Problem Status Onset Peripheral arterial disease Acute Renal insufficiency Acute Condition: SERIOUS
--- NOTE | 2017-11-16 15:32 | CARD ---
APPROVED REPORT Date of service: 11/16/2017 EKG Measurement Heart [id number] <Conclusion> Normal sinus rhythm Left axis deviation Inferior infarct, age undetermined Abnormal ECG
[2017-11-16] MEDS: Insulin Reg-MEDIUM-Coverage SC SCH ×2 (16:56→22:03)
[2017-11-16] MEDS: oxyCODONE 20 mg Immediate Release Tab PO SCH (17:35)
[2017-11-16] MEDS ORDERED: Acetylcysteine 20% Inhal Soln (4ml) PO SCH (18:00)
[2017-11-16 18:01] VITALS: BMI 29.7
[2017-11-16] MEDS ORDERED: Pneumococcal 23-Valent Vaccine IM ONE (18:01)
[2017-11-16] MEDS ORDERED: Morphine 2 mg/ml ISec IVP PRN (19:46)
[2017-11-16] MEDS: Morphine 2 mg/ml ISec IVP PRN (20:14)
--- NOTE | 2017-11-16 23:07 | CON ---
Copied To: Terry Coates MD Attending MD: Terry Coates MD DATE: 11/16/2017 REQUESTING PHYSICIAN: Hany Busch MD REASON FOR CONSULTATION: I have been asked to see this 57-year-old male with a history of recurrent upper GI bleeding from duodenal ulcers back in 06/2017 as well as 01/2017 requiring multiple blood transfusions, who is admitted to the hospital with peripheral arterial disease of his right leg. The patient had an arterial stent placed about 3 years ago. The patient has been having increasing claudication of the right leg. The patient is to have possible thrombolysis of the arterial occlusion and I am asked to see this patient for an upper endoscopy prior to thrombolytic therapy. The patient currently denies any abdominal pain, nausea, vomiting or rectal bleeding. He denies melena. PAST MEDICAL HISTORY: Notable for peripheral arterial disease, coronary artery disease, status post CABG, recurrent upper GI bleeding from duodenal ulcers back in 06/2017 and 01/2017, diverticulosis, mucosal ulceration of the rectum, COPD, opiate abuse, type 2 diabetes mellitus. PAST SURGICAL HISTORY: Notable for coronary artery bypass surgery, cholecystectomy, coronary artery stent placement. SOCIAL HISTORY: The patient smokes up to a pack of cigarettes per day. He has a history of opiate abuse for many years. He denies alcohol use. FAMILY HISTORY: Noncontributory. REVIEW OF SYSTEMS: A 14-point review of systems is notable for right foot pain with walking. MEDICATIONS AT HOME: Include Duragesic patch, oxycodone, Lactobacillus, metoprolol and Protonix. PHYSICAL EXAMINATION: GENERAL: A well-developed male sitting in bed, in no acute distress. VITAL SIGNS: Reveal temperature of 99, blood pressure 127/66, heart rate 64. HEENT: Reveal sclerae to be white. Conjunctivae pink. NECK: Supple. CHEST: Reveal lungs to be clear. HEART: Reveals regular rate and rhythm. There is a well-healed sternotomy scar. ABDOMEN: Soft, nontender. Extremities: Show trace pedal edema. His right leg is warm. LABORATORY DATA: Reveal white blood cell count 9.1, hemoglobin 13.1. Chemistries reveal BUN 38, creatinine 1.6, potassium of 5.4, alk phos is 180. IMPRESSION: A 57-year-old male with right peripheral arterial disease for possible thrombolysis, history of right leg stent with history of bleeding duodenal ulcers back in 06/2017 and 01/2017. RECOMMENDATIONS: The patient is to have an upper endoscopy in the morning. Note, the patient also has renal insufficiency. Thank you. Terry Coates MD
[2017-11-16] MEDS: Sodium Chloride 0.9% 1,000 ML IV SCH (23:43)
[2017-11-17] MEDS: Morphine 2 mg/ml ISec IVP PRN (00:41)
[2017-11-17] MEDS: Sodium Chloride 0.9% 1,000 ML IV SCH (00:44)
--- NOTE | 2017-11-17 01:11 | HP ---
HISTORY OF PRESENT ILLNESS: The patient is a 57 year old man with a past medical history of PAD s/p IR revascularization s/p right SFA stent, CAD s/p CABG and history of massive upper GI bleed secondary to duodenal ulcer s/p multiple transfusions of PRBCs s/ p hemoclip placement who presented for evaluation a 2 week history of worsening right lower extremity claudication. The patient was initially seen in his PMD' s office approximately 2 weeks ago for complaint of intermittent right lower extremity claudication. He was sent for ABIs which were found to be grossly abnormal. He then presented to Dr. Sky Cabello of Interventional Radiology and was advised that he may require thrombolysis but due to his recent hospitalization in June 2017 for massive upper GI bleed, the patient was advised that he will require evaluation by GI prior to administration of any thrombolytic agents. Also of note, the patient was previously on Aspirin, Plavix and Coumadin given his underlying cardiac disease but these were discontinued after his hospitalization in June for massive upper GI bleed. Upon arrival to the ED he was noted to be afebrile, hemodynamically stable and with largely unremarkable lab studies with the exception of mild acute kidney injury. He was started on IV fluid hydration and was subsequently admitted for continued management of peripheral arterial disease and GI evaluation . PAST MEDICAL HISTORY: As per HPI, also hyperlipidemia, NIDDM, lumbosacral radiculopathy, paroxysmal AFib and chronic opioid dependence. PAST SURGICAL HISTORY: As per HPI. ALLERGIES: Levaquin and Penicillin. MEDICATIONS: Lipitor 40 mg p.o. daily, Toprol XL 50 mg p.o. daily, Glipizide ER 10 mg p.o. daily, Xanax 2 mg p.o. at bedtime, Pepcid 20 mg p.o. daily, and Oxycodone 20 mg p.o. b.i.d. FAMILY HISTORY: Noncontributory. SOCIAL HISTORY: He reports an active [id number] smoking history and social alcohol use. He also reports daily opioid use and a history of crack cocaine use several years ago. REVIEW OF SYSTEMS: A 12-point review of systems is negative except as per HPI. PHYSICAL EXAMINATION: VITAL SIGNS: Temperature 99, pulse 64, blood pressure 127/66, respiratory rate 18, oxygen saturation 98% on room air. GENERAL: No apparent distress. HEENT: PERRL. EOMI. No scleral icterus. No conjunctival pallor. NECK: No JVD. No bruits. LUNGS: Clear to auscultation. CARDIOVASCULAR: Regular rate and rhythm. Normal S1 and S2. ABDOMEN: Normoactive bowel sounds. Soft, nontender, nondistended. EXTREMITIES: No edema. Distal pulses nonpalpable on the right. NEUROLOGIC: Awake, alert, and oriented x 3. No focal motor deficits. LABORATORY DATA: WBC 9, hemoglobin 13, hematocrit 42, platelets 194. Sodium 137, potassium 5.4, chloride 106, bicarb 18, BUN 38, creatinine 1.6, glucose 282. IMAGING STUDIES: Chest x-ray demonstrates no active disease. ASSESSMENT: The patient is a 57 year old man with a past medical history of PAD s/p IR revascularization s/p right SFA stent, CAD s/p CABG and a recent history of massive upper GI bleed secondary to duodenal ulcer s/p hemoclip who presented for evaluation of a 2 week history of worsening right lower extremity claudication and was admitted for management of suspected thrombosis of his superior femoral artery stent. PLAN: 1. Severe PAD s/p IR revascularization s/p right SFA stent. Dr. Sky Cabello of IR has been consulted for further evaluation and recommendations. Prior to any thrombolysis or initiation of antiplatelet/anticoagulation therapy the patient will be evaluated by Dr. Coates given his history of massive GI bleed. In the interim we will continue Lipitor 40 mg p.o. daily. 2. CAD s/p CABG. Continue Lipitor 40 mg p.o. daily. The patient remains off Aspirin and Plavix given his history of massive GI bleed. 3. Paroxysmal AFib. The patient remains rate controlled. He is not on anticoagulation therapy given his history of massive upper GI bleed. 4. Non-insulin dependant diabetes mellitus. We will resume Glipizide ER 10 mg p.o. daily and start medium dose insulin sliding scale for coverage. Continue to monitor fingerstick before every meal and at bedtime. 5. Hyperlipidemia. Resume Lipitor 40 mg p.o. daily. 6. Acute kidney injury with etiology likely secondary to over-medication with Lasix. We will d/c Lasix and maintain IVF hydration. 7. Lumbosacral radiculopathy. Resume Oxycodone 20 mg p.o. b.i.d. 8. Anxiety. Resume Xanax 2 mg p.o. at bedtime. 9. Opioid dependence. The patient has been extensively counseled on multiple occasions regarding the adverse health effects of his chronic opioid abuse and at present he is not seem interested in cessation. 10. Prophylaxis. The patient is on Protonix 40 mg p.o. daily for GI prophylaxis and DVT prophylaxis is contraindicated given his recent upper GI bleed pending evaluation by Dr. Coates of GI. Code status: Full code. Hany Busch MD MTDD
--- NOTE | 2017-11-17 04:03 | CP.PCM.PN ---
Addendum entered and electronically signed by Ry Kathleen DO 11/17/17 07:29 : Pt reported tenderness to palpation along bilateral lower extremities, however calf tenderness was not noted. Calf tenderness incorrectly documented in initial progress note Original Note: <Ry Kathleen - Last Filed: 11/17/17 04:08> Subjective - Date & Time of Evaluation Date of Evaluation: 11/17/17 Time of Evaluation: 04:02 - Subjective Subjective: NIGHT FLOAT PROGRESS NOTE FOR COMPLAINTS Ry Kathleen PGY1, Medicine Resident, Night float Page received from nurse regarding patient requesting to sign out AMA. Pt evaluated at bedside. Pt has a history peripheral vascular disease with history of stent to right lower extremity, admitted for right leg pain with exertion. Pt was very upset and claimed he wasn't receiving appropriate pain medications and noted that he was having severe pain in his R leg and that "it was turning blue." Nursing staff report pt was threatening and raising his voice on several occasions. He had asked for his IV to be removed. He had been receiving his pain meds appropriately. On physical exam, pt is tender to palpation on bilateral lower extremities. B/l lower extremities were warm and dry with 1+ pulses bilaterally. IV morphine was switched to IM with the same dosage. Discussion was made with patient that medications were being given according to medical reconciliation. Pt reports that he wants to stay to receive his medication. Objective - Vital Signs/Intake and Output Vital Signs (last 24 hours): Temp Pulse Resp BP Pulse Ox 97.4 F L 71 20 126/73 98 11/16/17 17:39 11/16/17 17:39 11/16/17 17:39 11/16/17 17:39 11/16/17 17:09 Intake and Output: 11/16/17 11/17/17 18:59 06:59 Intake Total 1140 Balance 1140 - Medications Medications: Current Medications Acetylcysteine (Acetylcysteine 20%) 3 ml PO BID NINO Stop: 11/19/17 08:00 Alprazolam (Xanax) 2 mg PO HS NINO PRN Reason: Protocol Last Admin: 11/16/17 21:30 Dose: 2 mg Atorvastatin Calcium (Lipitor) 40 mg PO DAILY [facility] Glipizide (Glucotrol Xl) 10 mg PO DAILY [facility] Sodium Chloride (Sodium Chloride 0.9%) 1,000 mls @ 125 mls/hr IV .Q8H [facility] Last Admin: 11/17/17 00:44 Dose: Not Given Insulin Human Regular (Humulin R Med) 0 units SC ACHS [facility] PRN Reason: Protocol Last Admin: 11/16/17 22:03 Dose: Not Given Metoprolol Succinate (Toprol Xl) 50 mg PO DAILY [facility] Morphine Sulfate (Morphine) 1 mg IVP Q4H PRN PRN Reason: Pain, moderate (4-7) Last Admin: 11/17/17 00:41 Dose: 1 mg Oxycodone HCl (Oxycodone Immediate Release Tab) 20 mg PO BID [facility] Last Admin: 11/16/17 17:35 Dose: 20 mg Pantoprazole Sodium (Protonix Ec Tab) 40 mg PO DAILY [facility] - Labs Labs: PT 12.2 SECONDS (9.4-12.5) 11/16/17 10:45 INR 1.06 11/16/17 10:45 APTT 33.8 Seconds (25.1-36.5) 11/16/17 10:45 - Constitutional Appears: Well, Toxic, No Acute Distress - Head Exam Head Exam: NORMAL INSPECTION, NORMOCEPHALIC - Eye Exam Eye Exam: EOMI, Normal appearance - ENT Exam ENT Exam: Mucous Membranes Moist - Respiratory Exam Respiratory Exam: Clear to Ausculation Bilateral - Cardiovascular Exam Cardiovascular Exam: REGULAR RHYTHM, +S1, +S2 - GI/Abdominal Exam GI & Abdominal Exam: Soft, Normal Bowel Sounds. absent: Tenderness - Extremities Exam Extremities Exam: Calf Tenderness, Normal Capillary Refill. absent: Pedal Edema - Neurological Exam Neurological Exam: Alert, Oriented x3 - Psychiatric Exam Psychiatric exam: Normal Affect, Normal Mood - Skin Skin Exam: Dry, Normal Color Assessment and Plan - Assessment and Plan (Free Text) Assessment: 57 y/o M with pad Plan: IV morphine switched to IM after pt requested removal of IV line <Gretel Daly - Last Filed: 11/17/17 08:00> Objective - Vital Signs/Intake and Output Vital Signs (last 24 hours): Temp Pulse Resp BP Pulse Ox 97.4 F L 71 20 126/73 98 11/16/17 17:39 11/16/17 17:39 11/16/17 17:39 11/16/17 17:39 11/16/17 17:09 Intake and Output: 11/17/17 11/17/17 06:59 18:59 Intake Total 1250 Balance 1250 - Medications Medications: Current Medications Acetylcysteine (Acetylcysteine 20%) 3 ml PO BID [facility] Stop: 11/19/17 08:00 Alprazolam (Xanax) 2 mg PO HS NINO PRN Reason: Protocol Last Admin: 11/16/17 21:30 Dose: 2 mg Atorvastatin Calcium (Lipitor) 40 mg PO DAILY [facility] Glipizide (Glucotrol Xl) 10 mg PO DAILY [facility] Sodium Chloride (Sodium Chloride 0.9%) 1,000 mls @ 125 mls/hr IV .Q8H [facility] Last Admin: 11/17/17 00:44 Dose: Not Given Insulin Human Regular (Humulin R Med) 0 units SC ACHS [facility] PRN Reason: Protocol Last Admin: 11/16/17 22:03 Dose: Not Given Metoprolol Succinate (Toprol Xl) 50 mg PO DAILY [facility] Morphine Sulfate (Morphine) 1 mg IM Q4H PRN PRN Reason: Pain, severe (8-10) Last Admin: 11/17/17 04:13 Dose: 1 mg Oxycodone HCl (Oxycodone Immediate Release Tab) 20 mg PO BID [facility] Last Admin: 11/16/17 17:35 Dose: 20 mg Pantoprazole Sodium (Protonix Ec Tab) 40 mg PO DAILY [facility] - Labs Labs: 11/17/17 06:05 11/17/17 06:05 PT 12.2 SECONDS (9.4-12.5) 11/16/17 10:45 INR 1.06 11/16/17 10:45 APTT 33.8 Seconds (25.1-36.5) 11/16/17 10:45 Attending/Attestation - Attestation I have personally seen and examined this patient.: Yes I have fully participated in the care of the patient.: Yes I have reviewed all pertinent clinical information, including history, physical exam and plan: Yes Notes (Text): 11/17/17 07:41 I have examined this pt.He is complaining about pain in his R foot. He has had history of stents in and has history of PVD. O/E ,DP pulse in the R foot is felt,but is diminished compared to the L foot.The color of the foot is pinkish. There is no calf tenderness.
[2017-11-17] MEDS ORDERED: Morphine 2 mg/ml ISec IM PRN ×2 (04:11→11:40)
[2017-11-17 06:28] LABS: BASO # 0.02 K/mm3 (0.0-2.0); BASO % 0.2 % (0.0-3.0); EOS # 0.1 (0.0-0.7); EOS % 1.2 % (1.5-5.0); GRAN # 7.17 (1.4-6.5); GRAN % 73.2 % (50.0-68.0); HEMOGLOBIN 13.4 g/dL (14.0-18.0); LYMPH # 1.7 (1.2-3.4); LYMPH % 17.1 % (22.0-35.0); MEAN CELL VOLUME 68.1 fl (80.0-105.0); MEAN CORPUSCULAR HEMOGLOBIN 21.5 pg (25.0-35.0); MEAN CORPUSCULAR HGB CONC 31.6 g/dl (31.0-37.0); MONO # 0.8 (0.1-0.6); MONO % 8.3 % (1.0-6.0); PLATELET COUNT 177 10^3/uL (120.0-450.0); RBC 6.23 10^6/uL (3.5-6.1); RED CELL DISTRIBUTION WIDTH 20.8 % (11.5-14.5); WHITE BLOOD COUNT 9.8 10^3/ul (4.5-11.0)
[2017-11-17 06:59] LABS: ALB/GLOB RATIO 1.2 (1.1-1.8); ALBUMIN 3.8 g/dL (3.0-4.8); ALT/SGPT 94 U/L (7-56); AST/SGOT 141 U/L (17-59); BLOOD UREA NITROGEN 25 mg/dL (7-21); CALCIUM 9.2 mg/dL (8.4-10.5); GFR AFRICAN-AMERICAN > 60; GFR NON-AFRICAN AMERICAN > 60
[2017-11-17 07:57] VITALS: TEMP 97.2
[2017-11-17] MEDS ORDERED: Propofol 10 mg/ml Inj (20 ML) ONE (08:01)
[2017-11-17] MEDS ORDERED: Phenylephrine 10 mg/ml Inj ONE (08:01)
[2017-11-17] MEDS: Insulin Reg-MEDIUM-Coverage SC SCH (08:09)
[2017-11-17] MEDS ORDERED: Etomidate 20 mg/10ml Inj IV ONE (08:13)
[2017-11-17] MEDS ORDERED: Sodium Chloride 0.9% 1,000 ML IV SCH (08:30)
[2017-11-17 08:47] VITALS: O2SAT 99
[2017-11-17 09:05] VITALS: RESP 15
[2017-11-17] MEDS: oxyCODONE 20 mg Immediate Release Tab PO SCH (09:51)
[2017-11-17] MEDS ORDERED: Metoprolol Succinate 50 mg XL Tab PO SCH (10:00)
[2017-11-17] MEDS ORDERED: Pantoprazole 40 mg EC Tab PO SCH (10:00)
[2017-11-17] MEDS ORDERED: GlipiZIDE 10 mg SR Tab PO SCH (10:00)
--- NOTE | 2017-11-17 10:40 | PN ---
Copied To: Noah Busch MD Attending MD: Noah Busch MD DATE: 11/17/2017 LOCATION: The patient is in room 368, bed 1. SUBJECTIVE: The patient has no complaints this morning and there have been no acute events overnight. I am seeing the patient in the postop holding room. He just had upper endoscopy. I spoke with Dr. Coates and he has multiple gastric and duodenal ulcers. PHYSICAL EXAMINATION: VITAL SIGNS: Temperature of 97.2, pulse rate of 64, respiration rate of 18 HEENT: PERRLA, EOMI. No icterus present. NECK: Supple with a full range of motion. No bruits or jugular venous distention appreciated. LUNGS: Clear to auscultation and percussion bilaterally. HEART: With a regular rate and rhythm. There is a scar from previous thoracotomy. ABDOMEN: Soft. It is nontender. Bowel sounds are normoactive. EXTREMITIES: Show no deformities and no edema. NEUROLOGICAL: There are no focal motor deficits. LABORATORY DATA: Lab values are an RBC of 6.23, hemoglobin and hematocrit of 13.4 and 42.4. The indices are all low indicating an iron-deficiency anemia. Platelet count of 177,000. Chemistry is normal with the exception of a chloride of 111, AST 141, ALT 94 and alk phos of 227. All of these are elevated from yesterday's lab values. IMPRESSION: The impression at this time is, 1. Intermittent claudication. 2. Coronary artery disease. 3. Multiple duodenal ulcers. We will continue current regimen and speak to the surgeon about bypassing the vasculature in the leg. Noah Busch MD
[2017-11-17 11:22] VITALS: BP 137/75; PULSE 70
[2017-11-17] MEDS ORDERED: Morphine 2 mg/ml ISec IM STA (11:42)
--- NOTE | 2017-11-18 13:48 | DS ---
ADMITTING DIAGNOSIS: Intermittent claudication. DISCHARGE DIAGNOSES: Peripheral arterial disease s/p IR revascularization s/p right SFA stent with possible occlusion of SFA stent. SECONDARY DIAGNOSES: Gastric and duodenal ulcers with history of massive GI bleed s/p hemoclip placement, CAD s/p CABG, paroxysmal AFib, hyperlipidemia, NIDDM, lumbosacral radiculopathy, anxiety disorder and chronic opioid dependence. CONSULTATIONS: Dr. Coates (Gastroenterology) and Dr. Cabello (Interventional Radiology). IMAGING STUDIES: Chest x-ray demonstrated no active disease. PROCEDURES: EGD demonstrated nonbleeding erosive gastropathy with multiple duodenal ulcers with no stigmata of bleeding. HISTORY OF PRESENT ILLNESS: The patient is a 57 year old man with a past medical history of PAD s/p IR revascularization s/p right SFA stent, CAD s/p CABG and a history of massive upper GI bleed secondary to gastric and duodenal ulcers s/p multiple transfusions of PRBCs s/p hemoclip placement who presented for evaluation of a 2 week history of worsening right lower extremity claudication. The patient was initially seen in his PMD's office approximately 2 weeks ago for complaint of intermittent and right lower extremity claudication. He was sent for ABIs which are found to be grossly abnormal. He then presented to Dr. Sky Cabello of Interventional Radiology and was advised that he may require thrombolysis, but due to his recent hospitalization in June 2017 for massive upper GI bleed, he was advised that he will require evaluation by GI prior to administration of any thrombolytic agents. Also of note, the patient was previously on Aspirin, Plavix and Coumadin given his underlying cardiac disease but these were discontinued after his hospitalization in June for massive upper GI bleed. Upon arrival to the ED he was noted to be afebrile, hemodynamically stable and with largely unremarkable lab studies with the exception of mild acute kidney injury and hyperkalemia. The patient was started on IV fluid hydration and was subsequently admitted for continued management of peripheral arterial disease and GI evaluation. HOSPITAL COURSE: Upon admission to the remote telemetry santizo he was evaluated by Dr. Coates. He was scheduled for EGD the following morning which demonstrated erosive gastropathy and multiple duodenal ulcers with no stigmata of active bleed. Given the presence of multiple ulcers, administration of thrombolytic therapy was contraindicated given the high risk of bleed. The patient was advised that in light of his multiple ulcers and inability to anticoagulate him, he will require consultation with a vascular surgeon to assess for possible lower extremity bypass. The patient was amenable to this plan and was discharged to home with outpatient followup arranged. CONDITION: Fair, improved. DISPOSITION: Home. DISCHARGE MEDICATIONS: Lipitor 40 mg p.o. daily, Toprol XL 50 mg p.o. daily, Glipizide ER 10 mg p.o. daily, Xanax 2 mg p.o. at bedtime, Pepcid 20 mg p.o. daily, Carafate suspension 1 g p.o. t.i.d. and Oxycodone 20 mg p.o. b.i.d. p.r.n. pain. DISCHARGE INSTRUCTIONS: The patient was advised that if he develops any worsening of his right lower extremity claudication, paresthesias, anesthesia or cyanosis to present to his PMD or the nearest ED immediately. FOLLOWUP: The patient to follow up with his PMD within 1 week of discharge. The patient is to follow up with Dr. Coates as scheduled. The patient will follow up with a vascular surgeon for consultation for possible right lower extremity bypass surgery. Hany Busch MD MTDD
== END 2017-11-17 14:42 | disposition home or self-care (01) | DRG 300 ==
LOC: ED 10:15 → ERH 11:34 → 3RNO 13:14
PROVIDERS: ADMIT Student in an Organized Health Care Education/Training Program; ATTEND Student in an Organized Health Care Education/Training Program
PROC: 0DJ08ZZ Inspection of Upper Intestinal Tract, Via Natural or Artificial Opening Endoscopic (ICD-10-PCS; principal; 2017-11-17 08:00)
DX: E11.51 Type 2 diabetes mellitus with diabetic peripheral angiopathy without gangrene (principal); N17.9 Acute kidney failure, unspecified; F11.20 Opioid dependence, uncomplicated; K26.9 Duodenal ulcer, unspecified as acute or chronic, without hemorrhage or perforation; K31.9 Disease of stomach and duodenum, unspecified; T18.2XXA Foreign body in stomach, initial encounter; E78.5 Hyperlipidemia, unspecified; F17.210 Nicotine dependence, cigarettes, uncomplicated; I25.10 Atherosclerotic heart disease of native coronary artery without angina pectoris; I48.0 Paroxysmal atrial fibrillation; M54.17 Radiculopathy, lumbosacral region; J44.9 Chronic obstructive pulmonary disease, unspecified; F41.9 Anxiety disorder, unspecified; Z95.5 Presence of coronary angioplasty implant and graft; Z79.84 Long term (current) use of oral hypoglycemic drugs; Z88.0 Allergy status to penicillin; Z95.1 Presence of aortocoronary bypass graft; Z88.3 Allergy status to other anti-infective agents

== ENCOUNTER 2018-08-25 09:48 | Inpatient (IN) | payer MEDICARE ==
[2018-08-25 09:57] VITALS: BMI 31.3
[2018-08-25] MEDS ORDERED: Sodium Chloride 0.9% 1,000 ML IV STA (10:17)
[2018-08-25] MEDS ORDERED: Morphine 4 mg/ml ISec IVP STA (10:28)
[2018-08-25 10:39] LABS: PH,URINE 5.5 (4.7-8.0); URINE BILIRUBIN NEGATIVE (NEGATIVE); URINE BLOOD TRACE-LYSED (NEGATIVE); URINE GLUCOSE (UA) >=1000 mg/dL (NEGATIVE); URINE LEUKOCYTE ESTERASE NEGATIVE Leu/uL (NEGATIVE); URINE PROTEIN 100 mg/dL (<30 mg/dL); URINE UROBILINOGEN 0.2 E.U./dL (<1 E.U./dL)
[2018-08-25 10:40] LABS: BASO # 0.01 K/mm3 (0.0-2.0); BASO % 0.1 % (0.0-3.0); LYMPH # 0.9 (1.2-3.4); LYMPH % 7.5 % (22.0-35.0); MEAN CELL VOLUME 85.1 fl (80.0-105.0); MEAN CORPUSCULAR HEMOGLOBIN 29.3 pg (25.0-35.0); MEAN CORPUSCULAR HGB CONC 34.4 g/dl (31.0-37.0); MEAN PLATELET VOLUME 9.6 fl (7.0-11.0); MONO # 0.8 (0.1-0.6); MONO % 6.5 % (1.0-6.0); RBC 6.46 10^6/uL (3.5-6.1); RED CELL DISTRIBUTION WIDTH 14.5 % (11.5-14.5); WHITE BLOOD COUNT 12.5 10^3/uL (4.5-11.0)
[2018-08-25 10:46] LABS: HEMOGLOBIN 18.9 g/dL (14.0-18.0)
[2018-08-25 10:56] LABS: URINE APPEARANCE CLEAR (CLEAR); URINE COLOR YELLOW (YELLOW)
[2018-08-25 11:05] LABS: ALB/GLOB RATIO 1.4 (1.1-1.8); ALBUMIN 4.3 g/dL (3.0-4.8); CALCIUM 9.3 mg/dL (8.4-10.5)
[2018-08-25 11:10] LABS: VENOUS BLOOD GAS BASE EXCESS 8.4 mmol/L (0.0-2.0); VENOUS BLOOD GAS PO2 20 mm/Hg (30-55); VENOUS BLOOD PH 7.41 (7.32-7.43)
[2018-08-25 11:24] LABS: URINE BACTERIA MOD /hpf; URINE EPITHELIAL CELLS 0 - 2 /hpf (0-5); URINE HYALINE CAST 0 - 2 /hpf; URINE WBC 0 - 2 /hpf (0-6)
[2018-08-25 11:25] LABS: URINE AMORPHOUS SEDIMENT FEW /hpf; URINE FINE GRANULAR CAST 0 - 2 /hpf
--- NOTE | 2018-08-25 11:46 | RAD ---
Date of service: 08/25/2018 HISTORY: abd pain COMPARISON: 11/16/2017 TECHNIQUE: 1 view obtained. FINDINGS: LUNGS: No active pulmonary disease. PLEURA: No significant pleural effusion identified, no pneumothorax apparent. CARDIOVASCULAR: There is presence of aortic atherosclerotic calcification on x-ray. Mild cardiomegaly No significant appearing pulmonary venous congestion.. Midline sternotomy CABG procedure inferred. Sternal wires many discontinuous. Appearance similar. OSSEOUS STRUCTURES: No significant abnormalities. VISUALIZED UPPER ABDOMEN: Normal. OTHER FINDINGS: None. IMPRESSION: No interval pathology noted.
[2018-08-25 11:50] LABS: TROPONIN I < 0.01 ng/mL
[2018-08-25 11:55] LABS: CK-MB 3.5 ng/mL (0.0-3.6)
--- NOTE | 2018-08-25 12:32 | CT ---
Date of service: 08/25/2018 PROCEDURE: CT Abdomen and Pelvis without intravenous contrast HISTORY: ABDOMINAL PAIN COMPARISON: None. TECHNIQUE: Without contrast.. Contrast dose: Radiation dose: Total exam DLP = 762.76 mGy-cm. This CT exam was performed using one or more of the following dose reduction techniques: Automated exposure control, adjustment of the mA and/or kV according to patient size, and/or use of iterative reconstruction technique. FINDINGS: LOWER THORAX: Unremarkable. LIVER: Unremarkable. No gross lesion or ductal dilatation. 15 mm hypodense lesion in the liver, probable cyst. GALLBLADDER AND BILE DUCTS: Gallbladder removed PANCREAS: Unremarkable. No gross lesion or ductal dilatation. SPLEEN: Unremarkable. ADRENALS: Unremarkable. No mass. KIDNEYS AND URETERS: Unremarkable. No hydronephrosis. No solid mass. Left renal cyst VASCULATURE: Unremarkable. No aortic aneurysm. Aortic calcification. BOWEL: Unremarkable. No obstruction. No gross mural thickening. APPENDIX: Unremarkable. Normal appendix. PERITONEUM: Unremarkable. No free fluid. No free air. LYMPH NODES: Unremarkable. No enlarged lymph nodes. BLADDER: Unremarkable. REPRODUCTIVE: Unremarkable. BONES: No acute fracture. OTHER FINDINGS: None. IMPRESSION: Unremarkable non contrast enhanced CT of the abdomen and pelvis.
[2018-08-25] MEDS ORDERED: Insulin Regular 1 UNITS/0.01 ML ML SC STA (13:18)
--- NOTE | 2018-08-25 14:05 | ED PDOC ---
Arrival/HPI - General Chief Complaint: Abdominal Pain Time Seen by Provider: 08/25/18 09:53 Historian: Patient - History of Present Illness Narrative History of Present Illness (Text): 08/25/18 13:21 57yr old male with hx of open heart surgery, diabetes, diverticulitis presents today with a 3-day history of worsening abdominal pain and a 5-day history of nausea and vomiting with decreased appetite. Patient states he has pain across the entire lower abdomen. Patient states he has been having chills. He denies fevers. He denies chest pain or shortness of breath. He denies dizziness. He is complaining of generalized fatigue. Patient states he was seen by his pain management doctor and was given a refill of his pain medications which he takes for his chronic pain. Patient states he took his pain medication earlier today. He denies urinary symptoms. No back pain. No other complaints Past Medical History - Provider Review Nursing Documentation Reviewed: Yes - Travel History Have you recently traveled outside [place] w/in the past 3 mons?: No - Infectious Disease Hx of Infectious Diseases: None - Tetanus Immunization Tetanus Immunization: Unknown - Cardiac Hx Hypertension: Yes - Pulmonary Hx Bronchitis: Yes Hx Chronic Obstructive Pulmonary Disease (COPD): Yes Hx Pneumonia: Yes - Neurological Hx Neurological Disorder: Yes (rle peripheral neuropathy) - HEENT Hx HEENT Disorder: No - Renal Hx Renal Disorder: No - Endocrine/Metabolic Hx Endocrine Disorders: Yes Hx Diabetes Mellitus Type 2: Yes - Hematological/Oncological Hx Blood Disorders: Yes Hx Anemia: Yes - Integumentary Hx Dermatological Disorder: Yes - Musculoskeletal/Rheumatological Hx Arthritis: Yes - Gastrointestinal Hx Diverticulitis: Yes Hx Gall Bladder Disease: Yes Hx Gastrointestinal Ulcer: Yes - Genitourinary/Gynecological Hx Genitourinary Disorders: Yes Other/Comment: acute kidney injury 2018 - Psychiatric Hx Psychophysiologic Disorder: No Hx Substance Use: Yes - Past Surgical History Past Surgical History: Non-Contributing - Surgical History Hx Cholecystectomy: Yes Hx Coronary Artery Bypass Graft: Yes Hx Coronary Stent: Yes - Anesthesia Hx Anesthesia: Yes Hx Anesthesia Reactions: Yes (WAKES UP ANGRY) Hx Malignant Hyperthermia: No - Suicidal Assessment Feels Threatened In Home Enviroment: No Family/Social History - Physician Review Nursing Documentation Reviewed: Yes Family/Social History: Unknown Family HX Smoking Status: Light Smoker < 10 Cigarettes Daily Hx Alcohol Use: No Hx Substance Use: Yes Substance used: MARAJUANA Hx Substance Use Treatment: No Allergies/Home Meds Allergies/Adverse Reactions: Allergies levofloxacin [From Levaquin] Allergy (Severe, Verified 08/25/18 15:19) URTICARIA Penicillins Allergy (Severe, Verified 08/25/18 15:19) RASH Home Medications: Home Meds Medication Instructions Recorded Confirmed oxyCODONE [oxyCODONE Immediate 30 mg PO Q8 07/01/17 08/25/18 Release Tab] Lactobacillus Combination No.8 1 each PO DAILY 11/16/17 08/25/18 [Adult Probiotic] Metoprolol Succinate [Toprol Xl] 50 mg PO DAILY 11/16/17 08/25/18 Pantoprazole [Protonix EC Tab] 40 mg PO DAILY 11/16/17 08/25/18 Clopidogrel [Plavix] 75 mg PO DAILY 11/25/17 08/25/18 Gabapentin 300 mg PO TID 11/25/17 08/25/18 Alprazolam 2 mg PO DAILY PRN 06/22/18 08/25/18 Ondansetron [Zofran] 8 mg PO Q8H PRN 06/22/18 08/25/18 Oxycodone Myristate [Xtampza ER] 9 mg PO Q12 06/22/18 08/25/18 Review of Systems - Review of Systems Constitutional: Fatigue. absent: Fevers Respiratory: absent: SOB, Cough Cardiovascular: absent: Chest Pain, Palpitations Gastrointestinal: Abdominal Pain, Diarrhea, Nausea, Vomiting. absent: Constipation Genitourinary Male: absent: Dysuria, Frequency, Hematuria Musculoskeletal: absent: Arthralgias, Back Pain, Neck Pain Skin: absent: Rash, Pruritis Neurological: absent: Headache, Dizziness Psychiatric: absent: Anxiety, Depression, Suicidal Ideation Physical Exam Vital Signs Reviewed: Yes Vital Signs Temp Pulse Resp BP Pulse Ox 08/25/18 09:49 98.5 F 88 18 125/77 100 Temperature: Afebrile Blood Pressure: Normal Pulse: Regular Respiratory Rate: Normal Appearance: Positive for: Well-Appearing, Non-Toxic, Comfortable Pain Distress: None Mental Status: Positive for: Alert and Oriented X 3 - Systems Exam Head: Present: Atraumatic Mouth: Present: Moist Mucous Membranes Neck: Present: Normal Range of Motion Respiratory/Chest: Present: Clear to Auscultation, Good Air Exchange. No: Respiratory Distress, Accessory Muscle Use Cardiovascular: Present: Regular Rate and Rhythm, Normal S1, S2. No: Murmurs Abdomen: Present: Tenderness (+ minimal lower abd tenderness). No: Distention, Peritoneal Signs, Rebound, Guarding Back: Present: Normal Inspection. No: CVA Tenderness, Midline Tenderness, Paraspinal Tenderness Upper Extremity: Present: Normal ROM Lower Extremity: Present: Normal ROM Neurological: Present: GCS=15, Speech Normal Skin: Present: Warm, Dry, Normal Color. No: Rashes Psychiatric: Present: Alert, Oriented x 3 Medical Decision Making ED Course and Treatment: 08/25/18 14:06 57yr old male with n/v/d, abdominal pain, decreased appetite. cbc; hemoconcentrated CMP: BUN 46 creatinine 2.2 glucose 449 Lipase within normal limits lactate; 3.0; pt does not have 2 sirs criteria and does not meet sepsis criteria. vbg; ph; 7.41 Chest x-ray: No infiltrate or effusion no cardiomegaly EKG shows normal sinus rhythm at 74 bpm [address]TC [address] elevations CAT scan of the abdomen and pelvis:FINDINGS: LOWER THORAX: Unremarkable. LIVER: Unremarkable. No gross lesion or ductal dilatation. 15 mm hypodense lesion in the liver, probable cyst. GALLBLADDER AND BILE DUCTS: Gallbladder removed PANCREAS: Unremarkable. No gross lesion or ductal dilatation. SPLEEN: Unremarkable. ADRENALS: Unremarkable. No mass. KIDNEYS AND URETERS: Unremarkable. No hydronephrosis. No solid mass. Left renal cyst VASCULATURE: Unremarkable. No aortic aneurysm. Aortic calcification. BOWEL: Unremarkable. No obstruction. No gross mural thickening. APPENDIX: Unremarkable. Normal appendix. PERITONEUM: Unremarkable. No free fluid. No free air. LYMPH NODES: Unremarkable. No enlarged lymph nodes. BLADDER: Unremarkable. REPRODUCTIVE: Unremarkable. BONES: No acute fracture. OTHER FINDINGS: None. IMPRESSION: Unremarkable non contrast enhanced CT of the abdomen and pelvis. after 1L NS fingerstick is 318. pt given 4units sq regular insulin. pt with hx of CHF: BNP; 438 will start NS at 75mls/hr. 08/25/18 14:[address] swanson; accepts admission impression; DIEUDONNE, dehydration, abdominal pain, hyperglycemia admit 08/25/18 18:26 - Lab Interpretations Lab Results: pO2 20 mm/Hg (30-55) L 08/25/18 10:55 VBG pH 7.41 (7.32-7.43) 08/25/18 10:55 VBG pCO2 55.0 (40-60) 08/25/18 10:55 VBG HCO3 34.9 mmol/l (21-28) H 08/25/18 10:55 VBG Total CO2 36.6 mmol.L (22-28) H 08/25/18 10:55 VBG O2 Sat (Calc) 42.3 % (40-65) 08/25/18 10:55 VBG Base Excess 8.4 mmol/L (0.0-2.0) H 08/25/18 10:55 VBG Potassium 4.5 mmol/L (3.6-5.2) 08/25/18 10:55 Sodium 128.0 mmol/L (132-148) L 08/25/18 10:55 Chloride 85.0 mmol/L (98-107) L 08/25/18 10:55 Glucose 318 mg/dl (75-110) H 08/25/18 10:55 Lactate 3.0 mmol/L (0.7-2.1) H 08/25/18 10:55 FiO2 21.0 % 08/25/18 10:55 Crit Value Called To Dr bryant 08/25/18 10:55 Crit Value Called By Roly 08/25/18 10:55 Blood Gas Notified Time 1110 08/25/18 10:55 Troponin I < 0.01 ng/mL 08/25/18 11:00 Total Bilirubin 1.2 mg/dL (0.2-1.3) 08/25/18 10:27 AST 41 U/L (17-59) 08/25/18 10:27 ALT 74 U/L (7-56) H 08/25/18 10:27 Alkaline Phosphatase 175 U/L (38-126) H 08/25/18 10:27 Total Protein 7.3 g/dL (5.8-8.3) 08/25/18 10:27 Albumin 4.3 g/dL (3.0-4.8) 08/25/18 10:27 Globulin 3.0 gm/dL 08/25/18 10:27 Albumin/Globulin Ratio 1.4 (1.1-1.8) 08/25/18 10:27 Lipase 90 U/L (23-300) 08/25/18 10:27 Urine Color Yellow (YELLOW) 08/25/18 10:20 Urine Appearance Clear (CLEAR) 08/25/18 10:20 Urine pH 5.5 (4.7-8.0) 08/25/18 10:20 Ur Specific [place] >= 1.030 (1.005-1.035) 08/25/18 10:20 Urine Protein 100 mg/dL (<30 mg/dL) H 08/25/18 10:20 Urine Glucose (UA) >=1000 mg/dL (NEGATIVE) 08/25/18 10:20 Urine Ketones Negative mg/dL (NEGATIVE) 08/25/18 10:20 Urine Blood Trace-lysed (NEGATIVE) H 08/25/18 10:20 Urine Nitrate Negative (NEGATIVE) 08/25/18 10:20 Urine Bilirubin Negative (NEGATIVE) 08/25/18 10:20 Urine Urobilinogen 0.2 E.U./dL (<1 E.U./dL) 08/25/18 10:20 Ur Leukocyte Esterase Negative Sayda/uL (NEGATIVE) 08/25/18 10:20 Urine RBC 1 - 3 /hpf (0-2) H 08/25/18 10:20 Urine WBC 0 - 2 /hpf (0-6) 08/25/18 10:20 Ur Epithelial Cells 0 - 2 /hpf (0-5) 08/25/18 10:20 Amorphous Sediment Few /hpf (NONE) 08/25/18 10:20 Urine Bacteria Mod /hpf (NONE) 08/25/18 10:20 Hyaline Casts 0 - 2 /hpf (NONE) 08/25/18 10:20 Fine Granular Casts 0 - 2 /hpf (NONE) 08/25/18 10:20 Urine Other Uyeast /hpf 08/25/18 10:20 - RAD Interpretation Radiology Orders: 08/25/18 10:17 CHEST PORTABLE [RAD] Stat 08/25/18 11:15 ABD & PELVIS W/O PO OR IV CONT [CT] Stat - Medication Orders Current Medication Orders: Discontinued Medications Sodium Chloride (Sodium Chloride 0.9%) 1,000 mls @ 999 mls/hr IV .Q1H1M STA Stop: 08/25/18 11:17 Last Admin: 08/25/18 10:38 Dose: 999 mls/hr eMAR Start Stop Document 08/25/18 10:38 BB (Rec: 08/25/18 10:38 [id number] Intravenous Solution Start Date 08/25/18 Start Time 10:38 Insulin Human Regular (Humulin R) 4 units SC STAT STA Stop: 08/25/18 13:19 Morphine Sulfate (Morphine) 4 mg IVP STAT STA Stop: 08/25/18 10:29 Last Admin: 08/25/18 10:38 Dose: 4 mg MAR Pain Assessment Document 08/25/18 10:38 BB (Rec: 08/25/18 10:39 [id number] Pain Reassessment Is this a pain reassessment? No Sleep Is patient sleeping during reassessment? No Presence of Pain Presence of Pain Yes Pain Scale Used Protocol: PSCALES Pain Scale Used Numeric Location Upper or Lower Lower Pain Location Body Site Abdomen Description Description Constant Intensity of Pain at present 9 Pain Behavior Moaning Guarding Withdrawal from Touch Grasping Site Rubbing Site Restlessness Facial Grimacing IVP Administration Document 08/25/18 10:38 BB (Rec: 08/25/18 10:39 [id number] Charges for Administration # of IVP Administrations 1 Ondansetron HCl (Zofran Inj) 4 mg IVP STAT STA Stop: 08/25/18 10:18 Last Admin: 08/25/18 10:39 Dose: 4 mg IVP Administration Document 08/25/18 10:39 BB (Rec: 08/25/18 10:39 [id number]) Charges for Administration # of IVP Administrations 1 Disposition/Present on Arrival - Present on Arrival Any Indicators Present on Arrival: No History of DVT/PE: No History of Uncontrolled Diabetes: No Urinary Catheter: No History of Decub. Ulcer: No History Surgical Site Infection Following: None - Disposition Have Diagnosis and Disposition been Completed?: Yes Diagnosis: Acute kidney injury, Dehydration, Abdominal pain, Hyperglycemia Disposition: HOSPITALIZED Disposition Time: 13:00 Patient Plan: Admission Patient Problems: Current Active Problems Problem Status Onset Abdominal pain Acute Acute kidney injury Acute Dehydration Acute Hyperglycemia Acute Condition: FAIR
[2018-08-25] MEDS: Sodium Chloride 0.9% 1,000 ML IV SCH (15:13)
[2018-08-25 15:39] LABS: VENOUS BLOOD GAS BASE EXCESS 8.8 mmol/L (0.0-2.0); VENOUS BLOOD GAS PO2 53 mm/Hg (30-55); VENOUS BLOOD PH 7.46 (7.32-7.43)
--- NOTE | 2018-08-25 16:46 | CARD ---
APPROVED REPORT Date of service: 08/25/2018 EKG Measurement Heart [id number] <Conclusion> Normal sinus rhythm Possible Left atrial enlargement Intraventricular conducrion delay of RBBB type Inferior infarct, age undetermined CCR Abnormal ECG
--- NOTE | 2018-08-25 17:19 | HP ---
HISTORY OF PRESENT ILLNESS: The patient is a 57-year-old man with a past medical history of peptic ulcer disease and diverticulosis who presented for evaluation of a 3 day history of lower abdominal pain associated with nausea, vomiting, loose stools and decreased p.o. intake. He states that his symptoms began suddenly and have gradually worsened since onset. He initially reported mild abdominal discomfort associated with cramping which progressed to nausea, vomiting and loose stools. He denies fevers, chills, rigors, melena, hematochezia or hematemesis associated with his symptoms. Due to his inability to tolerate p.o. intake he opted for ED evaluation. In the ED he was afebrile and hemodynamically stable, albeit in mild distress secondary to abdominal pain. Laboratory studies were consistent with hemoconcentration and demonstrated acute kidney injury. He was started on gentle IV fluid hydration and subsequently admitted for continued management of abdominal pain. PAST MEDICAL HISTORY: As per HPI, also PAD s/p IR revascularization s/p right SFA stent, CAD s/p CABG, hyperlipidemia, non-insulin dependent diabetes mellitus, paroxysmal AFib, lumbosacral radiculopathy and chronic opioid dependence. PAST SURGICAL HISTORY: Right SFA stent. ALLERGIES: Levaquin and Penicillin. MEDICATIONS: Lipitor 40 mg p.o. daily, Toprol XL 50 mg p.o. daily, Glipizide ER 10 mg p.o. daily, Xanax 2 mg p.o. at bedtime, Pepcid 20 mg p.o. daily, Carafate suspension 1 g p.o. t.i.d. and Oxycodone 30 mg p.o. t.i.d. FAMILY HISTORY: Noncontributory. SOCIAL HISTORY: The patient has an extensive history of illicit drug abuse consisting of marijuana use and opioids purchased illicitly on the street. He also has a [id number] smoking history and reports social alcohol use. REVIEW OF SYSTEMS: A 12-point review of systems is negative except as per HPI. PHYSICAL EXAMINATION: VITAL SIGNS: Temperature 98.5, pulse 88, blood pressure 125/77, respiratory rate 18, oxygen saturation 100% on room air. GENERAL: No apparent distress. HEENT: PERRL, EOMI. No scleral icterus. No conjunctival pallor. Dry mucous membranes are noted. NECK: No JVD. No bruits. LUNGS: Clear to auscultation. CARDIOVASCULAR: Regular rate and rhythm. Normal S1 and S2. ABDOMEN: Normoactive bowel sounds, soft, tender to palpation to lower abdomen with voluntary guarding. No rigidity, no tympany. EXTREMITIES: No edema. NEUROLOGIC: Awake, alert and oriented x 3. No focal motor deficits. LABORATORY DATA: WBC 12.5 with 86% neutrophils, hemoglobin 19, hematocrit 55, platelets 195. Sodium 133, potassium 4.6, chloride 85, bicarb 34, BUN 46, creatinine 2.2, glucose 449. IMAGING STUDIES: 1. Chest x-ray demonstrated no acute pathology. 2. CT of the abdomen and pelvis without contrast demonstrated no acute pathology. ASSESSMENT: The patient is a 57-year-old man with multiple medical comorbidities who presented for evaluation of a 3 day history of lower abdominal pain associated with decreased fluid intake and was admitted for management of acute kidney injury and dehydration. PLAN: 1. Abdominal pain, likely secondary to gastroenteritis, resolving. CT imaging reviewed and negative for acute pathology. We will start Zofran 4 mg IV q. 6 hours p.r.n. nausea. We will advance diet as tolerated. 2. Acute kidney injury, likely secondary to prerenal azotemia in the setting of poor p.o. intake. Continue with normal saline at 75 mL/hour and continue to encourage p.o. intake. We will monitor strict I&O's, renally dose medications and avoid nephrotoxins. 3. Peptic ulcer disease. Resume Protonix 40 mg p.o. daily. 4. CAD s/p CABG. Continue Lipitor 40 mg p.o. daily and Aspirin 81 mg p.o. daily. 5. Paroxysmal AFib. The patient remains rate-controlled. 6. Type 2 diabetes mellitus. Resume Glipizide 10 mg p.o. daily and medium dose insulin sliding scale for coverage. Continue to monitor fingerstick q.a.c. and at bedtime. 7. Hyperlipidemia. Continue Lipitor 40 mg p.o. daily. 8. Lumbosacral radiculopathy. Resume Oxycodone 30 mg p.o. q. 8 hours as needed for pain. 9. Anxiety disorder. 10. Prophylaxis. GI prophylaxis is not indicated as the patient remains on Protonix. DVT prophylaxis is not indicated as the patient is ambulatory. CODE STATUS: Full code. Hany Busch MD ZECHARIAH
[2018-08-25] MEDS: Insulin Reg-MEDIUM-Coverage SC SCH (17:49)
[2018-08-25] MEDS: oxyCODONE 30 mg Immediate Release Tab PO PRN (18:15)
[2018-08-25] MEDS ORDERED: Pneumococcal 23-Valent Vaccine IM ONE (18:32)
[2018-08-25] MEDS ORDERED: Benzocaine/Menthol (Cepacol) Lozenge MT STA (21:13)
[2018-08-26] MEDS: Insulin Reg-MEDIUM-Coverage SC SCH ×4 (00:36→17:05)
[2018-08-26] MEDS: Sodium Chloride 0.9% 1,000 ML IV SCH (03:58)
[2018-08-26] MEDS: oxyCODONE 30 mg Immediate Release Tab PO PRN ×2 (03:58→11:22)
[2018-08-26 07:06] LABS: BASO # 0.02 K/mm3 (0.0-2.0); BASO % 0.2 % (0.0-3.0); EOS # 0.1 (0.0-0.7); EOS % 0.5 % (1.5-5.0); HEMOGLOBIN 17.5 g/dL (14.0-18.0); LYMPH # 1.6 (1.2-3.4); LYMPH % 15.5 % (22.0-35.0); MEAN CELL VOLUME 85.4 fl (80.0-105.0); MEAN CORPUSCULAR HEMOGLOBIN 28.5 pg (25.0-35.0); MEAN CORPUSCULAR HGB CONC 33.3 g/dl (31.0-37.0); MEAN PLATELET VOLUME 9.5 fl (7.0-11.0); MONO # 0.7 (0.1-0.6); MONO % 7.1 % (1.0-6.0); RBC 6.15 10^6/uL (3.5-6.1); RED CELL DISTRIBUTION WIDTH 14.3 % (11.5-14.5); WHITE BLOOD COUNT 10.4 10^3/uL (4.5-11.0)
[2018-08-26 07:26] LABS: ALB/GLOB RATIO 1.4 (1.1-1.8); ALBUMIN 3.6 g/dL (3.0-4.8); CALCIUM 8.8 mg/dL (8.4-10.5)
[2018-08-26] MEDS ORDERED: GlipiZIDE 10 mg SR Tab PO SCH (10:00)
[2018-08-26] MEDS ORDERED: Pantoprazole 40 mg EC Tab PO SCH (10:00)
--- NOTE | 2018-08-26 18:18 | PN ---
DATE: 08/26/2018 SUBJECTIVE: The patient is lying comfortably in bed. He says he feels much better although he still has some mild abdominal pain. No nausea or vomiting, no diarrhea. There have been no acute events overnight. PHYSICAL EXAMINATION: VITAL SIGNS: Temperature of 98.3, pulse rate of 62. HEENT: PERRLA, EOMI. No icterus is present. NECK: Supple with full range of motion. No adenopathy or JVD present. LUNGS: Clear to auscultation and percussion bilaterally. HEART: Regular rate and rhythm. No murmurs, rubs or gallops. ABDOMEN: Soft. It is nontender. Bowel sounds are normoactive. EXTREMITIES: Show no deformities or edema. NEUROLOGIC: There are no focal deficits. LABORATORY VALUES: WBCs are down to 10.4, hemoglobin down to 17.5. Chemistry, BUN of 35, creatinine of 1.6 random glucose of 211. ASSESSMENT AND PLAN: We will continue intravenous fluids and possibly discharge home tomorrow if the patient continues improving. PROBLEM LIST: Dehydration with prerenal azotemia and viral gastroenteritis. Noah Busch MD
[2018-08-26 22:59] VITALS: BP 168/82; PULSE 62; RESP 18; TEMP 98.5; O2SAT 96
[2018-08-27] MEDS: Insulin Reg-MEDIUM-Coverage SC SCH (00:09)
[2018-08-27] MEDS: oxyCODONE 30 mg Immediate Release Tab PO PRN ×2 (00:12→05:56)
[2018-08-27] MEDS ORDERED: Metoprolol Succinate 50 mg XL Tab PO SCH (08:00)
--- NOTE | 2018-08-28 02:19 | DS ---
ADMISSION DIAGNOSES: Viral gastroenteritis, dehydration and acute kidney injury. DISCHARGE DIAGNOSES: Viral gastroenteritis, dehydration and acute kidney injury. SECONDARY DIAGNOSES: Peptic ulcer disease, CAD s/p CABG, paroxysmal afib, T2DM, hyperlipidemia, anxiety disorder, lumbosacral radiculopathy and chronic opioid dependence. CONSULTATIONS: None. IMAGING STUDIES: 1. Chest x-ray demonstrated no acute pathology. 2. CT of the abdomen and pelvis without contrast demonstrated no acute pathology. DIAGNOSTIC STUDIES: None. PROCEDURES: None. HISTORY OF PRESENT ILLNESS: The patient is a 57-year-old man with a past medical history of peptic ulcer disease and diverticulosis who presented for evaluation of a 3 day history of lower abdominal pain associated with nausea, vomiting, loose stools and decreased p.o. intake. He states that his symptoms began suddenly and have gradually worsened since onset. He initially reported mild abdominal discomfort associated with cramping which progressed to nausea, vomiting and loose stools. He denies fevers, chills or rigors, melena, hematochezia or hematemesis associated with his symptoms. Due to his inability to tolerate p.o. intake, he opted for ED evaluation. In the ED he was afebrile and hemodynamically stable, albeit in mild distress secondary to abdominal pain. Laboratory studies were consistent with hemoconcentration and demonstrated acute kidney injury. He was started on gentle IV fluid hydration, antiemetics and subsequently admitted for continued management of abdominal pain. HOSPITAL COURSE: Upon admission to the general medical [facility] the patient was maintained on IV fluid hydration and antiemetic medications. His home medical regimen was restarted. The patient was noted to become agitated during his hospital stay requesting for higher doses of narcotic medications and insisting on intravenous opioids. He has an extensive history of opioid abuse and was counseled multiple times on the need for detoxification and advised to pursue rehab. Due to his growing frustration that his demands were not met for his desired opioids he opted to sign out against medical advice. DISPOSITION: The patient signed out AMA. Hany Busch MD [facility]
== END 2018-08-27 06:30 | disposition left against medical advice (07) | DRG 392 ==
LOC: ED 09:48 → ERH 14:18 → 5RSO 15:38 → 5RNO 08-26 10:05
PROVIDERS: ADMIT Student in an Organized Health Care Education/Training Program; ATTEND Student in an Organized Health Care Education/Training Program
DX: A08.4 Viral intestinal infection, unspecified (principal); N17.9 Acute kidney failure, unspecified; F11.20 Opioid dependence, uncomplicated; E86.0 Dehydration; I11.0 Hypertensive heart disease with heart failure; I25.10 Atherosclerotic heart disease of native coronary artery without angina pectoris; J44.9 Chronic obstructive pulmonary disease, unspecified; E11.65 Type 2 diabetes mellitus with hyperglycemia; I48.0 Paroxysmal atrial fibrillation; M54.17 Radiculopathy, lumbosacral region; R11.2 Nausea with vomiting, unspecified; R10.9 Unspecified abdominal pain; Z87.891 Personal history of nicotine dependence; F12.90 Cannabis use, unspecified, uncomplicated; G89.29 Other chronic pain; Z87.11 Personal history of peptic ulcer disease; E78.5 Hyperlipidemia, unspecified; F41.9 Anxiety disorder, unspecified; K27.9 Peptic ulcer, site unspecified, unspecified as acute or chronic, without hemorrhage or perforation; Z79.02 Long term (current) use of antithrombotics/antiplatelets; Z87.01 Personal history of pneumonia (recurrent); Z90.49 Acquired absence of other specified parts of digestive tract; Z95.1 Presence of aortocoronary bypass graft; Z95.5 Presence of coronary angioplasty implant and graft

== ENCOUNTER 2018-09-07 08:34 | Emergency (ER) | payer MEDICARE ==
[2018-09-07 08:35] VITALS: BMI 31.3
[2018-09-07] MEDS ORDERED: Sodium Chloride 0.9% 500 ML IV STA (08:52)
--- NOTE | 2018-09-07 08:57 | ED PDOC ---
Arrival/HPI - General Chief Complaint: Abdominal Pain Time Seen by Provider: 09/07/18 08:36 Historian: Patient - History of Present Illness Narrative History of Present Illness (Text): 09/07/18 08:52 A 57 year old male, whose past medical history includes CABG and cholecystectomy, presents to the emergency department with a complaint of chronic abdominal pain. Patient was recently admitted on 08/25 for similar complaints, but at that time, patient was complaining of associated nausea, vomiting, and diarrhea. The patient signed out against medical advice because he was not getting the pain medication he wanted. Patient's CT scan on 08/25 is unremarkable. The patient notes that the pain never went away, but denies associated nausea, vomiting, diarrhea . He notes that he saw his pain management doctor who cut his Oxycontin from 30 mg to 15 mg. Patient notes that his pain has worsened. He states that he called Dr. Gupta, but can not get an appointment until next month so he decided to come into the emergency department for further evaluation. Patient is a 1/2 pack per day smoker, smokes marijuana, and a non- drinker. Patient denies fevers, chills, headache, dizziness, chest pain, shortness of breath, dyspnea on exertion, cough, nausea, vomiting, diarrhea, back pain, neck pain, urinary/bowel changes, or any other complaint. Time/Duration: Other (Several days) Symptom Onset: Sudden Symptom Course: Unchanged Activities at Onset: Rest, Light Context: Home Past Medical History - Provider Review Nursing Documentation Reviewed: Yes Primary Care Provider: Noah Busch - Infectious Disease Hx of Infectious Diseases: None - Tetanus Immunization Tetanus Immunization: Unknown - Cardiac Hx Hypertension: Yes - Pulmonary Hx Bronchitis: Yes Hx Chronic Obstructive Pulmonary Disease (COPD): Yes Hx Pneumonia: Yes - Neurological Hx Neurological Disorder: Yes (rle peripheral neuropathy) - HEENT Hx HEENT Disorder: No - Renal Hx Renal Disorder: No - Endocrine/Metabolic Hx Endocrine Disorders: Yes Hx Diabetes Mellitus Type 2: Yes - Hematological/Oncological Hx Blood Disorders: Yes Hx Anemia: Yes - Integumentary Hx Dermatological Disorder: Yes - Musculoskeletal/Rheumatological Hx Arthritis: Yes - Gastrointestinal Hx Diverticulitis: Yes Hx Gall Bladder Disease: Yes Hx Gastrointestinal Ulcer: Yes - Genitourinary/Gynecological Hx Genitourinary Disorders: Yes Other/Comment: acute kidney injury 2018 - Psychiatric Hx Psychophysiologic Disorder: No Hx Substance Use: Yes - Past Surgical History Past Surgical History: Non-Contributing - Surgical History Hx Cholecystectomy: Yes Hx Coronary Artery Bypass Graft: Yes Hx Coronary Stent: Yes - Anesthesia Hx Anesthesia: Yes Hx Anesthesia Reactions: Yes (WAKES UP ANGRY) Hx Malignant Hyperthermia: No - Suicidal Assessment Feels Threatened In Home Enviroment: No Family/Social History - Physician Review Nursing Documentation Reviewed: Yes Family/Social History: No Known Family HX Smoking Status: Light Smoker < 10 Cigarettes Daily Hx Alcohol Use: No Hx Substance Use: Yes Substance used: marijuana Hx Substance Use Treatment: No Allergies/Home Meds Allergies/Adverse Reactions: Allergies levofloxacin [From Levaquin] Allergy (Severe, Verified 09/07/18 08:55) URTICARIA Penicillins Allergy (Severe, Verified 09/07/18 08:55) RASH Home Medications: Home Meds Medication Instructions Recorded Confirmed Hydroxychloroquine Sulfate 200 mg PO BID 09/07/18 09/07/18 [Plaquenil] Lisinopril [Zestril] 10 mg PO DAILY 09/07/18 09/07/18 Review of Systems - Physician Review All systems were reviewed & negative as marked: Yes - Review of Systems Constitutional: absent: Fevers Respiratory: absent: SOB, Cough Cardiovascular: absent: Chest Pain, CM Gastrointestinal: Abdominal Pain. absent: Stool Changes, Diarrhea, Nausea, Vomiting Genitourinary Male: absent: Urinary Output Changes Musculoskeletal: absent: Back Pain, Neck Pain Neurological: absent: Headache, Dizziness Physical Exam Vital Signs Reviewed: Yes Vital Signs Temp Pulse Resp BP Pulse Ox 09/07/18 08:50 98.5 F 77 16 128/78 99 Temperature: Afebrile Blood Pressure: Normal Pulse: Regular Respiratory Rate: Normal Appearance: Positive for: Non-Toxic, Uncomfortable Pain Distress: None Mental Status: Positive for: Alert and Oriented X 3 - Systems Exam Head: Present: Atraumatic, Normocephalic Pupils: Present: PERRL Extroacular Muscles: Present: EOMI Conjunctiva: Present: Normal Mouth: Present: Moist Mucous Membranes Neck: Present: Normal Range of Motion Respiratory/Chest: Present: Clear to Auscultation, Good Air Exchange. No: Respiratory Distress, Accessory Muscle Use Cardiovascular: Present: Regular Rate and Rhythm, Normal S1, S2. No: Murmurs Abdomen: Present: Scars (Right upper quadrant scar.). No: Tenderness, Distention, Peritoneal Signs, Rebound, Guarding Back: Present: Normal Inspection. No: CVA Tenderness Upper Extremity: Present: Normal Inspection. No: Cyanosis, Edema Lower Extremity: Present: Normal Inspection. No: Edema Neurological: Present: GCS=15, CN II-XII Intact, Speech Normal Skin: Present: Warm, Dry, Normal Color. No: Rashes Psychiatric: Present: Alert, Oriented x 3, Normal Insight, Normal Concentration Medical Decision Making ED Course and Treatment: 09/07/18 09:00 Impression: A 57 year old male presents to the emergency department with a complaint of chronic abdominal pain. Plan: -- Labs -- Protonix, Toradol, and IV Fluids -- Reassess and disposition Prior Visits: Notes and results from previous visits were reviewed. Patient was seen in the emergency department on 08/25/18 for similar complaints. Patient was hospitalized, but signed out AMA after not receiving the pain medication he requested. CT from 08/25 is unremarkable. Progress Notes: 09/07/18 10:33 Symptoms markedly improved post Toradol. Patient's work-up is unremarkable, other than an elevated blood sugar. He has an appointment with GI next month. He states that he feels well enough to go home. He will follow-up with his PMD and steam table attendant. Follow-up in the ER as needed. - Lab Interpretations I have reviewed the lab results: Yes - Scribe Statement The provider has reviewed the documentation as recorded by the [facility] [place] Provider Scribe Attestation: All medical record entries made by the Scribe were at my direction and personally dictated by me. I have reviewed the chart and agree that the record accurately reflects my personal performance of the history, physical exam, medical decision making, and the department course for this patient. I have also personally directed, reviewed, and agree with the discharge instructions and disposition. Disposition/Present on Arrival - Present on Arrival Any Indicators Present on Arrival: No History of DVT/PE: No History of Uncontrolled Diabetes: No Urinary Catheter: No History of Decub. Ulcer: No History Surgical Site Infection Following: None - Disposition Have Diagnosis and Disposition been Completed?: Yes Diagnosis: Chronic abdominal pain Disposition: HOME/ ROUTINE Disposition Time: 10:34 Patient Plan: Discharge Condition: IMPROVED Discharge Instructions (ExitCare): Chronic Pain Additional Instructions: Your prescription has been emailed. Follow-up with PMD and steam table attendant. Follow-up in the ER as needed. Prescriptions: Ketorolac Tromethamine [Toradol] 10 mg PO Q6 #20 tab Forms: [facility] (Slovenian)
[2018-09-07 09:41] LABS: BASO # 0.02 K/mm3 (0.0-2.0); BASO % 0.2 % (0.0-3.0); EOS # 0.1 (0.0-0.7); EOS % 0.7 % (1.5-5.0); HEMOGLOBIN 15.6 g/dL (14.0-18.0); LYMPH # 1.3 (1.2-3.4); LYMPH % 15.3 % (22.0-35.0); MEAN CELL VOLUME 84.4 fl (80.0-105.0); MEAN CORPUSCULAR HEMOGLOBIN 28.7 pg (25.0-35.0); MEAN PLATELET VOLUME 9.6 fl (7.0-11.0); MONO # 0.6 (0.1-0.6); MONO % 6.7 % (1.0-6.0); RBC 5.44 10^6/uL (3.5-6.1); RED CELL DISTRIBUTION WIDTH 14.2 % (11.5-14.5); WHITE BLOOD COUNT 8.5 10^3/uL (4.5-11.0)
[2018-09-07 09:50] LABS: ALB/GLOB RATIO 1.3 (1.1-1.8); ALBUMIN 3.5 g/dL (3.0-4.8); ALT/SGPT 36 U/L (7-56); AST/SGOT 23 U/L (17-59); BLOOD UREA NITROGEN 26 mg/dL (7-21); CALCIUM 8.8 mg/dL (8.4-10.5); GFR NON-AFRICAN AMERICAN > 60; LIPASE 69 U/L (23-300)
[2018-09-07 10:40] VITALS: BP 141/75; PULSE 63; RESP 17; O2SAT 100
[2018-09-07 10:48] VITALS: TEMP 98.1
== END 2018-09-07 10:47 | disposition home or self-care (01) ==
LOC: ED 08:34
DX: R10.9 Unspecified abdominal pain (principal); G89.29 Other chronic pain; I10 Essential (primary) hypertension; E11.40 Type 2 diabetes mellitus with diabetic neuropathy, unspecified; Z90.49 Acquired absence of other specified parts of digestive tract; Z95.1 Presence of aortocoronary bypass graft; Z95.5 Presence of coronary angioplasty implant and graft; F17.210 Nicotine dependence, cigarettes, uncomplicated
CPT/HCPCS: 80053; 83690; 83735; 85025; 96374; 96375; 99284; C9113; J1885; J7040